=== PATIENT | female | born 1960 | race Caucasian/White ===

== ENCOUNTER 2016-09-23 21:23 | Inpatient (IN) | payer OTHER ==
[~2016-09-23] VITALS: Ht 162.6 cm; Wt 70.2 kg
[~2016-09-23 21:23] MED LIST: ALBU1AER5 INH; AMLO10 PO; LISI-515 PO; SYMB160A INH
[2016-09-23 21:53] VITALS: BP 135/76; PULSE 93; TEMP 98.1; O2SAT 93
[2016-09-23 21:54] VITALS: RESP 24; O2SAT 92
[2016-09-23 21:59] VITALS: BP 135/76; TEMP 98.1; O2SAT 93
[2016-09-23 23:07] VITALS: O2SAT 98
[2016-09-24] VITALS (13 sets, daily range): BP systolic 141–180; BP diastolic 1–108; PULSE 80–104; RESP 17–24; TEMP 97.9–98.8; O2SAT 91–99
--- NOTE | 2016-09-24 00:37 | RADRPT ---
EXAM DATE/TIME: 09/24/2016 00:27 [facility] COMPARISON: CHEST SINGLE AP, August 11, 2016, 11:01. INDICATIONS : Shortness of breath. MEDICAL HISTORY : Chronic obstructive pulmonary disease. Congestive heart failure. SURGICAL HISTORY : None. ENCOUNTER: Initial ACUITY: 1 day PAIN SCORE: 0/10 LOCATION: Bilateral chest FINDINGS: A single view of the chest demonstrates the lungs to be symmetrically aerated without evidence of mas s, infiltrate or effusion. There is hyperaeration of the lung iniguez. The cardiomediastinal contours are unremarkable. Osseous structures are intact. No significant changes compared to the prior study. CONCLUSION: No acute disease. No significant change has occurred. Michael Valle MD on September 24, 2016 at 0:35 Board Certified Radiologist. This report was verified electronically.
[2016-09-24 00:39] LABS: AUTOMATED NEUTROPHIL # 6.5 TH/MM3 (1.8-7.7); BASOPHIL % 0.4 % (0.0-2.0); EOSINOPHIL % 0.1 % (0.0-4.0); HEMATOCRIT 46.1 % (35.0-46.0); HEMO FLAGS DIFF FINAL; LYMPHOCYTE # 0.6 TH/MM3 (1.0-4.8); MEAN CELL VOLUME 92.6 FL (80.0-100.0); MEAN CORPUSCULAR HEMOGLOBIN 31.9 PG (27.0-34.0); MEAN CORPUSCULAR HGB CONC 34.5 % (32.0-36.0); MONO % 0.9 % (0.0-8.0); NEUT % 90.6 % (16.0-70.0); PLATELET COUNT 141 TH/MM3 (150-450); RED BLOOD COUNT 4.98 MIL/MM3 (4.00-5.30); RED CELL DISTRIBUTION WIDTH 14.3 % (11.6-17.2); WHITE BLOOD COUNT 7.1 TH/MM3 (4.0-11.0)
[2016-09-24 01:12] LABS: BICARBONATE 32.5 MEQ/L (21.0-32.0); POTASSIUM 3.9 MEQ/L (3.5-5.1)
--- NOTE | 2016-09-24 02:09 | PD ---
HPI Chief Complaint: Respiratory Symptoms Time Seen by Provider: 01:07 Travel History International Travel<30 days: No Contact w/Intl Traveler<30days: No Traveled to known affect area: No History of Present Illness HPI The patient is a 56 year old female who presents to the [facility] emergency department with a history of shortness of breath that began yesterday. The patient reports that she has a history of asthma and was out of her rescue inhaler. She reports that she recently received a refill of her rescue inhaler and Spiriva at the [facility]. The patient reports that she was then discharged from the emergency department. The patient reports that she's had a cough and congestion over the last several days. She reports that the cough is productive of a yellow and green thick sputum. She denies having any known fevers. She reports that she has chest tightness associated with her shortness of breath. Ambulance services were called regarding this patient's shortness of breath to a local bus stop. The patient was noted to have room air saturations of 87%. The patient was given an albuterol breathing treatment and 125 mg of Solu-Medrol IV. The patient's O2 saturation reportedly improved to 98% on 2 L. On my arrival to the room, the patient is noted to have O2 saturations of 90% on 4 L. The patient has a prolonged expiratory phase of breathing and some conversational dyspnea. The patient incidentally on review of systems also reports that she's had nausea, vomiting, and diarrhea today. She reports that she's had one episode of each. She reports that recently she is also had generalized abdominal discomfort. She denies having a primary care physician. The patient denies any recent known fevers, neck pain, urinary symptoms, or neurologic symptoms. [facility] Past Medical History Narrative Medical The patient's past medical history is obtained through the electronic medical record as the patient is a poor historian regarding her medical history. The patient has a history of asthma, bilateral hearing loss, acid reflux, headaches , hyperlipidemia, history of chest pain, COPD, hypertension, kidney stones, migraine headaches, anemia status post blood transfusion 1. Hx Anticoagulant Therapy: No Anemia: Yes (WITH BLOOD TRANSFUSION X 1) Asthma: Yes Autoimmune Disease: No Cancer: No Cardiovascular Problems: Yes (HTN) High Cholesterol: Yes Chemotherapy: No Chest Pain: Yes Congestive Heart Failure: No COPD: Yes Cerebrovascular Accident: No Coronary Artery Disease: No Diabetes: No Diminished Hearing: Yes ([place]) Endocrine: No Gastrointestinal Disorders: Yes GERD: Yes Genitourinary: Yes Headaches: Yes Hiatal Hernia: No Hypertension: Yes ([place]) Immune Disorder: No Kidney Stones: Yes Musculoskeletal: Yes Neurologic: Yes Psychiatric: No Reproductive: No Respiratory: Yes Immunizations Current: Yes Migraines: Yes Myocardial Infarction: No Renal Failure: No Seizures: No Sleep Apnea: No Thyroid Disease: No Ulcer: No Influenza Vaccination: No ?: Not Menopausal: Yes : 7 Para: 4 Miscarriage: 2 : 1 Ectopic : No Ovarian Cysts: No Dilation and Curettage (D&C): No Tubal Ligation: Yes Past Surgical History Narrative Surgical The patient's past surgical history is significant for bilateral tubal ligation , with some teeth extraction. AICD: No Arteriovenous Shunt: No Section: No Gynecologic Surgery: Yes (tubal) Hysterectomy: No Insulin Pump: No Joint Replacement: No Oral Surgery: Yes (wisdom teeth) Pacemaker: No Other Surgery: No Social History Alcohol Use: Yes (once a week) Tobacco Use: Yes (1/2 pack) Substance Use: No Allergies-Medications (Allergen,Severity, Reaction): Coded Allergies: Darvocet-N 100 (Verified Allergy, Mild, Nausea/Vomiting, 09/23/16) Reported Meds & Prescriptions Reported Meds & Active Scripts Active Review of Systems Except as stated in HPI: all other systems reviewed are Neg General / Constitutional: No: Fever Eyes: No: Visual changes HENT: No: Headaches Cardiovascular: Positive: Chest Pain or Discomfort (chest tightness), No: Dyspnea on exertion Respiratory: Positive: Cough, Shortness of Breath, Wheezing Gastrointestinal: No: Abdominal Pain Genitourinary: No: Dysuria Musculoskeletal: No: Pain Skin: No Rash Neurologic: No: Weakness Psychiatric: No: Depression Endocrine: No: Polydipsia Hematologic/Lymphatic: No: Easy Bruising Physical Exam Narrative General: The patient is a well-developed well-nourished female who is slightly short of breath on examination, prolonged expiratory phase of breathing. O2 saturations 90-91% on 4 L. Head and Neck exam: Head is normocephalic atraumatic. Eyes: Pupils are equal round and reactive to light. Nose: Midline septum with pink mucous membranes Mouth: Dentition unremarkable. Moist mucus membranes. Posterior oropharynx is not erythematous. No tonsillar hypertrophy. Uvula midline. Airway patent. Neck: No palpable lymphadenopathy. No nuchal rigidity. No thyromegaly. Cardiovascular: Regular rate and rhythm without murmurs, gallops, or rubs. Lungs: Soft expiratory wheezes audible throughout bilateral lung iniguez, no rhonchi, no crackles audible. The patient has a productive sounding intermittent cough on exam. Abdomen: Soft, with reported discomfort on palpation of the midepigastric area. No other tenderness on palpation of the other 4 quadrants of abdomen no guarding, rebound, or rigidity. Normal bowel sounds are audible. Extremities: No clubbing, cyanosis, or edema. 2+ pulses in all 4 extremities. No calf tenderness on palpation. Back: No spinous process tenderness to palpation. No costovertebral angle tenderness to palpation. Neurologic Exam: Grossly nonfocal. Skin Exam: No rash noted. Intact skin that is warm and dry. Data Data Last Documented VS Vital Signs Date Time Temp Pulse Resp B/P Pulse Ox O2 Delivery O2 Flow Rate FiO2 09/24/16 00:58 103 22 141/94 94 Nasal Cannula 4 09/23/16 21:59 98.1 Orders Basic Metabolic Panel (Bmp) (09/24/16 00:16) Complete Blood Count With Diff (09/24/16 00:16) Iv Access Insert/Monitor (09/24/16 00:16) Chest, Single Ap (09/24/16 00:16) Sodium Chloride 0.9% Flush (Ns Flush) (09/24/16 02:15) Albuterol-Ipratropium Neb (Duoneb Neb) (09/24/16 02:15) Levofloxacin 750 Mg Premix Inj (Levaquin (09/24/16 02:15) Admit Order (Ed Use Only) (09/24/16 02:56) Sodium Chlor 0.9% 1000 Ml Inj (Ns 1000 M (09/24/16 03:00) Acetaminophen (Tylenol) (09/24/16 03:00) Labs Laboratory Tests Test 09/24/16 00:22 White Blood Count 7.1 TH/MM3 Red Blood Count 4.98 MIL/MM3 Hemoglobin 15.9 GM/DL Hematocrit 46.1 % Mean Corpuscular Volume 92.6 FL Mean Corpuscular Hemoglobin 31.9 PG Mean Corpuscular Hemoglobin 34.5 % Concent Red Cell Distribution Width 14.3 % Platelet Count 141 TH/MM3 Mean Platelet Volume 8.5 FL Neutrophils (%) (Auto) 90.6 % Lymphocytes (%) (Auto) 8.0 % Monocytes (%) (Auto) 0.9 % Eosinophils (%) (Auto) 0.1 % Basophils (%) (Auto) 0.4 % Neutrophils # (Auto) 6.5 TH/MM3 Lymphocytes # (Auto) 0.6 TH/MM3 Monocytes # (Auto) 0.1 TH/MM3 Eosinophils # (Auto) 0.0 TH/MM3 Basophils # (Auto) 0.0 TH/MM3 CBC Comment DIFF FINAL Differential Comment Sodium Level 141 MEQ/L Potassium Level 3.9 MEQ/L Chloride Level 100 MEQ/L Carbon Dioxide Level 32.5 MEQ/L Anion Gap 9 MEQ/L Blood Urea Nitrogen 13 MG/DL Creatinine 0.76 MG/DL Estimat Glomerular Filtration 79 ML/MIN Rate Random Glucose 126 MG/DL Calcium Level 9.2 MG/DL MDM Medical Decision Making Medical Screen Exam Complete: Yes Emergency Medical Condition: Yes Medical Record Reviewed: Yes Interpretation(s) Last Impressions Chest X-Ray 09/24/16 0016 Signed Impressions: Service Date/Time: Saturday, September 24, 2016 00:27 - CONCLUSION: No acute disease. No significant change has occurred. Michael Valle MD Differential Diagnosis COPD exacerbation, versus pneumonia, versus acute bronchitis, versus congestive heart failure Narrative Course During the course of the patients emergency department visit, the patients history, examination, and differential diagnosis were reviewed with the patient. The patient had IV access obtained and blood work sent for analysis. The patient was placed on a railroad dining car stewardess with oximetry and blood pressure monitoring. The patient was provided DuoNeb 3. The patient was given Levaquin 750 mg IV times one. The patients laboratory studies were reviewed and remarkable for a white count of 7.1, hemoglobin 15.9, platelets 141 with 90.6 neutrophils, CMP is remarkable for CO2 of 32.5, glucose 126 Radiology studies were reviewed and remarkable for a chest x-ray that reveals no acute abnormality. The patient continued to have hypoxia on room air. The patient was continued on nasal cannula O2. The patient will be admitted to the hospital for observation and continued nebulizer treatments, IV steroids. The patients results were discussed with the patient, including the plan of care. I explained that further testing and/ or monitoring is indicated based on the patients history, examination, and/ or laboratory findings. Therefore, I recommended admission for additional evaluation. The patient expressed understanding and was agreeable with this plan. The patient was admitted to the hospital in stable condition and sent to a bed under the care of the [facility] service. Sepsis Criteria SIRS Criteria (2 or more): Heart rate over 90 Physician Communication Physician Communication The patient's case was discussed with Dr. Vela who did agree to admit the patient for further evaluation and treatment at this time. Diagnosis Primary Impression: COPD with exacerbation Additional Impression: Bronchitis Admitting Information Admitting Physician Requests: Penelope Hidalgo MD Sep 24, 2016 02:09
[2016-09-24] MEDS ORDERED: LEVOFLOXACIN 750 MG PREMIX INJ 150 ML IV ONE (02:15)
[2016-09-24] MEDS ORDERED: SODIUM CHLORIDE 0.9% FLUSH 5 ML FLUSH IVF PRN (02:15)
[2016-09-24] MEDS: RESP: ALBUTEROL 2.5 MG/IPRATROPIUM 0.5 MG NEB (SCH) INH ×2 (02:25→02:26)
[2016-09-24] MEDS ORDERED: SODIUM CHLOR 0.9% 1000 ML INJ 1,000 ML IV ONE (03:00)
[2016-09-24] MEDS ORDERED: ACETAMINOPHEN 325 MG TAB PO ONE (03:00)
[2016-09-24] MEDS ORDERED: NALOXONE HCL 0.4 MG/ML AMP IV PRN (04:00)
[2016-09-24] MEDS ORDERED: SODIUM CHLORIDE 0.9% FLUSH 5 ML FLUSH FLUSH PRN (04:00)
[2016-09-24] MEDS: RESP: ALBUTEROL 2.5 MG/IPRATROPIUM 0.5 MG NEB (SCH) NEB ×4 (05:13→20:47)
[2016-09-24] MEDS ORDERED: methylPREDNISolone SOD SUCC 40 MG/1 ML VIAL IV PUSH SCH (06:00)
[2016-09-24] MEDS: SODIUM CHLORIDE 0.9% FLUSH 5 ML FLUSH FLUSH SCH ×2 (09:00→21:15)
[2016-09-24] MEDS: PANTOPRAZOLE SOD 40 MG DELAYED RELEASE TAB PO SCH (09:27)
[2016-09-24] MEDS: predniSONE 50 MG TAB PO SCH (11:20)
[2016-09-24] MEDS ORDERED: NICOTINE 14 MG/24 HR PATCH TD ONE (14:30)
[2016-09-24] MEDS ORDERED: AZITHROMYCIN 250 MG TAB PO ONE (14:30)
[2016-09-24 15:47] LABS: BLOOD, URINE TRACE (NEG); COMMENT (UR) CULT NOT INDICATED; CULTURE IF INDICATED CULT NOT INDICATED; GLUCOSE,URINE NEG (NEG); KETONE, URINE NEG (NEG); MUCUS URINE FEW /lpf (OCC); NITRITE,URINE NEG (NEG); SQUAMOUS EPITHELIAL CELL URINE 2 /hpf (0-5); URINE COLOR YELLOW (YELLW/STRAW)
[2016-09-24] MEDS ORDERED: REMOVE OLD NICODERM (NICOTINE) PATCH TD SCH (21:00)
--- NOTE | 2016-09-24 21:25 | MB ---
cc: HUNTER SHERWOOD DATE OF CONSULTATION 09/24/2016 HISTORY Ms. Nava is a 56-year-old white female who has been hospitalized frequently, actually seven times as an inpatient or outpatient in the last year each time for respiratory difficulty. Last here in July. The problem is that she is homeless, she continues to smoke. She has no regular medical care and no consistent medication treatment. She presented this time. She said she stayed a night with her sister so that she could have a roof over her head her sister had some type of aerosol in her house and the fragrance irritated her and the patient could not breathe so she came to the emergency room. On presentation she was wheezing diffusely, was in respiratory distress. She received several aerosol treatments, IV corticosteroids and now is transferred to the floor and is comfortable at rest. PAST MEDICAL HISTORY Past medical history is taken from the record as the patient is a poor historian. None of these problems are treated regularly. She has: 1. Hypertension. 2. A history of kidney stones. 3. A history of diverticulitis. 4. Of course COPD. PAST SURGICAL HISTORY No major surgeries. ALLERGIES NAUSEA AND VOMITING WITH DARVOCET. SOCIAL HISTORY As noted above. She is homeless. She sleeps inside when she can but sleeps outside a lot. Apparently has a history of noncompliance and has not been approved for social security disability. REVIEW OF SYSTEMS She denies chest pain or hemoptysis. She has had no purulent sputum. She is chronically short of breath. She has not had increased swelling in her legs. No history of chronic reflux. No recent diarrhea. She says she is exposed animals in the various places she sleeps. MEDICATIONS Reviewed in the EMR. PHYSICAL EXAMINATION GENERAL: This is much older than stated age appearing woman. Flight of ideas but comfortable at rest. VITAL SIGNS: Afebrile, pulse is 100, respirations are 22, blood pressure 160/90 and 96% saturated on 2 liters. HEAD AND NECK: Sclerae anicteric. Neck veins are not distended. LUNGS: She has diffuse wheezing in both lungs, really no congestion. HEART: Regular rhythm. No harsh murmur. EXTREMITIES: No pitting edema or cyanosis. IMAGING Chest x-ray nothing acute. No infiltrates or fluid. LABORATORY DATA White count 7100, hemoglobin 15. BUN and creatinine are normal. BNP is normal. DISCUSSION Ms. Nava presents with recurrent exacerbation of COPD. Primary problem here is social, she has no home. She has no regular medical care. Continues to come in to the hospital with exacerbations of her COPD related to continued smoking and probably environmental factors as well. She is on appropriate therapy. There is really nothing more that I can add from a pulmonary standpoint at present. If she had a stable environment with regular medications these readmissions might be fewer. R. MD MOR Tejada/KK /6:10 PM /9:08 PM
[2016-09-24 21:46] LABS: AMPHETAMINE, URINE NEG (NEG); BARBITURATES, URINE NEG (NEG); COCAINE, URINE NEG (NEG)
--- NOTE | 2016-09-24 23:49 | HHI.HP ---
[facility] Primary [facility] Physician No Primary Care Physician Admission Diagnosis COPD exacerbation Diagnoses: Travel History International Travel<30 Days: No Contact w/Intl Traveler <30 Da: No Traveled to Known Affected Are: No Review of Systems Other performed and negative except for HPI and past medical history. Past Family Social History Past Medical History Hypertension COPD Chronic tobacco abuse History of kidney stones History of diverticulitis Past Surgical History History of wisdom tooth surgery Reported Medications patient states that she takes no medications. Allergies: Coded Allergies: Darvocet-N 100 (Verified Allergy, Mild, Nausea/Vomiting, 09/23/16) Family History Family history reviewed, and found to be currently noncontributory Social History Patient reports smoking 1 pack per day since being a teenager, however says that she quit recently, however says that she still smokes, just does not inhale. She requests nicotine patch. She denies drinking alcohol. Denies any illicit drugs. She reports that she is homeless. Physical Exam Vital Signs Vital Signs Date Time Temp Pulse Resp B/P Pulse Ox O2 Delivery O2 Flow Rate FiO2 09/24/16 20:53 94 Nasal Cannula 3.00 09/24/16 20:00 98.1 100 20 162/96 91 09/24/16 17:44 97.9 95 20 180/91 93 09/24/16 17:00 92 22 160/1 93 09/24/16 16:00 98 22 166/92 96 2 09/24/16 11:35 98 18 93 Nasal Cannula 2 09/24/16 11:33 98.8 98 18 172/96 93 Nasal Cannula 2 09/24/16 10:11 104 22 169/89 93 Nasal Cannula 2 09/24/16 09:40 94 Nasal Cannula 2.00 09/24/16 09:07 98 17 149/108 94 Nasal Cannula 2 09/24/16 06:16 80 18 168/78 99 Nasal Cannula 4 09/24/16 05:00 18 09/24/16 04:31 80 18 178/96 94 Nasal Cannula 4 09/24/16 00:58 103 22 141/94 94 Nasal Cannula 4 09/24/16 00:15 96 24 151/70 93 Nasal Cannula 2 Physical Exam GENERAL: 56-year-old female sitting up in bed. Appears older than stated age. She is alert and oriented 3. SKIN: No rashes, ecchymoses or lesions. Cool and dry. HEAD: Atraumatic. Normocephalic. No temporal or scalp tenderness. EYES: Pupils equal round and reactive. Extraocular motions intact. No scleral icterus. No injection or drainage. ENT: Nose without bleeding, purulent drainage or septal hematoma. Throat without erythema, tonsillar hypertrophy or exudate. Uvula midline. Airway patent. NECK: Trachea midline. No JVD or lymphadenopathy. Supple, nontender, no meningeal signs. CARDIOVASCULAR: Regular rate and rhythm without murmurs, gallops, or rubs. RESPIRATORY: patient does have expiratory wheezing bilaterally. No crackles. No rhonchi. GASTROINTESTINAL: Abdomen soft, non-tender, nondistended. No hepato-splenomegaly , or palpable masses. No guarding. MUSCULOSKELETAL: Extremities without clubbing, cyanosis, or edema. No joint tenderness, effusion, or edema noted. No calf tenderness. Negative Homans sign bilaterally. NEUROLOGICAL: Awake and alert. Cranial nerves II through XII intact. Motor and sensory grossly within normal limits. Five out of 5 muscle strength in all muscle groups. Normal speech. Laboratory Laboratory Tests Test 09/24/16 09/24/16 09/24/16 00:22 13:42 15:28 White Blood Count 7.1 Red Blood Count 4.98 Hemoglobin 15.9 Hematocrit 46.1 Mean Corpuscular Volume 92.6 Mean Corpuscular Hemoglobin 31.9 Mean Corpuscular Hemoglobin 34.5 Concent Red Cell Distribution Width 14.3 Platelet Count 141 Mean Platelet Volume 8.5 Neutrophils (%) (Auto) 90.6 Lymphocytes (%) (Auto) 8.0 Monocytes (%) (Auto) 0.9 Eosinophils (%) (Auto) 0.1 Basophils (%) (Auto) 0.4 Neutrophils # (Auto) 6.5 Lymphocytes # (Auto) 0.6 Monocytes # (Auto) 0.1 Eosinophils # (Auto) 0.0 Basophils # (Auto) 0.0 CBC Comment DIFF FINAL Differential Comment Sodium Level 141 Potassium Level 3.9 Chloride Level 100 Carbon Dioxide Level 32.5 Anion Gap 9 Blood Urea Nitrogen 13 Creatinine 0.76 Estimat Glomerular Filtration 79 Rate Random Glucose 126 Calcium Level 9.2 B-Type Natriuretic Peptide 30 Urine Color YELLOW Urine Turbidity CLEAR Urine pH 6.0 Urine Specific Harriet 1.021 Urine Protein 30 Urine Glucose (UA) NEG Urine Ketones NEG Urine Occult Blood TRACE Urine Nitrite NEG Urine Bilirubin NEG Urine Urobilinogen LESS THAN 2.0 Urine Leukocyte Esterase TRACE Urine RBC 4 Urine WBC 1 Urine Squamous Epithelial 2 Cells Urine Mucus FEW Microscopic Urinalysis Comment CULT NOT INDICATED Urine Opiates Screen NEG Urine Barbiturates Screen NEG Urine Amphetamines Screen NEG Urine Benzodiazepines Screen NEG Urine Cocaine Screen NEG Urine Cannabinoids Screen NEG Date/Time Procedure Status Source Growth 09/24/16 15:28 Legionella Antigen Received Urine Clean Catch Pending Result Diagram: 09/24/16 0022 09/24/16 0022 Imaging Last Impressions Chest X-Ray 09/24/16 0016 Signed Impressions: Service Date/Time: Saturday, September 24, 2016 00:27 - CONCLUSION: No acute disease. No significant change has occurred. Michael Valle MD Assessment and Plan Assessment and Plan //Acute COPD exacerbation -Chest x-ray reviewed. IV steroids. Duo nebs. Antibiotics. Incentive spirometer and Acapella. -Pulmonology consultation. //Hypertension. Chronic. Systolic blood pressure up to 170s today. Clonidine when necessary for systolic blood pressure over 180. Monitor closely. //Chronic smoking. Cessation counseling provided. Nicotine patch ordered. //Thrombocytopenia. Mild. No bleeding. Monitor. //Prophylaxis. Lovenox ordered. Discussed Condition With patient, nurse. Physician Certification 2 Midnight Certification Type: Admission for Inpatient Services Order for Inpatient Services The services are ordered in accordance with Medicare regulations or non- Medicare payer requirements, as applicable. In the case of services not specified as inpatient-only, they are appropriately provided as inpatient services in accordance with the 2-midnight benchmark. Estimated LOS (days): 2 days is the estimated time the patient will need to remain in the hospital, assuming treatment plan goals are met and no additional complications. Post-Hospital Plan: Home Jose Loving MD Sep 24, 2016 23:48
[2016-09-25] VITALS (8 sets, daily range): BP systolic 116–214; BP diastolic 54–108; PULSE 76–103; RESP 18–20; TEMP 97.1–98.4; O2SAT 92–99
[2016-09-25] MEDS: RESP: ALBUTEROL 2.5 MG/IPRATROPIUM 0.5 MG NEB (PRN) NEB ×2 (00:43→13:47)
[2016-09-25] MEDS: ENOXAPARIN SODIUM 40 MG/0.4 ML SYRINGE SQ SCH ×2 (00:45)
[2016-09-25] MEDS: RESP: ALBUTEROL 2.5 MG/IPRATROPIUM 0.5 MG NEB (SCH) NEB ×4 (02:59→22:45)
[2016-09-25 06:53] LABS: AUTOMATED NEUTROPHIL # 7.8 TH/MM3 (1.8-7.7); BASOPHIL % 0.1 % (0.0-2.0); EOSINOPHIL % 0.2 % (0.0-4.0); HEMATOCRIT 43.1 % (35.0-46.0); HEMO FLAGS DIFF FINAL; LYMPH % 14.8 % (9.0-44.0); LYMPHOCYTE # 1.5 TH/MM3 (1.0-4.8); MEAN CELL VOLUME 92.6 FL (80.0-100.0); MEAN CORPUSCULAR HEMOGLOBIN 31.3 PG (27.0-34.0); MEAN CORPUSCULAR HGB CONC 33.7 % (32.0-36.0); MONO % 6.5 % (0.0-8.0); NEUT % 78.4 % (16.0-70.0); PLATELET COUNT 156 TH/MM3 (150-450); RED BLOOD COUNT 4.65 MIL/MM3 (4.00-5.30); RED CELL DISTRIBUTION WIDTH 14.4 % (11.6-17.2); WHITE BLOOD COUNT 9.9 TH/MM3 (4.0-11.0)
[2016-09-25 07:03] LABS: BICARBONATE 31.9 MEQ/L (21.0-32.0); POTASSIUM 3.7 MEQ/L (3.5-5.1)
[2016-09-25] MEDS ORDERED: SODIUM CHLOR 0.9% 250 ML INJ 250 ML IV ONE (09:00)
[2016-09-25] MEDS: predniSONE 50 MG TAB PO SCH (09:44)
[2016-09-25] MEDS: LEVOFLOXACIN 750 MG TAB PO SCH (09:46)
[2016-09-25] MEDS: PANTOPRAZOLE SOD 40 MG DELAYED RELEASE TAB PO SCH (09:47)
[2016-09-25] MEDS: SODIUM CHLORIDE 0.9% FLUSH 5 ML FLUSH FLUSH SCH ×2 (09:50→21:27)
[2016-09-25] MEDS ORDERED: INFLUENZA VIRUS VACCINE (QUADRIVALENT) 0.5 ML SYR IM ONE (10:00)
[2016-09-25] MEDS ORDERED: PNEUMOCOCCAL POLYVALENT INJ 25 MCG/0.5 ML SYR IM ONE (10:00)
[2016-09-25] MEDS ORDERED: DOCUSATE SODIUM 50 MG/SENNA 8.6 MG TAB PO ONE (12:30)
[2016-09-25] MEDS: 1/2 NS + KCL 20 MEQ INJ 1,000 ML IV SCH (12:45)
[2016-09-25] MEDS ORDERED: DIATRIZOATE MEGLUM/DIATRIZOATE SOD 9 ML CUP PO ONE (13:01)
[2016-09-25] MEDS: cloNIDine HCL 0.1 MG TAB PO PRN ×2 (13:35→21:26)
[2016-09-25] MEDS: AZITHROMYCIN 250 MG TAB PO SCH (13:35)
[2016-09-25 20:03] LABS: BICARBONATE 33.4 MEQ/L (21.0-32.0); INDIRECT BILIRUBIN 0.1 MG/DL (0.0-0.8); POTASSIUM 4.3 MEQ/L (3.5-5.1); TOTAL BILIRUBIN ADULT 0.2 MG/DL (0.2-1.0)
[2016-09-25] MEDS ORDERED: IOHEXOL 350 MG/ML 10 ML VIAL (for RAD DIAG) IV ONE (20:14)
--- NOTE | 2016-09-25 22:39 | RADRPT ---
EXAM DATE/TIME: 09/25/2016 20:07 [facility] COMPARISON: No previous studies available for comparison. INDICATIONS : Diffuse abdominal pain. IV CONTRAST: 74 cc Omnipaque 350 (iohexol) IV ORAL CONTRAST: Prescribed oral contrast ingested. RADIATION DOSE: 6.38 CTDIvol (mGy) MEDICAL HISTORY : Cardiovascular disease. Hypertension. Chronic obstructive pulmonary disease. SURGICAL HISTORY : None. ENCOUNTER: Initial ACUITY: 1 day PAIN SCALE: 6/10 LOCATION: abdomen TECHNIQUE: Volumetric scanning of the abdomen and pelvis was performed. Using automated exposure control and ad justment of the mA and/or kV according to patient size, radiation dose was kept as low as reasonably achievable to obtain optimal diagnostic quality images. FINDINGS: LOWER LUNGS: The visualized lower lungs are clear. LIVER: Homogeneous density without lesion. There is no dilation of the biliary tree. No calcified gallston es. SPLEEN: Normal size without lesion. PANCREAS: Within normal limits. KIDNEYS: Tiny nonobstructing right renal stones aerated left renal cysts. No hydronephrosis. No suspicious mas s. ADRENAL GLANDS: Mild low density prominence of the left adrenal which appears benign. VASCULAR: Patchy atherosclerotic changes and intimal calcifications. No aneurysm. No major vessel occlusion. Re troaortic left renal vein BOWEL/MESENTERY: Distal colonic diverticula. No abnormal dilatation, wall thickening or focal inflammatory change. ABDOMINAL WALL: Within normal limits. RETROPERITONEUM: There is no lymphadenopathy. BLADDER: No wall thickening or mass. REPRODUCTIVE: Fibroid uterus. No free fluid. INGUINAL: There is no lymphadenopathy or hernia. MUSCULOSKELETAL: Within normal limits for patient age. CONCLUSION: No definite acute CT findings in the abdomen or pelvis. Clayton Connor MD on September 25, 2016 at 22:33 Board Certified Radiologist. This report was verified electronically.
[2016-09-25] MEDS ORDERED: HYDROCHLOROTHIAZIDE 12.5 MG CAP PO ONE (23:30)
--- NOTE | 2016-09-25 23:34 | HHI.PR ---
Subjective Remarks patient seen today around noon. Patient walking around for conduction evaluation. She denies any chest pain. She does report shortness of breath is a little improved. She reports constant sharp left lower quadrant abdominal pain. She continues with good appetite, entire lunch and 5 minutes. Positive bowel movement. She denies constipation. Objective Vital Signs Date Time Temp Pulse Resp B/P Pulse Ox O2 Delivery O2 Flow Rate FiO2 09/25/16 22:45 96 Nasal Cannula 2.00 09/25/16 20:30 97.8 95 20 192/108 93 09/25/16 16:00 98.4 96 20 174/89 92 09/25/16 12:00 97.1 100 20 214/102 94 09/25/16 08:47 97.8 76 18 117/56 96 09/25/16 08:00 93 Room Air 09/25/16 04:00 97.8 99 20 116/54 99 09/25/16 00:00 98.3 95 20 162/77 98 I/O 09/24/16 09/24/16 09/24/16 09/25/16 09/25/16 09/25/16 06:59 14:59 22:59 06:59 14:59 22:59 Intake Total 360 ml 0 ml 0 ml 720 ml 0 ml Balance 360 ml 0 ml 0 ml 720 ml 0 ml Intake Oral 360 ml 720 ml 0 ml IV Total 0 ml 0 ml # Voids 5 5 # Bowel Movements 2 1 Result Diagram: 09/25/16 0527 09/25/16 1855 Objective Remarks GENERAL: patient sitting up in bed, observed walking in stoner. Alert and oriented 3. SKIN: Warm and dry. HEAD: Normocephalic. EYES: No scleral icterus. No injection or drainage. NECK: Supple, trachea midline. No JVD or lymphadenopathy. CARDIOVASCULAR: Regular rate and rhythm without murmurs, gallops, or rubs. RESPIRATORY: Breath sounds equal bilaterally. No accessory muscle use.continues with bilateral wheezes. No rhonchi. GASTROINTESTINAL: Abdomen soft, non-tender, nondistended. MUSCULOSKELETAL: No cyanosis, or edema. BACK: Nontender without obvious deformity. No CVA tenderness. A/P Assessment and Plan //Acute COPD exacerbation -Chest x-ray reviewed. IV steroids. Duo nebs. Antibiotics. Incentive spirometer and Acapella. -Pulmonology following. Appreciate assistance. still requiring 2 L of oxygen. Wean steroids. //Hypertension. Chronic. Systolic blood pressure up to 170s today. Clonidine when necessary for systolic blood pressure over 180. Monitor closely. -Systolic blood pressure still elevated in the 190s. Add hydrochlorothiazide daily. Continue clonidine when necessary. //Atypical abdominal pain, with tenderness to palpation on exam today. CT abdomen without any acute findings. Continue diet as tolerated. //Chronic smoking. Cessation counseling provided. Continue nicotine patch. //Thrombocytopenia. Mild. No bleeding. Monitor. //Prophylaxis. Lovenox ordered. Discharge Planning patient requiring 2 L of oxygen. Patient is homeless and self-pay. Continue to monitor for improvement Jose Loving MD Sep 25, 2016 23:34
[2016-09-26] VITALS (8 sets, daily range): BP systolic 165–202; BP diastolic 86–106; PULSE 75–111; RESP 18–22; TEMP 97.6–98.3; O2SAT 90–96
[2016-09-26] MEDS: ENOXAPARIN SODIUM 40 MG/0.4 ML SYRINGE SQ SCH
[2016-09-26] MEDS: 1/2 NS + KCL 20 MEQ INJ 1,000 ML IV SCH ×3 (02:43→23:09)
[2016-09-26] MEDS: RESP: ALBUTEROL 2.5 MG/IPRATROPIUM 0.5 MG NEB (SCH) NEB ×4 (04:21→20:40)
[2016-09-26] MEDS: cloNIDine HCL 0.1 MG TAB PO PRN ×2 (05:35→15:46)
[2016-09-26] MEDS: predniSONE 50 MG TAB PO SCH (08:21)
[2016-09-26] MEDS: LEVOFLOXACIN 750 MG TAB PO SCH (08:21)
[2016-09-26] MEDS: HYDROCHLOROTHIAZIDE 25 MG TAB PO SCH (08:21)
[2016-09-26] MEDS: PANTOPRAZOLE SOD 40 MG DELAYED RELEASE TAB PO SCH (08:21)
[2016-09-26] MEDS: SODIUM CHLORIDE 0.9% FLUSH 5 ML FLUSH FLUSH SCH ×2 (08:22→21:00)
[2016-09-26] MEDS ORDERED: RESP: IPRATROPIUM 0.5 MG/2.5 ML NEB NEB PRN (11:00)
[2016-09-26] MEDS: AZITHROMYCIN 250 MG TAB PO SCH (15:00)
--- NOTE | 2016-09-26 15:06 | PD.CONS ---
HPI Chief Complaint vaginal bleeding Date Seen: Sep 26, 2016 Time Seen: 14:30 (Andres Rodriguez MD R2) Travel History International Travel<30 Days: No Contact w/Intl Traveler<30Days: No Known Affected Area: No (Andres Rodriguez MD) History of Present Illness HPI 56 year old female here for COPD exacerbation. Gynecology consulted for post- menopausal bleeding. She has left lower and mid-lower abdominal pain as well. Symptoms started 3 to 4 weeks ago. She has no history of post-menopausal bleeding. 3 to 4 weeks ago she started to spot. Since then, vaginal bleeding has been intermittent and is less than a menstrual period. She has passed a few blood clots. She reached menarche age 13. She is with 4 vaginal deliveries. She has a history of tubal ligation. She stopped having menstrual periods 5 years ago. She reports no history of cancers. Her aunt had breast cancer in her 60's, but otherwise no family history of endometrial, ovarian, uterine, or breast cancer. She is uncertain of the amount of bleeding, noting that she sees dried blood in her diaper when she goes to the restroom. She has not noticed any brisk vaginal bleeding. She has not felt lightheaded or dizzy. She is not having palpitations. She does not feel fatigued. She does not have a stock blender. (Andres Rodriguez MD R2) History Past Medical History Narrative Medical COPD HTN CHF (Andres Rodriguez MD R2) Obstetric History Obstetric History , four vaginal deliveries Menopause 5 years ago Menarche age 13 No stock blender currently (Andres Rodriguez MD R2) Past Surgical History Narrative Surgical Oral surgery for wisdom teeth removal (Andres Rodriguez MD R2) Family History Narrative Family History Aunt with breast cancer in her 60's (Andres Rodriguez MD R2) Social History Narrative Social History Smokes PPD Drinks 2 beers per night No drug use Currently homeless (Andres Rodriguez MD R2) Allergies-Medications (Allergen,Severity, Reaction): Coded Allergies: Darvocet-N 100 (Verified Allergy, Mild, Nausea/Vomiting, 09/23/16) Home Meds Discontinued Scripts Albuterol Powder Inh (Proair Respiclick Inh)90 Mcg/Act Aerp1 Puff INH Q4H PRN ( SHORTNESS OF BREATH) #1 INHALER Ref 0 Prov:Carlos Petit 08/19/16 Budesonide-Formoterol Inh (Symbicort Inh)160-4.5 Mcg/Act Aero2 Puff INH Q12HR 30 Days Prov:Carlos Petit 08/19/16 Lisinopril 20 Mg Tab20 Mg PO DAILY 30 Days Prov:Carlos Petit 08/19/16 Amlodipine (Norvasc)10 Mg Tab10 Mg PO DAILY 30 Days Prov:Carlos Petit 08/19/16 Review of Systems General / Constitutional: No: Fever, Chills HENT: No: Lightheadedness Respiratory: No: Short of Breath, Wheezing Genitourinary: Vaginal Bleeding, No: Discharge Neurologic: No: Weakness, Dizziness, Syncope (Andres Rodriugez MD R2) Physical Exam Narrative GENERAL: Somewhat disheveled, no acute distress SKIN: Clear HEAD: Normocephalic and atraumatic. EYES: No pale conjunctiva CARDIOVASCULAR: Regular rate and rhythm without murmurs, gallops, or rubs. RESPIRATORY: Diffuse wheezing ABDOMEN/GI: Mild distension with positive fluid wave GENITOURINARY: External Genitalia: intact and normal in appearance No active vaginal bleeding Dried blood, moderate amount, noted on diaper EXTREMITIES: No cyanosis or edema. NEUROLOGICAL: Awake and alert. (Andres Rodriguez MD R2) Data Data Vital Signs Reviewed: Yes Orders Iohexol 350 Inj (Omnipaque 350 Inj) (09/25/16 20:14) Diet Heart Healthy (09/25/16 Dinner) Hydrochlorothiazide (Microzide) (09/25/16 23:30) Hydrochlorothiazide (Hydrodiuril) (09/26/16 09:00) Ipratropium Neb (Atrovent Neb) (09/26/16 11:00) Nicotine 14 Mg Patch.24 Hr (Habitrol 14 (09/27/16 09:00) Consult Gynecology (09/26/16 ) Resp Home Oxygen Walk Test (09/27/16 06:00) Remove Old Patch (09/27/16 21:00) (Hub Use Only)Inp Phy Cons/Ref (09/26/16 ) Labs Laboratory Tests Test 09/25/16 09/25/16 14:59 18:55 Prothrombin Time 11.0 Prothromb Time International 1.0 Ratio Sodium Level 137 Potassium Level 4.3 Chloride Level 100 Carbon Dioxide Level 33.4 Anion Gap 4 Blood Urea Nitrogen 19 Creatinine 0.79 Estimat Glomerular Filtration 76 Rate Random Glucose 111 Calcium Level 8.9 Total Bilirubin 0.2 Direct Bilirubin 0.1 Indirect Bilirubin 0.1 Aspartate Amino Transf 22 (AST/SGOT) Alanine Aminotransferase 31 (ALT/SGPT) Alkaline Phosphatase 73 Total Protein 6.7 Albumin 3.5 Human Chorionic Gonadotropin, 2 Quant Date/Time Procedure Status Source Growth 09/24/16 15:28 Legionella Antigen - Final Complete Urine Clean Catch PRESUMPTIVE NEGATIVE FOR LEGIONELLA P... (Andres Rodriguez MD R2) MDM Medical Record Reviewed: Yes Interpretation(s) 56 year old female with post-menopausal bleeding. No active brisk bleeding at this time. H&H normal and stable. - There is 5 to 10% risk of malignant cause, versus 90% non-malignant. Of course , risk is increased with a history of smoking. She does not have a significant family history of gynecological malignancy. Recommend referral to gynecology with endometrial biopsy or at least transvaginal ultrasound as an outpatient. She does not have a stock blender currently and a difficult living situation. She would benefit from case management to help set up outpatient follow up. Discussed with Dr. Caly Admitting diagnosis: COPD exacerbation (Andres Rodriguez MD R2) Patient Instructions: Heart Failure (DC) Attestation Patient seen and evaluated with the resident under direct supervision, I agree with the assessment and plan. (Beni Gaona MD) Andres Rodriguez MD R2 Sep 26, 2016 15:06 Beni Gaona MD Sep 26, 2016 18:24
[2016-09-26] MEDS: NICOTINE 14 MG/24 HR PATCH TD SCH (15:30)
[2016-09-26] MEDS: REMOVE OLD NICODERM (NICOTINE) PATCH TD SCH (21:00)
[2016-09-26] MEDS: predniSONE 20 MG TAB PO SCH (21:23)
--- NOTE | 2016-09-26 23:41 | HHI.PR ---
Subjective Remarks patient seen today around 10 AM. she says that shortness of breath is a little better.Patient says that left lower quadrant abdominal pain is still present. She notes a large amount of vaginal bleeding this morning. She reports vaginal bleeding over the past 2 weeks. menopause. Last period 5 years ago. Objective Vital Signs Date Time Temp Pulse Resp B/P Pulse Ox O2 Delivery O2 Flow Rate FiO2 09/26/16 20:40 92 09/26/16 20:27 98.0 79 20 173/93 91 09/26/16 16:00 97.6 88 22 177/91 90 09/26/16 12:00 97.9 94 22 184/102 90 09/26/16 08:17 96 09/26/16 08:00 97.6 111 20 165/86 91 09/26/16 08:00 97 Nasal Cannula 2.00 09/26/16 05:15 97.9 90 18 202/106 91 I/O 09/25/16 09/25/16 09/25/16 09/26/16 09/26/16 09/26/16 07:00 15:00 23:00 07:00 15:00 23:00 Intake Total 0 ml 720 ml 0 ml 240 ml 480 ml Output Total 1000 ml Balance 0 ml 720 ml 0 ml -760 ml 480 ml Intake Oral 720 ml 0 ml 240 ml 480 ml IV Total 0 ml Output Urine Total 1000 ml # Voids 5 5 4 # Bowel Movements 2 1 0 0 Result Diagram: 09/25/16 0527 09/25/16 1855 Objective Remarks GENERAL: patient sitting up in bed,appears comfortable. Alert and oriented 3. SKIN: Warm and dry. HEAD: Normocephalic. EYES: No scleral icterus. No injection or drainage. NECK: Supple, trachea midline. No JVD. CARDIOVASCULAR: Regular rate and rhythm without murmurs, gallops, or rubs. RESPIRATORY: Breath sounds equal bilaterally. No accessory muscle use.continues with bilateral wheezes. No rhonchi. GASTROINTESTINAL: Abdomen soft, non-tender, nondistended. MUSCULOSKELETAL: No cyanosis, or edema. BACK: Nontender without obvious deformity. No CVA tenderness. A/P Assessment and Plan //Acute COPD exacerbation -Chest x-ray reviewed. IV steroids. Duo nebs. Antibiotics. Incentive spirometer and Acapella. -Pulmonology following. Appreciate assistance. still requiring 2 L of oxygen. -Continue to Wean steroids. //Hypertension. Chronic. Systolic blood pressure up to 170s today. Clonidine when necessary for systolic blood pressure over 180. Monitor closely. -Systolic blood pressure still elevated in the 190s. -Continue hydrochlorothiazide daily. Continue clonidine when necessary. //Atypical abdominal pain, with tenderness to palpation on exam today. CT abdomen without any acute findings. Continue diet as tolerated. //Chronic smoking. Cessation counseling provided. Continue nicotine patch. //Thrombocytopenia. Mild. No bleeding. Stable. Monitor. //Lower abdominal pain. Postmenopausal bleeding. Hold Lovenox. //Prophylaxis. Hold Lovenox due to postmenopausal bleeding. Patient is on ambulatory Discharge Planning patient requiring 2 L of oxygen. Patient is homeless and self-pay. Continue to monitor for improvement Jose Loving MD Sep 26, 2016 23:41
[2016-09-27] VITALS (9 sets, daily range): BP systolic 163–205; BP diastolic 85–108; PULSE 80–94; RESP 18–20; TEMP 97.8–98.3; O2SAT 91–97
[2016-09-27] MEDS: cloNIDine HCL 0.1 MG TAB PO PRN ×3 (00:50→17:18)
[2016-09-27] MEDS: ACETAMINOPHEN 325 MG TAB PO PRN ×4 (01:17→21:14)
[2016-09-27] MEDS ORDERED: ENALAPRILAT 2.5 MG/2 ML VIAL IV PUSH ONE (05:30)
[2016-09-27 07:26] LABS: AUTOMATED NEUTROPHIL # 7.4 TH/MM3 (1.8-7.7); BASOPHIL % 0.1 % (0.0-2.0); HEMATOCRIT 45.1 % (35.0-46.0); HEMO FLAGS DIFF FINAL; LYMPH % 9.8 % (9.0-44.0); LYMPHOCYTE # 0.8 TH/MM3 (1.0-4.8); MEAN CELL VOLUME 92.7 FL (80.0-100.0); MEAN CORPUSCULAR HEMOGLOBIN 31.4 PG (27.0-34.0); MEAN CORPUSCULAR HGB CONC 33.9 % (32.0-36.0); MONO % 3.7 % (0.0-8.0); NEUT % 86.4 % (16.0-70.0); PLATELET COUNT 148 TH/MM3 (150-450); RED BLOOD COUNT 4.86 MIL/MM3 (4.00-5.30); WHITE BLOOD COUNT 8.6 TH/MM3 (4.0-11.0)
[2016-09-27 07:29] LABS: BICARBONATE 30.6 MEQ/L (21.0-32.0); POTASSIUM 3.9 MEQ/L (3.5-5.1)
[2016-09-27] MEDS: RESP: ALBUTEROL 2.5 MG/IPRATROPIUM 0.5 MG NEB (SCH) NEB ×3 (07:32→20:00)
[2016-09-27] MEDS: SODIUM CHLORIDE 0.9% FLUSH 5 ML FLUSH FLUSH SCH ×2 (08:01→21:17)
[2016-09-27] MEDS: HYDROCHLOROTHIAZIDE 25 MG TAB PO SCH (08:03)
[2016-09-27] MEDS: PANTOPRAZOLE SOD 40 MG DELAYED RELEASE TAB PO SCH (08:03)
[2016-09-27] MEDS: predniSONE 20 MG TAB PO SCH ×2 (08:03→21:15)
[2016-09-27] MEDS: LEVOFLOXACIN 750 MG TAB PO SCH (08:03)
[2016-09-27] MEDS: NICOTINE 14 MG/24 HR PATCH TD SCH (08:03)
[2016-09-27] MEDS ORDERED: NIFEdipine 30 MG SUSTAINED RELEASE TAB PO ONE (10:30)
[2016-09-27] MEDS: REMOVE OLD NICODERM (NICOTINE) PATCH TD SCH (21:00)
--- NOTE | 2016-09-28 00:11 | HHI.PR ---
Subjective Remarks late entry. Date of service 09/27/16. pt seen the morning of 09/27/16. Walking in stoner. Appreciate respiratory assistance. Still short of breath after activity. Although improved. Patient denies any chest pain. States that shortness of breath is improving. He continues her report chronic abdominal pain over the past month. She agrees to follow up with primary care as an outpatient. Objective Vital Signs Date Time Temp Pulse Resp B/P Pulse Ox O2 Delivery O2 Flow Rate FiO2 09/27/16 21:12 Room Air 09/27/16 20:02 96 Nasal Cannula 09/27/16 18:16 171/97 09/27/16 16:00 97.8 80 18 193/106 92 09/27/16 14:52 168/93 09/27/16 12:00 98.3 94 20 190/98 91 09/27/16 08:00 Nasal Cannula 2.00 21 09/27/16 08:00 98.0 82 18 173/92 94 09/27/16 07:31 94 21 09/27/16 04:15 98.1 80 18 205/107 97 194/108 I/O 09/27/16 09/27/16 09/27/16 09/28/16 09/28/16 09/28/16 07:00 15:00 23:00 07:00 15:00 23:00 Intake Total 1392 ml 1508 ml Balance 1392 ml 1508 ml Intake Oral 720 ml 1080 ml IV Total 672 ml 428 ml # Voids 4 4 # Bowel Movements 0 0 Result Diagram: 09/27/16 0537 09/27/16 0537 Objective Remarks GENERAL: patient sitting up in bed,appears comfortable. Alert and oriented 3.exam unchanged. SKIN: Warm and dry. HEAD: Normocephalic. EYES: No scleral icterus. No injection or drainage. NECK: Supple, trachea midline. No JVD. CARDIOVASCULAR: Regular rate and rhythm without murmurs, gallops, or rubs. RESPIRATORY: Breath sounds equal bilaterally. No accessory muscle use.continues with bilateral wheezes. No rhonchi. GASTROINTESTINAL: Abdomen soft, non-tender, nondistended. MUSCULOSKELETAL: No cyanosis, or edema. BACK: Nontender without obvious deformity. No CVA tenderness. A/P Assessment and Plan //Acute COPD exacerbation -Chest x-ray reviewed. IV steroids. Duo nebs. Antibiotics. Incentive spirometer and Acapella. -Pulmonology following. Appreciate assistance. still requiring 2 L of oxygen. -Continue to Wean steroids. //Hypertension. Chronic. Systolic blood pressure up to 170s today. Clonidine when necessary for systolic blood pressure over 180. Monitor closely. -Systolic blood pressure still elevated in the 190s. -Continue hydrochlorothiazide daily. Continue clonidine when necessary. -09/27. Blood pressure elevated. Added nifedipine 30 mg daily. Continue to monitor. //Lower abdominal pain. // Postmenopausal bleeding. //Fibroid uterus. Hold Lovenox. -CT abdomen wit fibroids Continue diet as tolerated. -Appreciate gynecology assistance. Patient will need to follow with mountain or glacier guide as outpatient. //Chronic smoking. Cessation counseling provided. Continue nicotine patch. //Thrombocytopenia. Mild. No bleeding. Stable. Monitor. //Prophylaxis. Hold Lovenox due to postmenopausal bleeding. Patient is on ambulatory Discharge Planning patient requiring 2 L of oxygen. Patient is homeless and self-pay. Continue to monitor for improvement Jose Loving MD Sep 28, 2016 00:11
[2016-09-28 04:00] VITALS: BP 160/110; PULSE 96; RESP 18; TEMP 98.2; O2SAT 92
[2016-09-28] MEDS: cloNIDine HCL 0.1 MG TAB PO PRN ×2 (04:44→11:27)
[2016-09-28] MEDS: ACETAMINOPHEN 325 MG TAB PO PRN ×2 (04:44→11:10)
[2016-09-28] MEDS: RESP: ALBUTEROL 2.5 MG/IPRATROPIUM 0.5 MG NEB (SCH) NEB ×2 (07:17→11:08)
[2016-09-28] MEDS: NICOTINE 14 MG/24 HR PATCH TD SCH (07:58)
[2016-09-28] MEDS: REMOVE OLD NICODERM (NICOTINE) PATCH TD SCH (07:59)
[2016-09-28] MEDS: predniSONE 20 MG TAB PO SCH (07:59)
[2016-09-28] MEDS: PANTOPRAZOLE SOD 40 MG DELAYED RELEASE TAB PO SCH (07:59)
[2016-09-28] MEDS: HYDROCHLOROTHIAZIDE 25 MG TAB PO SCH (07:59)
[2016-09-28] MEDS: LEVOFLOXACIN 750 MG TAB PO SCH (07:59)
[2016-09-28] MEDS: SODIUM CHLORIDE 0.9% FLUSH 5 ML FLUSH FLUSH SCH (07:59)
[2016-09-28 08:00] VITALS: BP 173/108; PULSE 87; RESP 20; TEMP 98.1; O2SAT 92
[2016-09-28] MEDS ORDERED: NIFEdipine 30 MG SUSTAINED RELEASE TAB PO SCH ×2 (09:00)
[2016-09-28] MEDS ORDERED: NIFEdipine 60 MG SUSTAINED RELEASE TAB PO SCH (09:00)
[2016-09-28 12:00] VITALS: BP 154/102; PULSE 92; RESP 20; TEMP 98.1; O2SAT 93
[2016-09-28] MEDS ORDERED: ALBUAER3 INH (12:02)
[2016-09-28] MEDS ORDERED: PRED10PA2 PO (12:02)
[2016-09-28] MEDS ORDERED: NIFE15TA PO (12:02)
[2016-09-28] MEDS ORDERED: OMEP40CA2 PO (12:02)
[2016-09-28] MEDS ORDERED: HYDR25TA5 PO (12:02)
[2016-09-28] MEDS ORDERED: LEVA750T PO (12:02)
[2016-09-28] MEDS ORDERED: IPRAAER INH (12:02)
[2016-09-28] MEDS ORDERED: SYMB160A INH (12:02)
[2016-09-28] MEDS ORDERED: NIFE1TAB PO (12:28)
[2016-09-28] MEDS ORDERED: NIFEdipine 30 MG SUSTAINED RELEASE TAB PO ONE (13:00)
[2016-09-28 14:00] VITALS: BP 136/78
--- NOTE | 2016-09-29 06:19 | HHI.PR ---
Subjective Remarks Date of service 09/28/16. Late entry. Patient seen the morning of 09/28/16. - Patient says her shortness of breath is much better. Denies any chest pain. Abdominal pain is controlled. No vaginal bleeding. Objective Vital Signs Date Time Temp Pulse Resp B/P Pulse Ox O2 Delivery O2 Flow Rate FiO2 09/28/16 14:00 136/78 09/28/16 12:00 98.1 92 20 154/102 93 09/28/16 08:14 Room Air 09/28/16 08:00 98.1 87 20 173/108 92 I/O 09/28/16 09/28/16 09/28/16 09/29/16 09/29/16 09/29/16 07:00 15:00 23:00 07:00 15:00 23:00 Intake Total 720 ml Balance 720 ml Intake Oral 720 ml # Voids 4 # Bowel Movements 1 Result Diagram: 09/27/16 0537 09/27/16 0537 Imaging Last Impressions Abdomen/Pelvis CT 09/25/16 0000 Signed Impressions: Service Date/Time: August 20:07 - CONCLUSION: No definite acute CT findings in the abdomen or pelvis. Clayton Connor MD Chest X-Ray 09/24/16 0016 Signed Impressions: Service Date/Time: Saturday, September 24, 2016 00:27 - CONCLUSION: No acute disease. No significant change has occurred. Michael Valle MD Objective Remarks GENERAL: patient sitting up in bed,appears comfortable. Alert and oriented 3. patient is on room air SKIN: Warm and dry. HEAD: Normocephalic. EYES: No scleral icterus. No injection or drainage. NECK: Supple, trachea midline. No JVD. CARDIOVASCULAR: Regular rate and rhythm without murmurs, gallops, or rubs. RESPIRATORY: Breath sounds equal bilaterally. No accessory muscle use. bilateral wheezing much improved. No rhonchi. GASTROINTESTINAL: Abdomen soft, non-tender, nondistended. MUSCULOSKELETAL: No cyanosis, or edema. BACK: Nontender without obvious deformity. No CVA tenderness. A/P Assessment and Plan //Acute COPD exacerbation -Chest x-ray reviewed. IV steroids. Duo nebs. Antibiotics. Incentive spirometer and Acapella. -Pulmonology following. Appreciate assistance. still requiring 2 L of oxygen. -Continue to Wean steroids. -We'll place patient on Combivent inhaler scheduled. When necessary albuterol inhaler. Twice daily Symbicort as well. Steroid taper. Follow-up with primary care. //Hypertension. Chronic. Systolic blood pressure up to 170s today. Clonidine when necessary for systolic blood pressure over 180. Monitor closely. -Systolic blood pressure still elevated in the 190s. -Continue hydrochlorothiazide daily. Continue clonidine when necessary. -09/27. Blood pressure elevated. Added nifedipine 30 mg daily. Continue to monitor. -09/28. Blood pressure continues elevated. Increase nifedipine to 90 mg long- acting daily. Continue hydrochlorothiazide. Blood pressure acceptable. We'll need to follow up with primary care. //Lower abdominal pain. // Postmenopausal bleeding. //Fibroid uterus. Hold Lovenox. -CT abdomen wit fibroids Continue diet as tolerated. -Appreciate gynecology assistance. Patient will need to follow with show jumping instructor as outpatient. //Chronic smoking. Cessation counseling provided. Continue nicotine patch. //Thrombocytopenia. Mild. No bleeding. Stable. Monitor. //Prophylaxis. Hold Lovenox due to postmenopausal bleeding. Patient is ambulatory Discharge Planning patient on room air. Patient is homeless and self-pay. -will need follow-up with gynecology. Mandatory outpatient follow-up -when he follow-up with primary care. Patient agrees to follow up in community clinic. Appreciate case management assistance. Jose Loving MD Sep 29, 2016 06:19
--- NOTE | 2016-09-29 06:21 | HHI.DS ---
Discharge Summary Admission Date Sep 24, 2016 at 02:58 Discharge Date: Sep 28, 2016 Admitting Diagnosis COPD exacerbation (1) COPD with exacerbation ICD Code: J44.1 (2) Accelerated hypertension ICD Code: I10 (3) Fibroid uterus ICD Code: D25.9 (4) Post-menopausal bleeding ICD Code: N95.0 Procedures no invasive procedures performed. Brief History - From Admission Patient reports 1 day history of nonexertional shortness of breath, with several day history of cough productive of green sputum. In the ER She was found to be hypoxic, with saturation of 87% on room air. Patient denies any fevers or chills. Denies any chest pain. CBC/BMP: 09/27/16 0537 09/27/16 0537 Significant Findings Laboratory Tests Test 09/27/16 05:37 Platelet Count 148 TH/MM3 (150-450) Neutrophils (%) (Auto) 86.4 % (16.0-70.0) Lymphocytes # (Auto) 0.8 TH/MM3 (1.0-4.8) Sodium Level 135 MEQ/L (136-145) Estimat Glomerular Filtration 73 ML/MIN (>89) Rate Random Glucose 133 MG/DL (74-106) Imaging Last Impressions Abdomen/Pelvis CT 09/25/16 0000 Signed Impressions: Service Date/Time: August 20:07 - CONCLUSION: No definite acute CT findings in the abdomen or pelvis. Clayton Connor MD Chest X-Ray 09/24/16 0016 Signed Impressions: Service Date/Time: Saturday, September 24, 2016 00:27 - CONCLUSION: No acute disease. No significant change has occurred. Michael Valle MD Hospital Course //Acute COPD exacerbation -Chest x-ray reviewed. IV steroids. Duo nebs. Antibiotics. Incentive spirometer and Acapella. -Pulmonology following. Appreciate assistance. still requiring 2 L of oxygen. -Continue to Wean steroids. -We'll place patient on Combivent inhaler scheduled. When necessary albuterol inhaler. Twice daily Symbicort as well. Steroid taper. Follow-up with primary care. //Hypertension. Chronic. Systolic blood pressure up to 170s today. Clonidine when necessary for systolic blood pressure over 180. Monitor closely. -Systolic blood pressure still elevated in the 190s. -Continue hydrochlorothiazide daily. Continue clonidine when necessary. -09/27. Blood pressure elevated. Added nifedipine 30 mg daily. Continue to monitor. -09/28. Blood pressure continues elevated. Increase nifedipine to 90 mg long- acting daily. Continue hydrochlorothiazide. Blood pressure acceptable. We'll need to follow up with primary care. //Lower abdominal pain. // Postmenopausal bleeding. //Fibroid uterus. Hold Lovenox. -CT abdomen wit fibroids Continue diet as tolerated. -Appreciate gynecology assistance. Patient will need to follow with geography department chair as outpatient. //Chronic smoking. Cessation counseling provided. Continue nicotine patch. //Thrombocytopenia. Mild. No bleeding. Stable. Monitor. //Prophylaxis. Hold Lovenox due to postmenopausal bleeding. Patient is on ambulatory Pt Condition on Discharge: Good Discharge Disposition: Discharge Home Discharge Time: > 30 minutes Discharge Instructions DIET: Follow Instructions for: As Tolerated, No Restrictions Activities you can perform: Regular-No Restrictions Follow up Referrals: RETAIL SALES CONSULTANT - 1 Week PCP Follow-up - 1 Week with Kaleigh Berkowitz MD New Medications: Albuterol 8.5 GM Inh (Proair Hfa 8.5 GM Inh) 90 Mcg/Act Aer 1 PUFF INH Q4H 108 mcg/actuation PRN SHORTNESS OF BREATH #1 Ref 0 INHALER Budesonide-Formoterol Inh (Symbicort Inh) 160-4.5 Mcg/Act Aero 1 PUFF INH Q12HR #1 Ref 0 INHALER Ipratropium-Albuterol Inh (Combivent Respimat Inh) 20-100 Alf/Act Aero 1 PUFF INH QID Asthma Management #1 Ref 0 INHALER Nifedipine ER 24 HR (Nifedipine ER 24 HR) 90 Mg Tab 90 MG PO DAILY Blood pressure #30 Ref 0 TAB Omeprazole (Omeprazole) 40 Mg Cap 40 MG PO DAILY Reflux #30 Ref 0 CAP Prednisone (48) 10 mg tab Dose Pack (Prednisone (48) 10 mg tab Dose Pack) 10 Mg Dspk 10 MG PO DIRECTED Inflammation #1 Ref 0 DSPK Hydrochlorothiazide (Hydrochlorothiazide) 25 Mg Tab 25 MG PO DAILY Blood Pressure Management Days 30 TAB Levofloxacin (Levaquin) 750 Mg Tab 750 MG PO DAILY copd Days 3 TAB Nifedipine ER 24 HR (Nifedical XL) 60 Mg Tab 60 MG PO DAILY Blood Pressure Management Days 30 TAB Jose Loving MD Sep 29, 2016 06:21
[2016-09-29] MEDS ORDERED: NIFEdipine 90 MG SUSTAINED RELEASE TAB PO SCH (09:00)
[2016-10-06] MEDS ORDERED: METH125I2 IM (15:00)
[2016-10-06] MEDS ORDERED: OMEP40CA2 PO (15:01)
[2016-10-06] MEDS ORDERED: IPRAAER INH (15:01)
[2016-10-06] MEDS ORDERED: NIFE1TAB PO (15:01)
[2016-10-06] MEDS ORDERED: ALBUAER3 INH (15:01)
[2016-10-06] MEDS ORDERED: CIPR-9 PO (15:02)
[2016-10-06] MEDS ORDERED: AMLO10TA2 PO ×2 (15:38→15:39)
== END 2016-09-28 18:34 | disposition home or self-care (01) | DRG 192 ==
LOC: NEPE 21:23 → NEDA 09-24 02:58 → OBSVTOIN 09-24 02:58 → NEDH 09-24 06:46 → N04A 09-24 17:45
PROVIDERS: ADMIT Internal Medicine; ATTEND Internal Medicine
DX: J44.1 Chronic obstructive pulmonary disease with (acute) exacerbation (principal); D69.6 Thrombocytopenia, unspecified; I50.9 Heart failure, unspecified; I11.0 Hypertensive heart disease with heart failure; E78.5 Hyperlipidemia, unspecified; H91.93 Unspecified hearing loss, bilateral; J45.909 Unspecified asthma, uncomplicated; K21.9 Gastro-esophageal reflux disease without esophagitis; N95.0 Postmenopausal bleeding; R09.02 Hypoxemia; D25.9 Leiomyoma of uterus, unspecified; F17.210 Nicotine dependence, cigarettes, uncomplicated; Z23 Encounter for immunization; Z59.0 Homelessness; Z80.3 Family history of malignant neoplasm of breast; Z88.5 Allergy status to narcotic agent; Z91.19 Patient's noncompliance with other medical treatment and regimen
CPT/HCPCS: 71010; 74177; 80048; 80076; 80307; 81001; 83880; 84702; 85025; 85610; 87449; 90471; 90472; 90686; 90732; 94150; 94620; 94640; 94664; 94667; 94668; 96365; G0008; G0009; J1650; J1956; J2920; J7030; J7050; J7512; Q2038; Q9963; Q9967

== ENCOUNTER → 2016-10-06 | Outpatient (CLI) | payer OTHER ==
[~2016-10-06] MED LIST changes: -ALBU1AER5 INH; +ALBUAER3 INH; -AMLO10 PO; +AMLO10TA2 PO; +CIPR-9 PO; +FURO40TA PO; +HYDR-3516 PO; +HYDR25TA5 PO; +IPRAAER INH; +LEVA750T PO; +METH125I2 IM; +NIFE15TA PO; +NIFE1TAB PO; +OMEP40CA2 PO; +PRED10PA2 PO
[2016-10-06 15:42] LABS: BACTERIA, URINE OCC /hpf; BLOOD, URINE NEG (NEG); COMMENT (UR) CULT NOT INDICATED; CULTURE IF INDICATED CULT NOT INDICATED; GLUCOSE,URINE NEG (NEG); KETONE, URINE NEG (NEG); MUCUS URINE FEW /lpf (OCC); NITRITE,URINE NEG (NEG); PH, URINE 6.5 (5.0-8.5); SQUAMOUS EPITHELIAL CELL URINE <1 /hpf (0-5); URINE COLOR YELLOW (YELLW/STRAW)
== END ==
LOC: CLAB 15:19
PROVIDERS: ATTEND Family Medicine
DX: R30.0 Dysuria (principal)
CPT/HCPCS: 81001

== ENCOUNTER 2016-10-11 22:11 | Emergency (ER) | payer OTHER ==
[~2016-10-11] VITALS: Ht 162.6 cm; Wt 72.0 kg
[~2016-10-11 22:11] MED LIST changes: -FURO40TA PO; -HYDR-3516 PO; -LISI-515 PO; -METH125I2 IM
[2016-10-11 22:18] VITALS: BP 194/96; PULSE 96; RESP 16; TEMP 97.8; O2SAT 96
[2016-10-12 02:29] VITALS: BP 205/112; PULSE 95; RESP 20; O2SAT 98
[2016-10-12] MEDS ORDERED: diphenhydrAMINE HCL 50 MG/ML VIAL IV PUSH ONE (03:30)
[2016-10-12] MEDS ORDERED: PROCHLORPERAZINE INJ 10 MG/2 ML VIAL IVS ONE (03:30)
[2016-10-12] MEDS ORDERED: KETOROLAC TROMETHAMINE 30 MG/ML (IVP) VIAL IV PUSH ONE (03:30)
[2016-10-12] MEDS ORDERED: SODIUM CHLORIDE 0.9% FLUSH 5 ML FLUSH IVF PRN (03:30)
[2016-10-12 04:11] LABS: AUTOMATED NEUTROPHIL # 3.1 TH/MM3 (1.8-7.7); BASOPHIL # 0.1 TH/MM3 (0-0.2); BASOPHIL % 1.2 % (0.0-2.0); EOSINOPHIL # 0.1 TH/MM3 (0-0.4); EOSINOPHIL % 2.9 % (0.0-4.0); HEMATOCRIT 45.5 % (35.0-46.0); HEMO FLAGS DIFF FINAL; LYMPH % 27.5 % (9.0-44.0); LYMPHOCYTE # 1.4 TH/MM3 (1.0-4.8); MEAN CELL VOLUME 92.2 FL (80.0-100.0); MEAN CORPUSCULAR HEMOGLOBIN 32.6 PG (27.0-34.0); MEAN CORPUSCULAR HGB CONC 35.3 % (32.0-36.0); MONO % 6.5 % (0.0-8.0); NEUT % 61.9 % (16.0-70.0); PLATELET COUNT 189 TH/MM3 (150-450); RED BLOOD COUNT 4.93 MIL/MM3 (4.00-5.30); RED CELL DISTRIBUTION WIDTH 14.5 % (11.6-17.2)
[2016-10-12 04:26] LABS: APTT (PATIENT) 26.6 SEC (24.3-30.1); PROTHROMBIN TIME - PATIENT 10.5 SEC (9.8-11.6)
[2016-10-12 04:57] LABS: ANION GAP 4 MEQ/L (5-15); AST (GOT) 14 U/L (15-37); BICARBONATE 33.6 MEQ/L (21.0-32.0); BLOOD UREA NITROGEN 9 MG/DL (7-18); CHLORIDE 104 MEQ/L (98-107); GLOMERULAR FILTRATION RATE 82 ML/MIN (>89); SODIUM (NA) 142 MEQ/L (136-145)
[2016-10-12 05:00] LABS: ALKALINE PHOSPHATASE 80 U/L (45-117); ALT (GPT) 20 U/L (10-53); TOTAL BILIRUBIN ADULT 0.3 MG/DL (0.2-1.0)
[2016-10-12 05:13] VITALS: BP 197/98; PULSE 88; RESP 22; O2SAT 95
--- NOTE | 2016-10-12 06:03 | PD ---
HPI Chief Complaint: Abdominal Pain Time Seen by Provider: 03:27 Travel History International Travel<30 days: No Contact w/Intl Traveler<30days: No Traveled to known affect area: No History of Present Illness HPI Patient is a 56-year-old female presents emergency department for a chief complaint of headache since bifrontal. Patient states she has a history of headaches. States her headache is been going on for approximately today is unknown responsive to ibuprofen or Tylenol home. Patient denies a thunderclap presentation denies any visual changes focal weakness. Patient states she also has a history of fibroids in her uterus and she's been having some lower quadrant abdominal cramping on and off for the past month. Patient denies any vaginal bleeding or vaginal discharge denies any fevers. Patient states that headache is been gradually worsening as well as abdominal pain. States is cramping in her abdomen and tight feeling in her head.. PFSH Past Medical History Hx Anticoagulant Therapy: No Anemia: Yes (WITH BLOOD TRANSFUSION X 1) Asthma: Yes (childhood) Autoimmune Disease: No Cancer: No Cardiovascular Problems: Yes High Cholesterol: No Chemotherapy: No Chest Pain: No Congestive Heart Failure: No COPD: Yes Cerebrovascular Accident: No Coronary Artery Disease: No Diabetes: No Diminished Hearing: Yes ([place]) Endocrine: No Gastrointestinal Disorders: Yes GERD: Yes Genitourinary: Yes Headaches: Yes Hiatal Hernia: No Hypertension: Yes ([place]) Immune Disorder: No Kidney Stones: Yes Musculoskeletal: No Neurologic: No Psychiatric: No Reproductive: No Respiratory: No Immunizations Current: Yes Migraines: Yes Myocardial Infarction: No Radiation Therapy: No Renal Failure: No Seizures: No Sleep Apnea: No Thyroid Disease: No Ulcer: No Tetanus Vaccination: Unknown ?: Not LMP: STATES SHE IS HAVING VAGNAL PAIN AND BLEEDING CURRENTLY Menopausal: Yes : 7 Para: 4 Miscarriage: 2 : 1 Ectopic : No Ovarian Cysts: No Dilation and Curettage (D&C): No Tubal Ligation: Yes Past Surgical History Abdominal Surgery: No AICD: No Arteriovenous Shunt: No Cardiac Surgery: No Section: No Ear Surgery: No Endocrine Surgery: No Eye Surgery: No Genitourinary Surgery: No Gynecologic Surgery: No Hysterectomy: No Insulin Pump: No Joint Replacement: No Oral Surgery: Yes (wisdom teeth) Pacemaker: No Thoracic Surgery: No Other Surgery: No Social History Alcohol Use: Yes (once a week) Tobacco Use: Yes Substance Use: No Allergies-Medications (Allergen,Severity, Reaction): Coded Allergies: Darvocet-N 100 (Verified Allergy, Mild, Nausea/Vomiting, 10/12/16) Reported Meds & Prescriptions Reported Meds & Active Scripts Active Amlodipine (Amlodipine Besylate) 10 Mg Tab 10 Mg PO DAILY Cipro (Ciprofloxacin HCl) 500 Mg Tab 500 Mg PO BID Nifedipine ER 24 HR (Nifedipine) 90 Mg Tab 90 Mg PO DAILY Combivent Respimat Inh (Ipratropium-Albuterol Inh) 20-100 [facility]/Act Aero 1 Puff INH QID Proair Hfa 8.5 GM Inh (Albuterol Sulfate) 90 Mcg/Act Aer 1 Puff INH Q4H PRN 108 mcg/actuation Omeprazole 40 Mg Cap 40 Mg PO DAILY Levaquin (Levofloxacin) 750 Mg Tab 750 Mg PO DAILY 3 Days Symbicort Inh (Budesonide/Formoterol Fumarate) 160-4.5 Mcg/Act Aero 1 Puff INH Q12HR Prednisone (48) 10 mg tab Dose Pack (Prednisone) 10 Mg Dspk 10 Mg PO DIRECTED Hydrochlorothiazide 25 Mg Tab 25 Mg PO DAILY 30 Days Nifedical XL (Nifedipine) 60 Mg Tab 60 Mg PO DAILY 30 Days Review of Systems Except as stated in HPI: all other systems reviewed are Neg Physical Exam Narrative GENERAL: Well-developed well-nourished in mild discomfort. SKIN: Warm and dry. HEAD: Atraumatic. Normocephalic. EYES: Pupils equal and round. No scleral icterus. No injection or drainage. ENT: No nasal bleeding or discharge. Mucous membranes pink and moist. NECK: Trachea midline. No JVD. CARDIOVASCULAR: Regular rate and rhythm. No murmur appreciated. RESPIRATORY: No accessory muscle use. Clear to auscultation. Breath sounds equal bilaterally. GASTROINTESTINAL: Abdomen soft, non-tender, nondistended. Hepatic and splenic margins not palpable. MUSCULOSKELETAL: No obvious deformities. No clubbing. No cyanosis. No edema. NEUROLOGICAL: Awake and alert. No obvious cranial nerve deficits. Motor grossly within normal limits. Normal speech. PSYCHIATRIC: Appropriate mood and affect; insight and judgment normal. Data Data Last Documented VS Orders Complete Blood Count With Diff (10/12/16 03:30) Comprehensive Metabolic Panel (10/12/16 03:30) Lipase (2/12/17 03:30) Prothrombin Time / Inr (Pt) (10/12/16 03:30) Act Partial Throm Time (Ptt) (10/12/16 03:30) Iv Access Insert/Monitor (10/12/16 03:30) Ecg Monitoring (10/12/16 03:30) Oximetry (10/12/16 03:30) Sodium Chloride 0.9% Flush (Ns Flush) (10/12/16 03:30) Ketorolac Inj (Toradol Inj) (10/12/16 03:30) Diphenhydramine Inj (Benadryl Inj) (10/12/16 03:30) Prochlorperazine Inj (Compazine Inj) (10/12/16 03:30) Labs Laboratory Tests Test 10/12/16 03:45 White Blood Count 5.0 TH/MM3 Red Blood Count 4.93 MIL/MM3 Hemoglobin 16.1 GM/DL Hematocrit 45.5 % Mean Corpuscular Volume 92.2 FL Mean Corpuscular Hemoglobin 32.6 PG Mean Corpuscular Hemoglobin 35.3 % Concent Red Cell Distribution Width 14.5 % Platelet Count 189 TH/MM3 Mean Platelet Volume 8.6 FL Neutrophils (%) (Auto) 61.9 % Lymphocytes (%) (Auto) 27.5 % Monocytes (%) (Auto) 6.5 % Eosinophils (%) (Auto) 2.9 % Basophils (%) (Auto) 1.2 % Neutrophils # (Auto) 3.1 TH/MM3 Lymphocytes # (Auto) 1.4 TH/MM3 Monocytes # (Auto) 0.3 TH/MM3 Eosinophils # (Auto) 0.1 TH/MM3 Basophils # (Auto) 0.1 TH/MM3 CBC Comment DIFF FINAL Differential Comment Prothrombin Time 10.5 SEC Prothromb Time International 1.0 RATIO Ratio Activated Partial 26.6 SEC Thromboplast Time Sodium Level 142 MEQ/L Potassium Level 4.0 MEQ/L Chloride Level 104 MEQ/L Carbon Dioxide Level 33.6 MEQ/L Anion Gap 4 MEQ/L Blood Urea Nitrogen 9 MG/DL Creatinine 0.74 MG/DL Estimat Glomerular Filtration 82 ML/MIN Rate Random Glucose 75 MG/DL Calcium Level 8.6 MG/DL Total Bilirubin 0.3 MG/DL Aspartate Amino Transf 14 U/L (AST/SGOT) Alanine Aminotransferase 20 U/L (ALT/SGPT) Alkaline Phosphatase 80 U/L Total Protein 7.2 GM/DL Albumin 3.7 GM/DL Lipase 162 U/L MDM Medical Decision Making Medical Screen Exam Complete: Yes Emergency Medical Condition: Yes Differential Diagnosis Headache, abdominal discomfort Narrative Course Patient was roomed in the emergency department, Toradol Benadryl and Compazine were given with complete relief both headache and abdominal pain. Patient's labs reviewed and reassuring. At this time patient did not have any red flags for further workup of headache nor abdominal pain. She is stable to be discharged and continue workup as an outpatient. Diagnosis Primary Impression: Headache Qualified Code: R51 - Nonintractable headache, unspecified chronicity pattern , unspecified headache type Additional Impression: Abdominal pain Disposition: 01 DISCHARGE HOME Condition: Stable Candido Reeves MD Oct 12, 2016 06:03
[2016-10-12 06:54] VITALS: BP 195/98
== END 2016-10-12 07:10 | disposition home or self-care (01) ==
LOC: NEPE 22:11
DX: R51 Headache (principal); R10.9 Unspecified abdominal pain; D25.9 Leiomyoma of uterus, unspecified; D64.9 Anemia, unspecified; J44.9 Chronic obstructive pulmonary disease, unspecified; I10 Essential (primary) hypertension; Z87.442 Personal history of urinary calculi; K21.9 Gastro-esophageal reflux disease without esophagitis; Z72.0 Tobacco use
CPT/HCPCS: 80053; 83690; 85025; 85610; 85730; 96374; 96375; 99284; J0780; J1200; J1885

== ENCOUNTER → 2016-10-14 | Day surgery (SDC) | payer OTHER ==
[~2016-10-14] MED LIST changes: +FURO40TA PO; +HYDR-3516 PO; +LISI-515 PO
--- NOTE | 2016-10-14 16:14 | RADRPT ---
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 INDICATIONS : Vaginal bleeding. MEDICAL HISTORY : Hypertension. Chronic obstructive pulmonary disease. Gastroesophageal reflux disease. Asthma. Kidney stones. Measles. SURGICAL HISTORY : Tubal ligation. ENCOUNTER: Initial ACUITY: 3 months PAIN SCORE: 3/10 LOCATION: Bilateral pelvis MEASUREMENTS: UTERUS: 11.3 x 4.8 x 6.4 cm ENDOMETRIAL STRIPE: 5 mm RIGHT OVARY: 3.5 x 2.9 x 2.1 cm LEFT OVARY: 2.8 x 2.7 x 3.0 cm FINDINGS: UTERUS: There is a 4 x 3.9 cm hypoechoic solid mass in the fundal region. The endometrium appears unremarkabl e. RIGHT OVARY: Ovary contains no mass or significant cystic lesion. LEFT OVARY: Ovary contains no mass or significant cystic lesion. MISCELLANEOUS: No free fluid. CONCLUSION: 1. Focal solid mass in the fundal region characteristic of a leiomyoma. 2. The ovaries are unremarkable. Andres Cifuentes MD on October 14, 2016 at 16:12 Board Certified Radiologist. This report was verified electronically.
== END | disposition home or self-care (01) ==
LOC: HRAD 14:01 → EDSTATUS 14:30
PROVIDERS: ATTEND Family Medicine
DX: N93.9 Abnormal uterine and vaginal bleeding, unspecified (principal); D25.9 Leiomyoma of uterus, unspecified; I10 Essential (primary) hypertension; J44.9 Chronic obstructive pulmonary disease, unspecified; J45.909 Unspecified asthma, uncomplicated; K21.9 Gastro-esophageal reflux disease without esophagitis; Z87.442 Personal history of urinary calculi
CPT/HCPCS: 76856

== ENCOUNTER → 2016-10-31 | Outpatient (CLI) | payer OTHER | LOC: CLAB 10-27 14:25 | PROVIDERS: ATTEND Family Medicine | DX: K92.1 Melena (principal) | CPT/HCPCS: 82272 ==

== ENCOUNTER 2016-12-07 18:27 | Inpatient (IN) | payer OTHER ==
[~2016-12-07] VITALS: Ht 162.6 cm; Wt 78.4 kg
[2016-12-07] VITALS (7 sets, daily range): BP systolic 133–166; BP diastolic 80–98; PULSE 104–119; RESP 22–26; TEMP 98.2–99.9; O2SAT 88–97
[~2016-12-07 18:27] MED LIST changes: -FURO40TA PO; -HYDR-3516 PO; -LISI-515 PO
[2016-12-07] MEDS ORDERED: SODIUM CHLORIDE 0.9% FLUSH 10 ML FLUSH IVF PRN (18:45)
--- NOTE | 2016-12-07 18:48 | PD ---
HPI Chief Complaint: SOB Time Seen by Provider: 18:48 Travel History International Travel<30 days: No Contact w/Intl Traveler<30days: No History of Present Illness HPI 56-year-old female with a history of COPD, hypertension, hyperlipidemia, tobacco abuse presents to the emergency department by EMS for evaluation of shortness of breath and productive cough for 2-3 days. The patient states that she has been using her maintenance and rescue inhalers without improvement of symptoms. States she is homeless but has been trying to stay with her sister. She complains of chest tightness and feels as though she is wheezing. She does continue to smoke cigarettes. She denies chest pain, lightheadedness, dizziness , nausea, vomiting, abdominal pain. She does complain of dysuria that has been going on for "a while." States that she has had postmenopausal vaginal spotting for about 3-4 months, has been seen by her PCP Dr. Berkowitz and is currently undergoing workup for this complaint. No other complaints. PFSH Past Medical History Hx Anticoagulant Therapy: No Anemia: Yes (WITH BLOOD TRANSFUSION X 1) Asthma: Yes (childhood) Autoimmune Disease: No Cancer: No Cardiovascular Problems: Yes High Cholesterol: No Chemotherapy: No Chest Pain: No Congestive Heart Failure: No COPD: Yes Cerebrovascular Accident: No Coronary Artery Disease: No Diabetes: No Diminished Hearing: Yes ([place]) Endocrine: No Gastrointestinal Disorders: Yes GERD: Yes Genitourinary: Yes Headaches: Yes Hiatal Hernia: No Hypertension: Yes ([place]) Immune Disorder: No Kidney Stones: Yes Musculoskeletal: No Neurologic: No Psychiatric: No Reproductive: No Respiratory: No Immunizations Current: Yes Migraines: Yes Myocardial Infarction: No Radiation Therapy: No Renal Failure: No Seizures: No Sleep Apnea: No Thyroid Disease: No Ulcer: No Menopausal: Yes : 7 Para: 4 Miscarriage: 2 : 1 Ectopic : No Ovarian Cysts: No Dilation and Curettage (D&C): No Tubal Ligation: Yes Past Surgical History Abdominal Surgery: No AICD: No Arteriovenous Shunt: No Cardiac Surgery: No Section: No Ear Surgery: No Endocrine Surgery: No Eye Surgery: No Genitourinary Surgery: No Gynecologic Surgery: No Hysterectomy: No Insulin Pump: No Joint Replacement: No Oral Surgery: Yes (wisdom teeth) Pacemaker: No Thoracic Surgery: No Other Surgery: No Social History Alcohol Use: Yes (once a week) Tobacco Use: Yes Substance Use: No Allergies-Medications (Allergen,Severity, Reaction): Coded Allergies: Darvocet-N 100 (Verified Allergy, Mild, Nausea/Vomiting, 12/07/16) Reported Meds & Prescriptions Reported Meds & Active Scripts Active Reported Lisinopril 20 Mg Tab 20 Mg PO DAILY Review of Systems Except as stated in HPI: all other systems reviewed are Neg Physical Exam Narrative GENERAL: Well-nourished and well-developed pleasant patient in no acute distress who is nontoxic appearing. SKIN: Warm and dry. HEAD: Normocephalic and atraumatic. EYES: No injection, drainage, or hyphema noted. PERRLA. EOMI. ENT: No nasal drainage noted. Oropharynx is clear and the TMs are normal with good landmarks. NECK: Supple and the trachea is midline. CARDIOVASCULAR: Regular rate and rhythm. RESPIRATORY: Bilateral wheezing throughout. No accessory muscle use, rhonchi, or crackles. Speaking in full sentences without difficulty. GASTROINTESTINAL: Abdomen is soft, non-tender, and nondistended. MUSCULOSKELETAL: No obvious deformities, swelling, cyanosis, or ecchymosis is present throughout the upper and lower extremities. Patient has full range of motion without any signs of neurovascular compromise. NEUROLOGICAL: Awake, alert, and oriented. Normal speech and gait. Cranial nerves are grossly intact. Data Data Last Documented VS Vital Signs Date Time Temp Pulse Resp B/P Pulse Ox O2 Delivery O2 Flow Rate FiO2 12/07/16 21:10 97 Nasal Cannula 2.00 12/07/16 19:28 112 18 12/07/16 19:00 98.2 133/91 Orders Complete Blood Count With Diff (12/07/16 18:43) Comprehensive Metabolic Panel (12/07/16 18:43) Iv Access Insert/Monitor (12/07/16 18:43) Electrocardiogram (12/07/16 18:43) Ecg Monitoring (12/07/16 18:43) Oximetry (12/07/16 18:43) Chest, Single Ap (12/07/16 18:43) Sodium Chloride 0.9% Flush (Ns Flush) (12/07/16 18:45) Albuterol-Ipratropium Neb (Duoneb Neb) (12/07/16 18:45) Urinalysis - C+S If Indicated (12/07/16 18:48) Sodium Chlor 0.9% 1000 Ml Inj (Ns 1000 M (12/07/16 19:21) Ceftriaxone Inj (Rocephin Inj) (12/07/16 19:30) Azithromycin Inj (Zithromax Inj) (12/07/16 19:30) Albuterol-Ipratropium Neb (Duoneb Neb) (12/07/16 20:45) Admit Order (Ed Use Only) (12/07/16 21:10) Labs Laboratory Tests Test 12/07/16 19:30 White Blood Count 6.0 TH/MM3 Red Blood Count 4.29 MIL/MM3 Hemoglobin 13.8 GM/DL Hematocrit 39.5 % Mean Corpuscular Volume 92.1 FL Mean Corpuscular Hemoglobin 32.1 PG Mean Corpuscular Hemoglobin 34.9 % Concent Red Cell Distribution Width 14.4 % Platelet Count 160 TH/MM3 Mean Platelet Volume 8.7 FL Neutrophils (%) (Auto) 86.4 % Lymphocytes (%) (Auto) 8.3 % Monocytes (%) (Auto) 4.2 % Eosinophils (%) (Auto) 0.4 % Basophils (%) (Auto) 0.7 % Neutrophils # (Auto) 5.2 TH/MM3 Lymphocytes # (Auto) 0.5 TH/MM3 Monocytes # (Auto) 0.3 TH/MM3 Eosinophils # (Auto) 0.0 TH/MM3 Basophils # (Auto) 0.0 TH/MM3 CBC Comment DIFF FINAL Differential Comment Sodium Level 136 MEQ/L Potassium Level 3.5 MEQ/L Chloride Level 95 MEQ/L Carbon Dioxide Level 32.4 MEQ/L Anion Gap 9 MEQ/L Blood Urea Nitrogen 5 MG/DL Creatinine 0.87 MG/DL Estimat Glomerular Filtration 68 ML/MIN Rate Random Glucose 135 MG/DL Calcium Level 8.4 MG/DL Total Bilirubin 0.5 MG/DL Aspartate Amino Transf 31 U/L (AST/SGOT) Alanine Aminotransferase 25 U/L (ALT/SGPT) Alkaline Phosphatase 126 U/L Total Protein 6.6 GM/DL Albumin 3.3 GM/DL MDM Medical Decision Making Medical Screen Exam Complete: Yes Emergency Medical Condition: Yes Differential Diagnosis COPD exacerbation versus bronchitis versus pneumonia versus pleural effusion Narrative Course 56-year-old female with COPD is brought to the emergency department by EMS for evaluation of shortness of breath with productive cough for 2 days. Patient is afebrile. Initially patient's oxygen saturation is noted to be 88% on room air. Per EMS report her oxygen was 98% on room air. She does have wheezing on examination. She's been given 2 albuterol nebulizers and Solu-Medrol 125 mg IV EMS on route. Reports improvement of symptoms with nebulizers. We'll give the patient duo nebs and reassess. IV access is obtained, labs have been drawn and sent. Patient is placed on cardiac telemetry and pulse oximetry monitoring. Chest x-ray is negative for any acute abnormalities. CBC is unremarkable. CMP shows elevated bicarbonate of 32.4, likely secondary to COPD. The patient's oxygen saturation did improve to 96% on room air initially after nebulizer treatment. When I reassessed her her oxygen had dropped back down to 89-90% on room air. She is placed on 2 L of nasal cannula. Patient is administered Zithromax 500 mg IV and Rocephin 1 g IV. The patient will be admitted for COPD exacerbation. I discussed the case with my attending physician Dr. Stringer who is aware of the patients history, physical examination findings, and treatment plan. Physician Communication Physician Communication I spoke with Dr. Christie [facility] who agrees to admit the patient to her service. Diagnosis Primary Impression: COPD with exacerbation Admitting Information Admitting Physician Requests: it Traci Cuadra Dec 07, 2016 18:48
--- NOTE | 2016-12-07 19:14 | RADRPT ---
EXAM DATE/TIME: 12/07/2016 18:48 [facility] COMPARISON: CHEST SINGLE AP, September 24, 2016, 0:27. INDICATIONS : Short of breath MEDICAL HISTORY : Chronic obstructive pulmonary disease. Congestive heart failure. SURGICAL HISTORY : None. ENCOUNTER: Initial ACUITY: 2 days PAIN SCORE: 3/10 LOCATION: chest FINDINGS: A single view of the chest demonstrates the lungs to be symmetrically aerated without evidence of mas s, infiltrate or effusion. The cardiomediastinal contours are unremarkable. Osseous structures are intact. CONCLUSION: No acute disease. No significant change has occurred. Kevyn Augustine MD on December 07, 2016 at 19:07 Board Certified Radiologist. This report was verified electronically.
[2016-12-07] MEDS ORDERED: SODIUM CHLOR 0.9% 1000 ML INJ 1,000 ML IV SCH (19:21)
[2016-12-07] MEDS ORDERED: LISI-515 PO (19:24)
[2016-12-07] MEDS: RESP: ALBUTEROL 2.5 MG/IPRATROPIUM 0.5 MG NEB (SCH) INH (19:27)
[2016-12-07] MEDS ORDERED: cefTRIAXone INJ 1,000 MG in SODIUM CHLORIDE 0.9% INJ 100 ML IV ONE (19:30)
[2016-12-07] MEDS ORDERED: AZITHROMYCIN INJ 500 MG in SODIUM CHLOR 0.9% 250 ML INJ 250 ML IV ONE (19:30)
[2016-12-07 20:04] LABS: AUTOMATED NEUTROPHIL # 5.2 TH/MM3 (1.8-7.7); BASOPHIL % 0.7 % (0.0-2.0); EOSINOPHIL % 0.4 % (0.0-4.0); HEMATOCRIT 39.5 % (35.0-46.0); HEMO FLAGS DIFF FINAL; LYMPH % 8.3 % (9.0-44.0); LYMPHOCYTE # 0.5 TH/MM3 (1.0-4.8); MEAN CELL VOLUME 92.1 FL (80.0-100.0); MEAN CORPUSCULAR HEMOGLOBIN 32.1 PG (27.0-34.0); MEAN CORPUSCULAR HGB CONC 34.9 % (32.0-36.0); MONO % 4.2 % (0.0-8.0); NEUT % 86.4 % (16.0-70.0); PLATELET COUNT 160 TH/MM3 (150-450); RED BLOOD COUNT 4.29 MIL/MM3 (4.00-5.30); RED CELL DISTRIBUTION WIDTH 14.4 % (11.6-17.2)
[2016-12-07] MEDS ORDERED: RESP: ALBUTEROL 2.5 MG/IPRATROPIUM 0.5 MG NEB (SCH) INH ONE (20:45)
[2016-12-07 20:46] LABS: ALKALINE PHOSPHATASE 126 U/L (45-117); ANION GAP 9 MEQ/L (5-15); AST (GOT) 31 U/L (15-37); BICARBONATE 32.4 MEQ/L (21.0-32.0); BLOOD UREA NITROGEN 5 MG/DL (7-18); CHLORIDE 95 MEQ/L (98-107); GLOMERULAR FILTRATION RATE 68 ML/MIN (>89); SODIUM (NA) 136 MEQ/L (136-145); TOTAL BILIRUBIN ADULT 0.5 MG/DL (0.2-1.0)
[2016-12-07 20:51] LABS: ALT (GPT) 25 U/L (10-53); POTASSIUM 3.5 MEQ/L (3.5-5.1)
[2016-12-07] MEDS ORDERED: ACETAMINOPHEN 325 MG TAB PO PRN (21:15)
[2016-12-07] MEDS ORDERED: ONDANSETRON HCL 4 MG/2 ML VIAL IVP PRN (21:15)
--- NOTE | 2016-12-07 21:17 | HHI.HP ---
HPI Service [facility] Primary Care Physician No Primary Care Physician Admission Diagnosis COPD Exacerbation with Hypoxia Diagnoses: (1) COPD with exacerbation Diagnosis: Principal (2) Hypoxia Diagnosis: Principal (3) Tobacco abuse Diagnosis: Principal Travel History International Travel<30 Days: No Contact w/Intl Traveler <30 Da: No Traveled to Known Affected Are: No History of Present Illness This is a 56-year-old female with PMH of HTN, Hyperlipidemia, Tobacco abuse and COPD who was brought to the ER by EMS secondary to complaints of SOB and cough x3 days. States symptoms have gotten progressively worse in last 2 days, now c/ o productive cough w/ yellow/green colored sputum. Denies fever or chills. S/ p Solu-Medrol and DuoNeb via EMS. On arrival, O2 sat 88% on RA, BP 133/91, HR 119, Afebrile. CBC unremarkable to for elevated neutrophil count. CMP at baseline. CXR with no acute findings. S/p DuoNeb in ER and Rocephin/Zithro w/ some improvement. Review of Systems ROS: 14 point review of systems otherwise negative. Past Family Social History Past Medical History PMH: HTN, Hyperlipidemia, Tobacco abuse and COPD Past Surgical History PAST SURGICAL HISTORY: Widen Teeth Removal Allergies: Coded Allergies: Darvocet-N 100 (Verified Allergy, Mild, Nausea/Vomiting, 12/07/16) Family History PAST FAMILY HISTORY: Reviewed. No h/o DM or CAD Social History PAST SOCIAL HISTORY: Occasional alcohol. Positive for tobacco. Negative for drugs. Physical Exam Vital Signs Vital Signs Date Time Temp Pulse Resp B/P Pulse Ox O2 Delivery O2 Flow Rate FiO2 12/07/16 19:36 97 T-piece 12/07/16 19:28 112 18 96 Room Air 12/07/16 19:00 98.2 119 26 133/91 88 Physical Exam PE: GENERAL: Middle-aged female in no acute distress. HEENT: PERRLA, EOMI. No scleral icterus or conjunctival pallor. No lid lag or facial droop. CARDIOVASCULAR: Regular rate and rhythm. No obvious murmurs to auscultation. No chest tenderness to palpation. RESPIRATORY: No obvious rhonchi, +expiratory wheezing. Clear to auscultation. Breath sounds equal bilaterally. GASTROINTESTINAL: Abdomen soft, non-tender, nondistended. BS normal. MUSCULOSKELETAL: Extremities without clubbing, cyanosis, or edema. No obvious deformities. NEUROLOGICAL: Awake, alert and oriented x4. No focal neurologic deficits. Moving both upper and lower extremities spontaneously. Laboratory Laboratory Tests Test 12/07/16 19:30 White Blood Count 6.0 Red Blood Count 4.29 Hemoglobin 13.8 Hematocrit 39.5 Mean Corpuscular Volume 92.1 Mean Corpuscular Hemoglobin 32.1 Mean Corpuscular Hemoglobin 34.9 Concent Red Cell Distribution Width 14.4 Platelet Count 160 Mean Platelet Volume 8.7 Neutrophils (%) (Auto) 86.4 Lymphocytes (%) (Auto) 8.3 Monocytes (%) (Auto) 4.2 Eosinophils (%) (Auto) 0.4 Basophils (%) (Auto) 0.7 Neutrophils # (Auto) 5.2 Lymphocytes # (Auto) 0.5 Monocytes # (Auto) 0.3 Eosinophils # (Auto) 0.0 Basophils # (Auto) 0.0 CBC Comment DIFF FINAL Differential Comment Sodium Level 136 Potassium Level 3.5 Chloride Level 95 Carbon Dioxide Level 32.4 Anion Gap 9 Blood Urea Nitrogen 5 Creatinine 0.87 Estimat Glomerular Filtration 68 Rate Random Glucose 135 Calcium Level 8.4 Total Bilirubin 0.5 Aspartate Amino Transf 31 (AST/SGOT) Alanine Aminotransferase 25 (ALT/SGPT) Alkaline Phosphatase 126 Total Protein 6.6 Albumin 3.3 Result Diagram: 12/07/16192912/07/161929 Assessment and Plan Problem List: (1) COPD with exacerbation ICD Code: J44.1 Status: Acute (2) Hypoxia ICD Code: R09.02 Status: Acute (3) Tobacco abuse ICD Code: Z72.0 Status: Chronic Assessment and Plan A/P: 1. COPD: Chronic Respiratory Failure w/ Acute Exacerbation. S/p Solu-Medrol and DuoNeb via EMS, continue w/ Solu-Medrol, DuoNeb q4h and q2h prn, Symbicort, Mucinex. S/p Rocephin/Zithro in ER, will continue w/ IV Abx for Atypical PNA. CXR w/ no acute findings, images reviewed by me. 2. Hypoxia: O2 sat 88% on RA on arrival, currently 94-96% on 2L NC. Will monitor. Continue w/ treatment as above. 3. Tobacco Abuse: Pt strongly counselled to quit. NicoDerm prn if needed. 4. DVT Prophylaxis: SCD/Teds. 5. Social work for d/c planning as needed. 6. Case discussed w/ ER physician at length. Physician Certification 2 Midnight Certification Type: Admission for Inpatient Services Order for Inpatient Services The services are ordered in accordance with Medicare regulations or non- Medicare payer requirements, as applicable. In the case of services not specified as inpatient-only, they are appropriately provided as inpatient services in accordance with the 2-midnight benchmark. Estimated LOS (days): 2 days is the estimated time the patient will need to remain in the hospital, assuming treatment plan goals are met and no additional complications. Post-Hospital Plan: Not yet determined Renata Christie MD Dec 07, 2016 21:17
[2016-12-07 21:30] LABS: BLOOD, URINE NEG (NEG); GLUCOSE,URINE NEG (NEG); KETONE, URINE NEG (NEG); NITRITE,URINE NEG (NEG); PH, URINE 6.5 (5.0-8.5); SQUAMOUS EPITHELIAL CELL URINE <1 /hpf (0-5); URINE COLOR COLORLESS (YELLW/STRAW)
[2016-12-07 21:36] LABS: COMMENT (UR) CULT NOT INDICATED; CULTURE IF INDICATED CULT NOT INDICATED
[2016-12-07] MEDS ORDERED: REMOVE OLD PATCH-NICOTINE T-DERMAL PRN (21:45)
--- NOTE | 2016-12-07 22:26 | PD ---
Data Data Last Documented VS Vital Signs Date Time Temp Pulse Resp B/P Pulse Ox O2 Delivery O2 Flow Rate FiO2 12/07/16 21:10 97 Nasal Cannula 2.00 12/07/16 19:28 112 18 12/07/16 19:00 98.2 133/91 Orders Complete Blood Count With Diff (12/07/16 18:43) Comprehensive Metabolic Panel (12/07/16 18:43) Iv Access Insert/Monitor (12/07/16 18:43) Electrocardiogram (12/07/16 18:43) Ecg Monitoring (12/07/16 18:43) Oximetry (12/07/16 18:43) Chest, Single Ap (12/07/16 18:43) Sodium Chloride 0.9% Flush (Ns Flush) (12/07/16 18:45) Albuterol-Ipratropium Neb (Duoneb Neb) (12/07/16 18:45) Urinalysis - C+S If Indicated (12/07/16 18:48) Sodium Chlor 0.9% 1000 Ml Inj (Ns 1000 M (12/07/16 19:21) Ceftriaxone Inj (Rocephin Inj) (12/07/16 19:30) Azithromycin Inj (Zithromax Inj) (12/07/16 19:30) Albuterol-Ipratropium Neb (Duoneb Neb) (12/07/16 20:45) Admit Order (Ed Use Only) (12/07/16 21:10) Labs Laboratory Tests Test 12/07/16 19:30 White Blood Count 6.0 TH/MM3 Red Blood Count 4.29 MIL/MM3 Hemoglobin 13.8 GM/DL Hematocrit 39.5 % Mean Corpuscular Volume 92.1 FL Mean Corpuscular Hemoglobin 32.1 PG Mean Corpuscular Hemoglobin 34.9 % Concent Red Cell Distribution Width 14.4 % Platelet Count 160 TH/MM3 Mean Platelet Volume 8.7 FL Neutrophils (%) (Auto) 86.4 % Lymphocytes (%) (Auto) 8.3 % Monocytes (%) (Auto) 4.2 % Eosinophils (%) (Auto) 0.4 % Basophils (%) (Auto) 0.7 % Neutrophils # (Auto) 5.2 TH/MM3 Lymphocytes # (Auto) 0.5 TH/MM3 Monocytes # (Auto) 0.3 TH/MM3 Eosinophils # (Auto) 0.0 TH/MM3 Basophils # (Auto) 0.0 TH/MM3 CBC Comment DIFF FINAL Differential Comment Sodium Level 136 MEQ/L Potassium Level 3.5 MEQ/L Chloride Level 95 MEQ/L Carbon Dioxide Level 32.4 MEQ/L Anion Gap 9 MEQ/L Blood Urea Nitrogen 5 MG/DL Creatinine 0.87 MG/DL Estimat Glomerular Filtration 68 ML/MIN Rate Random Glucose 135 MG/DL Calcium Level 8.4 MG/DL Total Bilirubin 0.5 MG/DL Aspartate Amino Transf 31 U/L (AST/SGOT) Alanine Aminotransferase 25 U/L (ALT/SGPT) Alkaline Phosphatase 126 U/L Total Protein 6.6 GM/DL Albumin 3.3 GM/DL MDM Supervised Visit with CASSIE: Yes Narrative Course The history, exam, and medical decision-making in the associated mid-level provider note were completed with my assistance. I reviewed and agree with the findings presented. I attest that I had a [id number] encounter with the patient on the same day, and personally performed and documented my assessment and findings in the medical record. *My assessment and Findings: 56-year-old woman with history of COPD, here with exacerbation. Minimally improved after initial treatment. Still labored with hypoxia. Patient's home was very limited outpatient support. She does have all her medicines and is worsening despite this. At this point recommended observation for ongoing treatment. Diagnosis Primary Impression: COPD with exacerbation Michele Stringer MD Dec 07, 2016 22:26
[2016-12-07] MEDS: ACETAMINOPHEN/HYDROcodone 325 MG/10 MG TAB PO PRN (22:47)
[2016-12-07] MEDS: methylPREDNISolone SOD SUCC 40 MG/1 ML VIAL IV PUSH SCH (22:47)
[2016-12-07] MEDS: SODIUM CHLORIDE 0.9% FLUSH 10 ML FLUSH IV FLUSH PRN (22:47)
[2016-12-08] VITALS (9 sets, daily range): BP systolic 148–186; BP diastolic 66–100; PULSE 95–113; RESP 18–22; TEMP 97–98.3; O2SAT 87–95
[2016-12-08] MEDS: methylPREDNISolone SOD SUCC 40 MG/1 ML VIAL IV PUSH SCH ×4 (05:04→23:53)
[2016-12-08 07:24] LABS: AUTOMATED NEUTROPHIL # 2.7 TH/MM3 (1.8-7.7); BASOPHIL % 0.3 % (0.0-2.0); HEMO FLAGS DIFF FINAL; LYMPH % 9.9 % (9.0-44.0); LYMPHOCYTE # 0.3 TH/MM3 (1.0-4.8); MEAN CELL VOLUME 92.6 FL (80.0-100.0); MEAN CORPUSCULAR HEMOGLOBIN 31.8 PG (27.0-34.0); MEAN CORPUSCULAR HGB CONC 34.3 % (32.0-36.0); MONO % 1.9 % (0.0-8.0); NEUT % 87.9 % (16.0-70.0); PLATELET COUNT 144 TH/MM3 (150-450); RED BLOOD COUNT 4.43 MIL/MM3 (4.00-5.30); RED CELL DISTRIBUTION WIDTH 14.8 % (11.6-17.2); WHITE BLOOD COUNT 3.1 TH/MM3 (4.0-11.0)
[2016-12-08] MEDS: RESP: ALBUTEROL 2.5 MG/IPRATROPIUM 0.5 MG NEB (SCH) NEB ×4 (07:42→19:40)
[2016-12-08 07:49] LABS: ALT (GPT) 26 U/L (10-53); ANION GAP 9 MEQ/L (5-15); BICARBONATE 30.4 MEQ/L (21.0-32.0); BLOOD UREA NITROGEN 6 MG/DL (7-18); CHLORIDE 102 MEQ/L (98-107); POTASSIUM 3.6 MEQ/L (3.5-5.1); SODIUM (NA) 141 MEQ/L (136-145)
[2016-12-08 07:51] LABS: ALKALINE PHOSPHATASE 130 U/L (45-117); AST (GOT) 20 U/L (15-37); GLOMERULAR FILTRATION RATE 90 ML/MIN (>89); TOTAL BILIRUBIN ADULT 0.4 MG/DL (0.2-1.0)
[2016-12-08] MEDS: guaiFENesin E.R. 600 MG TAB PO SCH ×2 (08:07→20:23)
[2016-12-08] MEDS: BUDESONIDE-FORMOTEROL 160/4.5 MCG INHALER INH SCH ×2 (08:08→20:23)
[2016-12-08] MEDS: ACETAMINOPHEN/HYDROcodone 325 MG/5 MG TAB PO PRN ×3 (11:16→20:26)
--- NOTE | 2016-12-08 11:30 | HHI.PR ---
Subjective Remarks Follow-up COPD exacerbation. The patient states that she is feeling a little better today, but still very short of breath. No chest pain. Objective Vitals Vital Signs Date Time Temp Pulse Resp B/P Pulse Ox O2 Delivery O2 Flow Rate FiO2 12/08/16 08:31 98.3 95 19 179/95 94 12/08/16 08:00 96 Nasal Cannula 2.00 12/08/16 08:00 96 12/08/16 07:45 95 Nasal Cannula 2.00 12/08/16 04:00 97.7 97 20 148/66 88 12/08/16 00:00 98.0 101 20 164/93 87 12/07/16 23:06 104 12/07/16 22:45 Nasal Cannula 2.00 12/07/16 22:36 99.0 104 22 163/80 93 12/07/16 22:15 99.9 113 18 99 Nasal Cannula 2 12/07/16 22:14 166/98 12/07/16 21:10 97 Nasal Cannula 2.00 12/07/16 19:36 97 T-piece 12/07/16 19:28 112 18 96 Room Air 12/07/16 19:00 98.2 119 26 133/91 88 I/O 12/07/16 12/07/16 12/07/16 12/08/16 12/08/16 12/08/16 07:00 15:00 23:00 07:00 15:00 23:00 Intake Total 120 ml Balance 120 ml Intake Oral 120 ml # Voids 1 Result Diagram: 12/08/16 0620 12/08/16 0620 Imaging Last Impressions Chest X-Ray 12/07/16 1843 Signed Impressions: Service Date/Time: Wednesday, December 07, 2016 18:48 - CONCLUSION: No acute disease. No significant change has occurred. Kevyn Augustine MD Objective Remarks General: No acute distress. Heart: Regular rate and rhythm. No murmur. Lungs: Diffuse wheeze. Breathing is nonlabored. Abdomen: Soft, nontender, nondistended. Extremities: No lower extremity edema. Psych: Alert and oriented. Procedures None Urinary Catheter: No Vascular Central Line Catheter: No A/P Problem List: (1) COPD with exacerbation ICD Code: J44.1 Status: Acute (2) Hypoxia ICD Code: R09.02 Status: Acute (3) Tobacco abuse ICD Code: Z72.0 Status: Chronic (4) Hypertension ICD Code: I10 Status: Chronic Assessment and Plan 1. COPD exacerbation, chronic respiratory failure: Continue Solu-Medrol, DuoNeb , albuterol nebs, Symbicort, antibiotics, supplemental oxygen. 2. Tobacco abuse: Patient counseled to quit smoking. 3. Hypertension: Continue lisinopril. 4. DVT prophylaxis: MUNIRA Neri. Carlos Wade MD Dec 08, 2016 11:30
[2016-12-08] MEDS: LISINOPRIL 20 MG TAB PO SCH (12:43)
--- NOTE | 2016-12-08 14:48 | EKG ---
Date Performed: 12/07/2016 Time Performed: 19:37:58 PTAGE: 56 years EKG: SINUS TACHYCARDIA MARKED RIGHT AXIS DEVIATION ABNORMAL ECG Right atrial enlargement Since t he prior tracing, there has been no significant serial change. EKG remains consistent with a possible right ventricular hypertrophy and right atrial enlargement. Underlying pulmonary pathology should be excluded. PREVIOUS TRACING : 08/11/2016 10.51 DOCTOR: Veronica Bradley Interpretating Date/Time 12/08/2016 14:46:38
[2016-12-08] MEDS: ACETAMINOPHEN/HYDROcodone 325 MG/10 MG TAB PO PRN ×2 (15:42→23:54)
[2016-12-08] MEDS: ENALAPRILAT 1.25 MG/ML VIAL IV PUSH PRN ×2 (16:29→23:53)
[2016-12-08] MEDS: BISACODYL 10 MG SUPP RECTAL PRN (16:33)
[2016-12-08] MEDS: SODIUM CHLORIDE 0.9% FLUSH 10 ML FLUSH IV FLUSH SCH (20:23)
[2016-12-08] MEDS: LEVOFLOXACIN 750 MG PREMIX INJ 150 ML IV SCH (20:24)
[2016-12-09] VITALS (12 sets, daily range): BP systolic 160–215; BP diastolic 72–105; PULSE 77–124; RESP 18–27; TEMP 97–98.2; O2SAT 90–98
[2016-12-09] MEDS: ACETAMINOPHEN/HYDROcodone 325 MG/10 MG TAB PO PRN ×4 (04:17→21:32)
[2016-12-09] MEDS: methylPREDNISolone SOD SUCC 40 MG/1 ML VIAL IV PUSH SCH ×4 (05:08→23:06)
[2016-12-09] MEDS: RESP: ALBUTEROL 2.5 MG/IPRATROPIUM 0.5 MG NEB (PRN) NEB (05:08)
[2016-12-09] MEDS: RESP: ALBUTEROL 2.5 MG/IPRATROPIUM 0.5 MG NEB (SCH) NEB ×4 (07:55→21:12)
[2016-12-09] MEDS: guaiFENesin E.R. 600 MG TAB PO SCH ×2 (08:56→20:21)
[2016-12-09] MEDS: LISINOPRIL 20 MG TAB PO SCH (08:56)
[2016-12-09] MEDS: amLODIPine BESYLATE 5 MG TAB PO SCH (08:56)
[2016-12-09] MEDS: BUDESONIDE-FORMOTEROL 160/4.5 MCG INHALER INH SCH ×2 (08:58→20:34)
--- NOTE | 2016-12-09 10:10 | HHI.PR ---
Subjective Remarks Follow-up COPD exacerbation. The patient states that she feels worse today. She states that she did not sleep at all last night. She reports increased wheezing and shortness of breath. She is having abdominal pain which she attributes to constipation. States that she is having only very small stools that are mostly mucus and she has noted some blood in her stools recently. 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 Objective Vitals Vital Signs Date Time Temp Pulse Resp B/P Pulse Ox O2 Delivery O2 Flow Rate FiO2 12/09/16 08:00 97.6 112 22 215/105 97 12/09/16 07:58 93 Nasal Cannula 2.00 12/09/16 04:00 97.9 108 22 178/96 90 12/09/16 00:00 98.1 101 20 170/90 91 Automatic Cuff 12/08/16 21:00 Nasal Cannula 2.00 12/08/16 20:00 98.3 113 22 164/95 93 12/08/16 19:42 92 Nasal Cannula 2.00 12/08/16 16:00 97.0 110 18 186/100 94 12/08/16 12:00 97.0 99 20 183/96 93 I/O 12/08/16 12/08/16 12/08/16 12/09/16 12/09/16 12/09/16 07:00 15:00 23:00 07:00 15:00 23:00 Intake Total 120 ml 960 ml 0 ml 870 ml Balance 120 ml 960 ml 0 ml 870 ml Intake Oral 120 ml 960 ml 0 ml 720 ml IV Total 150 ml # Voids 1 6 2 3 # Bowel Movements 0 0 0 Result Diagram: 12/08/16 0620 12/08/16 0620 Imaging Last Impressions Chest X-Ray 12/07/16 1843 Signed Impressions: Service Date/Time: Wednesday, December 07, 2016 18:48 - CONCLUSION: No acute disease. No significant change has occurred. Kevyn Augustine MD Objective Remarks General: No acute distress. Heart: Regular rate and rhythm. No murmur. Lungs: Diffuse wheeze. Breathing is nonlabored. Abdomen: Soft, mildly distended. Mild diffuse tenderness to palpation without rebound or guarding. Extremities: No lower extremity edema. Psych: Alert and oriented. Procedures None Urinary Catheter: No Vascular Central Line Catheter: No A/P Problem List: (1) COPD with exacerbation ICD Code: J44.1 Status: Acute (2) Hypoxia ICD Code: R09.02 Status: Acute (3) Tobacco abuse ICD Code: Z72.0 Status: Chronic (4) Hypertension ICD Code: I10 Status: Chronic Assessment and Plan 1. COPD exacerbation, chronic respiratory failure: Continue Solu-Medrol, DuoNeb , albuterol nebs, Symbicort, antibiotics, supplemental oxygen. 2. Tobacco abuse: Patient counseled to quit smoking. 3. Hypertension: Blood pressure is elevated. Continue lisinopril. Add amlodipine. Patient seems anxious, which could be contributing to the elevated blood pressure. Add lorazepam as needed. 4. DVT prophylaxis: MUNIRA Neri. 5. Abdominal pain, constipation: Patient describing small stools with mucus and some blood. Consult gastroenterology for further assistance. Carlos Wade MD Dec 09, 2016 10:10
[2016-12-09] MEDS: LORazepam 0.5 MG TAB PO PRN ×2 (12:23→20:37)
--- NOTE | 2016-12-09 14:49 | PD.CONS ---
HPI History of Present Illness This is a 56 year old female who came to the emergency room with shortness of breath and cough and was admitted for COPD exacerbation and hypoxia. She was started on same Medrol, antibiotics, nebulizer treatments and her respiratory status has improved. GI has been consulted for rectal bleeding. The patient reports that she's always had a problem with constipation. She was able to control this with caxz-[id number]-[id number] laxatives and prune juice for many years. However, her symptoms have been worsening over the past 3 months and she no longer has any relief with OTC laxatives. She states that she often has bright red blood per rectum, either in the tissue when she wipes herself or mixed within her stool. She reports that sometimes this is a small amount and other times it seems like there is a large amount of blood in the toilet. She states that she does have hemorrhoids and at times she will strain so hard that she will develop a fissure and she'll have bleeding from that as well. She occasionally has nausea and vomiting associated with this but is not currently having any. She also reports that she sometimes gets heartburn. She also has associated cramping. She denies any abnormal weight loss. She has never had a colonoscopy. She is unsure if she has any history of peptic ulcer disease. PFSH Past Medical History HTN Hyperlipidemia Tobacco abuse COPD Past Surgical History [place] Teeth Removal Coded Allergies: Darvocet-N 100 (Verified Allergy, Mild, Nausea/Vomiting, 12/07/16) Medications Allergies Coded Allergies Type Severity Reaction Last Updated Verified Darvocet-N 100 Allergy Mild Nausea/Vomiting 12/07/16 Yes Active Scripts Medications Dose Route/Sig Days Date Category Lisinopril 20 Mg Tab 20 Mg PO DAILY 12/07/16 Reported Family History Denies any family hx of colorectal cancer. Social History Occasional alcohol. Positive for tobacco. Negative for drugs. Review of Systems Constitutional: COMPLAINS OF: Fatigue, DENIES: Weight loss, Change in appetite Cardiovascular: DENIES: Chest pain Gastrointestinal: COMPLAINS OF: Abdominal pain, Bloody stools, Constipation, Nausea, DENIES: Black stools, Diarrhea, Vomiting, Heartburn, Hematemesis Integumentary: COMPLAINS OF: Abnormal pigmentation Hematologic/lymphatic: COMPLAINS OF: Bruising Neurologic: DENIES: Headache Psychiatric: DENIES: Confusion GI Exam Vitals I&O Vital Signs Date Time Temp Pulse Resp B/P Pulse Ox O2 Delivery O2 Flow Rate FiO2 12/09/16 12:00 98.2 113 18 178/100 90 12/09/16 08:00 97.6 112 22 215/105 97 12/09/16 07:58 93 Nasal Cannula 2.00 12/09/16 04:00 97.9 108 22 178/96 90 12/09/16 00:00 98.1 101 20 170/90 91 Automatic Cuff 12/08/16 21:00 Nasal Cannula 2.00 12/08/16 20:00 98.3 113 22 164/95 93 12/08/16 19:42 92 Nasal Cannula 2.00 12/08/16 16:00 97.0 110 18 186/100 94 I/O 12/08/16 12/08/16 12/08/16 12/09/16 12/09/16 12/09/16 07:00 15:00 23:00 07:00 15:00 23:00 Intake Total 120 ml 960 ml 0 ml 870 ml Balance 120 ml 960 ml 0 ml 870 ml Intake Oral 120 ml 960 ml 0 ml 720 ml IV Total 150 ml # Voids 1 6 2 3 # Bowel Movements 0 0 0 Imaging Last Impressions Chest X-Ray 12/07/16 1843 Signed Impressions: Service Date/Time: Wednesday, December 07, 2016 18:48 - CONCLUSION: No acute disease. No significant change has occurred. Kevyn Augustine MD Physical Examination HEENT: Normocephalic; atraumatic; no jaundice. CHEST: CTA, Expiratory wheezing CARDIAC: RRR. ABDOMEN: Soft, nondistended, nontender; no hepatosplenomegaly; bowel sounds are present in all four quadrants. EXTREMITIES: No clubbing, cyanosis, or edema. SKIN: Normal; no rash; no jaundice. 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 Assessment and Plan Plan ASSESSMENT: - Rectal bleeding. Pt reports long hx of BRBPR- sometimes small amount on tissue, sometimes mixed within stools, sometimes filling toilet. She has constipation and a hx of hemorrhoids and fissures from straining. She has never had a colonoscopy. She states she is very constipated and has not had a bowel movement in several days, but cannot tell me when she last had this. 14.1/41.0. D/W patient further evaluation with colonoscopy- she is refusing at this time. She states she wants something for her constipation and will then think about colonoscopy. - Constipation, chronic. Worsening over the past 3 months- cannot identify any aggravating factors for this such as new meds or diet changes. Does not want colonoscopy at this time. - COPD Exacerbation, per primary PLAN: - Refusing colonoscopy at this time - Magnesium citrate x 1 now - Miralax 17gram po daily - Monitor labs - Recommend colonoscopy, could be done as outpatient. Pt is refusing at this time - Pt seen and examined by Dr. Alexander and myself and this note is written on his behalf Balbina Hilton Dec 09, 2016 14:49
[2016-12-09] MEDS ORDERED: MAGNESIUM CITRATE SOLN 300 ML BTL PO ONE (15:00)
[2016-12-09] MEDS: POLYETHYLENE GLYCOL 17 GM PKG PO SCH (17:33)
[2016-12-09] MEDS: SODIUM CHLORIDE 0.9% FLUSH 10 ML FLUSH IV FLUSH SCH (20:22)
[2016-12-09] MEDS: ENALAPRILAT 1.25 MG/ML VIAL IV PUSH PRN (20:26)
[2016-12-09] MEDS: LEVOFLOXACIN 750 MG PREMIX INJ 150 ML IV SCH (20:26)
[2016-12-10] VITALS (8 sets, daily range): BP systolic 125–196; BP diastolic 76–110; PULSE 95–120; RESP 20–24; TEMP 97.7–98.5; O2SAT 88–98
[2016-12-10] MEDS ORDERED: LORazepam 1 MG TAB PO PRN
[2016-12-10] MEDS ORDERED: LORazepam 2 MG/ML VIAL IV PUSH ONE
[2016-12-10] MEDS ORDERED: SODIUM CHLORIDE 0.9% FLUSH 10 ML FLUSH IV FLUSH PRN
[2016-12-10] MEDS ORDERED: LORazepam 2 MG/ML VIAL IV PUSH PRN ×4
[2016-12-10] MEDS ORDERED: FLUMAZENIL 0.5 MG/5 ML VIAL IV PUSH PRN
[2016-12-10] MEDS ORDERED: LORazepam 2 MG TAB PO PRN
[2016-12-10] MEDS: methylPREDNISolone SOD SUCC 40 MG/1 ML VIAL IV PUSH SCH ×3 (05:28→16:43)
[2016-12-10] MEDS: ACETAMINOPHEN/HYDROcodone 325 MG/10 MG TAB PO PRN ×4 (05:29→21:08)
[2016-12-10] MEDS: RESP: ALBUTEROL 2.5 MG/IPRATROPIUM 0.5 MG NEB (SCH) NEB ×4 (08:12→20:59)
[2016-12-10] MEDS: SODIUM CHLORIDE 0.9% FLUSH 10 ML FLUSH IV FLUSH SCH ×4 (09:00→21:00)
[2016-12-10] MEDS: POLYETHYLENE GLYCOL 17 GM PKG PO SCH (09:02)
[2016-12-10] MEDS: amLODIPine BESYLATE 5 MG TAB PO SCH (09:02)
[2016-12-10] MEDS: BUDESONIDE-FORMOTEROL 160/4.5 MCG INHALER INH SCH ×2 (09:02→21:25)
[2016-12-10] MEDS: LISINOPRIL 20 MG TAB PO SCH (09:02)
[2016-12-10] MEDS: guaiFENesin E.R. 600 MG TAB PO SCH ×2 (09:02→21:08)
[2016-12-10 10:08] LABS: AUTOMATED NEUTROPHIL # 10.9 TH/MM3 (1.8-7.7); BASOPHIL % 0.1 % (0.0-2.0); HEMATOCRIT 46.9 % (35.0-46.0); HEMO FLAGS DIFF FINAL; LYMPH % 3.5 % (9.0-44.0); LYMPHOCYTE # 0.4 TH/MM3 (1.0-4.8); MEAN CELL VOLUME 94.5 FL (80.0-100.0); MEAN CORPUSCULAR HGB CONC 33.8 % (32.0-36.0); MONO % 2.7 % (0.0-8.0); NEUT % 93.7 % (16.0-70.0); PLATELET COUNT 168 TH/MM3 (150-450); RED BLOOD COUNT 4.97 MIL/MM3 (4.00-5.30); RED CELL DISTRIBUTION WIDTH 14.7 % (11.6-17.2); WHITE BLOOD COUNT 11.7 TH/MM3 (4.0-11.0)
[2016-12-10 10:38] LABS: BICARBONATE 40.1 MEQ/L (21.0-32.0); POTASSIUM 4.3 MEQ/L (3.5-5.1)
--- NOTE | 2016-12-10 11:43 | HHI.PR ---
Subjective Remarks Follow up COPD exacerbation, GI bleed. Patient is refusing colonoscopy. She states that her abdominal pain is unchanged. States that she has not eating or drinking much. She reports feeling dehydrated. Objective Vitals Vital Signs Date Time Temp Pulse Resp B/P Pulse Ox O2 Delivery O2 Flow Rate FiO2 12/10/16 08:14 94 Nasal Cannula 2.00 12/10/16 08:00 98.2 102 20 196/100 95 12/10/16 06:35 20 12/10/16 04:00 98.0 95 20 125/76 95 12/10/16 00:48 101 20 168/96 98 12/09/16 23:52 97.8 77 24 176/98 94 12/09/16 21:56 120 160/100 94 12/09/16 21:30 94 Nasal Cannula 2.00 12/09/16 21:16 91 Nasal Cannula 2.00 12/09/16 20:00 98.1 109 27 175/88 97 176/72 12/09/16 19:56 97.6 98 27 176/72 91 12/09/16 16:20 97 Nasal Cannula 2.00 12/09/16 16:00 97.0 124 20 162/92 98 12/09/16 12:00 98.2 113 18 178/100 90 I/O 12/09/16 12/09/16 12/09/16 12/10/16 12/10/16 12/10/16 07:00 15:00 23:00 07:00 15:00 23:00 Intake Total 870 ml 960 ml 720 ml 480 ml Balance 870 ml 960 ml 720 ml 480 ml Intake Oral 720 ml 960 ml 720 ml 480 ml IV Total 150 ml # Voids 3 3 2 2 # Bowel Movements 0 0 0 0 Result Diagram: 12/10/16 0847 12/10/16 0847 Imaging Last Impressions Chest X-Ray 12/07/16 7283 Signed Impressions: Service Date/Time: Wednesday, December 07, 2016 18:48 - CONCLUSION: No acute disease. No significant change has occurred. Kevyn Augustine MD Objective Remarks General: No acute distress. Heart: Regular rate and rhythm. No murmur. Lungs: Diffuse wheeze. Breathing is nonlabored. Abdomen: Soft, mildly distended. Mild diffuse tenderness to palpation without rebound or guarding. Extremities: No lower extremity edema. Psych: Alert and oriented. Procedures None Urinary Catheter: No Vascular Central Line Catheter: No A/P Problem List: (1) COPD with exacerbation ICD Code: J44.1 Status: Acute (2) Hypoxia ICD Code: R09.02 Status: Acute (3) Tobacco abuse ICD Code: Z72.0 Status: Chronic (4) Hypertension ICD Code: I10 Status: Chronic (5) Blood in stool ICD Code: K92.1 Status: Acute Assessment and Plan 1. COPD exacerbation, chronic respiratory failure: Continue Solu-Medrol, DuoNeb , albuterol nebs, Symbicort, antibiotics, supplemental oxygen. 2. Tobacco abuse: Patient counseled to quit smoking. 3. Hypertension: Blood pressure is elevated. Continue lisinopril, amlodipine. Patient seems anxious, which could be contributing to the elevated blood pressure. Continue lorazepam as needed. 4. DVT prophylaxis: SCDs, MUNIRA demarco. 5. Abdominal pain, constipation, blood in stool: Appreciate gastroenterology recommendations. Hemoccult is positive. Patient is refusing colonoscopy. 6. ?EtOH withdrawal: CIWA protocol. 7. Mild dehydration: BUN is increased today. Patient reports poor oral intake. Add IV fluids. Carlos Wade MD Dec 10, 2016 11:43
[2016-12-10] MEDS ORDERED: amLODIPine BESYLATE 5 MG TAB PO ONE (11:45)
[2016-12-10] MEDS: SODIUM CHLOR 0.9% 1000 ML INJ 1,000 ML IV SCH ×2 (12:14→23:55)
--- NOTE | 2016-12-10 15:51 | HHI.GIFU ---
Subjective Remarks Resting in bed. States no BM with magnesium citrate. Still feels she needs to move her bowels. She states she did pass a very small amount of mucous and small amount of blood. Still does not want colonoscopy. Objective Vitals I&O Vital Signs Date Time Temp Pulse Resp B/P Pulse Ox O2 Delivery O2 Flow Rate FiO2 12/10/16 12:00 98.5 120 20 187/110 89 12/10/16 08:20 Nasal Cannula 2.00 12/10/16 08:14 94 Nasal Cannula 2.00 12/10/16 08:00 98.2 102 20 196/100 95 12/10/16 06:35 20 12/10/16 04:00 98.0 95 20 125/76 95 12/10/16 00:48 101 20 168/96 98 12/09/16 23:52 97.8 77 24 176/98 94 12/09/16 21:56 120 160/100 94 12/09/16 21:30 94 Nasal Cannula 2.00 12/09/16 21:16 91 Nasal Cannula 2.00 12/09/16 20:00 98.1 109 27 175/88 97 176/72 12/09/16 19:56 97.6 98 27 176/72 91 12/09/16 16:20 97 Nasal Cannula 2.00 12/09/16 16:00 97.0 124 20 162/92 98 I/O 12/09/16 12/09/16 12/09/16 12/10/16 12/10/16 12/10/16 07:00 15:00 23:00 07:00 15:00 23:00 Intake Total 870 ml 960 ml 720 ml 480 ml Balance 870 ml 960 ml 720 ml 480 ml Intake Oral 720 ml 960 ml 720 ml 480 ml IV Total 150 ml # Voids 3 3 2 2 # Bowel Movements 0 0 0 0 Laboratory Laboratory Tests Test 12/10/16 08:47 White Blood Count 11.7 Red Blood Count 4.97 Hemoglobin 15.9 Hematocrit 46.9 Mean Corpuscular Volume 94.5 Mean Corpuscular Hemoglobin 32.0 Mean Corpuscular Hemoglobin 33.8 Concent Red Cell Distribution Width 14.7 Platelet Count 168 Mean Platelet Volume 8.8 Neutrophils (%) (Auto) 93.7 Lymphocytes (%) (Auto) 3.5 Monocytes (%) (Auto) 2.7 Eosinophils (%) (Auto) 0.0 Basophils (%) (Auto) 0.1 Neutrophils # (Auto) 10.9 Lymphocytes # (Auto) 0.4 Monocytes # (Auto) 0.3 Eosinophils # (Auto) 0.0 Basophils # (Auto) 0.0 CBC Comment DIFF FINAL Differential Comment Sodium Level 139 Potassium Level 4.3 Chloride Level 95 Carbon Dioxide Level 40.1 Anion Gap 4 Blood Urea Nitrogen 18 Creatinine 0.74 Estimat Glomerular Filtration 82 Rate Random Glucose 133 Calcium Level 9.1 Date/Time Procedure Status Source Growth 12/09/16 22:30 Stool Occult Blood (MAXIM) - Final Complete Stool Stool HEMOCCULT POSITIVE Imaging Last Impressions Chest X-Ray 12/07/16 1843 Signed Impressions: Service Date/Time: Wednesday, December 07, 2016 18:48 - CONCLUSION: No acute disease. No significant change has occurred. Kevyn Augustine MD Physical Exam HEENT: Normocephalic; atraumatic; no jaundice. CHEST: O2 via N/C. Diminished, expiratory wheezing. CARDIAC: Regular rate and rhythm with no murmur gallop or rubs. ABDOMEN: Soft, mildly distended, diffuse tenderness; no hepatosplenomegaly; bowel sounds are present in all four quadrants. EXTREMITIES: No clubbing, cyanosis, or edema. SKIN: Normal; no rash; no jaundice. 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 Assessment and Plan Plan ASSESSMENT: - Rectal bleeding. Pt reports long hx of BRBPR- sometimes small amount on tissue, sometimes mixed within stools, sometimes filling toilet. She has constipation and a hx of hemorrhoids and fissures from straining. She has never had a colonoscopy. She states she is very constipated and has not had a bowel movement in several days, but cannot tell me when she last had this. D/W patient further evaluation with colonoscopy- she is refusing at this time. She was given Magnesium citrate, but has not had any response to this. She did pass a small amount of mucous/brbpr, but no BM. She is still not wishing to pursue the colonoscopy. - Constipation, chronic. Worsening over the past 3 months- cannot identify any aggravating factors for this such as new meds or diet changes. Does not want colonoscopy at this time. No improvement with magnesium citrate. Will give SSE. If no obstruction on CT, then golytely. - Diffuse abdominal pain, cramping. Likely related to constipation. Will get CT Scan abdomen and pelvis to rule out obstruction. If no obstruction, then Golytely. - COPD Exacerbation, per primary PLAN: - Clear liquids - CT scan abdomen and pelvis - SSE x 2 - Miralax 17gram po daily - Monitor labs - If not obstruction on CT scan, then will give golytely. - Colonoscopy once respiratory status improves and patient is agreeable. - Pt seen and examined by Dr. Alexander and myself and this note is written on his behalf Balbina Hilton Dec 10, 2016 15:51
[2016-12-10] MEDS ORDERED: DIATRIZOATE MEGLUM/DIATRIZOATE SOD 9 ML CUP PO ONE (16:45)
[2016-12-10] MEDS ORDERED: IOHEXOL 350 MG/ML 10 ML VIAL (for RAD DIAG) IV ONE (20:27)
--- NOTE | 2016-12-10 20:47 | RADRPT ---
EXAM DATE/TIME: 12/10/2016 20:23 [facility] COMPARISON: CT ABDOMEN & PELVIS W CONTRAST, September 25, 2016, 20:07. INDICATIONS : Diffuse abdominal pain with severe constipation and rectal bleeding. IV CONTRAST: 95 cc Omnipaque 350 (iohexol) IV ORAL CONTRAST: Partial prescribed oral contrast ingested. RADIATION DOSE: 8.99 CTDIvol (mGy) MEDICAL HISTORY : Cardiovascular disease. Hypertension. SURGICAL HISTORY : Tubal ligation. ENCOUNTER: Initial ACUITY: 4 - 6 days PAIN SCALE: 7/10 LOCATION: Diffuse abdomen/pelvis TECHNIQUE: Volumetric scanning of the abdomen and pelvis was performed. Using automated exposure control and ad justment of the mA and/or kV according to patient size, radiation dose was kept as low as reasonably achievable to obtain optimal diagnostic quality images. FINDINGS: LOWER LUNGS: Numerous subcentimeter round pulmonary nodules of the visualized lung bases. LIVER: Homogeneous density without lesion. There is no dilation of the biliary tree. No calcified gallston es. SPLEEN: Normal size without lesion. PANCREAS: Within normal limits. KIDNEYS: Nonobstructing 3 mm stone right upper pole. Nonobstructing 2 mm stone right lower pole. Simple 2.4 cm cyst left mid zone. ADRENAL GLANDS: Within normal limits. VASCULAR: There is no aortic aneurysm. BOWEL/MESENTERY: Diverticulosis and chronic appearing diverticular disease/wall thickening seen in the sigmoid colon. There is a small thick walled collection with a bubble of gas within it adjacent to the sigmoid colon in the left posterior pelvic cavity, series 2 image 58. This measures about 2.0 x 2.1 cm in size. Th ere is mild acute inflammatory change. I don't see a well-defined mass but difficult to exclude with certainty given the wall thickening. There is no obstruction. ABDOMINAL WALL: Within normal limits. RETROPERITONEUM: There is no lymphadenopathy. BLADDER: No wall thickening or mass. REPRODUCTIVE: 4.5 cm fundal fibroid again noted. INGUINAL: There is no lymphadenopathy or hernia. MUSCULOSKELETAL: Within normal limits for patient age. CONCLUSION: 1. Wall thickening of the sigmoid colon, differential including mass and chronic diverticular disease or combination of the 2. There is mild acute diverticulitis and a small, contained abscess/perforati on noted; please see above. Nothing clearly drainable at this time. 2. Apparent pulmonary metastatic disease, etiology uncertain but would increase the possibility of si gmoid colon carcinoma and this should be excluded. I don't see another definite primary or other site s of metastatic disease. 3. Nonobstructing stones are again noted of the right kidney and an unchanged cyst of the left kidney . 4. Uterine fibroid. Clayton Burr MD on December 10, 2016 at 20:34 Board Certified Radiologist. This report was verified electronically.
[2016-12-10] MEDS: LORazepam 0.5 MG TAB PO PRN (21:08)
[2016-12-10] MEDS: ENALAPRILAT 1.25 MG/ML VIAL IV PUSH PRN (21:18)
[2016-12-10] MEDS: LEVOFLOXACIN 750 MG PREMIX INJ 150 ML IV SCH (21:24)
[2016-12-10] MEDS ORDERED: PEG (High)/E-LYTE SOLN 4000 ML BTL PO SCH (22:00)
[2016-12-11] VITALS (17 sets, daily range): BP systolic 155–196; BP diastolic 86–124; PULSE 93–112; RESP 18–22; TEMP 97.4–98; O2SAT 90–100
[2016-12-11] MEDS ORDERED: hydrALAZINE HCL 20 MG/ML VIAL IV PUSH ONE (00:45)
[2016-12-11] MEDS: methylPREDNISolone SOD SUCC 40 MG/1 ML VIAL IV PUSH SCH ×5 (00:57→22:54)
[2016-12-11] MEDS ORDERED: LORazepam 2 MG/ML VIAL IV PUSH ONE (03:00)
[2016-12-11] MEDS: ACETAMINOPHEN/HYDROcodone 325 MG/10 MG TAB PO PRN ×3 (03:10→22:53)
[2016-12-11 07:25] LABS: HEMATOCRIT 44.9 % (35.0-46.0); HEMO FLAGS DIFF FINAL; LYMPH % 5.2 % (9.0-44.0); LYMPHOCYTE # 0.5 TH/MM3 (1.0-4.8); MEAN CELL VOLUME 94.3 FL (80.0-100.0); MEAN CORPUSCULAR HEMOGLOBIN 31.3 PG (27.0-34.0); MEAN CORPUSCULAR HGB CONC 33.2 % (32.0-36.0); MONO % 3.5 % (0.0-8.0); NEUT % 91.3 % (16.0-70.0); PLATELET COUNT 125 TH/MM3 (150-450); RED BLOOD COUNT 4.76 MIL/MM3 (4.00-5.30); RED CELL DISTRIBUTION WIDTH 14.6 % (11.6-17.2); WHITE BLOOD COUNT 9.9 TH/MM3 (4.0-11.0)
[2016-12-11] MEDS: RESP: ALBUTEROL 2.5 MG/IPRATROPIUM 0.5 MG NEB (SCH) NEB ×5 (07:25→21:04)
[2016-12-11 07:40] LABS: BICARBONATE 40.7 MEQ/L (21.0-32.0); POTASSIUM 4.2 MEQ/L (3.5-5.1)
[2016-12-11] MEDS: POLYETHYLENE GLYCOL 17 GM PKG PO SCH (09:00)
[2016-12-11] MEDS: SODIUM CHLORIDE 0.9% FLUSH 10 ML FLUSH IV FLUSH SCH ×4 (09:00→20:35)
[2016-12-11] MEDS: BUDESONIDE-FORMOTEROL 160/4.5 MCG INHALER INH SCH ×2 (09:00→20:34)
[2016-12-11] MEDS: LISINOPRIL 20 MG TAB PO SCH (09:00)
[2016-12-11] MEDS: guaiFENesin E.R. 600 MG TAB PO SCH ×2 (09:00→20:35)
[2016-12-11] MEDS: amLODIPine BESYLATE 5 MG TAB PO SCH (09:00)
[2016-12-11] MEDS: RESP: ALBUTEROL 2.5 MG/IPRATROPIUM 0.5 MG NEB (PRN) NEB (09:55)
--- NOTE | 2016-12-11 11:08 | HHI.GIFU ---
Subjective Remarks Pt walking about room. Did finish the bowel prep, but when asked if she is now agreeable to the procedure- she simply states "I don't know, I don't know, I just woke up and am not going to talk to you about this right now. There are multiple drinks and wrappers at the bedside. When asked if she has anything to eat or drink, she again stated "I don't know, I don;t know." and then finally stated "Yes!! I had a couple of crackers." The nurse reports that she has taken her food/drinks away, but she keeps finding them back on the bedside table. Objective Vitals I&O Vital Signs Date Time Temp Pulse Resp B/P Pulse Ox O2 Delivery O2 Flow Rate FiO2 12/11/16 08:00 97.9 95 18 178/93 97 12/11/16 08:00 Nasal Cannula 3.00 12/11/16 07:25 96 Nasal Cannula 3.00 12/11/16 06:27 107 12/11/16 05:45 94 20 167/91 96 12/11/16 04:18 20 12/11/16 04:00 97.9 99 20 196/96 100 12/11/16 02:14 93 177/90 12/11/16 01:47 100 20 155/94 95 12/11/16 01:34 111 20 177/110 95 12/11/16 01:21 109 184/105 92 12/11/16 01:12 106 20 194/124 98 12/11/16 00:00 97.4 101 20 177/98 95 12/10/16 21:30 98 Nasal Cannula 2.00 12/10/16 21:01 92 Nasal Cannula 3.00 12/10/16 20:00 97.7 115 20 196/108 90 12/10/16 16:00 98.0 119 24 179/100 88 12/10/16 12:00 98.5 120 20 187/110 89 I/O 12/10/16 12/10/16 12/10/16 12/11/16 12/11/16 12/11/16 07:00 15:00 23:00 07:00 15:00 23:00 Intake Total 480 ml 1154 ml 480 ml Balance 480 ml 1154 ml 480 ml Intake Oral 480 ml 960 ml 480 ml IV Total 194 ml # Voids 2 5 5 3 # Bowel Movements 0 2 0 1 Laboratory Laboratory Tests Test 12/11/16 06:17 White Blood Count 9.9 Red Blood Count 4.76 Hemoglobin 14.9 Hematocrit 44.9 Mean Corpuscular Volume 94.3 Mean Corpuscular Hemoglobin 31.3 Mean Corpuscular Hemoglobin 33.2 Concent Red Cell Distribution Width 14.6 Platelet Count 125 Mean Platelet Volume 8.3 Neutrophils (%) (Auto) 91.3 Lymphocytes (%) (Auto) 5.2 Monocytes (%) (Auto) 3.5 Eosinophils (%) (Auto) 0.0 Basophils (%) (Auto) 0.0 Neutrophils # (Auto) 9.0 Lymphocytes # (Auto) 0.5 Monocytes # (Auto) 0.3 Eosinophils # (Auto) 0.0 Basophils # (Auto) 0.0 CBC Comment DIFF FINAL Differential Comment Sodium Level 137 Potassium Level 4.2 Chloride Level 94 Carbon Dioxide Level 40.7 Anion Gap 2 Blood Urea Nitrogen 16 Creatinine 0.57 Estimat Glomerular Filtration 111 Rate Random Glucose 125 Calcium Level 8.8 Date/Time Procedure Status Source Growth 12/09/16 22:30 Stool Occult Blood (MAXIM) - Final Complete Stool Stool HEMOCCULT POSITIVE Imaging Last Impressions Abdomen/Pelvis CT 12/10/16 0000 Signed Impressions: Service Date/Time: Saturday, December 10, 2016 20:23 - CONCLUSION: 1. Wall thickening of the sigmoid colon, differential including mass and chronic diverticular disease or combination of the 2. There is mild acute diverticulitis and a small, contained abscess/perforation noted; please see above. Nothing clearly drainable at this time. 2. Apparent pulmonary metastatic disease, etiology uncertain but would increase the possibility of sigmoid colon carcinoma and this should be excluded. I don't see another definite primary or other sites of metastatic disease. 3. Nonobstructing stones are again noted of the right kidney and an unchanged cyst of the left kidney. 4. Uterine fibroid. Clayton Burr MD Chest X-Ray 12/07/16 1620 Signed Impressions: Service Date/Time: Wednesday, December 07, 2016 18:48 - CONCLUSION: No acute disease. No significant change has occurred. Kevyn Augustine MD Physical Exam HEENT: Normocephalic; atraumatic; no jaundice. CHEST: O2 via N/C. Diminished, expiratory wheezing. CARDIAC: RRR ABDOMEN: Soft, mildly distended, diffuse tenderness; no hepatosplenomegaly; bowel sounds are present in all four quadrants. EXTREMITIES: No clubbing, cyanosis, or edema. SKIN: Normal; no rash; no jaundice. PRESS OPERATOR MEAT: No focal deficits; alert and oriented times three- uncooperative Assessment and Plan Plan ASSESSMENT: - Rectal bleeding. Pt reports long hx of BRBPR- sometimes small amount on tissue, sometimes mixed within stools, sometimes filling toilet. She has constipation and a hx of hemorrhoids and fissures from straining. She has never had a colonoscopy. She states she is very constipated and has not had a bowel movement in several days, but cannot tell me when she last had this. D/W patient further evaluation with colonoscopy- she originally refused but then agreed. She took the bowel prep, but then is now saying she does not know if she wants to and is refusing to make a decision for me. She has multiple cups and food wrappers at the bedside and states she had crackers earlier. She cannot tell me when. The nurse reports that she has been removing drinks and stuff from her bedside table, but she keeps finding them back on her bedside table. - Constipation, chronic. + B/P - Diffuse abdominal pain, cramping. Likely related to constipation. CT Abdomen and pelvis with IV contrast (12/10/16)---> Wall thickening of the sigmoid colon, differential including a mass and chronic diverticular disease or combination of 2. There is a mild acute diverticulitis and a small, contained abscess/perforation noted, please see above. Apparent pulmonary metastatic disease, etiology uncertain but would increase the possibility of sigmoid colon carcinoma and this should be excluded. I don't see another definite primary or other sites of metastatic disease, Nonobstructing stones are again noted of the right kidney and an unchanged cyst of the left kidney, uterine fibroid- D/W patient and sister findings on CT scan and importance of further workup to determine exactly what this is. The sister verbalizes understanding, but the patient states she is just too tired to think because she did not get any rest last night and does not want to think about this. . - Abnormal imaging with wall thickening of the sigmoid colon, diverticulitis with small contained abscess/perforation noted and possible metastatic dz to [facility]- possible sigmoid colon carcinoma. On levaquin, add flagyl. GS evaluation, Tumor markers. - COPD Exacerbation, per primary PLAN: - NPO for now (noncompliant) - Add Flagyl 500mg IVPB q8h - Cont. PPI - Cont. Miralax - CEA, AFP, Ca19-9 - Refusing colonoscopy, sigmoidoscopy - GS evaluation - Supportive care - Further recommendations to follow based on results of above - Pt seen and examined by Dr. Alexander and myself and this note is written on his behalf Balbina Hilton Dec 11, 2016 11:08
[2016-12-11] MEDS: ENALAPRILAT 1.25 MG/ML VIAL IV PUSH PRN (12:10)
[2016-12-11] MEDS: metroNIDAZOLE 500 MG INJ 100 ML IV SCH ×2 (12:12→20:35)
[2016-12-11] MEDS: SODIUM CHLOR 0.9% 1000 ML INJ 1,000 ML IV SCH ×2 (12:18→22:59)
[2016-12-11] MEDS: NICOTINE 21 MG/24 HR PATCH T-DERMAL PRN (12:20)
--- NOTE | 2016-12-11 17:12 | HHI.PR ---
Subjective Remarks c/o difuse abdominal pain refuses to have colonoscopy feels sob denies fevers or chills patient is coughing with productive sputum. Objective Vitals Vital Signs Date Time Temp Pulse Resp B/P Pulse Ox O2 Delivery O2 Flow Rate FiO2 12/11/16 16:00 98.0 111 20 180/90 94 12/11/16 12:21 112 12/11/16 12:00 97.9 112 22 170/95 90 12/11/16 08:00 97.9 95 18 178/93 97 12/11/16 08:00 Nasal Cannula 3.00 12/11/16 07:45 106 12/11/16 07:25 96 Nasal Cannula 3.00 12/11/16 06:27 107 12/11/16 05:45 94 20 167/91 96 12/11/16 04:18 20 12/11/16 04:00 97.9 99 20 196/96 100 12/11/16 02:14 93 177/90 12/11/16 01:47 100 20 155/94 95 12/11/16 01:34 111 20 177/110 95 12/11/16 01:21 109 184/105 92 12/11/16 01:12 106 20 194/124 98 12/11/16 00:00 97.4 101 20 177/98 95 12/10/16 21:30 98 Nasal Cannula 2.00 12/10/16 21:01 92 Nasal Cannula 3.00 12/10/16 20:00 97.7 115 20 196/108 90 I/O 12/10/16 12/10/16 12/10/16 12/11/16 12/11/16 12/11/16 07:00 15:00 23:00 07:00 15:00 23:00 Intake Total 480 ml 1154 ml 480 ml 960 ml Balance 480 ml 1154 ml 480 ml 960 ml Intake Oral 480 ml 960 ml 480 ml 960 ml IV Total 194 ml # Voids 2 5 5 3 4 # Bowel Movements 0 2 0 1 1 Result Diagram: 12/11/1617 12/11/1617 Imaging Last Impressions Abdomen/Pelvis CT 12/10/16 0000 Signed Impressions: Service Date/Time: Saturday, December 10, 2016 20:23 - CONCLUSION: 1. Wall thickening of the sigmoid colon, differential including mass and chronic diverticular disease or combination of the 2. There is mild acute diverticulitis and a small, contained abscess/perforation noted; please see above. Nothing clearly drainable at this time. 2. Apparent pulmonary metastatic disease, etiology uncertain but would increase the possibility of sigmoid colon carcinoma and this should be excluded. I don't see another definite primary or other sites of metastatic disease. 3. Nonobstructing stones are again noted of the right kidney and an unchanged cyst of the left kidney. 4. Uterine fibroid. Clayton Burr MD Chest X-Ray 12/07/16 045 Signed Impressions: Service Date/Time: Wednesday, December 07, 2016 18:48 - CONCLUSION: No acute disease. No significant change has occurred. Kevyn Augustine MD Objective Remarks GENERAL: On moderate distress due to abdominal pain and shortness of breath. SKIN: Warm and dry. HEAD: Normocephalic. EYES: No scleral icterus. No injection or drainage. NECK: Supple, trachea midline. No JVD or lymphadenopathy. CARDIOVASCULAR: Regular rate and rhythm without murmurs, gallops, or rubs. RESPIRATORY: Diffuse bilateral expiratory wheezing, no crackles or rhonchi auscultated. GASTROINTESTINAL: Abdomen soft, non-tender, nondistended. MUSCULOSKELETAL: No cyanosis, or edema. BACK: Nontender without obvious deformity. No CVA tenderness. Procedures None Medications and IVs Current Medications Medications (Trade) Dose Ordered Sig/Valorie Route Start Time Stop Time Status Last Admin (SoluMEDROL INJ) 40 mg Q6HR IV PUSH 12/08/16 00:00 12/11/16 12:13 (Symbicort 160-4.5 Inh) 2 puff Q12HR INH 12/08/16 09:00 12/11/16 09:00 Guaifenesin 600 mg 600 mg BID PO 12/08/16 09:00 12/11/16 09:00 (Levaquin 750 Mg Premix Inj) 150 ml @ 100 mls/hr Q24H IV 12/08/16 21:00 12/10/16 21:24 (NS Flush) 2 ml UNSCH PRN IV FLUSH 12/07/16 21:15 12/07/16 22:47 (NS Flush) 2 ml BID IV FLUSH 12/08/16 09:00 12/11/16 09:00 (Zofran Inj) 4 mg Q6H PRN IVP 12/07/16 21:15 (Dulcolax Supp) 10 mg DAILY PRN RECTAL 12/07/16 21:15 12/08/16 16:33 (Tylenol) 650 mg Q6H PRN PO 12/07/16 21:15 ([place] 5-325 Mg) 1 tab Q4H PRN PO 12/07/16 21:15 12/08/16 20:26 ([place] 10-325 Mg) 1 tab Q4H PRN PO 12/07/16 21:15 12/11/16 03:10 (Habitrol 21 Mg Patch.24 Hr) 1 patch DAILY PRN T-DERMAL 12/07/16 21:15 12/11/16 12:20 Miscellaneous Information 1 DAILY PRN T-DERMAL 12/07/16 21:45 (Prinivil) 20 mg DAILY PO 12/08/16 12:00 12/11/16 09:00 (Vasotec Inj) 1.25 mg Q6H PRN IV PUSH 12/08/16 16:15 12/11/16 12:10 (Ativan) 0.5 mg Q8H PRN PO 12/09/16 10:15 12/10/16 21:08 (Miralax) 17 gm DAILY PO 12/09/16 15:00 12/11/16 09:00 (NS Flush) 2 ml UNSCH PRN IV FLUSH 12/10/16 00:00 (NS Flush) 2 ml BID IV FLUSH 12/10/16 09:00 12/11/16 09:00 (Romazicon Inj) 0.2 mg Q1M PRN IV PUSH 12/10/16 00:00 (Ativan) 1 mg Q4H PRN PO 12/10/16 00:00 (Ativan Inj) 1 mg Q4H PRN IV PUSH 12/10/16 00:00 (Ativan) 2 mg Q2H PRN PO 12/10/16 00:00 (Ativan Inj) 2 mg Q2H PRN IV PUSH 12/10/16 00:00 (Ativan Inj) 2 mg Q1H PRN IV PUSH 12/10/16 00:00 (Ativan Inj) 2 mg Q15M PRN IV PUSH 12/10/16 00:00 Amlodipine Besylate 10 mg 10 mg DAILY PO 12/11/16 09:00 12/11/16 09:00 Sodium Chloride 1,000 ml @ 84 mls/hr [id number] IV 12/10/16 12:00 12/11/16 12:18 (Flagyl 500 Mg Inj) 100 ml @ 100 mls/hr Q8H IV 12/11/16 12:00 12/11/16 12:12 Urinary Catheter: No Vascular Central Line Catheter: No A/P Problem List: (1) COPD with exacerbation ICD Code: J44.1 Status: Acute (2) Hypoxia ICD Code: R09.02 Status: Acute (3) Tobacco abuse ICD Code: Z72.0 Status: Chronic (4) Hypertension ICD Code: I10 Status: Chronic (5) Blood in stool ICD Code: K92.1 Status: Acute Assessment and Plan 1. COPD exacerbation, chronic respiratory failure:Increase solumedrol dose to 60 mg IV Q 6 hrs., I will Rx DuoNeb every 4 hours when the patient is awake, continue DuoNeb's as needed for short of breath or wheezing Symbicort, antibiotics, supplemental oxygen to keep oxygen saturation was 92%. 2. Tobacco abuse: Patient counseled to quit smoking. Will rx a nicotine patch. 3. Hypertension: Blood pressure is uncontrolled and very elevated with systolic blood pressure in the 170s. Continue lisinopril, amlodipine. Patient seems anxious, which could be contributing to the elevated blood pressure. Continue lorazepam as needed. I will start the patient on Cardura 2 mg at bedtime. 4. DVT prophylaxis: SCDs, MUNIRA demarco. 5. Abdominal pain. CT abdomen and pelvis showed wall thickening of the sigmoid colon, with mass and chronic diverticular disease or combination of the 2. There is mild acute diverticulitis and a small contained abscess perforation noted. Procedures and surgery recommendations, Hemoccult is positive. Patient has been offered colonoscopy which she has been refusing for the third day in a row. Patient states she will have colonoscopy but not now because she does not feel well. General surgery consulted and recommended medical management for now. Continue IV Flagyl and IV Levaquin, nothing by mouth after midnight. 6. Alcohol abuse: CIWA protocol. 7. sinus tachycardia: Likely secondary to pain and dehydration due to poor oral intake. 8. Pulmonary metastatic disease. Which would favor colonic carcinoma. I will order a dedicated CT of the chest was the patient feels better. CA-19-9 is 25.2 within normal range. 9. Poor oral intake. Will order ensure with meals. 10. Hyperglycemia. No prior history of diabetes mellitus. We'll check hemoglobin A1c. Monitor Accu-Cheks and place on SSI with insulin NovoLog. 11. GI prophylaxis. I will add PPI. 12. DVT prophylaxis: SCDs. Chemotherapy prophylaxis contraindicated given history of blood per rectum. Discharge Planning Continue to monitor in the medical floor. Wali Bowens MD Dec 11, 2016 17:12
--- NOTE | 2016-12-11 17:25 | PD.CONS ---
cc: Kevyn Barba MD [facility] Service DAILY PROGRESS NOTE FOR SURGICAL ATTENDING, DR. KEVYN BARBA General Surgery Consult Requested By Balbina HANKS Reason for Consult Acute diverticulitis with possible contained abscess Primary Care Physician No Primary Care Physician History of Present Illness This is a 56-year-old female with a past medical history of hypertension, hyperlipidemia, COPD. She comes in the emergency room with shortness of breath and cough. She has been evaluated and managed by the medicine team. During this admission she started having rectal bleeding and a GI consult was obtained. A CT of the abdomen was completed and showed wall thickening of the sigmoid colon, mild acute diverticulitis, and a small contained abscess/ perforation. She has refused a colonoscopy that was offered by GI. Her laboratory work is unremarkable and shows a white blood cell count of 9.9. She was started on Flagyl and Levaquin. She has been noncompliant with her nothing by mouth status. A General Surgery consultation has been requested for evaluation of acute diverticulitis with possible abscess/perforation. Review of Systems Constitutional: COMPLAINS OF: Fever, Chills Endocrine: DENIES: Polydipsia, Polyuria, Polyphagia Eyes: DENIES: Diplopia, Eye inflammation Ears, nose, mouth, throat: DENIES: Hearing loss Respiratory: COMPLAINS OF: Cough, DENIES: Apneas Cardiovascular: DENIES: Chest pain Gastrointestinal: COMPLAINS OF: Abdominal pain, Constipation, DENIES: Nausea, Vomiting Genitourinary: DENIES: Urinary frequency Musculoskeletal: DENIES: Joint pain Hematologic/lymphatic: DENIES: Bruising Immunologic/allergic: DENIES: Eczema Psychiatric: DENIES: Mood changes, Depression, Hallucinations Past Family Social History Past Medical History Hypertension Hyperlipidemia COPD Past Surgical History [place] teeth extraction Reported Medications See chart Allergies: Coded Allergies: Darvocet-N 100 (Verified Allergy, Mild, Nausea/Vomiting, 12/07/16) Active Ordered Medications Current Medications Medications (Trade) Dose Ordered Sig/Valorie Route Start Time Stop Time Status Last Admin (SoluMEDROL INJ) 40 mg Q6HR IV PUSH 12/08/16 00:00 12/11/16 12:13 (Symbicort 160-4.5 Inh) 2 puff Q12HR INH 12/08/16 09:00 12/11/16 09:00 Guaifenesin 600 mg 600 mg BID PO 12/08/16 09:00 12/11/16 09:00 (Levaquin 750 Mg Premix Inj) 150 ml @ 100 mls/hr Q24H IV 12/08/16 21:00 12/10/16 21:24 (NS Flush) 2 ml UNSCH PRN IV FLUSH 12/07/16 21:15 12/07/16 22:47 (NS Flush) 2 ml BID IV FLUSH 12/08/16 09:00 12/11/16 09:00 (Zofran Inj) 4 mg Q6H PRN IVP 12/07/16 21:15 (Dulcolax Supp) 10 mg DAILY PRN RECTAL 12/07/16 21:15 12/08/16 16:33 (Tylenol) 650 mg Q6H PRN PO 12/07/16 21:15 ([place] 5-325 Mg) 1 tab Q4H PRN PO 12/07/16 21:15 12/08/16 20:26 ([place] 10-325 Mg) 1 tab Q4H PRN PO 12/07/16 21:15 12/11/16 03:10 (Habitrol 21 Mg Patch.24 Hr) 1 patch DAILY PRN T-DERMAL 12/07/16 21:15 12/11/16 12:20 Miscellaneous Information 1 DAILY PRN T-DERMAL 12/07/16 21:45 (Prinivil) 20 mg DAILY PO 12/08/16 12:00 12/11/16 09:00 (Vasotec Inj) 1.25 mg Q6H PRN IV PUSH 12/08/16 16:15 12/11/16 12:10 (Ativan) 0.5 mg Q8H PRN PO 12/09/16 10:15 12/10/16 21:08 (Miralax) 17 gm DAILY PO 12/09/16 15:00 12/11/16 09:00 (NS Flush) 2 ml UNSCH PRN IV FLUSH 12/10/16 00:00 (NS Flush) 2 ml BID IV FLUSH 12/10/16 09:00 12/11/16 09:00 (Romazicon Inj) 0.2 mg Q1M PRN IV PUSH 12/10/16 00:00 (Ativan) 1 mg Q4H PRN PO 12/10/16 00:00 (Ativan Inj) 1 mg Q4H PRN IV PUSH 12/10/16 00:00 (Ativan) 2 mg Q2H PRN PO 12/10/16 00:00 (Ativan Inj) 2 mg Q2H PRN IV PUSH 12/10/16 00:00 (Ativan Inj) 2 mg Q1H PRN IV PUSH 12/10/16 00:00 (Ativan Inj) 2 mg Q15M PRN IV PUSH 12/10/16 00:00 Amlodipine Besylate 10 mg 10 mg DAILY PO 12/11/16 09:00 12/11/16 09:00 Sodium Chloride 1,000 ml @ 84 mls/hr [id number] IV 12/10/16 12:00 12/11/16 12:18 (Flagyl 500 Mg Inj) 100 ml @ 100 mls/hr Q8H IV 12/11/16 12:00 12/11/16 12:12 Family History Denies family history of colorectal cancer Social History Positive tobacco use Occasional EtOH use Denies illicit drug use Physical Exam Vital Signs Vital Signs Date Time Temp Pulse Resp B/P Pulse Ox O2 Delivery O2 Flow Rate FiO2 12/11/16 16:00 98.0 111 20 180/90 94 12/11/16 12:21 112 12/11/16 12:00 97.9 112 22 170/95 90 12/11/16 08:00 97.9 95 18 178/93 97 12/11/16 08:00 Nasal Cannula 3.00 12/11/16 07:45 106 12/11/16 07:25 96 Nasal Cannula 3.00 12/11/16 06:27 107 12/11/16 05:45 94 20 167/91 96 12/11/16 04:18 20 12/11/16 04:00 97.9 99 20 196/96 100 12/11/16 02:14 93 177/90 12/11/16 01:47 100 20 155/94 95 12/11/16 01:34 111 20 177/110 95 12/11/16 01:21 109 184/105 92 12/11/16 01:12 106 20 194/124 98 12/11/16 00:00 97.4 101 20 177/98 95 12/10/16 21:30 98 Nasal Cannula 2.00 12/10/16 21:01 92 Nasal Cannula 3.00 12/10/16 20:00 97.7 115 20 196/108 90 Physical Exam GENERAL: A 56-year-old female appears older than stated age resting in bed in no acute distress. SKIN: Warm and dry. HEAD: Atraumatic. Normocephalic. EYES: Pupils equal and round. No scleral icterus. No injection or drainage. ENT: No nasal bleeding or discharge. Mucous membranes pink and moist. NECK: Trachea midline. CARDIOVASCULAR: Regular rate and rhythm. RESPIRATORY: No accessory muscle use. Bilateral wheezing. GASTROINTESTINAL: Abdomen obese, soft, generalized tenderness to palpation MUSCULOSKELETAL: Extremities without clubbing, cyanosis, or edema. No obvious deformities. NEUROLOGICAL: Awake and alert. No obvious cranial nerve deficits. Motor grossly within normal limits. Five out of 5 muscle strength in the arms and legs. Normal speech. PSYCHIATRIC: Appropriate mood and affect; insight and judgment normal. Laboratory Laboratory Tests Test 12/11/16 12/11/16 06:17 11:38 White Blood Count 9.9 Red Blood Count 4.76 Hemoglobin 14.9 Hematocrit 44.9 Mean Corpuscular Volume 94.3 Mean Corpuscular Hemoglobin 31.3 Mean Corpuscular Hemoglobin 33.2 Concent Red Cell Distribution Width 14.6 Platelet Count 125 Mean Platelet Volume 8.3 Neutrophils (%) (Auto) 91.3 Lymphocytes (%) (Auto) 5.2 Monocytes (%) (Auto) 3.5 Eosinophils (%) (Auto) 0.0 Basophils (%) (Auto) 0.0 Neutrophils # (Auto) 9.0 Lymphocytes # (Auto) 0.5 Monocytes # (Auto) 0.3 Eosinophils # (Auto) 0.0 Basophils # (Auto) 0.0 CBC Comment DIFF FINAL Differential Comment Sodium Level 137 Potassium Level 4.2 Chloride Level 94 Carbon Dioxide Level 40.7 Anion Gap 2 Blood Urea Nitrogen 16 Creatinine 0.57 Estimat Glomerular Filtration 111 Rate Random Glucose 125 Calcium Level 8.8 Tumor Marker Alpha Fetoprotein 2.9 Carcinoembryonic Antigen 7.3 CA 19-9 Antigen 25.2 Date/Time Procedure Status Source Growth 12/09/16 22:30 Stool Occult Blood (MAXIM) - Final Complete Stool Stool HEMOCCULT POSITIVE Result Diagram: 12/11/1661612/11/1617 Imaging Last 48 hours Impressions Abdomen/Pelvis CT 12/10/16 0000 Signed Impressions: Service Date/Time: Saturday, December 10, 2016 20:23 - CONCLUSION: 1. Wall thickening of the sigmoid colon, differential including mass and chronic diverticular disease or combination of the 2. There is mild acute diverticulitis and a small, contained abscess/perforation noted; please see above. Nothing clearly drainable at this time. 2. Apparent pulmonary metastatic disease, etiology uncertain but would increase the possibility of sigmoid colon carcinoma and this should be excluded. I don't see another definite primary or other sites of metastatic disease. 3. Nonobstructing stones are again noted of the right kidney and an unchanged cyst of the left kidney. 4. Uterine fibroid. Clayton Burr MD Assessment and Plan Problem List: (1) Diverticulitis (2) Diverticulitis of intestine with abscess (3) Pulmonary nodule (4) Thrombocytopenia (5) Tobacco abuse (6) Abdominal pain (7) Hypoxia (8) COPD with exacerbation (9) Homeless (10) Alcohol abuse Assessment and Plan 56-year-old female admitted for shortness of breath, cough and COPD exacerbation ; with abdominal pain; CAT scan obtained which revealed mild acute diverticulitis and small contained abscess -Monitor WBCs -Regular diet today; nothing by mouth after midnight -Agree patient should continue workup by GI -Continue Flagyl/Levaquin -Pain control -Non operative intervention planned at this time -General Surgery follow along with you Attending Statement NOTE FOR SURGICAL ATTENDING, DR. KEVYN BARBA I saw the patient Examined her she has some mild abdominal discomfort Reviewed CT scan I tried to convince her it's in her best interest to undergo colonoscopy prior to any surgical intervention on not sure she would consent to any surgical intervention at this time as well I told her talk to her tomorrow to reevaluate the need for colonoscopy I agree with above assessment and plan. The exam, history, and the medical decision-making described in the above note were completed with the assistance of the mid-level provider. I reviewed and agree with the findings presented. I attest that I had a [id number] encounter with the patient on the same day, and personally performed and documented my assessment and findings in the medical record. The following services were provided during this hospital visit: Chart data review, vital sign assessments/reviewing monitor data Review of consultations notes if present. Medication orders/review and/or management Ordering and/or reviewing lab tests Ordering and/or interpreting/reviewing x-rays and/or diagnostic studies Care of the patient and discussion of the patient with the care team Documentation time To help prompt me to consider important information that might be impacting today's encounter and assessment, information from prior notes written by myself or my colleagues may have been "brought forward/copy and pasted" into today's note. Problem Qualifiers (1) Diverticulitis: (2) Diverticulitis of intestine with abscess: Qualified Code: K57.20 - Diverticulitis of large intestine with abscess without bleeding (3) Abdominal pain: Qualified Code: R10.32 - Left lower quadrant pain Abigail Cordoba Dec 11, 2016 17:25 Kevyn Barba MD Dec 11, 2016 19:42
[2016-12-11] MEDS ORDERED: GLUCAGON 1 MG/ML VIAL OTHER PRN (18:15)
[2016-12-11] MEDS ORDERED: DEXTROSE 50% IN WATER 50 ML VIAL(D50) IV PUSH PRN (18:15)
[2016-12-11] MEDS: INSULIN ASPART SUPPLEMENTAL SCALE SQ SCH (20:34)
[2016-12-11] MEDS: LEVOFLOXACIN 750 MG PREMIX INJ 150 ML IV SCH (20:34)
[2016-12-11] MEDS ORDERED: DOXAZOSIN MESYLATE 2 MG TAB PO SCH (21:00)
[2016-12-12] VITALS (8 sets, daily range): BP systolic 130–182; BP diastolic 66–94; PULSE 73–115; RESP 18–22; TEMP 97.5–98.2; O2SAT 90–98
[2016-12-12] MEDS: LORazepam 0.5 MG TAB PO PRN ×3 (00:27→17:04)
[2016-12-12] MEDS: metroNIDAZOLE 500 MG INJ 100 ML IV SCH ×3 (04:00→21:25)
[2016-12-12] MEDS: methylPREDNISolone SOD SUCC 40 MG/1 ML VIAL IV PUSH SCH ×3 (06:00→17:05)
[2016-12-12] MEDS: INSULIN ASPART SUPPLEMENTAL SCALE SQ SCH ×4 (06:19→21:00)
[2016-12-12] MEDS: ENALAPRILAT 1.25 MG/ML VIAL IV PUSH PRN (06:24)
[2016-12-12] MEDS: RESP: ALBUTEROL 2.5 MG/IPRATROPIUM 0.5 MG NEB (SCH) NEB ×4 (07:19→19:56)
[2016-12-12 07:51] LABS: AUTOMATED NEUTROPHIL # 6.1 TH/MM3 (1.8-7.7); HEMATOCRIT 43.5 % (35.0-46.0); HEMO FLAGS DIFF FINAL; LYMPH % 6.6 % (9.0-44.0); LYMPHOCYTE # 0.5 TH/MM3 (1.0-4.8); MEAN CELL VOLUME 93.7 FL (80.0-100.0); MEAN CORPUSCULAR HGB CONC 34.2 % (32.0-36.0); MONO % 3.8 % (0.0-8.0); NEUT % 89.6 % (16.0-70.0); PLATELET COUNT 122 TH/MM3 (150-450); RED BLOOD COUNT 4.65 MIL/MM3 (4.00-5.30); RED CELL DISTRIBUTION WIDTH 14.3 % (11.6-17.2); WHITE BLOOD COUNT 6.9 TH/MM3 (4.0-11.0)
[2016-12-12 08:15] LABS: ANION GAP 5 MEQ/L (5-15); BLOOD UREA NITROGEN 16 MG/DL (7-18); CHLORIDE 95 MEQ/L (98-107); GLOMERULAR FILTRATION RATE 87 ML/MIN (>89); POTASSIUM 3.9 MEQ/L (3.5-5.1); SODIUM (NA) 136 MEQ/L (136-145)
[2016-12-12] MEDS: ACETAMINOPHEN/HYDROcodone 325 MG/10 MG TAB PO PRN ×4 (08:26→21:25)
[2016-12-12] MEDS: SODIUM CHLORIDE 0.9% FLUSH 10 ML FLUSH IV FLUSH SCH ×4 (09:00→21:00)
[2016-12-12] MEDS: BUDESONIDE-FORMOTEROL 160/4.5 MCG INHALER INH SCH ×2 (09:00→21:00)
--- NOTE | 2016-12-12 09:12 | HHI.PR ---
Subjective Subjective Notes DAILY PROGRESS NOTE FOR SURGICAL ATTENDING, DR. KEVYN BARBA Sitting on the side of the bed Wants breakfast; wants Ensure Does not want colonoscopy Objective Vitals/I&O Vital Signs Date Time Temp Pulse Resp B/P Pulse Ox O2 Delivery O2 Flow Rate FiO2 12/12/16 08:37 Nasal Cannula 2.50 12/12/16 08:07 98.1 106 19 166/76 98 Labs Laboratory Tests Test 12/11/16 12/12/16 11:38 07:15 Tumor Marker Alpha Fetoprotein 2.9 Carcinoembryonic Antigen 7.3 CA 19-9 Antigen 25.2 White Blood Count 6.9 Red Blood Count 4.65 Hemoglobin 14.9 Hematocrit 43.5 Mean Corpuscular Volume 93.7 Mean Corpuscular Hemoglobin 32.0 Mean Corpuscular Hemoglobin 34.2 Concent Red Cell Distribution Width 14.3 Platelet Count 122 Mean Platelet Volume 8.3 Neutrophils (%) (Auto) 89.6 Lymphocytes (%) (Auto) 6.6 Monocytes (%) (Auto) 3.8 Eosinophils (%) (Auto) 0.0 Basophils (%) (Auto) 0.0 Neutrophils # (Auto) 6.1 Lymphocytes # (Auto) 0.5 Monocytes # (Auto) 0.3 Eosinophils # (Auto) 0.0 Basophils # (Auto) 0.0 CBC Comment DIFF FINAL Differential Comment Sodium Level 136 Potassium Level 3.9 Chloride Level 95 Carbon Dioxide Level 36.0 Anion Gap 5 Blood Urea Nitrogen 16 Creatinine 0.70 Estimat Glomerular Filtration 87 Rate Random Glucose 136 Calcium Level 9.1 Date/Time Procedure Status Source Growth 12/09/16 22:30 Stool Occult Blood (MAXIM) - Final Complete Stool Stool HEMOCCULT POSITIVE Radiology Last 48 hours Impressions Abdomen/Pelvis CT 12/10/16 0000 Signed Impressions: Service Date/Time: Saturday, December 10, 2016 20:23 - CONCLUSION: 1. Wall thickening of the sigmoid colon, differential including mass and chronic diverticular disease or combination of the 2. There is mild acute diverticulitis and a small, contained abscess/perforation noted; please see above. Nothing clearly drainable at this time. 2. Apparent pulmonary metastatic disease, etiology uncertain but would increase the possibility of sigmoid colon carcinoma and this should be excluded. I don't see another definite primary or other sites of metastatic disease. 3. Nonobstructing stones are again noted of the right kidney and an unchanged cyst of the left kidney. 4. Uterine fibroid. Clayton Burr MD Cardiovascular: Regular Lungs: Clear Abdomen: Other (minimal lower abdominal pain with palpation) Extremities: No edema A/P Problem List: (1) Diverticulitis (2) Diverticulitis of intestine with abscess (3) Pulmonary nodule (4) Thrombocytopenia (5) Tobacco abuse (6) Abdominal pain (7) Hypoxia (8) COPD with exacerbation (9) Homeless (10) Alcohol abuse Assessment and Plan 56 year old female with SOB/COPD and acute diverticulitis with small contain abscess -Start regular diet + Ensure -Continues to refuse colonoscopy -Oxygen dependent -Continue antibiotics -WBC continues to trend down -Continue non operative management of acute diverticulitis and small contain abscess at this time Attending Statement NOTE FOR SURGICAL ATTENDING, DR. KEVYN BARBA Patient seen She might consider outpatient colonoscopy Continue antibiotic therapy No surgery at this time per the patient I'm not sure she would consent to surgery I agree with above assessment and plan. The exam, history, and the medical decision-making described in the above note were completed with the assistance of the mid-level provider. I reviewed and agree with the findings presented. I attest that I had a [id number] encounter with the patient on the same day, and personally performed and documented my assessment and findings in the medical record. The following services were provided during this hospital visit: Chart data review, vital sign assessments/reviewing monitor data Review of consultations notes if present. Medication orders/review and/or management Ordering and/or reviewing lab tests Ordering and/or interpreting/reviewing x-rays and/or diagnostic studies Care of the patient and discussion of the patient with the care team Documentation time To help prompt me to consider important information that might be impacting today's encounter and assessment, information from prior notes written by myself or my colleagues may have been "brought forward/copy and pasted" into today's note. Problem Qualifiers (1) Diverticulitis: (2) Diverticulitis of intestine with abscess: Qualified Code: K57.20 - Diverticulitis of large intestine with abscess without bleeding (3) Abdominal pain: Qualified Code: R10.32 - Left lower quadrant pain Abigail Cordoba Dec 12, 2016 09:12 Kevyn Barba MD Dec 12, 2016 12:51
[2016-12-12] MEDS: guaiFENesin E.R. 600 MG TAB PO SCH ×2 (10:08→21:24)
[2016-12-12] MEDS: POLYETHYLENE GLYCOL 17 GM PKG PO SCH (10:09)
[2016-12-12] MEDS: LISINOPRIL 20 MG TAB PO SCH (10:09)
[2016-12-12] MEDS: amLODIPine BESYLATE 5 MG TAB PO SCH (10:09)
[2016-12-12] MEDS: SODIUM CHLOR 0.9% 1000 ML INJ 1,000 ML IV SCH ×2 (11:30→23:35)
[2016-12-12 11:38] LABS: HEMOGLOBIN A1a 1.1 %; HEMOGLOBIN A1b 1.8 %; HEMOGLOBIN Ao 84.6 %; HEMOGLOBIN LA1C 2.3 %; HEMOGLOBIN P3 4.2 %
[2016-12-12] MEDS: cloNIDine HCL 0.1 MG TAB PO PRN (13:22)
--- NOTE | 2016-12-12 14:54 | HHI.PR ---
Subjective Remarks Patient c/o generalized abdominal pain denies cp sob slightly better BP very elevated Sating well on 2 liters nasal canula Objective Vitals Vital Signs Date Time Temp Pulse Resp B/P Pulse Ox O2 Delivery O2 Flow Rate FiO2 12/12/16 08:37 Nasal Cannula 2.50 12/12/16 08:07 98.1 106 19 166/76 98 12/12/16 07:19 97 Nasal Cannula 2.50 12/12/16 04:00 97.7 99 18 182/ 96 12/12/16 00:00 97.5 115 20 141/93 93 12/11/16 21:05 92 Nasal Cannula 3.00 12/11/16 20:40 Nasal Cannula 2.00 12/11/16 20:00 98.0 109 20 168/86 91 12/11/16 16:00 98.0 111 20 180/90 94 I/O 12/11/16 12/11/16 12/11/16 12/12/16 12/12/16 12/12/16 07:00 15:00 23:00 07:00 15:00 23:00 Intake Total 960 ml 1320 ml 480 ml 663 ml Balance 960 ml 1320 ml 480 ml 663 ml Intake Oral 960 ml 720 ml 480 ml IV Total 600 ml 663 ml # Voids 3 4 3 3 # Bowel Movements 1 1 1 0 Result Diagram: 12/12/16 0715 12/12/16 0715 Imaging Last Impressions Abdomen/Pelvis CT 12/10/16 0000 Signed Impressions: Service Date/Time: Saturday, December 10, 2016 20:23 - CONCLUSION: 1. Wall thickening of the sigmoid colon, differential including mass and chronic diverticular disease or combination of the 2. There is mild acute diverticulitis and a small, contained abscess/perforation noted; please see above. Nothing clearly drainable at this time. 2. Apparent pulmonary metastatic disease, etiology uncertain but would increase the possibility of sigmoid colon carcinoma and this should be excluded. I don't see another definite primary or other sites of metastatic disease. 3. Nonobstructing stones are again noted of the right kidney and an unchanged cyst of the left kidney. 4. Uterine fibroid. Clayton Burr MD Chest X-Ray 12/07/16 4358 Signed Impressions: Service Date/Time: Wednesday, December 07, 2016 18:48 - CONCLUSION: No acute disease. No significant change has occurred. Kevyn Augustine MD Objective Remarks GENERAL: On moderate distress due to abdominal pain and shortness of breath. SKIN: Warm and dry. HEAD: Normocephalic. EYES: No scleral icterus. No injection or drainage. NECK: Supple, trachea midline. No JVD or lymphadenopathy. CARDIOVASCULAR: Regular rate and rhythm without murmurs, gallops, or rubs. RESPIRATORY: Diffuse bilateral expiratory wheezing, no crackles or rhonchi auscultated. GASTROINTESTINAL: Abdomen soft, difusely tender to palpation, non distended. MUSCULOSKELETAL: No cyanosis, or edema. BACK: Nontender without obvious deformity. No CVA tenderness. Procedures None Medications and IVs Current Medications Medications (Trade) Dose Ordered Sig/Valorie Route Start Time Stop Time Status Last Admin (Symbicort 160-4.5 Inh) 2 puff Q12HR INH 12/08/16 09:00 12/12/16 09:00 Guaifenesin 600 mg 600 mg BID PO 12/08/16 09:00 12/12/16 10:08 (Levaquin 750 Mg Premix Inj) 150 ml @ 100 mls/hr Q24H IV 12/08/16 21:00 12/11/16 20:34 (NS Flush) 2 ml UNSCH PRN IV FLUSH 12/07/16 21:15 12/07/16 22:47 (NS Flush) 2 ml BID IV FLUSH 12/08/16 09:00 12/12/16 09:00 (Zofran Inj) 4 mg Q6H PRN IVP 12/07/16 21:15 (Dulcolax Supp) 10 mg DAILY PRN RECTAL 12/07/16 21:15 12/08/16 16:33 (Tylenol) 650 mg Q6H PRN PO 12/07/16 21:15 ([place] 5-325 Mg) 1 tab Q4H PRN PO 12/07/16 21:15 12/08/16 20:26 ([place] 10-325 Mg) 1 tab Q4H PRN PO 12/07/16 21:15 12/12/16 13:07 (Habitrol 21 Mg Patch.24 Hr) 1 patch DAILY PRN T-DERMAL 12/07/16 21:15 12/11/16 12:20 Miscellaneous Information 1 DAILY PRN T-DERMAL 12/07/16 21:45 (Vasotec Inj) 1.25 mg Q6H PRN IV PUSH 12/08/16 16:15 12/12/16 06:24 (Ativan) 0.5 mg Q8H PRN PO 12/09/16 10:15 12/12/16 08:28 (Miralax) 17 gm DAILY PO 12/09/16 15:00 12/12/16 10:09 (NS Flush) 2 ml UNSCH PRN IV FLUSH 12/10/16 00:00 (NS Flush) 2 ml BID IV FLUSH 12/10/16 09:00 12/12/16 09:00 (Romazicon Inj) 0.2 mg Q1M PRN IV PUSH 12/10/16 00:00 (Ativan) 1 mg Q4H PRN PO 12/10/16 00:00 (Ativan Inj) 1 mg Q4H PRN IV PUSH 12/10/16 00:00 (Ativan) 2 mg Q2H PRN PO 12/10/16 00:00 (Ativan Inj) 2 mg Q2H PRN IV PUSH 12/10/16 00:00 (Ativan Inj) 2 mg Q1H PRN IV PUSH 12/10/16 00:00 (Ativan Inj) 2 mg Q15M PRN IV PUSH 12/10/16 00:00 Amlodipine Besylate 10 mg 10 mg DAILY PO 12/11/16 09:00 12/12/16 10:09 Sodium Chloride 1,000 ml @ 84 mls/hr [id number] IV 12/10/16 12:00 12/12/16 11:30 (Flagyl 500 Mg Inj) 100 ml @ 100 mls/hr Q8H IV 12/11/16 12:00 12/12/16 11:23 (SoluMEDROL INJ) 60 mg Q6HR IV PUSH 12/12/16 00:00 12/12/16 11:24 (D50w (Vial) Inj) 25 ml UNSCH PRN IV PUSH 12/11/16 18:15 (Glucagon Inj) 1 mg UNSCH PRN OTHER 12/11/16 18:15 (Cardura) 4 mg HS PO 12/12/16 21:00 (Prinivil) 30 mg DAILY PO 12/13/16 09:00 (Catapres) 0.1 mg Q6H PRN PO 12/12/16 13:00 12/12/16 13:22 Urinary Catheter: No Vascular Central Line Catheter: No A/P Problem List: (1) COPD with exacerbation ICD Code: J44.1 Status: Acute (2) Hypoxia ICD Code: R09.02 Status: Acute (3) Tobacco abuse ICD Code: Z72.0 Status: Chronic (4) Hypertension ICD Code: I10 Status: Chronic (5) Blood in stool ICD Code: K92.1 Status: Acute Assessment and Plan 1. COPD exacerbation, chronic respiratory failure:Continue solumedrol dose to 60 mg IV Q 6 hrs., Duonebs, Symbicort, antibiotics, supplemental oxygen to keep oxygen saturation was 92%. 2. Tobacco abuse: Patient counseled to quit smoking. Will rx a nicotine patch. 3. Hypertension: Blood pressure is uncontrolled and very elevated with systolic blood pressure in the 170s. Continue lisinopril, amlodipine. Patient seems anxious, which could be contributing to the elevated blood pressure. Continue lorazepam as needed. I will start the patient on Cardura 2 mg at bedtime. 12/12 I will increase cardura dose to 4 mg po at bedtime. Increase lisinopril dose to 30 mg daily. 4. DVT prophylaxis: MUNIRA Neri. 5. Abdominal pain. CT abdomen and pelvis showed wall thickening of the sigmoid colon, with mass and chronic diverticular disease or combination of the 2. There is mild acute diverticulitis and a small contained abscess perforation noted. FU GI and surgery, Hemoccult is positive. Patient has been offered colonoscopy which she has been refusing for the third day in a row. Patient states she will have colonoscopy but not now because she does not feel well. General surgery consulted and recommended medical management for now. Continue IV Flagyl and IV Levaquin. 12/12 Patient still refuses colonoscopy. Continue with pain control. 6. Alcohol abuse: [facility] protocol. 7. sinus tachycardia: Likely secondary to pain and dehydration due to poor oral intake. 8. Pulmonary metastatic disease. Which would favor colonic carcinoma. I will order a dedicated CT of the chest was the patient feels better. CA-19-9 is 25.2 within normal range. 9. Poor oral intake. Ensure with meals. 10. Hyperglycemia. No prior history of diabetes mellitus. We'll check hemoglobin A1c. Monitor Accu-Cheks and place on SSI with insulin NovoLog. 11. GI prophylaxis. Continue PPI 12. DVT prophylaxis: SCDs. Chemoprophylaxis contraindicated given history of blood per rectum. Discharge Planning Continue to monitor in the medical floor. Wali Bowens MD Dec 12, 2016 14:54
[2016-12-12] MEDS: RESP: ALBUTEROL 2.5 MG/IPRATROPIUM 0.5 MG NEB (PRN) NEB (17:13)
[2016-12-12] MEDS: LEVOFLOXACIN 750 MG PREMIX INJ 150 ML IV SCH (21:00)
[2016-12-12] MEDS ORDERED: DOXAZOSIN MESYLATE 2 MG TAB PO SCH (21:00)
[2016-12-13] VITALS (8 sets, daily range): BP systolic 142–182; BP diastolic 72–112; PULSE 88–124; RESP 16–22; TEMP 97.7–98.1; O2SAT 90–97
[2016-12-13] MEDS: metroNIDAZOLE 500 MG INJ 100 ML IV SCH ×3 (03:38→20:20)
[2016-12-13] MEDS: LORazepam 0.5 MG TAB PO PRN ×3 (03:38→21:38)
[2016-12-13] MEDS: ACETAMINOPHEN/HYDROcodone 325 MG/10 MG TAB PO PRN ×3 (03:38→20:21)
[2016-12-13] MEDS: methylPREDNISolone SOD SUCC 40 MG/1 ML VIAL IV PUSH SCH ×4 (06:00→18:26)
[2016-12-13] MEDS: INSULIN ASPART SUPPLEMENTAL SCALE SQ SCH ×4 (06:42→20:21)
[2016-12-13] MEDS: RESP: ALBUTEROL 2.5 MG/IPRATROPIUM 0.5 MG NEB (SCH) NEB ×4 (08:00→19:43)
[2016-12-13] MEDS: SODIUM CHLORIDE 0.9% FLUSH 10 ML FLUSH IV FLUSH SCH ×4 (09:00→20:21)
[2016-12-13] MEDS: BUDESONIDE-FORMOTEROL 160/4.5 MCG INHALER INH SCH ×2 (09:00→20:22)
[2016-12-13] MEDS: LISINOPRIL 10 MG TAB PO SCH (10:27)
[2016-12-13] MEDS: guaiFENesin E.R. 600 MG TAB PO SCH ×2 (10:27→20:20)
[2016-12-13] MEDS: POLYETHYLENE GLYCOL 17 GM PKG PO SCH (10:27)
[2016-12-13] MEDS: amLODIPine BESYLATE 5 MG TAB PO SCH (10:27)
[2016-12-13 11:14] LABS: AUTOMATED NEUTROPHIL # 6.9 TH/MM3 (1.8-7.7); BASOPHIL % 0.4 % (0.0-2.0); HEMATOCRIT 47.3 % (35.0-46.0); HEMO FLAGS DIFF FINAL; LYMPH % 6.4 % (9.0-44.0); LYMPHOCYTE # 0.5 TH/MM3 (1.0-4.8); MEAN CELL VOLUME 94.4 FL (80.0-100.0); MEAN CORPUSCULAR HEMOGLOBIN 31.1 PG (27.0-34.0); MEAN CORPUSCULAR HGB CONC 32.9 % (32.0-36.0); MONO % 5.6 % (0.0-8.0); NEUT % 87.6 % (16.0-70.0); PLATELET COUNT 119 TH/MM3 (150-450); RED BLOOD COUNT 5.01 MIL/MM3 (4.00-5.30); RED CELL DISTRIBUTION WIDTH 14.8 % (11.6-17.2); WHITE BLOOD COUNT 7.8 TH/MM3 (4.0-11.0)
[2016-12-13 11:24] LABS: ALKALINE PHOSPHATASE 77 U/L (45-117); ALT (GPT) 35 U/L (10-53); ANION GAP 6 MEQ/L (5-15); AST (GOT) 14 U/L (15-37); BICARBONATE 33.2 MEQ/L (21.0-32.0); BLOOD UREA NITROGEN 21 MG/DL (7-18); CHLORIDE 98 MEQ/L (98-107); GLOMERULAR FILTRATION RATE 92 ML/MIN (>89); MAGNESIUM 2.4 MG/DL (1.5-2.5); SODIUM (NA) 137 MEQ/L (136-145); TOTAL BILIRUBIN ADULT 0.3 MG/DL (0.2-1.0)
[2016-12-13] MEDS: SODIUM CHLOR 0.9% 1000 ML INJ 1,000 ML IV SCH (11:30)
[2016-12-13] MEDS: cloNIDine HCL 0.1 MG TAB PO PRN (12:51)
--- NOTE | 2016-12-13 15:03 | HHI.PR ---
Subjective Remarks patient still c/o sob and productive cough denies fevers and chills still c/o generalized abdominal pain BP still very elevated sating 93% on 3 liters nasal canula Objective Vitals Vital Signs Date Time Temp Pulse Resp B/P Pulse Ox O2 Delivery O2 Flow Rate FiO2 12/13/16 14:39 93 Nasal Cannula 2.00 12/13/16 12:25 20 12/13/16 12:00 97.8 109 16 182/98 93 12/13/16 11:57 97 Nasal Cannula 2.50 12/13/16 08:00 98.0 88 16 159/88 90 12/13/16 04:00 97.8 107 20 142/112 92 12/13/16 00:00 97.7 108 22 175/84 93 12/12/16 21:32 Nasal Cannula 2.00 12/12/16 20:00 97.7 108 22 164/91 94 12/12/16 19:56 90 Nasal Cannula 2.50 12/12/16 16:07 98.2 82 19 130/66 96 I/O 12/12/16 12/12/16 12/12/16 12/13/16 12/13/16 12/13/16 07:00 15:00 23:00 07:00 15:00 23:00 Intake Total 480 ml 1023 ml 240 ml 240 ml 197 ml Balance 480 ml 1023 ml 240 ml 240 ml 197 ml Intake Oral 480 ml 360 ml 240 ml 240 ml IV Total 663 ml 197 ml # Voids 3 3 3 1 # Bowel Movements 0 1 0 0 Result Diagram: 12/13/16 1003 12/13/16 1003 Imaging Last Impressions Abdomen/Pelvis CT 12/10/16 0000 Signed Impressions: Service Date/Time: Saturday, December 10, 2016 20:23 - CONCLUSION: 1. Wall thickening of the sigmoid colon, differential including mass and chronic diverticular disease or combination of the 2. There is mild acute diverticulitis and a small, contained abscess/perforation noted; please see above. Nothing clearly drainable at this time. 2. Apparent pulmonary metastatic disease, etiology uncertain but would increase the possibility of sigmoid colon carcinoma and this should be excluded. I don't see another definite primary or other sites of metastatic disease. 3. Nonobstructing stones are again noted of the right kidney and an unchanged cyst of the left kidney. 4. Uterine fibroid. Clayton Burr MD Chest X-Ray 12/07/16 4105 Signed Impressions: Service Date/Time: Wednesday, December 07, 2016 18:48 - CONCLUSION: No acute disease. No significant change has occurred. Kevyn Augustine MD Objective Remarks GENERAL: On moderate distress due to abdominal pain and shortness of breath. SKIN: Warm and dry. HEAD: Normocephalic. EYES: No scleral icterus. No injection or drainage. NECK: Supple, trachea midline. No JVD or lymphadenopathy. CARDIOVASCULAR: Regular rate and rhythm without murmurs, gallops, or rubs. RESPIRATORY: Diffuse bilateral expiratory wheezing, no crackles or rhonchi auscultated. GASTROINTESTINAL: Abdomen soft, difusely tender to palpation, non distended. MUSCULOSKELETAL: No cyanosis, or edema. BACK: Nontender without obvious deformity. No CVA tenderness. Procedures None Medications and IVs Current Medications Medications (Trade) Dose Ordered Sig/Valorie Route Start Time Stop Time Status Last Admin (Symbicort 160-4.5 Inh) 2 puff Q12HR INH 12/08/16 09:00 12/13/16 09:00 (Mucinex Er) 600 mg BID PO 12/08/16 09:00 12/13/16 10:27 (NS Flush) 2 ml UNSCH PRN IV FLUSH 12/07/16 21:15 12/07/16 22:47 (NS Flush) 2 ml BID IV FLUSH 12/08/16 09:00 12/12/16 09:00 (Zofran Inj) 4 mg Q6H PRN IVP 12/07/16 21:15 (Dulcolax Supp) 10 mg DAILY PRN RECTAL 12/07/16 21:12/08/16 16:33 (Tylenol) 650 mg Q6H PRN PO 12/07/16 21:15 ([place] 5-325 Mg) 1 tab Q4H PRN PO 12/07/16 21:15 12/08/16 20:26 ([place] 10-325 Mg) 1 tab Q4H PRN PO 12/07/16 21:12/13/16 10:28 (Habitrol 21 Mg Patch.24 Hr) 1 patch DAILY PRN T-DERMAL 12/07/16 21:12/11/16 12:20 Miscellaneous Information 1 DAILY PRN T-DERMAL 12/07/16 21:45 (Vasotec Inj) 1.25 mg Q6H PRN IV PUSH 12/08/16 16:15 12/12/16 06:24 (Ativan) 0.5 mg Q8H PRN PO 12/09/16 10:15 12/13/16 12:50 (Miralax) 17 gm DAILY PO 12/09/16 15:00 12/13/16 10:27 (NS Flush) 2 ml UNSCH PRN IV FLUSH 12/10/16 00:00 (NS Flush) 2 ml BID IV FLUSH 12/10/16 09:00 12/12/16 09:00 (Romazicon Inj) 0.2 mg Q1M PRN IV PUSH 12/10/16 00:00 (Ativan) 1 mg Q4H PRN PO 12/10/16 00:00 (Ativan Inj) 1 mg Q4H PRN IV PUSH 12/10/16 00:00 (Ativan) 2 mg Q2H PRN PO 12/10/16 00:00 (Ativan Inj) 2 mg Q2H PRN IV PUSH 12/10/16 00:00 (Ativan Inj) 2 mg Q1H PRN IV PUSH 12/10/16 00:00 (Ativan Inj) 2 mg Q15M PRN IV PUSH 12/10/16 00:00 Amlodipine Besylate 10 mg 10 mg DAILY PO 12/11/16 09:00 12/13/16 10:27 Sodium Chloride 1,000 ml @ 84 mls/hr [id number] IV 12/10/16 12:00 12/13/16 11:30 (Flagyl 500 Mg Inj) 100 ml @ 100 mls/hr Q8H IV 12/11/16 12:00 12/13/16 12:49 (SoluMEDROL INJ) 60 mg Q6HR IV PUSH 12/12/16 00:00 12/13/16 12:50 (D50w (Vial) Inj) 25 ml UNSCH PRN IV PUSH 12/11/16 18:15 (Glucagon Inj) 1 mg UNSCH PRN OTHER 12/11/16 18:15 (Prinivil) 30 mg DAILY PO 12/13/16 09:00 12/13/16 10:27 (Catapres) 0.1 mg Q6H PRN PO 12/12/16 13:00 12/13/16 12:51 (Cardura) 6 mg HS PO 12/13/16 21:00 Urinary Catheter: No Vascular Central Line Catheter: No A/P Problem List: (1) COPD with exacerbation ICD Code: J44.1 Status: Acute (2) Hypoxia ICD Code: R09.02 Status: Acute (3) Tobacco abuse ICD Code: Z72.0 Status: Chronic (4) Hypertension ICD Code: I10 Status: Chronic (5) Blood in stool ICD Code: K92.1 Status: Acute (6) Diverticulitis of intestine with abscess ICD Code: K57.80 Status: Acute (7) Impaired glucose tolerance ICD Code: R73.02 Status: Acute Assessment and Plan 1. COPD exacerbation, chronic respiratory failure:Continue solumedrol dose to 60 mg IV Q 6 hrs., Duonebs, Symbicort, antibiotics, supplemental oxygen to keep oxygen saturation was 92%. 12/13 patient still has significant expiratory wheezing. I will continue same dose of IV steroids. I will discontinue Levaquin and start the patient IV cefepime since the patient brought up that her mother was allergic to Levaquin. 2. Tobacco abuse: Patient counseled to quit smoking. Continue nicotine patch. 3. Hypertension: Blood pressure is uncontrolled and very elevated with systolic blood pressure in the 170s. Continue lisinopril, amlodipine. Patient seems anxious, which could be contributing to the elevated blood pressure. Continue lorazepam as needed. I will start the patient on Cardura 2 mg at bedtime. 12/12 I will increase cardura dose to 4 mg po at bedtime. Increase lisinopril dose to 30 mg daily. 12/13 BP still elevated. continue Lisinorpil at 30 mg daily. Increase Cardura to 6 mg po at bedtime. Continue Clonidine PRN. 4. DVT prophylaxis: SCDs, MUNIRA demarco. 5. Diverticulitis with abscess: CT abdomen and pelvis showed wall thickening of the sigmoid colon, with mass and chronic diverticular disease or combination of the 2. There is mild acute diverticulitis and a small contained abscess perforation noted. FU GI and surgery, Hemoccult is positive. Patient has been offered colonoscopy which but has refused for several times. Patient states she will have colonoscopy but not now because she does not feel well. General surgery consulted and recommended medical management for now. Continue IV Flagyl and IV Levaquin. Patient still refuses colonoscopy. Continue with pain control and IV antibiotics. 6. Alcohol abuse: [facility] protocol. 7. sinus tachycardia: Likely secondary to pain and dehydration due to poor oral intake. 8. Pulmonary metastatic disease. Which would favor colonic carcinoma. I will order a dedicated CT of the chest was the patient feels better. CA-19-9 is 25.2 within normal range. 9. Poor oral intake. Ensure with meals. 10. Hyperglycemia. No prior history of diabetes mellitus. Hemoglobin A1c 5.7. The patient has impaired glucose tolerance and steroid induced hyperglycemia. Continue to Monitor Accu-Cheks and place on SSI with insulin NovoLog. Blood sugars seem to be stable. 11. GI prophylaxis. Continue PPI 12. DVT prophylaxis: SCDs. Chemoprophylaxis contraindicated given history of blood per rectum. Discharge Planning Continue to monitor in the medical floor. Problem Qualifiers (1) Diverticulitis of intestine with abscess: Qualified Code: K57.20 - Diverticulitis of large intestine with abscess without bleeding Wali Bowens MD Dec 13, 2016 15:03
[2016-12-13] MEDS ORDERED: DOXAZOSIN MESYLATE 2 MG TAB PO ONE (17:00)
--- NOTE | 2016-12-13 17:32 | RADRPT ---
EXAM DATE/TIME: 12/13/2016 17:08 [place] COMPARISON: CHEST SINGLE AP, December 07, 2016, 18:48. INDICATIONS : Shortness of breath. MEDICAL HISTORY : Chronic obstructive pulmonary disease. Congestive heart failure. SURGICAL HISTORY : None. ENCOUNTER: Subsequent ACUITY: 1 week PAIN SCORE: 2/10 LOCATION: chest FINDINGS: A single view of the chest demonstrates the lungs to be symmetrically aerated without evidence of mas s, infiltrate or effusion. The cardiomediastinal contours are unremarkable. Osseous structures are intact. CONCLUSION: No acute disease. No significant change has occurred. Kevyn Augustine MD on December 13, 2016 at 17:28 Board Certified Radiologist. This report was verified electronically.
--- NOTE | 2016-12-13 18:22 | MB ---
cc: JUAN A STARR DATE OF CONSULTATION: 12/13/2016. REASON FOR CONSULTATION: COPD exacerbation. REQUESTING PHYSICIAN: Dr. Hill. HISTORY OF PRESENT ILLNESS: Ms. Nava is a 56-year-old female with history of nicotine use. She is homeless. She came to the hospital with worsening of her shortness of breath. She had cough and wheezing. She was also complaining of abdominal pain. She had a CT scan of the abdomen done which shows that she has thickening of the sigmoid colon with mild acute diverticulitis and a small contained abscess. She also was noted to have multiple nodules at the bottom of the lung bases, which was seen on the CT scan of the abdomen. She is being managed conservatively by surgery. She has shortness of breath. She denies any weight loss. No headache or dizziness. No hemoptysis. PAST MEDICAL HISTORY: 1. History of hypertension. 2. Hyperlipidemia. 3. COPD. MEDICATIONS: She is currently takin. Doxazosin 600 milligrams. 3. Lisinopril 10 milligrams a day. 4. Clonidine 0.1 milligrams PRN. 5. Solu-Medrol 60 milligrams q. 6 hours. 6. Flagyl 500 milligrams q. 8 hours. 7. Amlodipine 10 milligrams a day. 8. Symbicort. ALLERGIES: She is allergic to DARVOCET. SOCIAL HISTORY: She has a long history of smoking and continues to smoke. She says she was recently drinking more because of her abdominal pain. She denies any drug use. She worked at different jobs. She is homeless now. FAMILY HISTORY: She is single. She was before. She has three children. REVIEW OF SYSTEMS: She denies any weight loss. No headache or dizziness. She does not see any physician. PHYSICAL EXAMINATION: GENERAL: A well-built and well-nourished female mild short of breath. Not in any acute distress. VITAL SIGNS: Blood pressure 145/84, heart rate 109, respirations 16, temperature 98. HEAD, EYES, EARS, NOSE, THROAT: Pupils are equal and reactive. Oral mucosa and nasal mucosa are normal. NECK: The neck is supple. JVP not raised. CHEST: Air entry equal bilaterally. She has expiratory rhonchi. CARDIOVASCULAR: S1 and S2 are normal. ABDOMEN: Abdomen soft and nondistended. Bowel sounds are present. EXTREMITIES: No edema. IMPRESSION: 1. Multiple lung nodules seen on the bases on the CT scan of the abdomen. She needs further evaluation. 2. COPD exacerbation. 3. Diverticulitis. 4. Nicotine use. PLAN: discussed with the patient. Will get a CT scan of the chest with contrast to see if there are any other nodules and to define the nodules better. If needed, will get a CT-guided lung biopsy. Continue IV Solu-Medrol and aerosol treatment and Symbicort twice a day. Once she gets better, will check pulmonary function studies. Further treatment will depend on the course in the hospital. Thank you, Dr. Hill, for this consult. MD DIPIKA Benavidez/JCEmiliano /6:00 PM /6:09 PM MANJU
[2016-12-13] MEDS: CEFEPIME INJ 1,000 MG in SODIUM CHLORIDE 0.9% INJ 100 ML IV SCH (18:25)
[2016-12-13] MEDS ORDERED: IOHEXOL 350 MG/ML 10 ML VIAL (for RAD DIAG) IV ONE (19:07)
[2016-12-13] MEDS ORDERED: DOXAZOSIN MESYLATE 2 MG TAB PO SCH (21:00)
--- NOTE | 2016-12-13 21:23 | HHI.PR ---
Subjective Subjective Notes Still painful and anxious Objective Vitals/I&O Vital Signs Date Time Temp Pulse Resp B/P Pulse Ox O2 Delivery O2 Flow Rate FiO2 12/13/16 19:45 91 Nasal Cannula 2.50 12/13/16 16:00 98.0 124 16 145/84 Labs Laboratory Tests Test 12/13/16 10:03 White Blood Count 7.8 Red Blood Count 5.01 Hemoglobin 15.6 Hematocrit 47.3 Mean Corpuscular Volume 94.4 Mean Corpuscular Hemoglobin 31.1 Mean Corpuscular Hemoglobin 32.9 Concent Red Cell Distribution Width 14.8 Platelet Count 119 Mean Platelet Volume 8.3 Neutrophils (%) (Auto) 87.6 Lymphocytes (%) (Auto) 6.4 Monocytes (%) (Auto) 5.6 Eosinophils (%) (Auto) 0.0 Basophils (%) (Auto) 0.4 Neutrophils # (Auto) 6.9 Lymphocytes # (Auto) 0.5 Monocytes # (Auto) 0.4 Eosinophils # (Auto) 0.0 Basophils # (Auto) 0.0 CBC Comment DIFF FINAL Differential Comment Sodium Level 137 Potassium Level 4.0 Chloride Level 98 Carbon Dioxide Level 33.2 Anion Gap 6 Blood Urea Nitrogen 21 Creatinine 0.67 Estimat Glomerular Filtration 92 Rate Random Glucose 137 Calcium Level 9.0 Phosphorus Level 2.9 Magnesium Level 2.4 Total Bilirubin 0.3 Aspartate Amino Transf 14 (AST/SGOT) Alanine Aminotransferase 35 (ALT/SGPT) Alkaline Phosphatase 77 Total Protein 6.5 Albumin 3.4 Date/Time Procedure Status Source Growth 12/09/16 22:30 Stool Occult Blood (MAXIM) - Final Complete Stool Stool HEMOCCULT POSITIVE Radiology Last 48 hours Impressions Abdomen/Pelvis CT 12/10/16 0000 Signed Impressions: Service Date/Time: Saturday, December 10, 2016 20:23 - CONCLUSION: 1. Wall thickening of the sigmoid colon, differential including mass and chronic diverticular disease or combination of the 2. There is mild acute diverticulitis and a small, contained abscess/perforation noted; please see above. Nothing clearly drainable at this time. 2. Apparent pulmonary metastatic disease, etiology uncertain but would increase the possibility of sigmoid colon carcinoma and this should be excluded. I don't see another definite primary or other sites of metastatic disease. 3. Nonobstructing stones are again noted of the right kidney and an unchanged cyst of the left kidney. 4. Uterine fibroid. Clayton Burr MD Lungs: Upper airway course sound, Wheezes Abdomen: Non-distended, Other (Tender on left side from costal margin to LLQ) A/P Problem List: (1) Diverticulitis (2) Diverticulitis of intestine with abscess (3) Pulmonary nodule (4) Thrombocytopenia (5) Tobacco abuse (6) Abdominal pain (7) Hypoxia (8) COPD with exacerbation (9) Homeless (10) Alcohol abuse Assessment and Plan Diverticulitis with contained perforation. Discussed options with patient; she had many questions. Told her to stay with liquids and talk to Dr. Barba again tomorrow. Discussed possibility of needing a colostomy if she perforates again and doesn' t have surgery, but that it is her decision. Problem Qualifiers (1) Diverticulitis: (2) Diverticulitis of intestine with abscess: Qualified Code: K57.20 - Diverticulitis of large intestine with abscess without bleeding (3) Abdominal pain: Qualified Code: R10.32 - Left lower quadrant pain Andres Swartz MD Dec 13, 2016 21:23
--- NOTE | 2016-12-13 22:27 | RADRPT ---
EXAM DATE/TIME: 12/13/2016 19:03 [facility] COMPARISON: No previous studies available for comparison. INDICATIONS : Lung nodules. IV CONTRAST: 89 cc Omnipaque 350 (iohexol) IV RADIATION DOSE: 4.01 CTDIvol (mGy) MEDICAL HISTORY : Cardiovascular disease. Hypertension. Congestive heart failure. SURGICAL HISTORY : None. ENCOUNTER: Subsequent ACUITY: 2 days PAIN SCALE: 0/10 LOCATION: chest TECHNIQUE: Volumetric scanning of the chest was performed. Using automated exposure control and adjustment of t he mA and/or kV according to patient size, radiation dose was kept as low as reasonably achievable to obtain optimal diagnostic quality images. FINDINGS: There are multiple subcentimeter nodules in both lungs most characteristic of metastatic disease. The re is moderate centrilobular emphysema. There is no hilar, mediastinal axillary and coronary calcifications are noted. No acute findings in t he upper abdomen. Fatty liver. CONCLUSION: 1. Numerous subcentimeter nodules most characteristic of metastatic disease to the lungs. 2. Moderate centrilobular emphysema. Kevyn Augustine MD on December 13, 2016 at 22:18 Board Certified Radiologist. This report was verified electronically.
[2016-12-14] VITALS (9 sets, daily range): BP systolic 155–204; BP diastolic 69–95; PULSE 94–125; RESP 18–20; TEMP 97.8–99; O2SAT 91–95
[2016-12-14] MEDS: methylPREDNISolone SOD SUCC 40 MG/1 ML VIAL IV PUSH SCH ×4 (00:45→18:00)
[2016-12-14] MEDS: CEFEPIME INJ 1,000 MG in SODIUM CHLORIDE 0.9% INJ 100 ML IV SCH ×3 (00:45→18:41)
[2016-12-14] MEDS: metroNIDAZOLE 500 MG INJ 100 ML IV SCH ×3 (04:00→20:26)
[2016-12-14] MEDS: ACETAMINOPHEN/HYDROcodone 325 MG/10 MG TAB PO PRN ×4 (05:35→20:28)
[2016-12-14] MEDS: LORazepam 0.5 MG TAB PO PRN ×3 (05:35→21:25)
[2016-12-14] MEDS: NICOTINE 21 MG/24 HR PATCH T-DERMAL PRN (05:46)
[2016-12-14] MEDS: INSULIN ASPART SUPPLEMENTAL SCALE SQ SCH ×4 (06:30→20:27)
[2016-12-14] MEDS: RESP: ALBUTEROL 2.5 MG/IPRATROPIUM 0.5 MG NEB (SCH) NEB ×4 (08:00→20:59)
[2016-12-14] MEDS: SODIUM CHLORIDE 0.9% FLUSH 10 ML FLUSH IV FLUSH SCH ×4 (09:00→20:27)
[2016-12-14] MEDS: BUDESONIDE-FORMOTEROL 160/4.5 MCG INHALER INH SCH ×2 (10:05→20:29)
[2016-12-14] MEDS: LISINOPRIL 10 MG TAB PO SCH (10:07)
[2016-12-14] MEDS: guaiFENesin E.R. 600 MG TAB PO SCH ×2 (10:07→20:27)
[2016-12-14] MEDS: POLYETHYLENE GLYCOL 17 GM PKG PO SCH (10:07)
[2016-12-14] MEDS: amLODIPine BESYLATE 5 MG TAB PO SCH (10:07)
--- NOTE | 2016-12-14 15:25 | PD.PN.STU ---
Subjective Remarks DAILY PROGRESS NOTE FOR SURGICAL ATTENDING, DR. KEVYN BARBA 56 year-old female with COPD and diverticular abscess still has pain, and has new complaints of sinus fullness and increased shortness of breath. She has to be completely still or else she can't breathe well. The patient claims to be compliant with use of her nasal cannula as long as she is not eating. She is still having trouble with constipation, but has found some relief from her stool softener. Objective Vitals Vital Signs Date Time Temp Pulse Resp B/P Pulse Ox O2 Delivery O2 Flow Rate FiO2 12/14/16 12:00 97.8 112 20 180/95 95 12/14/16 11:30 20 12/14/16 11:19 93 Nasal Cannula 2.50 12/14/16 11:00 95 Nasal Cannula 2.00 12/14/16 08:00 98.1 97 20 175/88 91 12/14/16 04:00 98.1 108 18 155/74 93 12/14/16 00:00 98.3 94 18 161/69 94 12/13/16 21:00 Nasal Cannula 2.00 12/13/16 20:00 98.1 118 18 165/72 93 12/13/16 19:45 91 Nasal Cannula 2.50 12/13/16 16:00 98.0 124 16 145/84 92 I/O 12/13/16 12/13/16 12/13/16 12/14/16 12/14/16 12/14/16 07:00 15:00 23:00 07:00 15:00 23:00 Intake Total 240 ml 1157 ml 950 ml 480 ml 300 ml Balance 240 ml 1157 ml 950 ml 480 ml 300 ml Intake Oral 240 ml 960 ml 480 ml 480 ml IV Total 197 ml 470 ml 300 ml # Voids 1 2 3 # Bowel Movements 0 0 0 0 Result Diagram: 12/13/16 1003 12/13/16 1003 Imaging Last Impressions Chest X-Ray 12/13/16 0000 Signed Impressions: Service Date/Time: Tuesday, December 13, 2016 17:08 - CONCLUSION: No acute disease. No significant change has occurred. Kevyn Augustine MD Chest CT 12/13/16 0000 Signed Impressions: Service Date/Time: Tuesday, December 13, 2016 19:03 - CONCLUSION: 1. Numerous subcentimeter nodules most characteristic of metastatic disease to the lungs. 2. Moderate centrilobular emphysema. Kveyn Augustine MD Abdomen/Pelvis CT 12/10/16 0000 Signed Impressions: Service Date/Time: Saturday, December 10, 2016 20:23 - CONCLUSION: 1. Wall thickening of the sigmoid colon, differential including mass and chronic diverticular disease or combination of the 2. There is mild acute diverticulitis and a small, contained abscess/perforation noted; please see above. Nothing clearly drainable at this time. 2. Apparent pulmonary metastatic disease, etiology uncertain but would increase the possibility of sigmoid colon carcinoma and this should be excluded. I don't see another definite primary or other sites of metastatic disease. 3. Nonobstructing stones are again noted of the right kidney and an unchanged cyst of the left kidney. 4. Uterine fibroid. Clayton Burr MD Objective Remarks The patient appears disheveled. She seems to be in mild distress with increased work of breathing and audible inspiratory and expiratory stridor. She was seated on her bed wearing her normal clothing and eating when I visited her this afternoon. She is alert and oriented with an anxious affect and mood. Abdomen is soft and slightly distended. Patient had soreness on palpation of the LLQ, without rebound or guarding. Lung auscultation revealed diffuse bilateral wheezing with increased expiratory phase. Cardiovascular exam was unremarkable with S1, S2 heard; no murmurs, gallops, or clicks. Medications and IVs Current Medications Medications (Trade) Dose Ordered Sig/Valorie Route Start Time Stop Time Status Last Admin (Symbicort 160-4.5 Inh) 2 puff Q12HR INH 12/08/16 09:00 12/14/16 10:05 (Mucinex Er) 600 mg BID PO 12/08/16 09:00 12/14/16 10:07 (NS Flush) 2 ml UNSCH PRN IV FLUSH 12/07/16 21:15 12/07/16 22:47 (NS Flush) 2 ml BID IV FLUSH 12/08/16 09:00 12/14/16 10:06 (Zofran Inj) 4 mg Q6H PRN IVP 12/07/16 21:15 (Dulcolax Supp) 10 mg DAILY PRN RECTAL 12/07/16 21:15 12/08/16 16:33 (Tylenol) 650 mg Q6H PRN PO 12/07/16 21:15 (Gerber 5-325 Mg) 1 tab Q4H PRN PO 12/07/16 21:15 12/08/16 20:26 (Gerber 10-325 Mg) 1 tab Q4H PRN PO 12/07/16 21:15 12/14/16 10:13 (Habitrol 21 Mg Patch.24 Hr) 1 patch DAILY PRN T-DERMAL 12/07/16 21:15 12/14/16 05:46 Miscellaneous Information 1 DAILY PRN T-DERMAL 12/07/16 21:45 (Vasotec Inj) 1.25 mg Q6H PRN IV PUSH 12/08/16 16:15 12/12/16 06:24 (Ativan) 0.5 mg Q8H PRN PO 12/09/16 10:15 12/14/16 12:55 (Miralax) 17 gm DAILY PO 12/09/16 15:00 12/14/16 10:07 (NS Flush) 2 ml UNSCH PRN IV FLUSH 12/10/16 00:00 (NS Flush) 2 ml BID IV FLUSH 12/10/16 09:00 12/12/16 09:00 (Romazicon Inj) 0.2 mg Q1M PRN IV PUSH 12/10/16 00:00 (Ativan) 1 mg Q4H PRN PO 12/10/16 00:00 (Ativan Inj) 1 mg Q4H PRN IV PUSH 12/10/16 00:00 (Ativan) 2 mg Q2H PRN PO 12/10/16 00:00 (Ativan Inj) 2 mg Q2H PRN IV PUSH 12/10/16 00:00 (Ativan Inj) 2 mg Q1H PRN IV PUSH 12/10/16 00:00 (Ativan Inj) 2 mg Q15M PRN IV PUSH 12/10/16 00:00 Amlodipine Besylate 10 mg 10 mg DAILY PO 12/11/16 09:00 12/14/16 10:07 (Flagyl 500 Mg Inj) 100 ml @ 100 mls/hr Q8H IV 12/11/16 12:00 12/14/16 12:47 (SoluMEDROL INJ) 60 mg Q6HR IV PUSH 12/12/16 00:00 12/14/16 12:48 (D50w (Vial) Inj) 25 ml UNSCH PRN IV PUSH 12/11/16 18:15 (Glucagon Inj) 1 mg UNSCH PRN OTHER 12/11/16 18:15 (Prinivil) 30 mg DAILY PO 12/13/16 09:00 12/14/16 10:07 (Catapres) 0.1 mg Q6H PRN PO 12/12/16 13:00 12/13/16 12:51 Doxazosin Mesylate 6 mg 6 mg HS PO 12/13/16 21:00 12/13/16 20:20 (Maxipime Inj/NS Inj) 100 ml @ 200 mls/hr Q8H IV 12/13/16 17:00 12/14/16 10:05 A/P Assessment and Plan Diverticular abscess: The patient refuses colonoscopy or any intervention, other than antibiotics, for her diverticular abscess. Given the small size of the abscess, drainage is not indicated at this time. Continue antibiotics and monitoring of pain. COPD exacerbation: The patient is currently reaching 93% oxygen saturation on 3 L nasal cannula. Reassess compliance and increase oxygen, if necessary. Continue antibiotics, methylprednisolone, and albuterol-ipratropium inhaler. The patient refused her inhaler this morning. Education concerning each medication may increase compliance. Incentive spirometer will be ordered to decreased risk of pneumonia. NOTE FOR SURGICAL ATTENDING, DR. KEVYN BARBA I agree with above assessment and plan. The exam, history, and the medical decision-making described in the above note were completed with the assistance of the mid-level provider. I reviewed and agree with the findings presented. I attest that I had a [id number] encounter with the patient on the same day, and personally performed and documented my assessment and findings in the medical record. Patient has expiratory wheezes Abdominal exam slight distention and tender Continue maximal medical therapy for pulmonary urinary GI issues The following services were provided during this hospital visit: Chart data review, vital sign assessments/reviewing monitor data Review of consultations notes if present. Medication orders/review and/or management Ordering and/or reviewing lab tests Ordering and/or interpreting/reviewing x-rays and/or diagnostic studies Care of the patient and discussion of the patient with the care team Documentation time To help prompt me to consider important information that might be impacting today's encounter and assessment, information from prior notes written by myself or my colleagues may have been "brought forward/copy and pasted" into today's note. Claudia Johnson Dec 14, 2016 15:25 Kevyn Barba MD Dec 15, 2016 08:37
[2016-12-14] MEDS: ENALAPRILAT 1.25 MG/ML VIAL IV PUSH PRN ×2 (15:53→16:07)
--- NOTE | 2016-12-14 15:59 | HHI.PR ---
Subjective Remarks patient states that she still has significant abdominal pain rated 8-9/10 denies fevers and chills denies cough/cp sob better however c/o dyspnea on exertion bp noted to be very elevated Objective Vitals Vital Signs Date Time Temp Pulse Resp B/P Pulse Ox O2 Delivery O2 Flow Rate FiO2 12/14/16 12:00 97.8 112 20 180/95 95 12/14/16 11:30 20 12/14/16 11:19 93 Nasal Cannula 2.50 12/14/16 11:00 95 Nasal Cannula 2.00 12/14/16 08:00 98.1 97 20 175/88 91 12/14/16 04:00 98.1 108 18 155/74 93 12/14/16 00:00 98.3 94 18 161/69 94 12/13/16 21:00 Nasal Cannula 2.00 12/13/16 20:00 98.1 118 18 165/72 93 12/13/16 19:45 91 Nasal Cannula 2.50 12/13/16 16:00 98.0 124 16 145/84 92 I/O 12/13/16 12/13/16 12/13/16 12/14/16 12/14/16 12/14/16 07:00 15:00 23:00 07:00 15:00 23:00 Intake Total 240 ml 1157 ml 950 ml 480 ml 300 ml Balance 240 ml 1157 ml 950 ml 480 ml 300 ml Intake Oral 240 ml 960 ml 480 ml 480 ml IV Total 197 ml 470 ml 300 ml # Voids 1 2 3 # Bowel Movements 0 0 0 0 Result Diagram: 12/13/16 1003 12/13/16 1003 Imaging Last Impressions Chest X-Ray 12/13/16 0000 Signed Impressions: Service Date/Time: Tuesday, December 13, 2016 17:08 - CONCLUSION: No acute disease. No significant change has occurred. Kevyn Augustine MD Chest CT 12/13/16 0000 Signed Impressions: Service Date/Time: Tuesday, December 13, 2016 19:03 - CONCLUSION: 1. Numerous subcentimeter nodules most characteristic of metastatic disease to the lungs. 2. Moderate centrilobular emphysema. Kevyn Augustine MD Abdomen/Pelvis CT 12/10/16 0000 Signed Impressions: Service Date/Time: Wednesday, December 10, 2016 20:23 - CONCLUSION: 1. Wall thickening of the sigmoid colon, differential including mass and chronic diverticular disease or combination of the 2. There is mild acute diverticulitis and a small, contained abscess/perforation noted; please see above. Nothing clearly drainable at this time. 2. Apparent pulmonary metastatic disease, etiology uncertain but would increase the possibility of sigmoid colon carcinoma and this should be excluded. I don't see another definite primary or other sites of metastatic disease. 3. Nonobstructing stones are again noted of the right kidney and an unchanged cyst of the left kidney. 4. Uterine fibroid. Clayton Burr MD Objective Remarks GENERAL: On moderate distress due to abdominal pain. SKIN: Warm and dry. HEAD: Normocephalic. EYES: No scleral icterus. No injection or drainage. NECK: Supple, trachea midline. No JVD or lymphadenopathy. CARDIOVASCULAR: Regular rate and rhythm without murmurs, gallops, or rubs. RESPIRATORY: Diffuse bilateral expiratory wheezing, no crackles or rhonchi auscultated. GASTROINTESTINAL: Abdomen soft, difusely tender to palpation, non distended. MUSCULOSKELETAL: No cyanosis, or edema. BACK: Nontender without obvious deformity. No CVA tenderness. Procedures None Medications and IVs Current Medications Medications (Trade) Dose Ordered Sig/Valorie Route Start Time Stop Time Status Last Admin (Symbicort 160-4.5 Inh) 2 puff Q12HR INH 12/08/16 09:00 12/14/16 10:05 (Mucinex Er) 600 mg BID PO 12/08/16 09:00 12/14/16 10:07 (NS Flush) 2 ml UNSCH PRN IV FLUSH 12/07/16 21:15 12/07/16 22:47 (NS Flush) 2 ml BID IV FLUSH 12/08/16 09:00 12/14/16 10:06 (Zofran Inj) 4 mg Q6H PRN IVP 12/07/16 21:15 (Dulcolax Supp) 10 mg DAILY PRN RECTAL 12/07/16 21:15 12/08/16 16:33 (Tylenol) 650 mg Q6H PRN PO 12/07/16 21:15 (Lorane 5-325 Mg) 1 tab Q4H PRN PO 12/07/16 21:15 12/08/16 20:26 (Lorane 10-325 Mg) 1 tab Q4H PRN PO 12/07/16 21:15 12/14/16 10:13 (Habitrol 21 Mg Patch.24 Hr) 1 patch DAILY PRN T-DERMAL 12/07/16 21:15 12/14/16 05:46 Miscellaneous Information 1 DAILY PRN T-DERMAL 12/07/16 21:45 (Vasotec Inj) 1.25 mg Q6H PRN IV PUSH 12/08/16 16:15 12/12/16 06:24 (Ativan) 0.5 mg Q8H PRN PO 12/09/16 10:15 12/14/16 12:55 (Miralax) 17 gm DAILY PO 12/09/16 15:00 12/14/16 10:07 (NS Flush) 2 ml UNSCH PRN IV FLUSH 12/10/16 00:00 (NS Flush) 2 ml BID IV FLUSH 12/10/16 09:00 12/12/16 09:00 (Romazicon Inj) 0.2 mg Q1M PRN IV PUSH 12/10/16 00:00 (Ativan) 1 mg Q4H PRN PO 12/10/16 00:00 (Ativan Inj) 1 mg Q4H PRN IV PUSH 12/10/16 00:00 (Ativan) 2 mg Q2H PRN PO 12/10/16 00:00 (Ativan Inj) 2 mg Q2H PRN IV PUSH 12/10/16 00:00 (Ativan Inj) 2 mg Q1H PRN IV PUSH 12/10/16 00:00 (Ativan Inj) 2 mg Q15M PRN IV PUSH 12/10/16 00:00 Amlodipine Besylate 10 mg 10 mg DAILY PO 12/11/16 09:00 12/14/16 10:07 (Flagyl 500 Mg Inj) 100 ml @ 100 mls/hr Q8H IV 12/11/16 12:00 12/14/16 12:47 (SoluMEDROL INJ) 60 mg Q6HR IV PUSH 12/12/16 00:00 12/14/16 12:48 (D50w (Vial) Inj) 25 ml UNSCH PRN IV PUSH 12/11/16 18:15 (Glucagon Inj) 1 mg UNSCH PRN OTHER 12/11/16 18:15 (Prinivil) 30 mg DAILY PO 12/13/16 09:00 12/14/16 10:07 (Catapres) 0.1 mg Q6H PRN PO 12/12/16 13:00 12/13/16 12:51 Doxazosin Mesylate 6 mg 6 mg HS PO 12/13/16 21:00 12/13/16 20:20 (Maxipime Inj/NS Inj) 100 ml @ 200 mls/hr Q8H IV 12/13/16 17:00 12/14/16 10:05 Urinary Catheter: No Vascular Central Line Catheter: No A/P Problem List: (1) COPD with exacerbation ICD Code: J44.1 Status: Acute (2) Hypoxia ICD Code: R09.02 Status: Resolved (3) Tobacco abuse ICD Code: Z72.0 Status: Chronic (4) Hypertension ICD Code: I10 Status: Chronic (5) Blood in stool ICD Code: K92.1 Status: Acute (6) Diverticulitis of intestine with abscess ICD Code: K57.80 Status: Acute (7) Impaired glucose tolerance ICD Code: R73.02 Status: Acute Assessment and Plan 1. COPD exacerbation, chronic respiratory failure:Continue solumedrol dose to 60 mg IV Q 6 hrs., Duonebs, Symbicort, antibiotics, supplemental oxygen to keep oxygen saturation was 92%. 12/13 patient still has significant expiratory wheezing. I will continue same dose of IV steroids. I will discontinue Levaquin and start the patient IV cefepime since the patient brought up that her mother was allergic to Levaquin. 12/14 appreciate pulmonary recommendations. PFTs as per pulmonary recommendations. Continue IV steroids and Symbicort as well as supplemental oxygen. Continue bronchodilators. 2. Tobacco abuse: Patient counseled to quit smoking. Continue nicotine patch. 3. Hypertension: Blood pressure is uncontrolled and very elevated with systolic blood pressure in the 170s. Continue lisinopril, amlodipine. Patient seems anxious, which could be contributing to the elevated blood pressure. Continue lorazepam as needed. I will start the patient on Cardura 2 mg at bedtime. 12/12 I will increase cardura dose to 4 mg po at bedtime. Increase lisinopril dose to 30 mg daily. 12/13 BP still elevated. continue Lisinorpil at 30 mg daily. Increase Cardura to 6 mg po at bedtime. Continue Clonidine PRN. /16 BP still uncontrolled. Will increase Cardura to 8 mg at HSand lisinopril up to 40 mg daily. Continue clonidine prn. 4. DVT prophylaxis: SCDs, MUNIRA demarco. 5. Diverticulitis with abscess: CT abdomen and pelvis showed wall thickening of the sigmoid colon, with mass and chronic diverticular disease or combination of the 2. There is mild acute diverticulitis and a small contained abscess perforation noted. FU GI and surgery, Hemoccult is positive. Patient has been offered colonoscopy which but has refused for several times. Patient states she will have colonoscopy but not now because she does not feel well. General surgery consulted and recommended medical management for now. Continue IV Flagyl and IV Levaquin. Patient still refuses colonoscopy. Continue with pain control and IV antibiotics. 6. Alcohol abuse: CIMT protocol. 7. sinus tachycardia: Likely secondary to pain and dehydration due to poor oral intake. 8. Pulmonary metastatic disease. Which would favor colonic carcinoma. I will order a dedicated CT of the chest was the patient feels better. CA-19-9 is 25.2 within normal range. 9. Poor oral intake. Ensure with meals. 10. Hyperglycemia. No prior history of diabetes mellitus. Hemoglobin A1c 5.7. The patient has impaired glucose tolerance and steroid induced hyperglycemia. Continue to Monitor Accu-Cheks and place on SSI with insulin NovoLog. Blood sugars seem to be stable. Patient would benefit to be discharged on metformin. 11. GI prophylaxis. Continue PPI 12. DVT prophylaxis: SCDs. Chemoprophylaxis contraindicated given history of blood per rectum. Discharge Planning Continue to monitor in the medical floor. Problem Qualifiers (1) Diverticulitis of intestine with abscess: Qualified Code: K57.20 - Diverticulitis of large intestine with abscess without bleeding Wali Bowens MD Dec 14, 2016 15:59
--- NOTE | 2016-12-14 18:23 | HHI.PR ---
Subjective Remarks 56 YOWF with COPD exac, abd discomfort Mild wheezing Ambulates CT chest multiple lung nodules Objective Vital Signs Vital Signs Date Time Temp Pulse Resp B/P Pulse Ox O2 Delivery O2 Flow Rate FiO2 12/14/16 16:00 99.0 125 20 204/93 91 12/14/16 12:00 97.8 112 20 180/95 95 12/14/16 11:30 20 12/14/16 11:19 93 Nasal Cannula 2.50 12/14/16 11:00 95 Nasal Cannula 2.00 12/14/16 08:00 98.1 97 20 175/88 91 12/14/16 04:00 98.1 108 18 155/74 93 12/14/16 00:00 98.3 94 18 161/69 94 12/13/16 21:00 Nasal Cannula 2.00 12/13/16 20:00 98.1 118 18 165/72 93 12/13/16 19:45 91 Nasal Cannula 2.50 I/O 12/13/16 12/13/16 12/13/16 12/14/16 12/14/16 12/14/16 07:00 15:00 23:00 07:00 15:00 23:00 Intake Total 240 ml 1157 ml 950 ml 480 ml 1300 ml Balance 240 ml 1157 ml 950 ml 480 ml 1300 ml Intake Oral 240 ml 960 ml 480 ml 480 ml 1000 ml IV Total 197 ml 470 ml 300 ml # Voids 1 2 3 3 # Bowel Movements 0 0 0 0 1 Result Diagram: 12/13/16 1003 12/13/16 1003 Objective Remarks GENERAL: MBMN WF with mild sob SKIN: Warm and dry. HEAD: Normocephalic. EYES: No scleral icterus. No injection or drainage. NECK: Supple, trachea midline. No JVD or lymphadenopathy. CARDIOVASCULAR: Regular rate and rhythm without murmurs, gallops, or rubs. RESPIRATORY: Breath sounds equal bilaterally. No accessory muscle use. Exp rhonchi GASTROINTESTINAL: Abdomen soft, non-tender, nondistended. MUSCULOSKELETAL: No cyanosis, or edema. BACK: Nontender without obvious deformity. No CVA tenderness. A/P Assessment and Plan Multiple lung nodules COPD exac Nicotine use Abd discomfort PLAN: DW pt , agrees for CT Guided lung bx Aerosol nebs IV Solumedrol Cont Abx Duong Martini MD Dec 14, 2016 18:23
[2016-12-14 19:40] LABS: AUTOMATED NEUTROPHIL # 7.5 TH/MM3 (1.8-7.7); BASOPHIL % 0.1 % (0.0-2.0); HEMATOCRIT 41.5 % (35.0-46.0); HEMO FLAGS DIFF FINAL; LYMPH % 3.6 % (9.0-44.0); LYMPHOCYTE # 0.3 TH/MM3 (1.0-4.8); MEAN CELL VOLUME 93.4 FL (80.0-100.0); MEAN CORPUSCULAR HGB CONC 34.3 % (32.0-36.0); MONO % 4.6 % (0.0-8.0); NEUT % 91.7 % (16.0-70.0); PLATELET COUNT 123 TH/MM3 (150-450); RED BLOOD COUNT 4.45 MIL/MM3 (4.00-5.30); RED CELL DISTRIBUTION WIDTH 14.5 % (11.6-17.2); WHITE BLOOD COUNT 8.2 TH/MM3 (4.0-11.0)
[2016-12-14 19:51] LABS: APTT (PATIENT) 22.9 SEC (24.3-30.1); PROTHROMBIN TIME - PATIENT 11.5 SEC (9.8-11.6)
[2016-12-14] MEDS ORDERED: DOXAZOSIN MESYLATE 2 MG TAB PO SCH (21:00)
[2016-12-15] MEDS: methylPREDNISolone SOD SUCC 40 MG/1 ML VIAL IV PUSH SCH ×4 (00:27→17:02)
[2016-12-15] MEDS: CEFEPIME INJ 1,000 MG in SODIUM CHLORIDE 0.9% INJ 100 ML IV SCH ×3 (00:27→16:57)
[2016-12-15 04:00] VITALS: BP 169/91; PULSE 106; RESP 20; TEMP 97.9; O2SAT 92
[2016-12-15] MEDS: metroNIDAZOLE 500 MG INJ 100 ML IV SCH ×3 (04:18→21:16)
[2016-12-15 05:44] LABS: HEMATOCRIT 38.8 % (35.0-46.0); MEAN CORPUSCULAR HGB CONC 34.4 % (32.0-36.0); PLATELET COUNT 116 TH/MM3 (150-450); RED BLOOD COUNT 4.17 MIL/MM3 (4.00-5.30); RED CELL DISTRIBUTION WIDTH 14.4 % (11.6-17.2); REVIEW FLAG FINAL; WHITE BLOOD COUNT 6.3 TH/MM3 (4.0-11.0)
[2016-12-15] MEDS: LORazepam 0.5 MG TAB PO PRN ×2 (05:50→19:47)
[2016-12-15] MEDS: ACETAMINOPHEN/HYDROcodone 325 MG/10 MG TAB PO PRN (05:50)
[2016-12-15 05:52] LABS: BICARBONATE 31.6 MEQ/L (21.0-32.0)
[2016-12-15] MEDS: INSULIN ASPART SUPPLEMENTAL SCALE SQ SCH ×4 (06:00→21:19)
[2016-12-15] MEDS: RESP: ALBUTEROL 2.5 MG/IPRATROPIUM 0.5 MG NEB (SCH) NEB ×4 (07:40→19:50)
[2016-12-15 08:00] VITALS: BP 156/89; PULSE 103; RESP 18; TEMP 98.2; O2SAT 90
[2016-12-15] MEDS: BUDESONIDE-FORMOTEROL 160/4.5 MCG INHALER INH SCH ×2 (09:00→21:00)
[2016-12-15] MEDS: SODIUM CHLORIDE 0.9% FLUSH 10 ML FLUSH IV FLUSH SCH ×4 (09:00→21:00)
[2016-12-15] MEDS: INSULIN ASPART 1,000 UNITS/10 ML VIAL SQ SCH ×3 (09:30→17:03)
--- NOTE | 2016-12-15 10:27 | HHI.PR ---
Subjective Subjective Notes DAILY PROGRESS NOTE FOR SURGICAL ATTENDING, DR. KELVIN BARBA Wheezing a little better Apparently patient is agreeing to lung nodule biopsy Objective Vitals/I&O Vital Signs Date Time Temp Pulse Resp B/P Pulse Ox O2 Delivery O2 Flow Rate FiO2 12/15/16 08:00 98.2 103 18 156/89 90 12/15/16 07:42 Nasal Cannula 1.00 Labs Laboratory Tests Test 12/14/16 12/15/16 19:09 04:25 White Blood Count 8.2 6.3 Red Blood Count 4.45 4.17 Hemoglobin 14.2 13.3 Hematocrit 41.5 38.8 Mean Corpuscular Volume 93.4 93.0 Mean Corpuscular Hemoglobin 32.0 32.0 Mean Corpuscular Hemoglobin 34.3 34.4 Concent Red Cell Distribution Width 14.5 14.4 Platelet Count 123 116 Mean Platelet Volume 8.2 8.1 Neutrophils (%) (Auto) 91.7 Lymphocytes (%) (Auto) 3.6 Monocytes (%) (Auto) 4.6 Eosinophils (%) (Auto) 0.0 Basophils (%) (Auto) 0.1 Neutrophils # (Auto) 7.5 Lymphocytes # (Auto) 0.3 Monocytes # (Auto) 0.4 Eosinophils # (Auto) 0.0 Basophils # (Auto) 0.0 CBC Comment DIFF FINAL Differential Comment Prothrombin Time 11.5 Prothromb Time International 1.0 Ratio Activated Partial 22.9 Thromboplast Time Sodium Level 139 Potassium Level 4.0 Chloride Level 100 Carbon Dioxide Level 31.6 Anion Gap 7 Blood Urea Nitrogen 24 Creatinine 0.66 Estimat Glomerular Filtration 93 Rate Random Glucose 223 Calcium Level 8.7 Radiology Last 48 hours Impressions Abdomen/Pelvis CT 12/10/16 0000 Signed Impressions: Service Date/Time: Saturday, December 10, 2016 20:23 - CONCLUSION: 1. Wall thickening of the sigmoid colon, differential including mass and chronic diverticular disease or combination of the 2. There is mild acute diverticulitis and a small, contained abscess/perforation noted; please see above. Nothing clearly drainable at this time. 2. Apparent pulmonary metastatic disease, etiology uncertain but would increase the possibility of sigmoid colon carcinoma and this should be excluded. I don't see another definite primary or other sites of metastatic disease. 3. Nonobstructing stones are again noted of the right kidney and an unchanged cyst of the left kidney. 4. Uterine fibroid. Clayton Burr MD Lungs: Wheezes Abdomen: Other (mild soreness left lower quadrant) A/P Problem List: (1) Diverticulitis (2) Diverticulitis of intestine with abscess (3) Pulmonary nodule (4) Thrombocytopenia (5) Tobacco abuse (6) Abdominal pain (7) Hypoxia (8) COPD with exacerbation (9) Homeless (10) Alcohol abuse Assessment and Plan 56-year-old female with pelvic abscess from possible diverticular disease however she has multiple nodules in her lung that she is to undergo biopsy Continue antibiotic therapy for her diverticular abscess She will require a colonoscopy at some time in the future to rule malignancy that she has been somewhat reluctant to undergo colonoscopy at any time. Continue maximal medical therapy for the treatment of her asthma and pelvic abscess suspected to be from diverticulitis Attending Statement NOTE FOR SURGICAL ATTENDING, DR. KELVIN BARBA I attest that I had a [id number] encounter with the patient on the same day, and personally performed and documented my assessment and findings in the medical record. The following services were provided during this hospital visit: Chart data review, vital sign assessments/reviewing monitor data Review of consultations notes if present. Medication orders/review and/or management Ordering and/or reviewing lab tests Ordering and/or interpreting/reviewing x-rays and/or diagnostic studies Care of the patient and discussion of the patient with the care team Documentation time To help prompt me to consider important information that might be impacting today's encounter and assessment, information from prior notes written by myself or my colleagues may have been "brought forward/copy and pasted" into today's note. Problem Qualifiers (1) Diverticulitis: (2) Diverticulitis of intestine with abscess: Qualified Code: K57.20 - Diverticulitis of large intestine with abscess without bleeding (3) Abdominal pain: Qualified Code: R10.32 - Left lower quadrant pain Kelvin Barba MD Dec 15, 2016 10:27
[2016-12-15] MEDS: amLODIPine BESYLATE 5 MG TAB PO SCH (10:59)
[2016-12-15] MEDS: LISINOPRIL 20 MG TAB PO SCH (10:59)
[2016-12-15] MEDS: guaiFENesin E.R. 600 MG TAB PO SCH ×2 (10:59→21:18)
[2016-12-15] MEDS: INSULIN DETEMIR 100 UNITS/ML VIAL SQ SCH ×2 (11:00→21:21)
[2016-12-15] MEDS: POLYETHYLENE GLYCOL 17 GM PKG PO SCH (11:16)
[2016-12-15] MEDS: ACETAMINOPHEN/HYDROcodone 325 MG/5 MG TAB PO PRN (11:26)
[2016-12-15 12:00] VITALS: BP 156/81; PULSE 85; RESP 20; TEMP 98.7; O2SAT 95
[2016-12-15] MEDS ORDERED: PILL SPLITTER OTHER PRN (12:00)
[2016-12-15] MEDS ORDERED: HYDROmorphone HCL PF 1 MG/ML VIAL IV PUSH PRN (12:30)
--- NOTE | 2016-12-15 12:30 | HHI.PR ---
Subjective Remarks sob is better denies cp still has significant abdominal pain blood pressure very elevated Objective Vitals Vital Signs Date Time Temp Pulse Resp B/P Pulse Ox O2 Delivery O2 Flow Rate FiO2 12/15/16 08:00 98.2 103 18 156/89 90 12/15/16 07:42 Nasal Cannula 1.00 12/15/16 04:00 97.9 106 20 169/91 92 12/14/16 21:01 94 Nasal Cannula 2.50 12/14/16 21:00 94 Nasal Cannula 2.50 12/14/16 21:00 Nasal Cannula 2.00 12/14/16 20:00 98.2 112 20 171/80 93 12/14/16 18:41 18 12/14/16 16:00 99.0 125 20 204/93 91 I/O 12/14/16 12/14/16 12/14/16 12/15/16 12/15/16 12/15/16 07:00 15:00 23:00 07:00 15:00 23:00 Intake Total 480 ml 1300 ml 480 ml 240 ml Balance 480 ml 1300 ml 480 ml 240 ml Intake Oral 480 ml 1000 ml 480 ml 240 ml IV Total 300 ml # Voids 3 3 1 1 # Bowel Movements 0 1 0 0 Result Diagram: 12/15/16 0425 12/15/16 0425 Imaging Last Impressions Chest X-Ray 12/13/16 0000 Signed Impressions: Service Date/Time: Tuesday, December 13, 2016 17:08 - CONCLUSION: No acute disease. No significant change has occurred. Kevyn Augustine MD Chest CT 12/13/16 0000 Signed Impressions: Service Date/Time: Tuesday, December 13, 2016 19:03 - CONCLUSION: 1. Numerous subcentimeter nodules most characteristic of metastatic disease to the lungs. 2. Moderate centrilobular emphysema. Kevyn Augustine MD Abdomen/Pelvis CT 12/10/16 0000 Signed Impressions: Service Date/Time: Saturday, December 10, 2016 20:23 - CONCLUSION: 1. Wall thickening of the sigmoid colon, differential including mass and chronic diverticular disease or combination of the 2. There is mild acute diverticulitis and a small, contained abscess/perforation noted; please see above. Nothing clearly drainable at this time. 2. Apparent pulmonary metastatic disease, etiology uncertain but would increase the possibility of sigmoid colon carcinoma and this should be excluded. I don't see another definite primary or other sites of metastatic disease. 3. Nonobstructing stones are again noted of the right kidney and an unchanged cyst of the left kidney. 4. Uterine fibroid. Clayton Burr MD Objective Remarks GENERAL: On moderate distress due to abdominal pain. SKIN: Warm and dry. HEAD: Normocephalic. EYES: No scleral icterus. No injection or drainage. NECK: Supple, trachea midline. No JVD or lymphadenopathy. CARDIOVASCULAR: Regular rate and rhythm without murmurs, gallops, or rubs. RESPIRATORY: Diffuse bilateral expiratory wheezing, no crackles or rhonchi auscultated. GASTROINTESTINAL: Abdomen soft, difusely tender to palpation, non distended. MUSCULOSKELETAL: No cyanosis, or edema. BACK: Nontender without obvious deformity. No CVA tenderness. Procedures None Medications and IVs Current Medications Medications (Trade) Dose Ordered Sig/Valorie Route Start Time Stop Time Status Last Admin (Symbicort 160-4.5 Inh) 2 puff Q12HR INH 12/08/16 09:00 12/14/16 20:29 (Mucinex Er) 600 mg BID PO 12/08/16 09:00 12/15/16 10:59 (NS Flush) 2 ml UNSCH PRN IV FLUSH 12/07/16 21:15 12/07/16 22:47 (NS Flush) 2 ml BID IV FLUSH 12/08/16 09:00 12/14/16 20:27 (Zofran Inj) 4 mg Q6H PRN IVP 12/07/16 21:15 (Dulcolax Supp) 10 mg DAILY PRN RECTAL 12/07/16 21:15 12/08/16 16:33 (Tylenol) 650 mg Q6H PRN PO 12/07/16 21:15 ([place] 5-325 Mg) 1 tab Q4H PRN PO 12/07/16 21:15 12/15/16 11:26 ([place] 10-325 Mg) 1 tab Q4H PRN PO 12/07/16 21:15 12/15/16 05:50 (Habitrol 21 Mg Patch.24 Hr) 1 patch DAILY PRN T-DERMAL 12/07/16 21:15 12/14/16 05:46 Miscellaneous Information 1 DAILY PRN T-DERMAL 12/07/16 21:45 (Vasotec Inj) 1.25 mg Q6H PRN IV PUSH 12/08/16 16:15 12/14/16 16:07 (Ativan) 0.5 mg Q8H PRN PO 12/09/16 10:15 12/15/16 05:50 (Miralax) 17 gm DAILY PO 12/09/16 15:00 12/15/16 11:16 (NS Flush) 2 ml UNSCH PRN IV FLUSH 12/10/16 00:00 (NS Flush) 2 ml BID IV FLUSH 12/10/16 09:00 12/12/16 09:00 (Romazicon Inj) 0.2 mg Q1M PRN IV PUSH 12/10/16 00:00 (Ativan) 1 mg Q4H PRN PO 12/10/16 00:00 12/15/16 11:15 (Ativan Inj) 1 mg Q4H PRN IV PUSH 12/10/16 00:00 (Ativan) 2 mg Q2H PRN PO 12/10/16 00:00 (Ativan Inj) 2 mg Q2H PRN IV PUSH 12/10/16 00:00 (Ativan Inj) 2 mg Q1H PRN IV PUSH 12/10/16 00:00 (Ativan Inj) 2 mg Q15M PRN IV PUSH 12/10/16 00:00 Amlodipine Besylate 10 mg 10 mg DAILY PO 12/11/16 09:00 12/15/16 10:59 (Flagyl 500 Mg Inj) 100 ml @ 100 mls/hr Q8H IV 12/11/16 12:00 12/15/16 11:15 (SoluMEDROL INJ) 60 mg Q6HR IV PUSH 12/12/16 00:00 12/15/16 11:00 (D50w (Vial) Inj) 25 ml UNSCH PRN IV PUSH 12/11/16 18:15 (Glucagon Inj) 1 mg UNSCH PRN OTHER 12/11/16 18:15 Clonidine 0.1 mg 0.1 mg Q6H PRN PO 12/12/16 13:00 12/13/16 12:51 (Maxipime Inj/NS Inj) 100 ml @ 200 mls/hr Q8H IV 12/13/16 17:00 12/15/16 10:58 (Prinivil) 40 mg DAILY PO 12/15/16 09:00 12/15/16 10:59 (Levemir Inj) 10 units Q12H SQ 12/15/16 10:00 12/15/16 11:00 (NovoLOG INJ) 7 units TIDPC SQ 12/15/16 09:30 (Cardura) 10 mg HS PO 12/15/16 21:00 (Pill Splitter) 1 ea UNSCH PRN OTHER 12/15/16 12:00 Urinary Catheter: No Vascular Central Line Catheter: No A/P Problem List: (1) COPD with exacerbation ICD Code: J44.1 Status: Acute (2) Hypoxia ICD Code: R09.02 Status: Resolved (3) Tobacco abuse ICD Code: Z72.0 Status: Chronic (4) Hypertension ICD Code: I10 Status: Chronic (5) Blood in stool ICD Code: K92.1 Status: Acute (6) Diverticulitis of intestine with abscess ICD Code: K57.80 Status: Acute (7) Impaired glucose tolerance ICD Code: R73.02 Status: Acute Assessment and Plan 1. COPD exacerbation, chronic respiratory failure:Continue solumedrol dose to 60 mg IV Q 6 hrs., Duonebs, Symbicort, antibiotics, supplemental oxygen to keep oxygen saturation was 92%. Patient found to have significant inspiratory wheezing. The patient was start IV Solu-Medrol. Initially started on IV Levaquin, however given persistence of wheezing Levaquin was discontinued and the patient was started on IV cefepime. I provide the patient's mother is allergic to Levaquin. 12/15 wheezing slightly improved. Continue IV Solu-Medrol at same dose, Symbicort inhaled steroid as well as supplemental oxygen. Continue bronchodilators as well. CT chest showed numerous subcentimeter nodules, characteristic of metastatic disease to the lungs. It also showed moderate centrilobular emphysema. Discussed the case with Dr. Martini yesterday, plan is for CT-guided lung biopsy. Continue IV cefepime. 2. Tobacco abuse: Patient counseled to quit smoking. Continue nicotine patch. 3. Hypertension: Patient's blood pressure is uncontrolled. Systolic blood pressure ranging from 150-170 systolic. I will increase lisinopril to 40 mg daily, Cardura to 8 mg at bedtime. Continue clonidine as needed for systolic blood pressure more than 160. Continue to monitor vital signs 4. DVT prophylaxis: SCDs, MUNIRA demarco. 5. Diverticulitis with abscess: CT abdomen and pelvis showed wall thickening of the sigmoid colon, with mass and chronic diverticular disease or combination of the 2. There is mild acute diverticulitis and a small contained abscess perforation noted. FU GI and surgery, Hemoccult is positive. Patient has been offered colonoscopy which but has refused for several times. Patient states she will have colonoscopy but not now because she does not feel well. General surgery consulted and recommended medical management for now. Continue IV Flagyl and IV Levaquin. 12/15 continue IV antibiotics, pain control with oral S[place] seems to be inadequate at this time. I will place the patient on IV morphine and IV Dilaudid for breakthrough pain. Will consider transitioning to oral opiates once pain is well controlled. 6. Alcohol abuse: [facility] protocol. There is no evidence of alcohol withdrawal. 7. sinus tachycardia: Likely secondary to pain and dehydration due to poor oral intake. 8. Suspected Pulmonary metastatic disease. Which would favor colonic carcinoma. I will order a dedicated CT of the chest was the patient feels better. CA-19-9 is 25.2 within normal range. 9. Poor oral intake. Ensure with meals. 10. Hyperglycemia. No prior history of diabetes mellitus. Hemoglobin A1c 5.7. The patient has impaired glucose tolerance and steroid induced hyperglycemia. Continue to Monitor Accu-Cheks and place on SSI with insulin NovoLog. 12/15 Blood sugar seems to be elevated blood sugars above 200. I will place on basal and bolus therapy with insulin Levemir and prandial insulin NovoLog and continue to cover with SSI with insulin NovoLog. Tinea to monitor Accu-Cheks. 11. GI prophylaxis. Continue PPI 12. DVT prophylaxis: SCDs. Chemoprophylaxis contraindicated given history of blood per rectum (patient refusing colonoscopy). Discharge Planning Continue to monitor in the medical floor. Problem Qualifiers (1) Diverticulitis of intestine with abscess: Qualified Code: K57.20 - Diverticulitis of large intestine with abscess without bleeding Wali Bowens MD Dec 15, 2016 12:30
[2016-12-15 16:00] VITALS: BP 131/63; PULSE 99; RESP 18; TEMP 98.9; O2SAT 92
[2016-12-15] MEDS: MORPHINE SULFATE 4 MG/ML INJ IV PUSH PRN ×3 (18:43→22:14)
--- NOTE | 2016-12-15 19:21 | HHI.PR ---
Subjective Remarks 56 YOWF with COPD exac, abd discomfort Mild wheezing Ambulates CT chest multiple lung nodules " I feel weak, sob" Objective Vital Signs Vital Signs Date Time Temp Pulse Resp B/P Pulse Ox O2 Delivery O2 Flow Rate FiO2 12/15/16 16:00 98.9 99 18 131/63 92 12/15/16 12:00 98.7 85 20 156/81 95 12/15/16 08:00 98.2 103 18 156/89 90 12/15/16 07:42 Nasal Cannula 1.00 12/15/16 04:00 97.9 106 20 169/91 92 12/14/16 21:01 94 Nasal Cannula 2.50 12/14/16 21:00 94 Nasal Cannula 2.50 12/14/16 21:00 Nasal Cannula 2.00 12/14/16 20:00 98.2 112 20 171/80 93 I/O 12/14/16 12/14/16 12/14/16 12/15/16 12/15/16 12/15/16 07:00 15:00 23:00 07:00 15:00 23:00 Intake Total 480 ml 1300 ml 480 ml 240 ml 480 ml Balance 480 ml 1300 ml 480 ml 240 ml 480 ml Intake Oral 480 ml 1000 ml 480 ml 240 ml 480 ml IV Total 300 ml # Voids 3 3 1 1 3 # Bowel Movements 0 1 0 0 Result Diagram: 12/15/16 0425 12/15/16 0425 Objective Remarks GENERAL: MBMN WF with mild sob SKIN: Warm and dry. HEAD: Normocephalic. EYES: No scleral icterus. No injection or drainage. NECK: Supple, trachea midline. No JVD or lymphadenopathy. CARDIOVASCULAR: Regular rate and rhythm without murmurs, gallops, or rubs. RESPIRATORY: Breath sounds equal bilaterally. No accessory muscle use. Exp rhonchi GASTROINTESTINAL: Abdomen soft, non-tender, nondistended. MUSCULOSKELETAL: No cyanosis, or edema. BACK: Nontender without obvious deformity. No CVA tenderness. A/P Assessment and Plan Multiple lung nodules COPD exac Nicotine use Abd discomfort PLAN: DW pt , agrees for CT Guided lung bx Aerosol nebs IV Solumedrol Cont Abx Awaiting CT guided bx Duong Martini MD Dec 15, 2016 19:21
[2016-12-15 19:50] VITALS: O2SAT 92
[2016-12-15 20:00] VITALS: BP 150/70; PULSE 116; RESP 22; TEMP 98.5; O2SAT 91
[2016-12-15] MEDS: NICOTINE 21 MG/24 HR PATCH T-DERMAL PRN (21:14)
[2016-12-15] MEDS: DOXAZOSIN MESYLATE 4 MG TAB PO SCH (21:18)
[2016-12-16] VITALS (8 sets, daily range): BP systolic 87–173; BP diastolic 73–86; PULSE 97–116; RESP 17–24; TEMP 97.9–98.7; O2SAT 91–95
[2016-12-16] MEDS: methylPREDNISolone SOD SUCC 40 MG/1 ML VIAL IV PUSH SCH ×4 (00:15→17:06)
[2016-12-16] MEDS: CEFEPIME INJ 1,000 MG in SODIUM CHLORIDE 0.9% INJ 100 ML IV SCH ×3 (00:15→16:21)
[2016-12-16] MEDS: MORPHINE SULFATE 4 MG/ML INJ IV PUSH PRN ×5 (03:15→18:30)
[2016-12-16] MEDS: metroNIDAZOLE 500 MG INJ 100 ML IV SCH ×3 (03:16→20:54)
[2016-12-16] MEDS: LORazepam 0.5 MG TAB PO PRN ×2 (05:16→18:29)
[2016-12-16] MEDS: INSULIN ASPART SUPPLEMENTAL SCALE SQ SCH ×4 (05:31→20:56)
[2016-12-16] MEDS: SODIUM CHLORIDE 0.9% FLUSH 10 ML FLUSH IV FLUSH SCH ×4 (08:32→20:55)
[2016-12-16] MEDS: POLYETHYLENE GLYCOL 17 GM PKG PO SCH (08:32)
[2016-12-16] MEDS: guaiFENesin E.R. 600 MG TAB PO SCH ×2 (08:33→20:56)
[2016-12-16] MEDS: amLODIPine BESYLATE 5 MG TAB PO SCH (08:33)
[2016-12-16] MEDS: LISINOPRIL 20 MG TAB PO SCH (08:33)
[2016-12-16] MEDS: INSULIN DETEMIR 100 UNITS/ML VIAL SQ SCH ×2 (08:34→21:00)
[2016-12-16] MEDS: INSULIN ASPART 1,000 UNITS/10 ML VIAL SQ SCH ×3 (08:34→17:06)
[2016-12-16] MEDS: BUDESONIDE-FORMOTEROL 160/4.5 MCG INHALER INH SCH ×2 (09:00→20:55)
[2016-12-16] MEDS: RESP: ALBUTEROL 2.5 MG/IPRATROPIUM 0.5 MG NEB (PRN) NEB ×2 (10:03→19:51)
--- NOTE | 2016-12-16 10:47 | HHI.PR ---
Subjective Subjective Notes DAILY PROGRESS NOTE FOR SURGICAL ATTENDING, DR. KELVIN BARBA Sitting on the side of the bed Breathing improved Objective Vitals/I&O Vital Signs Date Time Temp Pulse Resp B/P Pulse Ox O2 Delivery O2 Flow Rate FiO2 12/16/16 10:05 92 Nasal Cannula 1.00 12/16/16 08:00 98.2 101 22 173/81 Radiology Last 48 hours Impressions Abdomen/Pelvis CT 12/10/16 0000 Signed Impressions: Service Date/Time: Saturday, December 10, 2016 20:23 - CONCLUSION: 1. Wall thickening of the sigmoid colon, differential including mass and chronic diverticular disease or combination of the 2. There is mild acute diverticulitis and a small, contained abscess/perforation noted; please see above. Nothing clearly drainable at this time. 2. Apparent pulmonary metastatic disease, etiology uncertain but would increase the possibility of sigmoid colon carcinoma and this should be excluded. I don't see another definite primary or other sites of metastatic disease. 3. Nonobstructing stones are again noted of the right kidney and an unchanged cyst of the left kidney. 4. Uterine fibroid. Clayton Burr MD Cardiovascular: Regular Lungs: Clear Abdomen: Other (minimal pain with palpation ) Extremities: No edema A/P Problem List: (1) Diverticulitis (2) Diverticulitis of intestine with abscess (3) Pulmonary nodule (4) Thrombocytopenia (5) Tobacco abuse (6) Abdominal pain (7) Hypoxia (8) COPD with exacerbation (9) Homeless (10) Alcohol abuse Assessment and Plan 56 year old female with SOB/COPD and acute diverticulitis with small contain abscess -Tolerating regular diet + Ensure -Oxygen dependent -Continue antibiotics -WBC continues be WNL -Continue non operative management of acute diverticulitis and small contain abscess at this time Attending Statement NOTE FOR SURGICAL ATTENDING, DR. KELVIN BARBA I agree with above assessment and plan. The exam, history, and the medical decision-making described in the above note were completed with the assistance of the mid-level provider. I reviewed and agree with the findings presented. I attest that I had a [id number] encounter with the patient on the same day, and personally performed and documented my assessment and findings in the medical record. The following services were provided during this hospital visit: Chart data review, vital sign assessments/reviewing monitor data Review of consultations notes if present. Medication orders/review and/or management Ordering and/or reviewing lab tests Ordering and/or interpreting/reviewing x-rays and/or diagnostic studies Care of the patient and discussion of the patient with the care team Documentation time To help prompt me to consider important information that might be impacting today's encounter and assessment, information from prior notes written by myself or my colleagues may have been "brought forward/copy and pasted" into today's note. Problem Qualifiers (1) Diverticulitis: (2) Diverticulitis of intestine with abscess: Qualified Code: K57.20 - Diverticulitis of large intestine with abscess without bleeding (3) Abdominal pain: Qualified Code: R10.32 - Left lower quadrant pain Abigail Cordoba Dec 16, 2016 10:47 Kelvin Barba MD Dec 16, 2016 14:15
[2016-12-16 11:17] LABS: HEMATOCRIT 42.4 % (35.0-46.0); MEAN CELL VOLUME 93.8 FL (80.0-100.0); MEAN CORPUSCULAR HEMOGLOBIN 30.9 PG (27.0-34.0); MEAN CORPUSCULAR HGB CONC 32.9 % (32.0-36.0); PLATELET COUNT 120 TH/MM3 (150-450); RED BLOOD COUNT 4.53 MIL/MM3 (4.00-5.30); RED CELL DISTRIBUTION WIDTH 14.3 % (11.6-17.2); REVIEW FLAG FINAL; WHITE BLOOD COUNT 11.4 TH/MM3 (4.0-11.0)
[2016-12-16 11:45] LABS: BICARBONATE 30.8 MEQ/L (21.0-32.0); POTASSIUM 4.4 MEQ/L (3.5-5.1)
--- NOTE | 2016-12-16 16:51 | HHI.PR ---
Subjective Remarks Breathing is improved from time of admit, but slow improvements day to day. She is still oxygen dependent. CT biopsy of lung masses pending. No chest pain. Objective Vital Signs Date Time Temp Pulse Resp B/P Pulse Ox O2 Delivery O2 Flow Rate FiO2 12/16/16 12:00 98.2 104 24 151/86 92 12/16/16 10:05 92 Nasal Cannula 1.00 12/16/16 09:34 Nasal Cannula 2.00 12/16/16 08:00 98.2 101 22 173/81 95 12/16/16 04:00 98.3 109 17 87/ 93 12/16/16 00:00 98.7 97 19 150/73 93 12/15/16 20:00 Nasal Cannula 2.00 12/15/16 20:00 98.5 116 22 150/70 91 12/15/16 19:50 92 Nasal Cannula 1.00 I/O 12/15/16 12/15/16 12/15/16 12/16/16 12/16/16 12/16/16 07:00 15:00 23:00 07:00 15:00 23:00 Intake Total 240 ml 480 ml 480 ml 480 ml Balance 240 ml 480 ml 480 ml 480 ml Intake Oral 240 ml 480 ml 480 ml 480 ml # Voids 1 3 2 2 # Bowel Movements 0 0 0 Result Diagram: 12/16/16 1052 12/16/16 1052 Imaging Last Impressions Chest X-Ray 12/13/16 0000 Signed Impressions: Service Date/Time: Tuesday, December 13, 2016 17:08 - CONCLUSION: No acute disease. No significant change has occurred. Kevyn Augustine MD Chest CT 12/13/16 0000 Signed Impressions: Service Date/Time: Tuesday, December 13, 2016 19:03 - CONCLUSION: 1. Numerous subcentimeter nodules most characteristic of metastatic disease to the lungs. 2. Moderate centrilobular emphysema. Kevyn Augustine MD Abdomen/Pelvis CT 12/10/16 0000 Signed Impressions: Service Date/Time: Saturday, December 10, 2016 20:23 - CONCLUSION: 1. Wall thickening of the sigmoid colon, differential including mass and chronic diverticular disease or combination of the 2. There is mild acute diverticulitis and a small, contained abscess/perforation noted; please see above. Nothing clearly drainable at this time. 2. Apparent pulmonary metastatic disease, etiology uncertain but would increase the possibility of sigmoid colon carcinoma and this should be excluded. I don't see another definite primary or other sites of metastatic disease. 3. Nonobstructing stones are again noted of the right kidney and an unchanged cyst of the left kidney. 4. Uterine fibroid. Clayton Burr MD Objective Remarks GENERAL: A&Ox3, NAD SKIN: Warm and dry. HEAD: Normocephalic. EYES: No scleral icterus. No injection or drainage. NECK: Supple, trachea midline. No JVD or lymphadenopathy. CARDIOVASCULAR: Regular rate and rhythm without murmurs, gallops, or rubs. RESPIRATORY: Breath sounds equal bilaterally. Bilateral rhonchi, bilateral wheezing. GASTROINTESTINAL: Abdomen soft, non-tender, nondistended. MUSCULOSKELETAL: No cyanosis, or edema. BACK: Nontender without obvious deformity. No CVA tenderness. Medications and IVs Administered Medications Medications (Trade) Dose Ordered Sig/Valorie Route PRN Reason Start Time Stop Time Status Last Admin Dose Admin Budesonide/ Formoterol Fumarate (Symbicort 160-4.5 Inh) 2 puff Q12HR INH 12/08/16 09:00 12/16/16 09:00 Guaifenesin (Mucinex Er) 600 mg BID PO 12/08/16 09:00 12/16/16 08:33 Sodium Chloride (NS Flush) 2 ml UNSCH PRN IV FLUSH FLUSH AFTER USING IV ACCESS 12/07/16 21:15 12/07/16 22:47 Sodium Chloride (NS Flush) 2 ml BID IV FLUSH 12/08/16 09:00 12/16/16 08:32 Bisacodyl (Dulcolax Supp) 10 mg DAILY PRN RECTAL CONSTIPATION 12/07/16 21:15 12/08/16 16:33 Nicotine (Habitrol 21 Mg Patch.24 Hr) 1 patch DAILY PRN T-DERMAL WITHDRAWAL 12/07/16 21:15 12/15/16 21:14 Enalaprilat (Vasotec Inj) 1.25 mg Q6H PRN IV PUSH BP 170/100 12/08/16 16:15 12/14/16 16:07 Lorazepam (Ativan) 0.5 mg Q8H PRN PO ANXIETY 12/09/16 10:15 12/16/16 05:16 Polyethylene Glycol (Miralax) 17 gm DAILY PO 12/09/16 15:00 12/16/16 08:32 Sodium Chloride (NS Flush) 2 ml BID IV FLUSH 12/10/16 09:00 12/15/16 09:00 Lorazepam (Ativan) 1 mg Q4H PRN PO CIWA 8 - 10 12/10/16 00:00 12/15/16 11:15 Amlodipine Besylate 10 mg 10 mg DAILY PO 12/11/16 09:00 12/16/16 08:33 Metronidazole (Flagyl 500 Mg Inj) 100 ml @ 100 mls/hr Q8H IV 12/11/16 12:00 12/16/16 11:29 Methylprednisolone Sodium Succinate (SoluMEDROL INJ) 60 mg Q6HR IV PUSH 12/12/16 00:00 12/16/16 11:29 Clonidine 0.1 mg 0.1 mg Q6H PRN PO SYS BP GREATER THAN 160 MMHG 12/12/16 13:00 12/13/16 12:51 Cefepime HCl/ Sodium Chloride (Maxipime Inj/NS Inj) 100 ml @ 200 mls/hr Q8H IV 12/13/16 17:00 12/16/16 16:21 Lisinopril (Prinivil) 40 mg DAILY PO 12/15/16 09:00 12/16/16 08:33 Insulin Detemir (Levemir Inj) 10 units Q12H SQ 12/15/16 10:00 12/16/16 08:34 Insulin Aspart (NovoLOG INJ) 7 units TIDPC SQ 12/15/16 09:30 12/16/16 12:04 Doxazosin Mesylate (Cardura) 10 mg HS PO 12/15/16 21:00 12/15/16 21:18 Morphine Sulfate (Morphine Inj) 2 mg Q3H PRN IV PUSH PAIN SCALE 1 TO 4 12/15/16 12:30 12/16/16 15:28 Morphine Sulfate (Morphine Inj) 4 mg Q3H PRN IV PUSH PAIN SCALE 5 TO 10 12/15/16 12:30 12/15/16 22:14 A/P Problem List: (1) Hypoxia ICD Code: R09.02 Assessment & Plan: Continue oxygen supplementation PRN Albuterol Steroids Follow for improvement (2) Pulmonary nodule ICD Code: R91.1 Assessment & Plan: Biopsy pending Possible lung cancer (3) Diverticulitis ICD Code: K57.92 Assessment & Plan: Flagyl Cefepime Follow clinically Problem Qualifiers (1) Diverticulitis: Alfredito Cuadra MD Dec 16, 2016 16:51
--- NOTE | 2016-12-16 19:10 | HHI.PR ---
Subjective Remarks 56 YOWF with COPD exac, abd discomfort Mild wheezing Ambulates CT chest multiple lung nodules Pt has refused Lung bx yesterdday and today Objective Vital Signs Vital Signs Date Time Temp Pulse Resp B/P Pulse Ox O2 Delivery O2 Flow Rate FiO2 12/16/16 16:00 98.2 116 22 167/81 91 12/16/16 12:00 98.2 104 24 151/86 92 12/16/16 10:05 92 Nasal Cannula 1.00 12/16/16 09:34 Nasal Cannula 2.00 12/16/16 08:00 98.2 101 22 173/81 95 12/16/16 04:00 98.3 109 17 87/ 93 12/16/16 00:00 98.7 97 19 150/73 93 12/15/16 20:00 Nasal Cannula 2.00 12/15/16 20:00 98.5 116 22 150/70 91 12/15/16 19:50 92 Nasal Cannula 1.00 I/O 12/15/16 12/15/16 12/15/16 12/16/16 12/16/16 12/16/16 07:00 15:00 23:00 07:00 15:00 23:00 Intake Total 240 ml 480 ml 480 ml 480 ml 700 ml Balance 240 ml 480 ml 480 ml 480 ml 700 ml Intake Oral 240 ml 480 ml 480 ml 480 ml 700 ml # Voids 1 3 2 2 5 # Bowel Movements 0 0 0 1 Result Diagram: 12/16/16 1052 12/16/16 1052 Objective Remarks GENERAL: MBMN WF with mild sob SKIN: Warm and dry. HEAD: Normocephalic. EYES: No scleral icterus. No injection or drainage. NECK: Supple, trachea midline. No JVD or lymphadenopathy. CARDIOVASCULAR: Regular rate and rhythm without murmurs, gallops, or rubs. RESPIRATORY: Breath sounds equal bilaterally. No accessory muscle use. Exp rhonchi GASTROINTESTINAL: Abdomen soft, non-tender, nondistended. MUSCULOSKELETAL: No cyanosis, or edema. BACK: Nontender without obvious deformity. No CVA tenderness. A/P Assessment and Plan Multiple lung nodules COPD exac Nicotine use Abd discomfort PLAN: DW pt , agrees for CT Guided lung bx Aerosol nebs IV Solumedrol Cont Abx Pt refused lung bx Duong Martini MD Dec 16, 2016 19:09
[2016-12-16] MEDS: DOXAZOSIN MESYLATE 4 MG TAB PO SCH (20:56)
[2016-12-17] VITALS (9 sets, daily range): BP systolic 128–152; BP diastolic 69–81; PULSE 70–115; RESP 18–20; TEMP 97.9–98.6; O2SAT 90–96
[2016-12-17] MEDS: CEFEPIME INJ 1,000 MG in SODIUM CHLORIDE 0.9% INJ 100 ML IV SCH ×3 (00:16→16:07)
[2016-12-17] MEDS: methylPREDNISolone SOD SUCC 40 MG/1 ML VIAL IV PUSH SCH ×4 (00:16→17:03)
[2016-12-17] MEDS: MORPHINE SULFATE 4 MG/ML INJ IV PUSH PRN ×6 (01:56→19:22)
[2016-12-17] MEDS: metroNIDAZOLE 500 MG INJ 100 ML IV SCH ×3 (04:09→20:37)
[2016-12-17] MEDS: INSULIN ASPART SUPPLEMENTAL SCALE SQ SCH ×4 (05:32→20:39)
[2016-12-17] MEDS: LORazepam 0.5 MG TAB PO PRN ×2 (06:30→16:12)
[2016-12-17] MEDS: LISINOPRIL 20 MG TAB PO SCH (08:00)
[2016-12-17] MEDS: amLODIPine BESYLATE 5 MG TAB PO SCH (08:00)
[2016-12-17] MEDS: POLYETHYLENE GLYCOL 17 GM PKG PO SCH (08:00)
[2016-12-17] MEDS: guaiFENesin E.R. 600 MG TAB PO SCH ×2 (08:00→20:38)
[2016-12-17] MEDS: SODIUM CHLORIDE 0.9% FLUSH 10 ML FLUSH IV FLUSH SCH ×4 (08:01→20:39)
[2016-12-17] MEDS: BUDESONIDE-FORMOTEROL 160/4.5 MCG INHALER INH SCH ×2 (08:01→22:53)
[2016-12-17] MEDS: INSULIN DETEMIR 100 UNITS/ML VIAL SQ SCH ×2 (08:03→20:41)
[2016-12-17] MEDS: INSULIN ASPART 1,000 UNITS/10 ML VIAL SQ SCH ×3 (08:03→17:03)
--- NOTE | 2016-12-17 19:30 | HHI.PR ---
Subjective Remarks 56 YOWF with COPD exac, abd discomfort Mild wheezing Ambulates CT chest multiple lung nodules Pt has refused Lung bx Son at C/O hurting all over Objective Vital Signs Vital Signs Date Time Temp Pulse Resp B/P Pulse Ox O2 Delivery O2 Flow Rate FiO2 12/17/16 16:45 94 Nasal Cannula 2.00 12/17/16 16:00 98.4 70 18 152/77 90 12/17/16 12:00 98.1 94 20 131/69 94 12/17/16 09:18 Nasal Cannula 2.00 12/17/16 08:37 92 Nasal Cannula 21 12/17/16 08:00 97.9 90 18 136/74 92 12/17/16 06:52 97.9 108 18 147/81 96 12/17/16 06:51 98.0 115 18 152/73 92 12/17/16 00:00 97.9 108 20 147/81 93 12/16/16 20:00 Nasal Cannula 2.00 12/16/16 20:00 97.9 107 20 147/73 93 12/16/16 19:47 94 Nasal Cannula 1.00 I/O 12/16/16 12/16/16 12/16/16 12/17/16 12/17/16 12/17/16 07:00 15:00 23:00 07:00 15:00 23:00 Intake Total 480 ml 700 ml 480 ml 720 ml 720 ml Balance 480 ml 700 ml 480 ml 720 ml 720 ml Intake Oral 480 ml 700 ml 480 ml 720 ml 720 ml # Voids 2 5 2 3 3 # Bowel Movements 0 1 1 0 Result Diagram: 12/16/16 1052 12/16/16 1052 Objective Remarks GENERAL: MBMN WF with mild sob SKIN: Warm and dry. HEAD: Normocephalic. EYES: No scleral icterus. No injection or drainage. NECK: Supple, trachea midline. No JVD or lymphadenopathy. CARDIOVASCULAR: Regular rate and rhythm without murmurs, gallops, or rubs. RESPIRATORY: Breath sounds equal bilaterally. No accessory muscle use. Exp rhonchi GASTROINTESTINAL: Abdomen soft, non-tender, nondistended. MUSCULOSKELETAL: No cyanosis, or edema. BACK: Nontender without obvious deformity. No CVA tenderness. A/P Assessment and Plan Multiple lung nodules COPD exac Nicotine use Abd discomfort PLAN: DW pt and her son at [facility]eros[facility] nebs IV Solumedrol Cont Abx Pt refused lung bx Duong Martini MD Dec 17, 2016 19:30
--- NOTE | 2016-12-17 19:32 | HHI.PR ---
Subjective Remarks Patient is declining lung biopsy for now and remains uncertain if she will get one prior to discharge. She is encouraged to consider the lung biopsy to ensure her lesions do not represent metastatic cancer. Breathing is not significantly improved compared to yesterday. Objective Vital Signs Date Time Temp Pulse Resp B/P Pulse Ox O2 Delivery O2 Flow Rate FiO2 12/17/16 16:45 94 Nasal Cannula 2.00 12/17/16 16:00 98.4 70 18 152/77 90 12/17/16 12:00 98.1 94 20 131/69 94 12/17/16 09:18 Nasal Cannula 2.00 12/17/16 08:37 92 Nasal Cannula 21 12/17/16 08:00 97.9 90 18 136/74 92 12/17/16 06:52 97.9 108 18 147/81 96 12/17/16 06:51 98.0 115 18 152/73 92 12/17/16 00:00 97.9 108 20 147/81 93 12/16/16 20:00 Nasal Cannula 2.00 12/16/16 20:00 97.9 107 20 147/73 93 12/16/16 19:47 94 Nasal Cannula 1.00 I/O 12/16/16 12/16/16 12/16/16 12/17/16 12/17/16 12/17/16 07:00 15:00 23:00 07:00 15:00 23:00 Intake Total 480 ml 700 ml 480 ml 720 ml 720 ml Balance 480 ml 700 ml 480 ml 720 ml 720 ml Intake Oral 480 ml 700 ml 480 ml 720 ml 720 ml # Voids 2 5 2 3 3 # Bowel Movements 0 1 1 0 Result Diagram: 12/16/16 1052 12/16/16 1052 Imaging Last Impressions Chest X-Ray 12/13/16 0000 Signed Impressions: Service Date/Time: Tuesday, December 13, 2016 17:08 - CONCLUSION: No acute disease. No significant change has occurred. Kevyn Augustine MD Chest CT 12/13/16 0000 Signed Impressions: Service Date/Time: Tuesday, December 13, 2016 19:03 - CONCLUSION: 1. Numerous subcentimeter nodules most characteristic of metastatic disease to the lungs. 2. Moderate centrilobular emphysema. Kevyn Augustine MD Abdomen/Pelvis CT 12/10/16 0000 Signed Impressions: Service Date/Time: Saturday, December 10, 2016 20:23 - CONCLUSION: 1. Wall thickening of the sigmoid colon, differential including mass and chronic diverticular disease or combination of the 2. There is mild acute diverticulitis and a small, contained abscess/perforation noted; please see above. Nothing clearly drainable at this time. 2. Apparent pulmonary metastatic disease, etiology uncertain but would increase the possibility of sigmoid colon carcinoma and this should be excluded. I don't see another definite primary or other sites of metastatic disease. 3. Nonobstructing stones are again noted of the right kidney and an unchanged cyst of the left kidney. 4. Uterine fibroid. Clayton Burr MD Objective Remarks GENERAL: A&Ox3, NAD SKIN: Warm and dry. HEAD: Normocephalic. EYES: No scleral icterus. No injection or drainage. NECK: Supple, trachea midline. No JVD or lymphadenopathy. CARDIOVASCULAR: Regular rate and rhythm without murmurs, gallops, or rubs. RESPIRATORY: Breath sounds equal bilaterally. Bilateral rhonchi, bilateral wheezing. GASTROINTESTINAL: Abdomen soft, non-tender, nondistended. MUSCULOSKELETAL: No cyanosis, or edema. BACK: Nontender without obvious deformity. No CVA tenderness. Medications and IVs Administered Medications Medications (Trade) Dose Ordered Sig/Valorie Route PRN Reason Start Time Stop Time Status Last Admin Dose Admin Budesonide/ Formoterol Fumarate (Symbicort 160-4.5 Inh) 2 puff Q12HR INH 12/08/16 09:00 12/17/16 08:01 Guaifenesin (Mucinex Er) 600 mg BID PO 12/08/16 09:00 12/17/16 08:00 Sodium Chloride (NS Flush) 2 ml UNSCH PRN IV FLUSH FLUSH AFTER USING IV ACCESS 12/07/16 21:15 12/07/16 22:47 Sodium Chloride (NS Flush) 2 ml BID IV FLUSH 12/08/16 09:00 12/17/16 08:01 Bisacodyl (Dulcolax Supp) 10 mg DAILY PRN RECTAL CONSTIPATION 12/07/16 21:15 12/08/16 16:33 Nicotine (Habitrol 21 Mg Patch.24 Hr) 1 patch DAILY PRN T-DERMAL WITHDRAWAL 12/07/16 21:15 12/15/16 21:14 Enalaprilat (Vasotec Inj) 1.25 mg Q6H PRN IV PUSH BP 170/100 12/08/16 16:15 12/14/16 16:07 Lorazepam (Ativan) 0.5 mg Q8H PRN PO ANXIETY 12/09/16 10:15 12/17/16 16:12 Polyethylene Glycol (Miralax) 17 gm DAILY PO 12/09/16 15:00 12/17/16 08:00 Sodium Chloride (NS Flush) 2 ml BID IV FLUSH 12/10/16 09:00 12/15/16 09:00 Lorazepam (Ativan) 1 mg Q4H PRN PO CIWA 8 - 10 12/10/16 00:00 12/15/16 11:15 Amlodipine Besylate 10 mg 10 mg DAILY PO 12/11/16 09:00 12/17/16 08:00 Metronidazole (Flagyl 500 Mg Inj) 100 ml @ 100 mls/hr Q8H IV 12/11/16 12:00 12/17/16 11:37 Methylprednisolone Sodium Succinate (SoluMEDROL INJ) 60 mg Q6HR IV PUSH 12/12/16 00:00 12/17/16 17:03 Clonidine 0.1 mg 0.1 mg Q6H PRN PO SYS BP GREATER THAN 160 MMHG 12/12/16 13:00 12/13/16 12:51 Cefepime HCl/ Sodium Chloride (Maxipime Inj/NS Inj) 100 ml @ 200 mls/hr Q8H IV 12/13/16 17:00 12/17/16 16:07 Lisinopril (Prinivil) 40 mg DAILY PO 12/15/16 09:00 12/17/16 08:00 Insulin Detemir (Levemir Inj) 10 units Q12H SQ 12/15/16 10:00 12/17/16 08:03 Insulin Aspart (NovoLOG INJ) 7 units TIDPC SQ 12/15/16 09:30 12/17/16 17:03 Doxazosin Mesylate (Cardura) 10 mg HS PO 12/15/16 21:00 12/16/16 20:56 Morphine Sulfate (Morphine Inj) 2 mg Q3H PRN IV PUSH PAIN SCALE 1 TO 4 12/15/16 12:30 12/17/16 19:22 Morphine Sulfate (Morphine Inj) 4 mg Q3H PRN IV PUSH PAIN SCALE 5 TO 10 12/15/16 12:30 12/15/16 22:14 A/P Problem List: (1) Hypoxia ICD Code: R09.02 Assessment & Plan: Continue oxygen supplementation PRN Albuterol Steroids Follow for improvement (2) Pulmonary nodule ICD Code: R91.1 Assessment & Plan: Biopsy recommended (patient has not yet agreed to this) Possible lung cancer (3) Diverticulitis ICD Code: K57.92 Assessment & Plan: Flagyl Cefepime Follow clinically Problem Qualifiers (1) Diverticulitis: Alfredito Cuadra MD Dec 17, 2016 19:31
[2016-12-17] MEDS: DOXAZOSIN MESYLATE 4 MG TAB PO SCH (20:38)
[2016-12-18] VITALS (7 sets, daily range): BP systolic 137–170; BP diastolic 65–82; PULSE 98–117; RESP 16–20; TEMP 97.1–98.7; O2SAT 90–96
[2016-12-18] MEDS: methylPREDNISolone SOD SUCC 40 MG/1 ML VIAL IV PUSH SCH ×4 (00:59→19:30)
[2016-12-18] MEDS: CEFEPIME INJ 1,000 MG in SODIUM CHLORIDE 0.9% INJ 100 ML IV SCH ×3 (00:59→16:23)
[2016-12-18] MEDS: SODIUM CHLORIDE 0.9% FLUSH 10 ML FLUSH IV FLUSH PRN ×2 (01:00→22:12)
[2016-12-18] MEDS: MORPHINE SULFATE 4 MG/ML INJ IV PUSH PRN ×7 (01:00→22:12)
[2016-12-18] MEDS: LORazepam 0.5 MG TAB PO PRN ×4 (04:16→22:59)
[2016-12-18] MEDS: metroNIDAZOLE 500 MG INJ 100 ML IV SCH ×3 (04:16→20:53)
[2016-12-18] MEDS: RESP: ALBUTEROL 2.5 MG/IPRATROPIUM 0.5 MG NEB (PRN) NEB (04:28)
[2016-12-18] MEDS: INSULIN ASPART SUPPLEMENTAL SCALE SQ SCH ×4 (05:14→21:00)
[2016-12-18] MEDS: BUDESONIDE-FORMOTEROL 160/4.5 MCG INHALER INH SCH ×2 (09:00→20:54)
[2016-12-18] MEDS: guaiFENesin E.R. 600 MG TAB PO SCH ×2 (09:01→20:53)
[2016-12-18] MEDS: LISINOPRIL 20 MG TAB PO SCH (09:01)
[2016-12-18] MEDS: amLODIPine BESYLATE 5 MG TAB PO SCH (09:01)
[2016-12-18] MEDS: INSULIN DETEMIR 100 UNITS/ML VIAL SQ SCH ×2 (09:02→22:12)
[2016-12-18] MEDS: INSULIN ASPART 1,000 UNITS/10 ML VIAL SQ SCH ×3 (09:02→18:30)
[2016-12-18] MEDS: POLYETHYLENE GLYCOL 17 GM PKG PO SCH (09:03)
[2016-12-18 14:23] LABS: BICARBONATE 32.2 MEQ/L (21.0-32.0); POTASSIUM 4.4 MEQ/L (3.5-5.1)
--- NOTE | 2016-12-18 15:15 | HHI.PR ---
Subjective Remarks Complaint of leg swelling R>L. She would like to be evaluated for a DVT. Patient is declining lung biopsy for now and remains uncertain if she will get one prior to discharge. She is encouraged to consider the lung biopsy to ensure her lesions do not represent metastatic cancer. Breathing is not significantly improved compared to yesterday. Objective Vital Signs Date Time Temp Pulse Resp B/P Pulse Ox O2 Delivery O2 Flow Rate FiO2 12/18/16 12:00 98.5 102 18 137/71 94 12/18/16 08:00 98.2 98 18 142/65 95 12/18/16 04:30 93 Nasal Cannula 2.00 12/18/16 04:00 98.7 117 18 170/82 90 12/18/16 00:00 Nasal Cannula 2.00 12/18/16 00:00 97.1 101 18 165/82 96 12/17/16 20:00 98.6 96 18 128/75 93 12/17/16 20:00 Nasal Cannula 2.00 12/17/16 16:45 94 Nasal Cannula 2.00 12/17/16 16:00 98.4 70 18 152/77 90 I/O 12/17/16 12/17/16 12/17/16 12/18/16 12/18/16 12/18/16 07:00 15:00 23:00 07:00 15:00 23:00 Intake Total 720 ml 720 ml 480 ml 680 ml Balance 720 ml 720 ml 480 ml 680 ml Intake Oral 720 ml 720 ml 480 ml 480 ml IV Total 200 ml # Voids 3 3 0 1 # Bowel Movements 0 0 0 Result Diagram: 12/16/16 1052 12/18/16 1313 Objective Remarks GENERAL: A&Ox3, NAD SKIN: Warm and dry. HEAD: Normocephalic. EYES: No scleral icterus. No injection or drainage. NECK: Supple, trachea midline. No JVD or lymphadenopathy. CARDIOVASCULAR: Regular rate and rhythm without murmurs, gallops, or rubs. RESPIRATORY: Breath sounds equal bilaterally. Bilateral rhonchi, bilateral wheezing. GASTROINTESTINAL: Abdomen soft, non-tender, nondistended. MUSCULOSKELETAL: No cyanosis, or edema. BACK: Nontender without obvious deformity. No CVA tenderness. Medications and IVs Administered Medications Medications (Trade) Dose Ordered Sig/Valorie Route PRN Reason Start Time Stop Time Status Last Admin Dose Admin Budesonide/ Formoterol Fumarate (Symbicort 160-4.5 Inh) 2 puff Q12HR INH 12/08/16 09:00 12/18/16 09:00 Guaifenesin (Mucinex Er) 600 mg BID PO 12/08/16 09:00 12/18/16 09:01 Sodium Chloride (NS Flush) 2 ml UNSCH PRN IV FLUSH FLUSH AFTER USING IV ACCESS 12/07/16 21:15 12/18/16 01:00 Sodium Chloride (NS Flush) 2 ml BID IV FLUSH 12/08/16 09:00 12/17/16 20:38 Bisacodyl (Dulcolax Supp) 10 mg DAILY PRN RECTAL CONSTIPATION 12/07/16 21:15 12/08/16 16:33 Nicotine (Habitrol 21 Mg Patch.24 Hr) 1 patch DAILY PRN T-DERMAL WITHDRAWAL 12/07/16 21:15 12/15/16 21:14 Enalaprilat (Vasotec Inj) 1.25 mg Q6H PRN IV PUSH BP 170/100 12/08/16 16:15 12/14/16 16:07 Lorazepam (Ativan) 0.5 mg Q8H PRN PO ANXIETY 12/09/16 10:15 12/18/16 05:15 Polyethylene Glycol (Miralax) 17 gm DAILY PO 12/09/16 15:00 12/18/16 09:03 Sodium Chloride (NS Flush) 2 ml BID IV FLUSH 12/10/16 09:00 12/15/16 09:00 Lorazepam (Ativan) 1 mg Q4H PRN PO CIWA 8 - 10 12/10/16 00:00 12/15/16 11:15 Amlodipine Besylate 10 mg 10 mg DAILY PO 12/11/16 09:00 12/18/16 09:01 Metronidazole (Flagyl 500 Mg Inj) 100 ml @ 100 mls/hr Q8H IV 12/11/16 12:00 12/18/16 11:20 Methylprednisolone Sodium Succinate (SoluMEDROL INJ) 60 mg Q6HR IV PUSH 12/12/16 00:00 12/18/16 11:14 Clonidine 0.1 mg 0.1 mg Q6H PRN PO SYS BP GREATER THAN 160 MMHG 12/12/16 13:00 12/13/16 12:51 Cefepime HCl/ Sodium Chloride (Maxipime Inj/NS Inj) 100 ml @ 200 mls/hr Q8H IV 12/13/16 17:00 12/18/16 09:02 Lisinopril (Prinivil) 40 mg DAILY PO 12/15/16 09:00 12/18/16 09:01 Insulin Detemir (Levemir Inj) 10 units Q12H SQ 12/15/16 10:00 12/18/16 09:02 Insulin Aspart (NovoLOG INJ) 7 units TIDPC SQ 12/15/16 09:30 12/18/16 11:26 Doxazosin Mesylate (Cardura) 10 mg HS PO 12/15/16 21:00 12/17/16 20:38 Morphine Sulfate (Morphine Inj) 2 mg Q3H PRN IV PUSH PAIN SCALE 1 TO 4 12/15/16 12:30 12/17/16 19:22 Morphine Sulfate (Morphine Inj) 4 mg Q3H PRN IV PUSH PAIN SCALE 5 TO 10 12/15/16 12:30 12/18/16 12:56 A/P Problem List: (1) Hypoxia ICD Code: R09.02 Assessment & Plan: Slow improvements Continue oxygen supplementation PRN Albuterol Steroids Follow for improvement (2) Pulmonary nodule ICD Code: R91.1 Assessment & Plan: Biopsy recommended (patient has not yet agreed to this) Possible lung cancer (3) Diverticulitis ICD Code: K57.92 Assessment & Plan: Flagyl Cefepime Follow clinically (4) Edema ICD Code: R60.9 Assessment & Plan: Evaluate for DVT with bilateral lower extremity ultrasound Start Lasix If work up is normal, will obtain an echocardiogram Problem Qualifiers (1) Diverticulitis: Alfredito Cuadra MD Dec 18, 2016 15:15
[2016-12-18] MEDS: ENOXAPARIN SODIUM 30 MG/0.3 ML SYRINGE SQ SCH (16:23)
--- NOTE | 2016-12-18 20:04 | HHI.PR ---
Subjective Remarks 56 YOWF with COPD exac, abd discomfort Mild wheezing Ambulates CT chest multiple lung nodules Pt has refused Lung bx Objective Vital Signs Vital Signs Date Time Temp Pulse Resp B/P Pulse Ox O2 Delivery O2 Flow Rate FiO2 12/18/16 16:00 98.4 104 16 138/66 94 12/18/16 12:00 98.5 102 18 137/71 94 12/18/16 08:00 96 Nasal Cannula 2.00 21 12/18/16 08:00 98.2 98 18 142/65 95 12/18/16 04:30 93 Nasal Cannula 2.00 12/18/16 04:00 98.7 117 18 170/82 90 12/18/16 00:00 Nasal Cannula 2.00 12/18/16 00:00 97.1 101 18 165/82 96 I/O 12/17/16 12/17/16 12/17/16 12/18/16 12/18/16 12/18/16 07:00 15:00 23:00 07:00 15:00 23:00 Intake Total 720 ml 720 ml 480 ml 680 ml 720 ml Balance 720 ml 720 ml 480 ml 680 ml 720 ml Intake Oral 720 ml 720 ml 480 ml 480 ml 720 ml IV Total 200 ml # Voids 3 3 0 1 3 # Bowel Movements 0 0 0 1 Result Diagram: 12/16/16 1052 12/18/16 1313 Objective Remarks GENERAL: MBMN WF with mild sob SKIN: Warm and dry. HEAD: Normocephalic. EYES: No scleral icterus. No injection or drainage. NECK: Supple, trachea midline. No JVD or lymphadenopathy. CARDIOVASCULAR: Regular rate and rhythm without murmurs, gallops, or rubs. RESPIRATORY: Breath sounds equal bilaterally. No accessory muscle use. Exp rhonchi GASTROINTESTINAL: Abdomen soft, non-tender, nondistended. MUSCULOSKELETAL: No cyanosis, or edema. BACK: Nontender without obvious deformity. No CVA tenderness. A/P Assessment and Plan Multiple lung nodules COPD exac Nicotine use Abd discomfort PLAN: DW pt and her son at [facility] [place] Solumedrol Cont Abx Pt refused lung bx pred 20 mg bid Duong Martini MD Dec 18, 2016 20:04
--- NOTE | 2016-12-18 20:10 | RADRPT ---
EXAM DATE/TIME: 12/18/2016 18:45 [facility] COMPARISON: No previous studies available for comparison. INDICATIONS : Bilateral leg swelling. MEDICAL HISTORY : Hypertension. Chronic obstructive pulmonary disease. Gastroesophageal reflux disease. Neck pain. Occa sional dizziness. Migraines. Cardiac disorders. Dyspnea. Wheezing. Abdominal pain. Constipation. Hear tburn. . Pain when sitting. Kidney stones. UTI. Alcohol use. Tobacco use. Anemia. Blood borden sfusion. Measles. SURGICAL HISTORY : Tubal ligation. Winston teeth removal. ENCOUNTER: Initial ACUITY: 3 days PAIN SCORE: 2/10 LOCATION: Bilateral legs. TECHNIQUE: Venous ultrasound of the left and right leg was performed from the inguinal ligament to the proximal calf. Real-time, color Doppler and spectral tracing, compression and augmentation techniques were us ed. FINDINGS: RIGHT LEG: There is normal compressibility of the deep venous system from the inguinal region to the proximal ca lf. No echogenic clot is seen in the lumen of the common femoral, femoral, popliteal, and posterior tibial veins. There is a normal response of the venous system to proximal and distal augmentation an d respiration. There are lymph nodes in the right groin the largest measures 1.8 cm in size. LEFT LEG: There is normal compressibility of the deep venous system from the inguinal region to the proximal ca lf. No echogenic clot is seen in the lumen of the common femoral, femoral, popliteal, and posterior tibial veins. There is a normal response of the venous system to proximal and distal augmentation an d respiration. There are small nonspecific lymph nodes. CONCLUSION: No DVT and there are nonspecific lymph nodes. Josh Lopez MD on December 18, 2016 at 20:06 Board Certified Radiologist. This report was verified electronically.
[2016-12-18] MEDS: predniSONE 20 MG TAB PO SCH (20:53)
[2016-12-18] MEDS: DOXAZOSIN MESYLATE 4 MG TAB PO SCH (20:53)
[2016-12-18] MEDS: SODIUM CHLORIDE 0.9% FLUSH 10 ML FLUSH IV FLUSH SCH ×2 (20:54→21:00)
[2016-12-19] VITALS (7 sets, daily range): BP systolic 125–158; BP diastolic 67–88; PULSE 92–110; RESP 20–24; TEMP 97.7–98.4; O2SAT 90–94
[2016-12-19] MEDS: MORPHINE SULFATE 4 MG/ML INJ IV PUSH PRN ×7 (01:03→21:28)
[2016-12-19] MEDS: CEFEPIME INJ 1,000 MG in SODIUM CHLORIDE 0.9% INJ 100 ML IV SCH ×3 (01:03→17:19)
[2016-12-19] MEDS: metroNIDAZOLE 500 MG INJ 100 ML IV SCH ×3 (04:20→21:26)
[2016-12-19] MEDS: INSULIN ASPART SUPPLEMENTAL SCALE SQ SCH ×4 (05:58→21:00)
[2016-12-19] MEDS: LORazepam 0.5 MG TAB PO PRN ×2 (06:53→16:00)
[2016-12-19 07:23] LABS: HEMATOCRIT 42.2 % (35.0-46.0); MEAN CELL VOLUME 94.4 FL (80.0-100.0); MEAN CORPUSCULAR HEMOGLOBIN 31.9 PG (27.0-34.0); MEAN CORPUSCULAR HGB CONC 33.8 % (32.0-36.0); PLATELET COUNT 149 TH/MM3 (150-450); RED BLOOD COUNT 4.47 MIL/MM3 (4.00-5.30); REVIEW FLAG FINAL; WHITE BLOOD COUNT 16.5 TH/MM3 (4.0-11.0)
[2016-12-19] MEDS: LISINOPRIL 20 MG TAB PO SCH (08:16)
[2016-12-19] MEDS: guaiFENesin E.R. 600 MG TAB PO SCH ×2 (08:16→21:27)
[2016-12-19] MEDS: predniSONE 20 MG TAB PO SCH ×2 (08:16→21:28)
[2016-12-19] MEDS: amLODIPine BESYLATE 5 MG TAB PO SCH (08:16)
[2016-12-19] MEDS: INSULIN ASPART 1,000 UNITS/10 ML VIAL SQ SCH ×3 (08:17→16:05)
[2016-12-19] MEDS: POLYETHYLENE GLYCOL 17 GM PKG PO SCH (08:17)
[2016-12-19] MEDS: BUDESONIDE-FORMOTEROL 160/4.5 MCG INHALER INH SCH ×2 (08:17→21:00)
[2016-12-19] MEDS ORDERED: FUROSEMIDE 20 MG TAB PO SCH (09:00)
[2016-12-19] MEDS: INSULIN DETEMIR 100 UNITS/ML VIAL SQ SCH ×2 (10:00→21:31)
[2016-12-19] MEDS: ENOXAPARIN SODIUM 30 MG/0.3 ML SYRINGE SQ SCH (16:00)
--- NOTE | 2016-12-19 16:49 | HHI.PR ---
Subjective Remarks No DVT on ultasound of edematous lower extremities. Patient wants more evaluation of her lower extremities. She had an O2 walk test and passed, so outpatient O2 is not needed at this point. She still is refusing a lung biopsy. I have encouraged her to consider a lung biopsy as I believe she may have cancer which is contributing both to her respiratory compromise and lower extremity swelling. Objective Vital Signs Date Time Temp Pulse Resp B/P Pulse Ox O2 Delivery O2 Flow Rate FiO2 12/19/16 12:00 98.1 110 22 158/74 90 12/19/16 08:12 94 12/19/16 08:00 96 Room Air 2.00 21 12/19/16 08:00 98.0 96 24 151/88 93 12/19/16 04:00 98.1 92 20 138/80 93 12/19/16 00:00 97.7 98 20 139/67 93 12/18/16 20:00 98.2 106 20 140/78 92 12/18/16 20:00 Room Air I/O 12/18/16 12/18/16 12/18/16 12/19/16 12/19/16 12/19/16 07:00 15:00 23:00 07:00 15:00 23:00 Intake Total 680 ml 720 ml 240 ml 240 ml Balance 680 ml 720 ml 240 ml 240 ml Intake Oral 480 ml 720 ml 240 ml 240 ml IV Total 200 ml # Voids 1 3 4 1 # Bowel Movements 0 1 0 0 Result Diagram: 12/19/16 0635 12/18/16 1313 Objective Remarks GENERAL: A&Ox3, NAD SKIN: Warm and dry. HEAD: Normocephalic. EYES: No scleral icterus. No injection or drainage. NECK: Supple, trachea midline. No JVD or lymphadenopathy. CARDIOVASCULAR: Regular rate and rhythm without murmurs, gallops, or rubs. RESPIRATORY: Breath sounds equal bilaterally. Bilateral rhonchi, bilateral wheezing. GASTROINTESTINAL: Abdomen soft, non-tender, nondistended. MUSCULOSKELETAL: No cyanosis, or edema. BACK: Nontender without obvious deformity. No CVA tenderness. A/P Problem List: (1) Hypoxia ICD Code: R09.02 Assessment & Plan: Improved Now stable on room air PRN Albuterol Steroids Follow for improvement (2) Pulmonary nodule ICD Code: R91.1 Assessment & Plan: Biopsy recommended (patient has not yet agreed to this) Possible lung cancer (3) Diverticulitis ICD Code: K57.92 Assessment & Plan: Flagyl Cefepime Follow clinically (4) Edema ICD Code: R60.9 Assessment & Plan: Negative bilateral lower extremity ultrasound Continue Lasix obtain an echocardiogram Problem Qualifiers (1) Diverticulitis: Alfredito Cuadra MD Dec 19, 2016 16:49
[2016-12-19] MEDS ORDERED: FUROSEMIDE 40 MG TAB PO ONE (17:15)
--- NOTE | 2016-12-19 18:55 | HHI.PR ---
Subjective Remarks 56 YOWF with COPD exac, abd discomfort Mild wheezing CT chest multiple lung nodules Pt has refused Lung bx Ambulates with PT Objective Vital Signs Vital Signs Date Time Temp Pulse Resp B/P Pulse Ox O2 Delivery O2 Flow Rate FiO2 12/19/16 12:00 98.1 110 22 158/74 90 12/19/16 08:12 94 12/19/16 08:00 96 Room Air 2.00 21 12/19/16 08:00 98.0 96 24 151/88 93 12/19/16 04:00 98.1 92 20 138/80 93 12/19/16 00:00 97.7 98 20 139/67 93 12/18/16 20:00 98.2 106 20 140/78 92 12/18/16 20:00 Room Air I/O 12/18/16 12/18/16 12/18/16 12/19/16 12/19/16 12/19/16 07:00 15:00 23:00 07:00 15:00 23:00 Intake Total 680 ml 720 ml 240 ml 240 ml Balance 680 ml 720 ml 240 ml 240 ml Intake Oral 480 ml 720 ml 240 ml 240 ml IV Total 200 ml # Voids 1 3 4 1 # Bowel Movements 0 1 0 0 Result Diagram: 12/19/16 0635 12/18/16 1313 Objective Remarks GENERAL: MBMN WF with mild sob SKIN: Warm and dry. HEAD: Normocephalic. EYES: No scleral icterus. No injection or drainage. NECK: Supple, trachea midline. No JVD or lymphadenopathy. CARDIOVASCULAR: Regular rate and rhythm without murmurs, gallops, or rubs. RESPIRATORY: Breath sounds equal bilaterally. No accessory muscle use. Exp rhonchi GASTROINTESTINAL: Abdomen soft, non-tender, nondistended. MUSCULOSKELETAL: No cyanosis, or edema. BACK: Nontender without obvious deformity. No CVA tenderness. A/P Assessment and Plan Multiple lung nodules COPD exac Nicotine use Abd discomfort PLAN: DW pt and her son at [facility] [employer] [facility] Cont Abx Pt refused lung bx pred 20 mg bid Available prn over weekend. Duong Martini MD Dec 19, 2016 18:55
[2016-12-19] MEDS: SODIUM CHLORIDE 0.9% FLUSH 10 ML FLUSH IV FLUSH SCH ×2 (21:00)
[2016-12-19] MEDS: DOXAZOSIN MESYLATE 4 MG TAB PO SCH (21:27)
[2016-12-20] VITALS (7 sets, daily range): BP systolic 95–134; BP diastolic 59–83; PULSE 79–107; RESP 18–20; TEMP 97.4–98.2; O2SAT 92–98
[2016-12-20] MEDS: CEFEPIME INJ 1,000 MG in SODIUM CHLORIDE 0.9% INJ 100 ML IV SCH ×2 (01:18→08:03)
[2016-12-20] MEDS: metroNIDAZOLE 500 MG INJ 100 ML IV SCH ×2 (03:30→11:18)
[2016-12-20] MEDS: MORPHINE SULFATE 4 MG/ML INJ IV PUSH PRN ×5 (05:18→20:49)
[2016-12-20] MEDS: SODIUM CHLORIDE 0.9% FLUSH 10 ML FLUSH IV FLUSH PRN (05:19)
[2016-12-20] MEDS: INSULIN ASPART SUPPLEMENTAL SCALE SQ SCH ×4 (06:07→20:51)
[2016-12-20] MEDS: LORazepam 0.5 MG TAB PO PRN ×2 (06:10→15:05)
[2016-12-20] MEDS: guaiFENesin E.R. 600 MG TAB PO SCH ×2 (08:01→20:49)
[2016-12-20] MEDS: predniSONE 20 MG TAB PO SCH ×2 (08:01→20:49)
[2016-12-20] MEDS: SODIUM CHLORIDE 0.9% FLUSH 10 ML FLUSH IV FLUSH SCH ×4 (08:01→21:31)
[2016-12-20] MEDS: BUDESONIDE-FORMOTEROL 160/4.5 MCG INHALER INH SCH ×2 (08:01→20:51)
[2016-12-20] MEDS: FUROSEMIDE 40 MG TAB PO SCH (08:02)
[2016-12-20] MEDS: LISINOPRIL 20 MG TAB PO SCH (08:02)
[2016-12-20] MEDS: amLODIPine BESYLATE 5 MG TAB PO SCH (08:02)
[2016-12-20] MEDS: POLYETHYLENE GLYCOL 17 GM PKG PO SCH (08:03)
[2016-12-20] MEDS: INSULIN ASPART 1,000 UNITS/10 ML VIAL SQ SCH ×3 (09:14→18:35)
[2016-12-20] MEDS: INSULIN DETEMIR 100 UNITS/ML VIAL SQ SCH ×2 (09:15→21:31)
--- NOTE | 2016-12-20 15:52 | HHI.PR ---
Subjective Remarks She still complains of bilateral lower extremity swelling and new some blisters. Lasix increased yesterday. Echo done today, report pending. I fear a potential etiology for her swelling may be neoplastic in origin, but she is not permitting assessment via lung biopsy. Objective Vital Signs Date Time Temp Pulse Resp B/P Pulse Ox O2 Delivery O2 Flow Rate FiO2 12/20/16 12:58 Nasal Cannula 2.00 12/20/16 12:57 107/65 12/20/16 12:00 97.4 104 18 95/61 94 12/20/16 08:00 98.0 98 18 116/59 95 12/20/16 04:00 98.1 107 20 121/80 98 12/20/16 00:00 98.1 79 20 118/83 92 12/19/16 20:00 Nasal Cannula 2.00 12/19/16 20:00 98.4 105 20 125/76 94 12/19/16 16:00 98.4 94 22 138/69 93 I/O 12/19/16 12/19/16 12/19/16 12/20/16 12/20/16 12/20/16 07:00 15:00 23:00 07:00 15:00 23:00 Intake Total 240 ml 960 ml 240 ml 960 ml Balance 240 ml 960 ml 240 ml 960 ml Intake Oral 240 ml 960 ml 240 ml 960 ml # Voids 1 3 2 2 # Bowel Movements 0 1 1 Result Diagram: 12/19/16 0635 12/18/16 1313 Objective Remarks GENERAL: A&Ox3, NAD SKIN: Warm and dry. HEAD: Normocephalic. EYES: No scleral icterus. No injection or drainage. NECK: Supple, trachea midline. No JVD or lymphadenopathy. CARDIOVASCULAR: Regular rate and rhythm without murmurs, gallops, or rubs. RESPIRATORY: Breath sounds equal bilaterally. Bilateral rhonchi, bilateral wheezing. GASTROINTESTINAL: Abdomen soft, non-tender, nondistended. MUSCULOSKELETAL: No cyanosis, or edema. BACK: Nontender without obvious deformity. No CVA tenderness. A/P Problem List: (1) Hypoxia ICD Code: R09.02 Assessment & Plan: Improved Now stable on room air PRN Albuterol Steroids Follow for improvement (2) Pulmonary nodule ICD Code: R91.1 Assessment & Plan: Biopsy recommended (patient has not yet agreed to this) Possible lung cancer based on CT and elevated tumor marker Possible metastasis in the abdomen based on CT Lymphadenopathy of lower extremities (3) Diverticulitis ICD Code: K57.92 Assessment & Plan: 7 days of treatment completed (9 days of Flagyl) Discontinue antibiotics (cefepime and flagyl) Follow clinically (4) Edema ICD Code: R60.9 Assessment & Plan: Negative bilateral lower extremity ultrasound Continue Lasix (increased yesterday evening) pending echocardiogram report Problem Qualifiers (1) Diverticulitis: Alfredito Cuadra MD Dec 20, 2016 15:51
--- NOTE | 2016-12-20 15:55 | EC ---
Study Study Date:12/20/2016 STUDY CONCLUSIONS SUMMARY - Left ventricle: The cavity size was normal. Wall thickness was normal. Systolic function was normal. The estimated ejection fraction was in the range of 55% to 60%. - Mitral valve: Mildly calcified annulus. If LV function is below 40, please consider prescribing an ACEI or ARB or document rationale for non-use. PROCEDURE DATA STUDY STATUS: Elective. Procedure: Transthoracic echocardiography. Image quality was suboptimal. Scanning was performed from the parasternal, apical, and subcostal acoustic windows. Study completion: The patient tolerated the procedure well. Transthoracic echocardiography. M-mode, complete 2D, complete spectral Doppler, and color Doppler. Patient status: Inpatient. CARDIAC ANATOMY LEFT VENTRICLE: The cavity size was normal. Wall thickness was normal. Systolic function was normal. The estimated ejection fraction was in the range of 55% to 60%. Images were inadequate for LV wall motion assessment. AORTIC VALVE: Trileaflet; normal thickness leaflets. Doppler: Transvalvular velocity was within the normal range. There was no stenosis. No regurgitation. AORTA: Aortic root: The aortic root was normal in size. MITRAL VALVE: Mildly calcified annulus. Doppler: Transvalvular velocity was within the normal range. There was no evidence for stenosis. No regurgitation. LEFT ATRIUM: The atrium was normal in size. RIGHT VENTRICLE: The cavity size was normal. Wall thickness was normal. PULMONIC VALVE: Doppler: Transvalvular velocity was within the normal range. There was no evidence for stenosis. No regurgitation. TRICUSPID VALVE: Structurally normal valve. Doppler: Transvalvular velocity was within the normal range. No regurgitation. PULMONARY ARTERY: The main pulmonary artery was normal-sized. Systolic pressure was within the normal range. RIGHT ATRIUM: The atrium was normal in size. PERICARDIUM: There was no pericardial effusion. SYSTEMIC VEINS: Inferior vena cava: The vessel was normal in size. BASIC MEASUREMENTS ADULT Normal Left ventricle LV internal dimension, ED, chordal level, *40.9 mm 43-52 PLAX LV internal dimension, ES, chordal level, 32 mm 23-38 PLAX Fractional shortening, chordal level, PLAX *22 % >29 LV posterior wall thickness, ED 5.97 mm IVS/LVPW ratio, ED *1.33 <1.3 Ventricular septum Septal thickness, ED 7.95 mm Aortic valve Leaflet separation *14 mm 15-26 Left atrium Anterior-posterior dimension 26 mm Right ventricle RV internal dimension, ED, PLAX 19.5 mm 19-38 BASIC MEASUREMENTS ADULT Normal Aortic valve Leaflet separation *14 mm 15-26 Aorta Root diameter, ED 26 mm 20-37 DOPPLER MEASUREMENTS ADULT Normal Main pulmonary artery Pressure, S 25 mm Hg =30 Mitral valve Peak E-wave velocity 57.8 cm/s Peak A-wave velocity 80.9 cm/s Peak E/A ratio 0.7 Tricuspid valve Regurgitant peak velocity 149 cm/s Peak RV-RA gradient, S 9 mm Hg Maximal regurgitant velocity 149 cm/s Systemic veins Estimated CVP 15 mm Hg Right ventricle RV pressure, S 25 mm Hg <30 LEGEND: Mean values are shown as u=mean value. Asterisk (*) camara values outside specified normal range. Prepared and signed by Adams Diaz [id number]
[2016-12-20] MEDS: ENOXAPARIN SODIUM 30 MG/0.3 ML SYRINGE SQ SCH (16:17)
[2016-12-20] MEDS: DOXAZOSIN MESYLATE 4 MG TAB PO SCH (20:49)
[2016-12-21 04:00] VITALS: BP 106/52; PULSE 80; RESP 20; TEMP 98.2; O2SAT 92
[2016-12-21] MEDS: INSULIN ASPART SUPPLEMENTAL SCALE SQ SCH ×4 (06:05→20:03)
[2016-12-21 08:00] VITALS: BP 100/57; PULSE 78; RESP 18; TEMP 98.3; O2SAT 93
[2016-12-21] MEDS: SODIUM CHLORIDE 0.9% FLUSH 10 ML FLUSH IV FLUSH SCH ×3 (09:00→20:03)
[2016-12-21] MEDS: BUDESONIDE-FORMOTEROL 160/4.5 MCG INHALER INH SCH ×2 (09:35→20:10)
[2016-12-21] MEDS: guaiFENesin E.R. 600 MG TAB PO SCH ×2 (09:38→20:03)
[2016-12-21] MEDS: FUROSEMIDE 40 MG TAB PO SCH ×2 (09:38→12:58)
[2016-12-21] MEDS: predniSONE 20 MG TAB PO SCH (09:38)
[2016-12-21] MEDS: POLYETHYLENE GLYCOL 17 GM PKG PO SCH (09:39)
[2016-12-21] MEDS: INSULIN ASPART 1,000 UNITS/10 ML VIAL SQ SCH ×3 (09:39→16:56)
[2016-12-21] MEDS: MORPHINE SULFATE 4 MG/ML INJ IV PUSH PRN ×5 (09:39→23:15)
[2016-12-21] MEDS: INSULIN DETEMIR 100 UNITS/ML VIAL SQ SCH ×2 (09:40→23:16)
--- NOTE | 2016-12-21 09:50 | HHI.PR ---
Subjective Remarks No worsened edema. Amlodipine and Lisinopril discontinued. Lasix increased. Echo report pending. Objective Vital Signs Date Time Temp Pulse Resp B/P Pulse Ox O2 Delivery O2 Flow Rate FiO2 12/21/16 08:00 98.3 78 18 100/57 93 Automatic Cuff 12/21/16 04:00 98.2 80 20 106/52 92 12/21/16 00:00 12/20/16 20:51 Nasal Cannula 2.00 12/20/16 20:00 98.2 102 20 128/63 92 12/20/16 16:00 98.0 100 20 134/62 93 12/20/16 12:58 Nasal Cannula 2.00 12/20/16 12:57 107/65 12/20/16 12:00 97.4 104 18 95/61 94 I/O 12/20/16 12/20/16 12/20/16 12/21/16 12/21/16 12/21/16 07:00 15:00 23:00 07:00 15:00 23:00 Intake Total 960 ml 240 ml Balance 960 ml 240 ml Intake Oral 960 ml 240 ml # Voids 2 # Bowel Movements 1 Result Diagram: 12/19/16 0635 12/18/16 1313 Objective Remarks GENERAL: A&Ox3, NAD SKIN: Warm and dry. HEAD: Normocephalic. EYES: No scleral icterus. No injection or drainage. NECK: Supple, trachea midline. No JVD or lymphadenopathy. CARDIOVASCULAR: Regular rate and rhythm without murmurs, gallops, or rubs. RESPIRATORY: Breath sounds equal bilaterally. Bilateral rhonchi, bilateral wheezing. GASTROINTESTINAL: Abdomen soft, non-tender, nondistended. MUSCULOSKELETAL: No cyanosis, bilateral lower extremity edema. BACK: Nontender without obvious deformity. No CVA tenderness. Medications and IVs Administered Medications Medications (Trade) Dose Ordered Sig/Valorie Route PRN Reason Start Time Stop Time Status Last Admin Dose Admin Budesonide/ Formoterol Fumarate (Symbicort 160-4.5 Inh) 2 puff Q12HR INH 12/08/16 09:00 12/21/16 09:35 Guaifenesin (Mucinex Er) 600 mg BID PO 12/08/16 09:00 12/21/16 09:38 Sodium Chloride (NS Flush) 2 ml UNSCH PRN IV FLUSH FLUSH AFTER USING IV ACCESS 12/07/16 21:15 12/20/16 05:19 Sodium Chloride (NS Flush) 2 ml BID IV FLUSH 12/08/16 09:00 12/20/16 20:47 Bisacodyl (Dulcolax Supp) 10 mg DAILY PRN RECTAL CONSTIPATION 12/07/16 21:15 12/08/16 16:33 Nicotine (Habitrol 21 Mg Patch.24 Hr) 1 patch DAILY PRN T-DERMAL WITHDRAWAL 12/07/16 21:15 12/15/16 21:14 Enalaprilat (Vasotec Inj) 1.25 mg Q6H PRN IV PUSH BP 170/100 12/08/16 16:15 12/14/16 16:07 Lorazepam (Ativan) 0.5 mg Q8H PRN PO ANXIETY 12/09/16 10:15 12/20/16 15:05 Polyethylene Glycol (Miralax) 17 gm DAILY PO 12/09/16 15:00 12/21/16 09:39 Sodium Chloride (NS Flush) 2 ml BID IV FLUSH 12/10/16 09:00 12/21/16 09:39 Lorazepam (Ativan) 1 mg Q4H PRN PO CIWA 8 - 10 12/10/16 00:00 12/15/16 11:15 Lorazepam (Ativan) 2 mg Q2H PRN PO CIWA 11-14 12/10/16 00:00 12/20/16 20:49 Clonidine (Catapres) 0.1 mg Q6H PRN PO SYS BP GREATER THAN 160 MMHG 12/12/16 13:00 12/13/16 12:51 Insulin Detemir (Levemir Inj) 10 units Q12H SQ 12/15/16 10:00 12/21/16 09:40 Insulin Aspart (NovoLOG INJ) 7 units TIDPC SQ 12/15/16 09:30 12/21/16 09:39 Doxazosin Mesylate (Cardura) 10 mg HS PO 12/15/16 21:00 12/20/16 20:49 Morphine Sulfate (Morphine Inj) 2 mg Q3H PRN IV PUSH PAIN SCALE 1 TO 4 12/15/16 12:30 12/17/16 19:22 Morphine Sulfate (Morphine Inj) 4 mg Q3H PRN IV PUSH PAIN SCALE 5 TO 10 12/15/16 12:30 12/21/16 09:39 Enoxaparin Sodium (Lovenox Inj) 30 mg Q24H SQ 12/18/16 16:00 12/20/16 16:17 Prednisone (Deltasone) 20 mg BID PO 12/18/16 21:00 12/21/16 09:38 Furosemide (Lasix) 40 mg DAILY PO 12/20/16 09:00 12/21/16 09:38 A/P Problem List: (1) Hypoxia ICD Code: R09.02 Assessment & Plan: Improved Now stable on room air PRN Albuterol Steroid wean started Follow for improvement (2) Pulmonary nodule ICD Code: R91.1 Assessment & Plan: Biopsy recommended (patient has not yet agreed to this) Possible lung cancer based on CT and elevated tumor marker Possible metastasis in the abdomen based on CT Lymphadenopathy of lower extremities (3) Diverticulitis ICD Code: K57.92 Assessment & Plan: Treatment completed Discontinued antibiotics (cefepime and flagyl) Follow clinically (4) Edema ICD Code: R60.9 Assessment & Plan: Negative bilateral lower extremity ultrasound Continue Lasix, dose incresed today Stop Steroids, Lisinopril, and Amlodipine pending echocardiogram report Problem Qualifiers (1) Diverticulitis: Alfredito Cuadra MD Dec 21, 2016 09:50
[2016-12-21] MEDS ORDERED: DOCUSATE SODIUM 50 MG/SENNA 8.6 MG TAB PO PRN (10:00)
[2016-12-21] MEDS: MENTHOL LOZENGE BUCCAL PRN (11:24)
[2016-12-21 12:00] VITALS: BP 104/54; PULSE 101; RESP 18; TEMP 98.3; O2SAT 92
[2016-12-21] MEDS: LORazepam 0.5 MG TAB PO PRN ×2 (15:16→23:15)
[2016-12-21 16:00] VITALS: BP 102/57; PULSE 109; RESP 18; TEMP 98.9; O2SAT 96
[2016-12-21] MEDS: ENOXAPARIN SODIUM 30 MG/0.3 ML SYRINGE SQ SCH (16:52)
[2016-12-21 20:00] VITALS: BP 113/70; PULSE 104; RESP 18; TEMP 97.7; O2SAT 91
[2016-12-21] MEDS: DOXAZOSIN MESYLATE 4 MG TAB PO SCH (20:03)
[2016-12-22] VITALS (7 sets, daily range): BP systolic 110–128; BP diastolic 58–69; PULSE 100–110; RESP 16–18; TEMP 98–98.9; O2SAT 91–96
[2016-12-22] MEDS: MORPHINE SULFATE 4 MG/ML INJ IV PUSH PRN ×6 (02:10→22:23)
[2016-12-22] MEDS: INSULIN ASPART SUPPLEMENTAL SCALE SQ SCH ×4 (06:23→21:00)
[2016-12-22] MEDS: predniSONE 5 MG TAB PO SCH (08:56)
[2016-12-22] MEDS: POLYETHYLENE GLYCOL 17 GM PKG PO SCH (08:56)
[2016-12-22] MEDS: INSULIN ASPART 1,000 UNITS/10 ML VIAL SQ SCH ×3 (08:56→19:29)
[2016-12-22] MEDS: guaiFENesin E.R. 600 MG TAB PO SCH ×2 (08:56→21:03)
[2016-12-22] MEDS: FUROSEMIDE 40 MG TAB PO SCH ×2 (08:56→16:05)
[2016-12-22] MEDS: BUDESONIDE-FORMOTEROL 160/4.5 MCG INHALER INH SCH ×2 (08:57→21:03)
[2016-12-22] MEDS: SODIUM CHLORIDE 0.9% FLUSH 10 ML FLUSH IV FLUSH SCH ×2 (08:57→21:04)
--- NOTE | 2016-12-22 11:01 | HHI.PR ---
Subjective Remarks Mrs. Nava is a 56 year old female admitted with a COPD Exacerbation and Diverticulitis. She had lung lesions found with a mildly elevated tumor marker and some abdominal lesions suspect for possible metastatic disease. Thus far she has refused a lung biopsy. She has a recent complication of lower extremity swelling which is nearing prior baseline with cessation of amlodipine and diuresis. If her legs are not weeping by tomorrow she is a tentative discharge. I have asked that she reconsider the lung biopsy, but if she is unwilling to have this then she is nearing completion of all medical conditions for which she has been hospitalized and would have no reason to be admitted further. Objective Vital Signs Date Time Temp Pulse Resp B/P Pulse Ox O2 Delivery O2 Flow Rate FiO2 12/22/16 09:19 20 12/22/16 04:00 98.4 103 18 128/58 91 12/22/16 00:00 98.4 102 18 121/60 91 12/21/16 20:15 Room Air 12/21/16 20:00 97.7 104 18 113/70 91 12/21/16 16:00 98.9 109 18 102/57 96 12/21/16 12:00 98.3 101 18 104/54 92 I/O 12/21/16 12/21/16 12/21/16 12/22/16 12/22/16 12/22/16 07:00 15:00 23:00 07:00 15:00 23:00 Intake Total 240 ml 1324 ml 480 ml 240 ml Balance 240 ml 1324 ml 480 ml 240 ml Intake Oral 240 ml 1320 ml 480 ml 240 ml IV Total 4 ml # Voids 2 2 2 # Bowel Movements 1 0 0 Result Diagram: 12/19/16 0635 12/18/16 1313 Objective Remarks GENERAL: A&Ox3, NAD SKIN: Warm and dry. HEAD: Normocephalic. EYES: No scleral icterus. No injection or drainage. NECK: Supple, trachea midline. No JVD or lymphadenopathy. CARDIOVASCULAR: Regular rate and rhythm without murmurs, gallops, or rubs. RESPIRATORY: Breath sounds equal bilaterally. Bilateral rhonchi, bilateral wheezing. GASTROINTESTINAL: Abdomen soft, non-tender, nondistended. MUSCULOSKELETAL: No cyanosis, bilateral lower extremity edema. BACK: Nontender without obvious deformity. No CVA tenderness. Medications and IVs Administered Medications Medications (Trade) Dose Ordered Sig/Valorie Route PRN Reason Start Time Stop Time Status Last Admin Dose Admin Budesonide/ Formoterol Fumarate (Symbicort 160-4.5 Inh) 2 puff Q12HR INH 12/08/16 09:00 12/22/16 08:57 Guaifenesin (Mucinex Er) 600 mg BID PO 12/08/16 09:00 12/22/16 08:56 Bisacodyl (Dulcolax Supp) 10 mg DAILY PRN RECTAL CONSTIPATION 12/07/16 21:15 12/08/16 16:33 Nicotine (Habitrol 21 Mg Patch.24 Hr) 1 patch DAILY PRN T-DERMAL WITHDRAWAL 12/07/16 21:15 12/15/16 21:14 Enalaprilat (Vasotec Inj) 1.25 mg Q6H PRN IV PUSH BP 170/100 12/08/16 16:15 12/14/16 16:07 Lorazepam (Ativan) 0.5 mg Q8H PRN PO ANXIETY 12/09/16 10:15 12/21/16 23:15 Polyethylene Glycol (Miralax) 17 gm DAILY PO 12/09/16 15:00 12/22/16 08:56 Sodium Chloride (NS Flush) 2 ml BID IV FLUSH 12/10/16 09:00 12/22/16 08:57 Lorazepam (Ativan) 1 mg Q4H PRN PO CIWA 8 - 10 12/10/16 00:00 12/15/16 11:15 Lorazepam (Ativan) 2 mg Q2H PRN PO CIWA 11-14 12/10/16 00:00 12/20/16 20:49 Clonidine (Catapres) 0.1 mg Q6H PRN PO SYS BP GREATER THAN 160 MMHG 12/12/16 13:00 12/13/16 12:51 Insulin Detemir (Levemir Inj) 10 units Q12H SQ 12/15/16 10:00 12/21/16 23:16 Insulin Aspart (NovoLOG INJ) 7 units TIDPC SQ 12/15/16 09:30 12/21/16 16:56 Doxazosin Mesylate (Cardura) 10 mg HS PO 12/15/16 21:00 12/21/16 20:03 Morphine Sulfate (Morphine Inj) 2 mg Q3H PRN IV PUSH PAIN SCALE 1 TO 4 12/15/16 12:30 12/17/16 19:22 Morphine Sulfate (Morphine Inj) 4 mg Q3H PRN IV PUSH PAIN SCALE 5 TO 10 12/15/16 12:30 12/22/16 09:02 Enoxaparin Sodium (Lovenox Inj) 30 mg Q24H SQ 12/18/16 16:00 12/21/16 16:52 Furosemide (Lasix) 40 mg DAILY PO 12/20/16 09:00 12/22/16 08:56 Furosemide (Lasix) 40 mg DAILY@1400 PO 12/21/16 14:00 12/21/16 12:58 Menthol ([place] Serge) 1 lozenge UNSCH PRN BUCCAL Dry Throat 12/21/16 09:45 12/21/16 11:24 Prednisone (Deltasone) 5 mg DAILY PO 12/22/16 09:00 12/22/16 08:56 A/P Problem List: (1) Hypoxia ICD Code: R09.02 Assessment & Plan: Improved Now stable on room air PRN Albuterol Steroid wean started Two more days of Prednisone 5mg daily, then stop steroid, to complete wean Follow for improvement (2) Pulmonary nodule ICD Code: R91.1 Assessment & Plan: Biopsy recommended (patient has not yet agreed to this) Possible lung cancer based on CT and elevated tumor marker Possible metastasis in the abdomen based on CT Lymphadenopathy of lower extremities (3) Diverticulitis ICD Code: K57.92 Assessment & Plan: Treatment completed Discontinued antibiotics (cefepime and flagyl) Follow clinically (4) Edema ICD Code: R60.9 Assessment & Plan: Improved Negative bilateral lower extremity ultrasound Continue Lasix, dose incresed today Stopped Lisinopril, and Amlodipine; weaned steroids. Normal Echocardiogram Normal screening for DVTs Problem Qualifiers (1) Diverticulitis: Alfredito Cuadra MD Dec 22, 2016 11:01
[2016-12-22] MEDS: INSULIN DETEMIR 100 UNITS/ML VIAL SQ SCH ×2 (11:23→21:04)
[2016-12-22] MEDS: LORazepam 0.5 MG TAB PO PRN ×2 (11:27→19:35)
--- NOTE | 2016-12-22 16:00 | HHI.PR ---
Subjective Subjective Notes DAILY PROGRESS NOTE FOR SURGICAL ATTENDING, DR. KELVIN BARBA Standing up eating lunch C/o abdominal pain Does not really feel like she is getting better Objective Vitals/I&O Vital Signs Date Time Temp Pulse Resp B/P Pulse Ox O2 Delivery O2 Flow Rate FiO2 12/22/16 13:20 93 Room Air 12/22/16 13:03 20 12/22/16 12:00 98.4 109 110/59 12/20/16 20:51 2.00 12/19/16 08:00 21 Radiology Last 48 hours Impressions Abdomen/Pelvis CT 12/10/16 0000 Signed Impressions: Service Date/Time: Saturday, December 10, 2016 20:23 - CONCLUSION: 1. Wall thickening of the sigmoid colon, differential including mass and chronic diverticular disease or combination of the 2. There is mild acute diverticulitis and a small, contained abscess/perforation noted; please see above. Nothing clearly drainable at this time. 2. Apparent pulmonary metastatic disease, etiology uncertain but would increase the possibility of sigmoid colon carcinoma and this should be excluded. I don't see another definite primary or other sites of metastatic disease. 3. Nonobstructing stones are again noted of the right kidney and an unchanged cyst of the left kidney. 4. Uterine fibroid. Clayton Burr MD Cardiovascular: Regular Lungs: Wheezes Abdomen: Other (lower pelvic tenderness with palpation ) Extremities: No edema A/P Problem List: (1) Diverticulitis (2) Diverticulitis of intestine with abscess (3) Pulmonary nodule (4) Thrombocytopenia (5) Tobacco abuse (6) Abdominal pain (7) Hypoxia (8) COPD with exacerbation (9) Homeless (10) Alcohol abuse Assessment and Plan 56 year old female with SOB/COPD and acute diverticulitis with small contain abscess -Tolerating regular diet + Ensure -Oxygen dependent -Continue antibiotics -Continue non operative management of acute diverticulitis and small contain abscess at this time -GS will see peripherally Attending Statement NOTE FOR SURGICAL ATTENDING, DR. KELVIN BARBA I agree with above assessment and plan. The exam, history, and the medical decision-making described in the above note were completed with the assistance of the mid-level provider. I reviewed and agree with the findings presented. I attest that I had a [id number] encounter with the patient on the same day, and personally performed and documented my assessment and findings in the medical record. The following services were provided during this hospital visit: Chart data review, vital sign assessments/reviewing monitor data Review of consultations notes if present. Medication orders/review and/or management Ordering and/or reviewing lab tests Ordering and/or interpreting/reviewing x-rays and/or diagnostic studies Care of the patient and discussion of the patient with the care team Documentation time To help prompt me to consider important information that might be impacting today's encounter and assessment, information from prior notes written by myself or my colleagues may have been "brought forward/copy and pasted" into today's note. Problem Qualifiers (1) Diverticulitis: (2) Diverticulitis of intestine with abscess: Qualified Code: K57.20 - Diverticulitis of large intestine with abscess without bleeding (3) Abdominal pain: Qualified Code: R10.32 - Left lower quadrant pain Abigail Cordoba Dec 22, 2016 16:00 Kelvin Barba MD Dec 23, 2016 10:35
[2016-12-22] MEDS: ENOXAPARIN SODIUM 30 MG/0.3 ML SYRINGE SQ SCH (16:05)
[2016-12-22] MEDS: MENTHOL LOZENGE BUCCAL PRN (19:41)
--- NOTE | 2016-12-22 20:06 | HHI.PR ---
Subjective Remarks 56 YOWF with COPD exac, abd discomfort Mild wheezing CT chest multiple lung nodules Pt has refused Lung bx swelling legs better Objective Vital Signs Vital Signs Date Time Temp Pulse Resp B/P Pulse Ox O2 Delivery O2 Flow Rate FiO2 12/22/16 16:30 18 12/22/16 16:00 98.8 110 18 122/59 91 12/22/16 13:20 93 Room Air 12/22/16 12:00 98.4 109 16 110/59 96 12/22/16 08:00 98.0 100 16 111/58 95 12/22/16 04:00 98.4 103 18 128/58 91 12/22/16 00:00 98.4 102 18 121/60 91 12/21/16 20:15 Room Air I/O 12/21/16 12/21/16 12/21/16 12/22/16 12/22/16 12/22/16 07:00 15:00 23:00 07:00 15:00 23:00 Intake Total 240 ml 1324 ml 480 ml 240 ml 480 ml Balance 240 ml 1324 ml 480 ml 240 ml 480 ml Intake Oral 240 ml 1320 ml 480 ml 240 ml 480 ml IV Total 4 ml 0 ml # Voids 2 2 2 2 # Bowel Movements 1 0 0 1 Result Diagram: 12/19/16 0635 12/18/16 1313 Objective Remarks GENERAL: MBMN WF with mild sob SKIN: Warm and dry. HEAD: Normocephalic. EYES: No scleral icterus. No injection or drainage. NECK: Supple, trachea midline. No JVD or lymphadenopathy. CARDIOVASCULAR: Regular rate and rhythm without murmurs, gallops, or rubs. RESPIRATORY: Breath sounds equal bilaterally. No accessory muscle use. Exp rhonchi GASTROINTESTINAL: Abdomen soft, non-tender, nondistended. MUSCULOSKELETAL: No cyanosis, or edema. BACK: Nontender without obvious deformity. No CVA tenderness. A/P Assessment and Plan Multiple lung nodules COPD exac Nicotine use Abd discomfort PLAN: DW pt and her son at Aerosol nebs Cont Abx Pt refused lung bx PO Prednisone DC plans underway. Duong Martini MD Dec 22, 2016 20:06
[2016-12-22] MEDS ORDERED: HYDROmorphone HCL PF 2 MG/ML VIAL IV PRN (21:00)
[2016-12-22] MEDS: DOXAZOSIN MESYLATE 4 MG TAB PO SCH (21:03)
[2016-12-23 04:15] VITALS: BP 141/69; PULSE 110; RESP 16; TEMP 99; O2SAT 92
[2016-12-23] MEDS: MORPHINE SULFATE 4 MG/ML INJ IV PUSH PRN ×3 (04:39→12:17)
[2016-12-23] MEDS: INSULIN ASPART SUPPLEMENTAL SCALE SQ SCH ×4 (06:28→21:00)
[2016-12-23 08:00] VITALS: BP 119/66; PULSE 99; RESP 16; TEMP 98.4; O2SAT 95
[2016-12-23] MEDS: FUROSEMIDE 40 MG TAB PO SCH ×2 (08:42→16:08)
[2016-12-23] MEDS: predniSONE 5 MG TAB PO SCH (08:42)
[2016-12-23] MEDS: guaiFENesin E.R. 600 MG TAB PO SCH ×2 (08:42→21:25)
[2016-12-23] MEDS: POLYETHYLENE GLYCOL 17 GM PKG PO SCH (08:43)
[2016-12-23] MEDS: SODIUM CHLORIDE 0.9% FLUSH 10 ML FLUSH IV FLUSH SCH ×2 (08:43→21:25)
[2016-12-23] MEDS: INSULIN ASPART 1,000 UNITS/10 ML VIAL SQ SCH ×3 (08:43→18:30)
[2016-12-23] MEDS: INSULIN DETEMIR 100 UNITS/ML VIAL SQ SCH ×2 (08:44→21:27)
[2016-12-23] MEDS: BUDESONIDE-FORMOTEROL 160/4.5 MCG INHALER INH SCH ×2 (08:44→21:28)
[2016-12-23 12:00] VITALS: BP 122/62; PULSE 111; RESP 16; TEMP 98.3; O2SAT 95
[2016-12-23 16:00] VITALS: BP 147/73; PULSE 104; RESP 16; TEMP 99; O2SAT 93
[2016-12-23] MEDS: ENOXAPARIN SODIUM 30 MG/0.3 ML SYRINGE SQ SCH (16:08)
--- NOTE | 2016-12-23 16:14 | HHI.PR ---
Subjective Remarks Patient reports pain all over her body. Reports lower extremity swelling. Regarding biopsy recommendation. She states today that she does not know what she will do. She will think about it today and let me know tomorrow. Objective Vitals Vital Signs Date Time Temp Pulse Resp B/P Pulse Ox O2 Delivery O2 Flow Rate FiO2 12/23/16 13:53 18 12/23/16 12:00 98.3 111 16 122/62 95 12/23/16 09:19 95 Room Air 12/23/16 08:00 98.4 99 16 119/66 95 12/23/16 04:15 99.0 110 16 141/69 92 12/22/16 23:22 98.9 104 16 118/ 92 12/22/16 21:13 98.7 104 16 118/69 95 12/22/16 21:03 Room Air I/O 12/22/16 12/22/16 12/22/16 12/23/16 12/23/16 12/23/16 07:00 15:00 23:00 07:00 15:00 23:00 Intake Total 240 ml 480 ml 720 ml 0 ml 480 ml Balance 240 ml 480 ml 720 ml 0 ml 480 ml Intake Oral 240 ml 480 ml 720 ml 0 ml 480 ml IV Total 0 ml 0 ml # Voids 2 2 4 2 3 # Bowel Movements 0 1 0 0 Result Diagram: 12/19/16 0635 Imaging Last Impressions Lower Extremity Ultrasound 12/18/16 0000 Signed Impressions: Service Date/Time: November 18:45 - CONCLUSION: No DVT and there are nonspecific lymph nodes. Josh Lopez MD Chest X-Ray 12/13/16 0000 Signed Impressions: Service Date/Time: Tuesday, December 13, 2016 17:08 - CONCLUSION: No acute disease. No significant change has occurred. Kevyn Augustine MD Chest CT 12/13/16 0000 Signed Impressions: Service Date/Time: Tuesday, December 13, 2016 19:03 - CONCLUSION: 1. Numerous subcentimeter nodules most characteristic of metastatic disease to the lungs. 2. Moderate centrilobular emphysema. eKvyn Augustine MD Abdomen/Pelvis CT 12/10/16 0000 Signed Impressions: Service Date/Time: Saturday, December 10, 2016 20:23 - CONCLUSION: 1. Wall thickening of the sigmoid colon, differential including mass and chronic diverticular disease or combination of the 2. There is mild acute diverticulitis and a small, contained abscess/perforation noted; please see above. Nothing clearly drainable at this time. 2. Apparent pulmonary metastatic disease, etiology uncertain but would increase the possibility of sigmoid colon carcinoma and this should be excluded. I don't see another definite primary or other sites of metastatic disease. 3. Nonobstructing stones are again noted of the right kidney and an unchanged cyst of the left kidney. 4. Uterine fibroid. Clayton Burr MD Objective Remarks GENERAL: Patient appeared older than stated age, in no apparent distress. CARDIOVASCULAR: Regular rate and rhythm without murmurs, gallops, or rubs. RESPIRATORY: Diminished breath sounds. Some faint expiratory wheeze. GASTROINTESTINAL: Abdomen soft, non-tender, nondistended. Normal active bowel sounds MUSCULOSKELETAL: Bilateral LE edema with 2+ edema. NEURO: Alert & Oriented x4 to person, place, time, situation. Moves all ext x4 Procedures None A/P Problem List: (1) COPD with exacerbation ICD Code: J44.1 Status: Acute (2) Hypoxia ICD Code: R09.02 Status: Resolved (3) Tobacco abuse ICD Code: Z72.0 Status: Chronic (4) Hypertension ICD Code: I10 Status: Chronic (5) Blood in stool ICD Code: K92.1 Status: Acute (6) Diverticulitis of intestine with abscess ICD Code: K57.80 Status: Acute (7) Impaired glucose tolerance ICD Code: R73.02 Status: Acute Assessment and Plan 56 year old female admitted with a COPD Exacerbation and Diverticulitis. She had lung lesions found with a mildly elevated tumor marker and some abdominal lesions suspect for possible metastatic disease. Thus far she has refused a lung biopsy. She has a recent complication of lower extremity swelling which is nearing prior baseline with cessation of amlodipine and diuresis Extensive discussion with the patient today regarding biopsy recommendations. She will decide and let me know in AM. If she decide against biopsy, she will be discharged home as she has reached maximal benefit from this hospitalization. Hypoxia: Improved. Now stable on room air PRN Albuterol Steroid wean started One more day of Prednisone 5mg daily, then stop steroid. Appreciate pulmonology following Diverticulitis: Treatment completed Discontinued antibiotics (cefepime and flagyl) Follow clinically Izaiah LE Edema: Thought to be exacerbated by Amlodipine. ?venous stasis. Improved Negative bilateral lower extremity ultrasound Continue Lasix, GIve an additional IV dose. dose incresed today Lisinopril, and Amlodipine Dced Normal Echocardiogram Normal screening for DVTs Change to heart healthy diet, low sodium Discharge Planning Expect discharge tomorrow if the patient refused to pursue biopsy Problem Qualifiers (1) Diverticulitis of intestine with abscess: Qualified Code: K57.20 - Diverticulitis of large intestine with abscess without bleeding Aiyana Olvera MD Dec 23, 2016 16:14
[2016-12-23] MEDS: LORazepam 0.5 MG TAB PO PRN (16:15)
[2016-12-23] MEDS ORDERED: MORPHINE SULFATE 4 MG/ML INJ IV PUSH PRN (16:30)
[2016-12-23] MEDS ORDERED: FUROSEMIDE 40 MG/4 ML VIAL IV PUSH ONE (17:00)
[2016-12-23] MEDS: ACETAMINOPHEN/HYDROcodone 325 MG/5 MG TAB PO PRN ×2 (17:04→21:27)
[2016-12-23 20:52] VITALS: BP 121/70; PULSE 99; RESP 16; TEMP 98.6; O2SAT 94
[2016-12-23] MEDS: DOXAZOSIN MESYLATE 4 MG TAB PO SCH (21:26)
[2016-12-23 23:40] VITALS: BP 112/67; PULSE 93; RESP 16; TEMP 98.5; O2SAT 93
[2016-12-24] MEDS: BISACODYL 10 MG SUPP RECTAL PRN (00:08)
[2016-12-24] MEDS: LORazepam 0.5 MG TAB PO PRN ×2 (00:08→08:55)
[2016-12-24 04:15] VITALS: BP 132/63; PULSE 93; RESP 16; TEMP 98.4; O2SAT 91
[2016-12-24] MEDS: INSULIN ASPART SUPPLEMENTAL SCALE SQ SCH ×2 (05:52→11:00)
[2016-12-24 08:00] VITALS: BP 153/73; PULSE 100; RESP 16; TEMP 98.3; O2SAT 97
[2016-12-24] MEDS: predniSONE 5 MG TAB PO SCH (08:48)
[2016-12-24] MEDS: SODIUM CHLORIDE 0.9% FLUSH 10 ML FLUSH IV FLUSH SCH (08:49)
[2016-12-24] MEDS: guaiFENesin E.R. 600 MG TAB PO SCH (08:49)
[2016-12-24] MEDS: POLYETHYLENE GLYCOL 17 GM PKG PO SCH (08:49)
[2016-12-24] MEDS: INSULIN DETEMIR 100 UNITS/ML VIAL SQ SCH (08:49)
[2016-12-24] MEDS: FUROSEMIDE 40 MG TAB PO SCH (08:49)
[2016-12-24] MEDS: INSULIN ASPART 1,000 UNITS/10 ML VIAL SQ SCH ×2 (08:49→13:30)
[2016-12-24] MEDS: ACETAMINOPHEN/HYDROcodone 325 MG/5 MG TAB PO PRN (08:50)
[2016-12-24] MEDS: BUDESONIDE-FORMOTEROL 160/4.5 MCG INHALER INH SCH (08:50)
[2016-12-24] MEDS ORDERED: FURO40TA PO (08:54)
[2016-12-24] MEDS ORDERED: SYMB160A INH (08:54)
[2016-12-24] MEDS ORDERED: HYDR-3516 PO (08:54)
--- NOTE | 2016-12-24 08:56 | HHI.DCPOC ---
Discharge Care Plan Diagnosis: (1) Pulmonary nodule (2) Diverticulitis of intestine with abscess (3) Edema (4) Tobacco abuse Goals to Promote Your Health * To prevent worsening of your condition and complications * To maintain your health at the optimal level Directions to Meet Your Goals Take your medications as prescribed Follow your dietary instruction Follow activity as directed Keep your appointments as scheduled Take your immunizations and boosters as scheduled If your symptoms worsen call your PCP, if no PCP go to Urgent Care Center or Emergency Room Smoking is Dangerous to Your Health. Avoid second hand smoke Call the 24-hour hour crisis hotline for domestic abuse at Aiyana Olvera MD Dec 24, 2016 08:56
--- NOTE | 2016-12-24 08:56 | HHI.DS ---
Discharge Summary Admission Date Dec 07, 2016 at 21:11 Discharge Date: Dec 24, 2016 Admitting Diagnosis COPD Exacerbation with Hypoxia (1) COPD with exacerbation ICD Code: J44.1 (2) Hypoxia ICD Code: R09.02 (3) Tobacco abuse ICD Code: Z72.0 (4) Hypertension ICD Code: I10 (5) Blood in stool ICD Code: K92.1 (6) Diverticulitis of intestine with abscess ICD Code: K57.80 (7) Impaired glucose tolerance ICD Code: R73.02 (8) Lung nodule ICD Code: R91.1 Procedures None Brief History - From Admission History of present illness from the admitting physician This is a 56-year-old female with PMH of HTN, Hyperlipidemia, Tobacco abuse and COPD who was brought to the ER by EMS secondary to complaints of SOB and cough x3 days. States symptoms have gotten progressively worse in last 2 days, now c/ o productive cough w/ yellow/green colored sputum. Denies fever or chills. S/ p Solu-Medrol and DuoNeb via EMS. On arrival, O2 sat 88% on RA, BP 133/91, HR 119, Afebrile. CBC unremarkable to for elevated neutrophil count. CMP at baseline. CXR with no acute findings. S/p DuoNeb in ER and Rocephin/Zithro w/ some improvement. Imaging Last Impressions Lower Extremity Ultrasound 12/18/16 0000 Signed Impressions: Service Date/Time: November 18:45 - CONCLUSION: No DVT and there are nonspecific lymph nodes. Josh Lopez MD Chest X-Ray 12/13/16 0000 Signed Impressions: Service Date/Time: Tuesday, December 13, 2016 17:08 - CONCLUSION: No acute disease. No significant change has occurred. Kevyn Augustine MD Chest CT 12/13/16 0000 Signed Impressions: Service Date/Time: Tuesday, December 13, 2016 19:03 - CONCLUSION: 1. Numerous subcentimeter nodules most characteristic of metastatic disease to the lungs. 2. Moderate centrilobular emphysema. Kevyn Augustine MD Abdomen/Pelvis CT 12/10/16 0000 Signed Impressions: Service Date/Time: Saturday, December 10, 2016 20:23 - CONCLUSION: 1. Wall thickening of the sigmoid colon, differential including mass and chronic diverticular disease or combination of the 2. There is mild acute diverticulitis and a small, contained abscess/perforation noted; please see above. Nothing clearly drainable at this time. 2. Apparent pulmonary metastatic disease, etiology uncertain but would increase the possibility of sigmoid colon carcinoma and this should be excluded. I don't see another definite primary or other sites of metastatic disease. 3. Nonobstructing stones are again noted of the right kidney and an unchanged cyst of the left kidney. 4. Uterine fibroid. Clayton Burr MD PE at Discharge GENERAL: Patient appeared older than stated age, in no apparent distress. CARDIOVASCULAR: Regular rate and rhythm without murmurs, gallops, or rubs. RESPIRATORY: Diminished breath sounds. Some faint expiratory wheeze. GASTROINTESTINAL: Abdomen soft, non-tender, nondistended. Normal active bowel sounds MUSCULOSKELETAL: Bilateral LE edema with 2+ edema. NEURO: Alert & Oriented x4 to person, place, time, situation. Moves all ext x4 Pt update on day of discharge Patient continues to report pain all over. No specific complaint. Lower extremity edema slightly better. She is still refusing lung biopsy. She states maybe when she gets better she will consider it. Extensive discussion with her regarding possibility of lung cancer and progression without diagnosis and treatment. Patient fully understand the risk and is not interested in pursuing a diagnosis or treatment at this time. Hospital Course 56 year old female admitted with a COPD Exacerbation and Diverticulitis. She had lung lesions found with a mildly elevated tumor marker and some abdominal lesions suspect for possible metastatic disease. Unfortunately the patient refused biopsy. She has a recent complication of lower extremity swelling which was attributed to amlodipine. She is improving. She is medically stable for discharge. Extensive discussion with the patient today regarding biopsy recommendations. She understands the risk of not having a diagnosis and treatment. She understands that her conditions may get worse and can lead to . Hypoxia: Secondary to COPD exacerbation. Multiple lung nodules. Improved. Now stable on room air - Patient was treated with a steroid taper and breathing treatments. Diverticulitis: Treatment completed with IV antibiotics, cefepime and Flagyl. Abdominal symptoms resolved. Antibiotics discontinued. Izaiah LE Edema: Thought to be exacerbated by Amlodipine. ?venous stasis at baseline. Improved. Negative bilateral lower extremity ultrasound - Patient to continue oral Lasix. She is advised to follow up outpatient with the community clinic patient was advised on a heart healthy diet, low sodium Pt Condition on Discharge: Stable Discharge Disposition: Discharge Home Discharge Time: > 30 minutes Discharge Instructions DIET: Follow Instructions for: Heart Healthy Diet, Low Sodium Diet Activities you can perform: Regular-No Restrictions Follow up Referrals: PCP Follow-up with Dr. Berkowitz New Medications: Budesonide-Formoterol Inh (Symbicort Inh) 160-4.5 Mcg/Act Aero 2 PUFF INH Q12HR #1 INHALER Furosemide (Furosemide) 40 Mg Tab 40 MG PO DAILY #30 TAB Hydrocodone-Acetaminophen (Hydrocodone-Acetaminophen) 5-325 mg Tab 1 TAB PO Q4H PRN PAIN GREATER THAN 5 #20 TAB Discontinued Medications: Lisinopril (Lisinopril) 20 Mg Tab 20 MG PO DAILY #30 Ref 0 TAB Aiyana Olvera MD Dec 24, 2016 08:56
== END 2016-12-24 15:35 | disposition home or self-care (01) | DRG 191 ==
LOC: NEPC 18:27 → NEDA 21:11 → N04A 22:30
PROVIDERS: ADMIT Family Medicine; ATTEND Family Medicine
DX: J44.1 Chronic obstructive pulmonary disease with (acute) exacerbation (principal); J96.11 Chronic respiratory failure with hypoxia; D69.6 Thrombocytopenia, unspecified; C78.00 Secondary malignant neoplasm of unspecified lung; Z99.81 Dependence on supplemental oxygen; K57.20 Diverticulitis of large intestine with perforation and abscess without bleeding; K92.1 Melena; E86.0 Dehydration; I10 Essential (primary) hypertension; K59.00 Constipation, unspecified; K64.9 Unspecified hemorrhoids; E78.5 Hyperlipidemia, unspecified; F10.10 Alcohol abuse, uncomplicated; R91.1 Solitary pulmonary nodule; R59.1 Generalized enlarged lymph nodes; J45.909 Unspecified asthma, uncomplicated; H91.93 Unspecified hearing loss, bilateral; K21.9 Gastro-esophageal reflux disease without esophagitis; D25.9 Leiomyoma of uterus, unspecified; R00.0 Tachycardia, unspecified; R73.9 Hyperglycemia, unspecified; R73.02 Impaired glucose tolerance (oral); T38.0X5A Adverse effect of glucocorticoids and synthetic analogues, initial encounter; R60.0 Localized edema; I87.8 Other specified disorders of veins; F17.210 Nicotine dependence, cigarettes, uncomplicated; Z59.0 Homelessness; Z88.5 Allergy status to narcotic agent; Z91.19 Patient's noncompliance with other medical treatment and regimen
CPT/HCPCS: 71010; 71260; 74177; 76937; 80048; 80053; 81001; 82105; 82272; 82378; 82948; 83036; 83735; 84100; 85025; 85027; 85610; 85730; 86301; 93005; 93306; 93970; 94150; 94620; 94640; 94664; 96374; 96375; J0360; J0456; J0692; J0696; J1650; J1815; J1940; J1956; J2060; J2270; J2920; J7030; J7050; J7512; Q9963; Q9967

== ENCOUNTER 2017-04-01 06:12 | Day surgery (SDC) | payer OTHER ==
[~2017-04-01 06:12] MED LIST changes: -ALBUAER3 INH; -AMLO10TA2 PO; -CIPR-9 PO; +FURO40TA PO; +HYDR-3516 PO; -HYDR25TA5 PO; -IPRAAER INH; -LEVA750T PO; -NIFE15TA PO; -NIFE1TAB PO; -OMEP40CA2 PO; -PRED10PA2 PO
== END 2017-04-01 07:08 | disposition home or self-care (01) ==
LOC: HROP 06:12 → HRIP 06:13 → HROP 07:08
PROVIDERS: ATTEND Obstetrics & Gynecology Gynecologic Oncology
DX: C79.9 Secondary malignant neoplasm of unspecified site (principal)

== ENCOUNTER 2017-10-27 19:42 | Emergency (ER) | payer MEDICARE, OTHER ==
[2017-10-27 19:46] VITALS: BP 193/101; PULSE 107; RESP 24; TEMP 98.3; O2SAT 93
[2017-10-27 20:12] VITALS: RESP 17; O2SAT 95
[2017-10-27] MEDS ORDERED: SODIUM CHLORIDE 0.9% FLUSH 10 ML FLUSH IV FLUSH PRN (20:15)
[2017-10-27 20:33] VITALS: BP 175/82; PULSE 98; RESP 19; O2SAT 94
[2017-10-27] MEDS ORDERED: LISI10TA3 PO (20:33)
[2017-10-27 21:04] LABS: AUTOMATED NEUTROPHIL # 6.8 TH/MM3 (1.8-7.7); BASOPHIL # 0.1 TH/MM3 (0-0.2); BASOPHIL % 1.2 % (0.0-2.0); EOSINOPHIL # 0.2 TH/MM3 (0-0.4); EOSINOPHIL % 1.9 % (0.0-4.0); HEMATOCRIT 37.4 % (35.0-46.0); HEMOGLOBIN 12.6 GM/DL (11.6-15.3); LYMPH % 14.2 % (9.0-44.0); LYMPHOCYTE # 1.3 TH/MM3 (1.0-4.8); MEAN CORPUSCULAR HEMOGLOBIN 28.6 PG (27.0-34.0); MEAN CORPUSCULAR HGB CONC 33.6 % (32.0-36.0); MEAN PLATELET VOLUME 7.8 FL (7.0-11.0); MONO % 7.7 % (0.0-8.0); MONOCYTE # 0.7 TH/MM3 (0-0.9); PLATELET COUNT 214 TH/MM3 (150-450); RED CELL DISTRIBUTION WIDTH 16.6 % (11.6-17.2); WHITE BLOOD COUNT 9.1 TH/MM3 (4.0-11.0)
[2017-10-27 21:11] LABS: AMORPHOUS SEDIMENT, URINE RARE; BILIRUBIN, URINE NEG (NEG); BLOOD, URINE SMALL (NEG); GLUCOSE,URINE NEG (NEG); KETONE, URINE NEG (NEG); MUCUS URINE FEW /lpf (OCC); NITRITE,URINE NEG (NEG); SQUAMOUS EPITHELIAL CELL URINE 4 /hpf (0-5); URINE COLOR YELLOW (YELLW/STRAW); URINE LEUKOCYTE ESTERASE MOD (NEG)
[2017-10-27 21:13] LABS: PROTHROMBIN TIME - PATIENT 10.1 SEC (9.8-11.6)
[2017-10-27 21:19] LABS: AST (GOT) 38 U/L (15-37); BICARBONATE 29.8 MEQ/L (21.0-32.0); BLOOD UREA NITROGEN 14 MG/DL (7-18); CALCIUM 9.3 MG/DL (8.5-10.1); CHLORIDE 99 MEQ/L (98-107); CREATININE 1.14 MG/DL (0.50-1.00); GLOMERULAR FILTRATION RATE 49 ML/MIN (>89); GLUCOSE,RANDOM 71 MG/DL (74-106); SODIUM (NA) 137 MEQ/L (136-145)
--- NOTE | 2017-10-27 21:28 | RADRPT ---
EXAM DATE/TIME: 10/27/2017 20:26 [facility] COMPARISON: CT ABDOMEN & PELVIS W CONTRAST, December 10, 2016, 20:23. CT THORAX W CONTRAST, December 13, 2016, 19:03. CHEST SINGLE AP, December 13, 2016, 17:08. INDICATIONS : Syncope. MEDICAL HISTORY : Cardiovascular disease. Hypertension. Congestive heart failure. SURGICAL HISTORY : None. ENCOUNTER: Initial ACUITY: 1 day PAIN SCORE: 0/10 LOCATION: Bilateral chest FINDINGS: There are multiple bilateral pulmonary nodules which were seen on the prior study increased and numbe r characteristic of metastatic disease. No pleural effusions are identified. There is no evidence of pneumonia. The cardiac silhouette is normal in transverse diameter. CONCLUSION: 1. Multiple pulmonary nodules characteristic of metastatic disease. The findings have worsened when compared with the prior examination. Anjum Briscoe MD on October 27, 2017 at 21:23 Board Certified Radiologist. This report was verified electronically.
[2017-10-27 21:32] LABS: ACETAMINOPHEN LESS THAN 2.0 MCG/ML (10.0-30.0); ALKALINE PHOSPHATASE 76 U/L (45-117); ALT (GPT) 28 U/L (10-53); TOTAL BILIRUBIN ADULT 0.3 MG/DL (0.2-1.0); TOTAL PROTEIN 6.1 GM/DL (6.4-8.2); TROPONIN I LESS THAN 0.02 NG/ML (0.02-0.05)
--- NOTE | 2017-10-27 21:44 | PD ---
HPI . Medical clearance Chief Complaint: Medical Clearance Time Seen by Provider: 19:54 Travel History International Travel<30 days: No Contact w/Intl Traveler<30days: No Traveled to known affect area: No History of Present Illness HPI 57-year-old female with multiple somatic complaints that change with seemingly history is taken, potential altered mental status and delusional thoughts processes. Unreliable historian PFSH Past Medical History Narrative Medical Past medical history reviewed Hx Anticoagulant Therapy: No Anemia: Yes (WITH BLOOD TRANSFUSION X 1) Asthma: Yes Autoimmune Disease: No Heart Rhythm Problems: No Cancer: No Cardiovascular Problems: Yes High Cholesterol: No Chemotherapy: No Chest Pain: No Congestive Heart Failure: No COPD: Yes Cerebrovascular Accident: No Coronary Artery Disease: No Diabetes: No Diminished Hearing: Yes (BILAT [place]) Endocrine: No Gastrointestinal Disorders: Yes GERD: Yes Genitourinary: Yes Headaches: Yes Hiatal Hernia: No Hypertension: Yes Immune Disorder: No Kidney Stones: Yes Musculoskeletal: Yes Neurologic: Yes Psychiatric: No Reproductive: No Respiratory: Yes (COPD) Immunizations Current: Yes Migraines: Yes Myocardial Infarction: No Radiation Therapy: No Renal Failure: No Seizures: No Sleep Apnea: No Thyroid Disease: No Ulcer: No Tetanus Vaccination: Unknown ?: Not Menopausal: Yes : 7 Para: 4 Miscarriage: 2 : 1 Ectopic : No Ovarian Cysts: No Dilation and Curettage (D&C): No Tubal Ligation: Yes Past Surgical History Abdominal Surgery: Yes (left colostomy) AICD: No Arteriovenous Shunt: No Cardiac Surgery: No Section: No Ear Surgery: No Endocrine Surgery: No Eye Surgery: No Genitourinary Surgery: No Gynecologic Surgery: No Hysterectomy: No Insulin Pump: No Joint Replacement: No Neurologic Surgery: No Oral Surgery: Yes (wisdom teeth) Pacemaker: No Thoracic Surgery: No Other Surgery: Yes Social History Alcohol Use: Yes (DAILY, "COUPLE A DAY") Tobacco Use: Yes (PT STATES SHE QUIT, THEN STATES "I LIGHT ONE BUT DON'T FULLY INHALE IT") Substance Use: No Allergies-Medications (Allergen,Severity, Reaction): Coded Allergies: acetaminophen (Unverified Allergy, Mild, Nausea/Vomiting, 10/27/17) propoxyphene (Unverified Allergy, Mild, Nausea/Vomiting, 10/27/17) Reported Meds & Prescriptions Reported Meds & Active Scripts Active Hydrocodone-Acetaminophen 5-325 mg Tab 1 Tab PO Q4H PRN Furosemide 40 Mg Tab 40 Mg PO DAILY Symbicort Inh (Budesonide/Formoterol Fumarate) 160-4.5 Mcg/Act Aero 2 Puff INH Q12HR Reported Lisinopril 10 Mg Tab 10 Mg PO DAILY Narrative Medication Allergies and medications reviewed Review of Systems ROS Limitations: Altered Mental Status, Psychotic, Poor Historian Except as stated in HPI: all other systems reviewed are Neg General / Constitutional: No: Fever Eyes: No: Visual changes HENT: No: Headaches Cardiovascular: No: Chest Pain or Discomfort Respiratory: No: Shortness of Breath Gastrointestinal: No: Abdominal Pain Genitourinary: No: Dysuria Musculoskeletal: No: Pain Skin: No Rash Neurologic: No: Weakness Psychiatric: No: Depression Endocrine: No: Polydipsia Hematologic/Lymphatic: No: Easy Bruising Physical Exam Narrative GENERAL: Awake and alert, delusional thought processes otherwise in no acute distress. Vital signs afebrile normal and stable SKIN: Warm and dry. Color is normal no diaphoresis sinus HEAD: Atraumatic. Normocephalic. EYES: Pupils equal and round. No scleral icterus. No injection or drainage. ENT: No nasal bleeding or discharge. Mucous membranes pink and moist. NECK: Trachea midline. No JVD. Supple nontender full range of motion CARDIOVASCULAR: Regular rate and rhythm. S1-S2 no murmurs rubs or gallops RESPIRATORY: No accessory muscle use. Clear to auscultation. Breath sounds equal bilaterally. GASTROINTESTINAL: Abdomen soft, non-tender, nondistended. Hepatic and splenic margins not palpable. MUSCULOSKELETAL: Extremities without clubbing, cyanosis, or edema. No obvious deformities. NEUROLOGICAL: Awake and alert. No obviously gross focal deficit PSYCHIATRIC: Delusional thought processes, flight of ideas. Data Data Last Documented VS Vital Signs Date Time Temp Pulse Resp B/P (MAP) Pulse Ox O2 Delivery O2 Flow Rate FiO2 10/27/17 20:33 98 19 175/82 (113) 94 Room Air 10/27/17 19:46 98.3 Orders Orders Electrocardiogram (10/27/17 20:09) Ammonia (10/27/17 20:09) Complete Blood Count With Diff (10/27/17 20:09) Comprehensive Metabolic Panel (10/27/17 20:09) Prothrombin Time / Inr (Pt) (10/27/17 20:09) Act Partial Throm Time (Ptt) (10/27/17 20:09) Troponin I (10/27/17 20:09) Thyroid Stimulating Hormone (10/27/17 20:09) Urinalysis - C+S If Indicated (10/27/17 20:09) Chest, Single Ap (10/27/17 20:09) Blood Glucose (10/27/17 20:09) Ecg Monitoring (10/27/17 20:09) Iv Access Insert/Monitor (10/27/17 20:09) Oximetry (10/27/17 20:09) Sodium Chloride 0.9% Flush (Ns Flush) (10/27/17 20:15) Drug Screen, Random Urine (10/27/17 20:09) Alcohol (Ethanol) (10/27/17 20:09) Tylenol (Acetaminophen) (10/27/17 20:09) Salicylates (Aspirin) (10/27/17 20:09) Urine Culture (10/27/17 20:25) Ceftriaxone Inj (Rocephin Inj) (10/27/17 21:45) Psych Screen (10/27/17 21:39) Ketorolac Inj (Toradol Inj) (10/28/17 00:00) Labs Laboratory Tests Test 10/27/17 20:25 White Blood Count 9.1 TH/MM3 Red Blood Count 4.40 MIL/MM3 Hemoglobin 12.6 GM/DL Hematocrit 37.4 % Mean Corpuscular Volume 85.0 FL Mean Corpuscular Hemoglobin 28.6 PG Mean Corpuscular Hemoglobin Concent 33.6 % Red Cell Distribution Width 16.6 % Platelet Count 214 TH/MM3 Mean Platelet Volume 7.8 FL Neutrophils (%) (Auto) 75.0 % Lymphocytes (%) (Auto) 14.2 % Monocytes (%) (Auto) 7.7 % Eosinophils (%) (Auto) 1.9 % Basophils (%) (Auto) 1.2 % Neutrophils # (Auto) 6.8 TH/MM3 Lymphocytes # (Auto) 1.3 TH/MM3 Monocytes # (Auto) 0.7 TH/MM3 Eosinophils # (Auto) 0.2 TH/MM3 Basophils # (Auto) 0.1 TH/MM3 CBC Comment DIFF FINAL Differential Comment Prothrombin Time 10.1 SEC Prothromb Time International Ratio 1.0 RATIO Activated Partial Thromboplast Time 23.6 SEC Urine Color YELLOW Urine Turbidity CLEAR Urine pH 6.0 Urine Specific [place] 1.020 Urine Protein 30 mg/dL Urine Glucose (UA) NEG mg/dL Urine Ketones NEG mg/dL Urine Occult Blood SMALL Urine Nitrite NEG Urine Bilirubin NEG Urine Urobilinogen 2.0 MG/DL Urine Leukocyte Esterase MOD Urine RBC 42 /hpf Urine WBC 8 /hpf Urine Squamous Epithelial Cells 4 /hpf Urine Amorphous Sediment RARE Urine Mucus FEW /lpf Microscopic Urinalysis Comment CATH-CULTURE IND Blood Urea Nitrogen 14 MG/DL Creatinine 1.14 MG/DL Random Glucose 71 MG/DL Total Protein 6.1 GM/DL Albumin 3.0 GM/DL Calcium Level 9.3 MG/DL Alkaline Phosphatase 76 U/L Aspartate Amino Transf (AST/SGOT) 38 U/L Alanine Aminotransferase (ALT/SGPT) 28 U/L Total Bilirubin 0.3 MG/DL Sodium Level 137 MEQ/L Potassium Level 3.6 MEQ/L Chloride Level 99 MEQ/L Carbon Dioxide Level 29.8 MEQ/L Anion Gap 8 MEQ/L Estimat Glomerular Filtration Rate 49 ML/MIN Ammonia LESS THAN 10 MCMOL/L Troponin I LESS THAN 0.02 NG/ML Thyroid Stimulating Hormone 3rd Gen 3.310 uIU/ML Salicylates Level 14.1 MG/DL Urine Opiates Screen POS Acetaminophen Level LESS THAN 2.0 MCG/ML Urine Barbiturates Screen NEG Urine Amphetamines Screen NEG Urine Benzodiazepines Screen NEG Urine Cocaine Screen NEG Urine Cannabinoids Screen NEG Ethyl Alcohol Level LESS THAN 3 MG/DL MDM Medical Decision Making Medical Screen Exam Complete: Yes Emergency Medical Condition: Yes Medical Record Reviewed: Yes Differential Diagnosis Multiple somatic complaints, delusional thought processes Narrative Course Patient's laboratory examinations reviewed, patient has mildly elevated creatinine, as well as incidentally noted urinary tract infection. Patient treated with IV fluids and ceftriaxone 1 g IV, otherwise medically cleared for psychiatric evaluation Psychiatric evaluation completed, patient currently has no psychiatric reason for admission. Patient will be treated for urinary tract infection with doxycycline 100 mg twice daily for 10 days. Patient prescribed Motrin 400 mg every 8 hours as needed for pain. Patient advised to follow-up with his daily clinic as needed, and to return promptly for worsening. Diagnosis Primary Impression: UTI (urinary tract infection) Qualified Codes: N30.00 - Acute cystitis without hematuria Additional Impression: Delusional disorder Patient Instructions: General Instructions, Urinary Tract Infection in Women ( [place]) Additional Instructions: Take doxycycline 100 mg twice daily for 10 days. Follow-up with his daily clinic as needed, and to return promptly for worsening. Scripts Doxycycline Hyclate (Doxycycline Hyclate) 100 Mg Cap 100 MG PO BID for Infection, #20 CAP 0 Refills Prov: Rickie Means MD 10/27/17 Disposition: 01 DISCHARGE HOME Condition: Stable Rickie Means MD Oct 27, 2017 21:44
[2017-10-27] MEDS ORDERED: cefTRIAXone INJ 1,000 MG in SODIUM CHLORIDE 0.9% INJ 100 ML IV ONE (21:45)
[2017-10-27] MEDS ORDERED: DOXY100C PO (23:58)
[2017-10-28] MEDS ORDERED: KETOROLAC TROMETHAMINE 30 MG/ML (IVP) VIAL IV PUSH ONE
[2017-10-28 00:04] VITALS: BP 179/101; PULSE 92; RESP 19; O2SAT 95
[2017-10-28] MEDS ORDERED: RESP: ALBUTEROL 2.5 MG/IPRATROPIUM 0.5 MG NEB (SCH) NEB ONE (00:45)
--- NOTE | 2017-10-28 12:21 | EKG ---
Date Performed: 10/27/2017 Time Performed: 20:28:43 PTAGE: 57 years EKG: SINUS TACHYCARDIA POSSIBLE LEFT ATRIAL ENLARGEMENT BORDERLINE RIGHT AXIS DEVIATION ABNORMAL RHYTHM ECG PREVIOUS TRACING : 12/07/2016 19.37 Since the prior tracing, there has been no significant berkowitz DOCTOR: Anjum Brownlee Interpretating Date/Time 10/28/2017 12:20:32
== END 2017-10-28 01:31 | disposition home or self-care (01) ==
LOC: NEPE 19:42
DX: N30.00 Acute cystitis without hematuria (principal); F22 Delusional disorders; R94.31 Abnormal electrocardiogram [ECG] [EKG]; J44.9 Chronic obstructive pulmonary disease, unspecified; K21.9 Gastro-esophageal reflux disease without esophagitis; Z72.0 Tobacco use; I10 Essential (primary) hypertension; Z93.3 Colostomy status; Z79.899 Other long term (current) drug therapy
CPT/HCPCS: 71045; 80053; 80307; 81001; 82140; 84443; 84484; 85025; 85610; 85730; 87086; 93005; 94664; 96365; 96366; 96375; 99285; J0696; J1885

== ENCOUNTER 2017-12-21 20:40 | Inpatient (IN) | payer MEDICARE, OTHER ==
[~2017-12-21] VITALS: Ht 162.6 cm; Wt 75.0 kg
[~2017-12-21 20:40] MED LIST changes: +DOXY100C PO; +LISI10TA3 PO
[2017-12-21 20:59] VITALS: BP 113/62; PULSE 96; RESP 22; TEMP 98.3; O2SAT 91
[2017-12-21] MEDS ORDERED: RESP: ALBUTEROL 2.5 MG/IPRATROPIUM 0.5 MG NEB (SCH) INH ONE (21:00)
[2017-12-21] MEDS ORDERED: methylPREDNISolone SOD SUCC 125 MG/2 ML VIAL IV PUSH ONE (21:00)
--- NOTE | 2017-12-21 21:07 | PD ---
HPI Chief Complaint: Respiratory Symptoms Time Seen by Provider: 20:48 Travel History International Travel<30 days: No Contact w/Intl Traveler<30days: No Traveled to known affect area: No History of Present Illness HPI This is a 57-year-old female with history of bipolar disorder and COPD, colostomy, metastatic lung cancer who presents under Kidd act initiated by physician Dr. Baldwin. The patient at some point recently became a resident of a nursing facility called [facility] in [place]. According to her paperwork the patient has been refusing all medical care, refusing to take her medication or bathe. She has been sleeping outside on the ground. She has been refusing Risperdal, declining and ADL assistance, declining in colostomy care, refusing her oxygen. She has been showing symptoms of ritika and depression, poor insight. The patient currently appears manic. She is speaking rapidly, unable to maintain a thought progression when attempting to answer questions and is thus a poor historian. She does report that she has chronic dyspnea secondary to COPD and chronic lower extremity edema which is likely exacerbated by her not taking her prescribed medications. She reports that she is unhappy with the care that she has received at [facility] and reports that her daughter is traveling from [place] in order to see her. She denies any suicidal homicidal thoughts. PFSH Past Medical History Hx Anticoagulant Therapy: No Anemia: Yes (WITH BLOOD TRANSFUSION X 1) Asthma: Yes Autoimmune Disease: No Heart Rhythm Problems: No Cancer: No Cardiovascular Problems: Yes High Cholesterol: No Chemotherapy: No Chest Pain: No Congestive Heart Failure: No COPD: Yes Cerebrovascular Accident: No Coronary Artery Disease: No Diabetes: No Diminished Hearing: Yes ([place]) Endocrine: No Gastrointestinal Disorders: Yes GERD: Yes Genitourinary: Yes Headaches: Yes Hiatal Hernia: No Hypertension: Yes Immune Disorder: No Kidney Stones: Yes Musculoskeletal: Yes Neurologic: Yes Psychiatric: No Reproductive: No Respiratory: Yes (COPD) Immunizations Current: Yes Migraines: Yes Myocardial Infarction: No Radiation Therapy: No Renal Failure: No Seizures: No Sleep Apnea: No Thyroid Disease: No Ulcer: No Tetanus Vaccination: Unknown Influenza Vaccination: Yes ?: Not Menopausal: Yes : 7 Para: 4 Miscarriage: 2 : 1 Ectopic : No Ovarian Cysts: No Dilation and Curettage (D&C): No Tubal Ligation: Yes Past Surgical History Abdominal Surgery: Yes (left colostomy) AICD: No Arteriovenous Shunt: No Cardiac Surgery: No Section: No Ear Surgery: No Endocrine Surgery: No Eye Surgery: No Genitourinary Surgery: No Gynecologic Surgery: No Hysterectomy: No Insulin Pump: No Joint Replacement: No Neurologic Surgery: No Oral Surgery: Yes (wisdom teeth) Pacemaker: No Thoracic Surgery: No Other Surgery: Yes Social History Alcohol Use: Yes (DAILY, "COUPLE A DAY") Tobacco Use: Yes (PT STATES SHE QUIT, THEN STATES "I LIGHT ONE BUT DON'T FULLY INHALE IT") Substance Use: No Allergies-Medications (Allergen,Severity, Reaction): Coded Allergies: acetaminophen (Unverified Allergy, Mild, Nausea/Vomiting, 12/21/17) propoxyphene (Unverified Allergy, Mild, Nausea/Vomiting, 12/21/17) Reported Meds & Prescriptions Reported Meds & Active Scripts Active Furosemide 40 Mg Tab 40 Mg PO DAILY Symbicort Inh (Budesonide/Formoterol Fumarate) 160-4.5 Mcg/Act Aero 2 Puff INH Q12HR Reported Tramadol (Tramadol HCl) 50 Mg Tab 50 Mg PO Q8H PRN Dulcolax DR (Bisacodyl) 5 Mg Tabdr 5 Mg PO DAILY PRN Duoneb (Ipratropium-Albuterol Neb) 0.5-2.5 Mg/3 Ml Neb 1 Nebule INH Q6HR NEB Ambien (Zolpidem Tartrate) 5 Mg Tab 5 Mg PO HS PRN Potassium Chloride ER (Potassium Chloride) 10 Meq Cap 10 Meq PO BID Metoprolol Tartrate 25 Mg Tab 25 Mg PO BID Gabapentin 300 Mg Cap 300 Mg PO BID Docusate Sodium 100 Mg Cap 100 Mg PO BID Famotidine 20 Mg Tab 20 Mg PO BID Prednisone 10 Mg Tab 10 Mg PO BID Nystatin-Triamcinolone 100,000-0.1 Unit/Gm Cream 1 Applic TOPICAL BID PRN Amlodipine (Amlodipine Besylate) 10 Mg Tab 10 Mg PO DAILY Miralax Powder (Polyethylene Glycol 3350 Powder) 17 Gm Powd 17 Gm PO DAILY Mix and dissolve one measuring cap-ful (17 grams) in water or juice. Polyethylene Glycol 3350 Powder (Polyethylene Glycol) 17 Gram Pow 17 Gm PO DAILY Albuterol Neb (Albuterol Sulfate) 0.63 Mg/3 Ml Neb 0.63 Mg NEB Q2HR PRN Percocet (Oxycodone-Acetaminophen) 10-325 mg Tab 1 Tab PO Q4H PRN Fentanyl Patch 72 HR (Fentanyl) 75 Mcg/Hr Patch 75 Mcg T-DERMAL Q72H Remove old patch when new one placed. Lisinopril 20 Mg Tab 20 Mg PO DAILY Review of Systems Except as stated in HPI: all other systems reviewed are Neg Physical Exam Narrative GENERAL: This is a disheveled female who is in no acute distress. SKIN: Warm and dry. HEAD: Atraumatic. Normocephalic. EYES: Pupils equal and round. No scleral icterus. No injection or drainage. ENT: No nasal bleeding or discharge. Mucous membranes pink and moist. NECK: Trachea midline. No JVD. CARDIOVASCULAR: Regular rate and rhythm. No murmur appreciated. RESPIRATORY: No accessory muscle use. Mild wheezing bilaterally. GASTROINTESTINAL: Abdomen soft, non-tender, nondistended. Hepatic and splenic margins not palpable. ostomy bag in place. MUSCULOSKELETAL: No obvious deformities. No clubbing. No cyanosis. 2+ lower extremity edema bilaterally. NEUROLOGICAL: Awake and alert. No obvious cranial nerve deficits. Motor grossly within normal limits. Normal speech. PSYCHIATRIC: Rapid speech, insight and judgment limited. Data Data Last Documented VS Vital Signs Date Time Temp Pulse Resp B/P (MAP) Pulse Ox O2 Delivery O2 Flow Rate FiO2 12/21/17 22:30 96 Nasal Cannula 4.00 12/21/17 20:59 98.3 96 22 113/62 (79) Orders Orders Complete Blood Count With Diff (12/21/17 21:00) Comprehensive Metabolic Panel (12/21/17 21:00) Thyroid Stimulating Hormone (12/21/17 21:00) Urinalysis - C+S If Indicated (12/21/17 21:00) Psych Screen (12/21/17 21:00) Drug Screen, Random Urine (12/21/17 21:00) Alcohol (Ethanol) (12/21/17 21:00) Albuterol-Ipratropium Neb (Duoneb Neb) (12/21/17 21:00) Methylprednisolone So Succ Inj (Solumedr (12/21/17 21:00) B-Type Natriuretic Peptide (12/21/17 21:00) Chest, Pa & Lat (12/21/17 21:00) Type And Screen (12/21/17 21:35) Pantoprazole Inj (Protonix Inj) (12/21/17 21:45) Electrocardiogram (12/21/17 ) Furosemide Inj (Lasix Inj) (12/21/17 22:00) Sodium Chlor 0.9% 1000 Ml Inj (Ns 1000 M (12/21/17 21:59) Insulin Human Regular Inj (Novolin R Inj (12/21/17 22:00) Albuterol-Ipratropium Neb (Duoneb Neb) (12/21/17 22:00) Calcium Gluconate Inj (Calcium Gluconate (12/21/17 22:15) Dextrose 50% In Maryse (Syr) Inj (D50w (Syr (12/21/17 22:24) Dextrose 50% In Maryse (Syr) Inj (D50w (Syr (12/21/17 22:30) Admit Order (Ed Use Only) (12/21/17 22:38) Labs Laboratory Tests Test 12/21/17 21:05 White Blood Count 7.8 TH/MM3 Red Blood Count 2.99 MIL/MM3 Hemoglobin 8.1 GM/DL Hematocrit 25.2 % Mean Corpuscular Volume 84.2 FL Mean Corpuscular Hemoglobin 27.1 PG Mean Corpuscular Hemoglobin Concent 32.2 % Red Cell Distribution Width 19.6 % Platelet Count 219 TH/MM3 Mean Platelet Volume 7.7 FL Neutrophils (%) (Auto) 85.1 % Lymphocytes (%) (Auto) 7.8 % Monocytes (%) (Auto) 6.4 % Eosinophils (%) (Auto) 0.2 % Basophils (%) (Auto) 0.5 % Neutrophils # (Auto) 6.6 TH/MM3 Lymphocytes # (Auto) 0.6 TH/MM3 Monocytes # (Auto) 0.5 TH/MM3 Eosinophils # (Auto) 0.0 TH/MM3 Basophils # (Auto) 0.0 TH/MM3 CBC Comment DIFF FINAL Differential Comment Blood Urea Nitrogen 73 MG/DL Creatinine 2.50 MG/DL Random Glucose 102 MG/DL Total Protein 6.3 GM/DL Albumin 3.1 GM/DL Calcium Level 9.0 MG/DL Alkaline Phosphatase 79 U/L Aspartate Amino Transf (AST/SGOT) 48 U/L Alanine Aminotransferase (ALT/SGPT) 42 U/L Total Bilirubin 0.3 MG/DL Sodium Level 139 MEQ/L Potassium Level 5.9 MEQ/L Chloride Level 102 MEQ/L Carbon Dioxide Level 28.5 MEQ/L Anion Gap 9 MEQ/L Estimat Glomerular Filtration Rate 20 ML/MIN B-Type Natriuretic Peptide 195 PG/ML Thyroid Stimulating Hormone 3rd Gen 8.330 uIU/ML Ethyl Alcohol Level LESS THAN 3 MG/DL MDM Medical Decision Making Medical Screen Exam Complete: Yes Emergency Medical Condition: Yes Medical Record Reviewed: Yes Differential Diagnosis Bipolar disorder, medication noncompliance, acute psychosis, substance-induced mood disorder Narrative Course 57-year-old female with history of bipolar disorder presents under Kidd act. She does appear manic on examination. She does have lower extremity edema which is chronic, likely worsened by noncompliance of medication. According to chart review she is prescribed Lasix. She also has mild wheezing, history of COPD. She will be given DuoNeb treatment and Solu-Medrol. The patient's lab work is been reviewed. Her hemoglobin is 8.1 which is a significant drop from her baseline of 12-14. Her colostomy stool is brown but Hemoccult positive. Reportedly she had colectomy at [facility] in January 2017. Protonix initiated. In addition the patient has a potassium of 5.9 and a GFR of 20 which is decreased from her baseline, likely secondary to dehydration from noncompliance with meal regimen. BUN is 73 and creatinine is 2.5. The patient will be given IV calcium, insulin, dextrose, IV fluids, 20 mg Lasix, additional DuoNeb therapy. She will be admitted medically with psychiatric consultation. Diagnosis Primary Impression: GI bleed Additional Impressions: Bipolar disorder COPD (chronic obstructive pulmonary disease) Hyperkalemia Acute kidney injury Admitting Information Admitting Physician Requests: Admit Dominic Sparks Dec 21, 2017 21:07
[2017-12-21] MEDS ORDERED: DULC5TAB PO (21:16)
[2017-12-21] MEDS ORDERED: PERC10TA27 PO (21:16)
[2017-12-21] MEDS ORDERED: AMBI5TAB PO (21:16)
[2017-12-21] MEDS ORDERED: FENT75DI T-DERMAL (21:16)
[2017-12-21] MEDS ORDERED: MIRA3350 PO (21:16)
[2017-12-21] MEDS ORDERED: IPRASOL INH (21:16)
[2017-12-21] MEDS ORDERED: AMLO10TA2 PO (21:16)
[2017-12-21] MEDS ORDERED: NYSTCRE29 TOPICAL (21:16)
[2017-12-21] MEDS ORDERED: METO25TA3 PO (21:16)
[2017-12-21] MEDS ORDERED: POTA10CA PO (21:16)
[2017-12-21] MEDS ORDERED: TRAM50TA PO (21:16)
[2017-12-21] MEDS ORDERED: DOCU100C15 PO (21:16)
[2017-12-21] MEDS ORDERED: GABA300C5 PO (21:16)
[2017-12-21] MEDS ORDERED: POLY17S PO (21:16)
[2017-12-21] MEDS ORDERED: FAMO20TA2 PO (21:16)
[2017-12-21] MEDS ORDERED: PRED10 PO (21:16)
[2017-12-21] MEDS ORDERED: ALBU0.63 NEB (21:16)
[2017-12-21] MEDS ORDERED: LISI-515 PO (21:16)
[2017-12-21 21:21] VITALS: O2SAT 96
[2017-12-21 21:22] LABS: AUTOMATED NEUTROPHIL # 6.6 TH/MM3 (1.8-7.7); BASOPHIL % 0.5 % (0.0-2.0); EOSINOPHIL % 0.2 % (0.0-4.0); HEMATOCRIT 25.2 % (35.0-46.0); HEMOGLOBIN 8.1 GM/DL (11.6-15.3); LYMPH % 7.8 % (9.0-44.0); LYMPHOCYTE # 0.6 TH/MM3 (1.0-4.8); MEAN CELL VOLUME 84.2 FL (80.0-100.0); MEAN CORPUSCULAR HEMOGLOBIN 27.1 PG (27.0-34.0); MEAN CORPUSCULAR HGB CONC 32.2 % (32.0-36.0); MEAN PLATELET VOLUME 7.7 FL (7.0-11.0); MONO % 6.4 % (0.0-8.0); MONOCYTE # 0.5 TH/MM3 (0-0.9); NEUT % 85.1 % (16.0-70.0); PLATELET COUNT 219 TH/MM3 (150-450); RED BLOOD COUNT 2.99 MIL/MM3 (4.00-5.30); RED CELL DISTRIBUTION WIDTH 19.6 % (11.6-17.2); WHITE BLOOD COUNT 7.8 TH/MM3 (4.0-11.0)
--- NOTE | 2017-12-21 21:38 | RADRPT ---
EXAM DATE/TIME: 12/21/2017 21:14 [facility] COMPARISON: CHEST SINGLE AP, October 27, 2017, 20:26. CT THORAX W CONTRAST, December 13, 2016, 19:03. INDICATIONS : Shortness of breath. MEDICAL HISTORY : Cardiovascular disease. Hypertension. Congestive heart failure. SURGICAL HISTORY : None. ENCOUNTER: Initial ACUITY: 1 day PAIN SCORE: Non-responsive. LOCATION: Bilateral chest FINDINGS: Emphysema and too numerous to count bilateral pulmonary nodules are present. Most of the nodules are between 5 and 15 mm in size. I believe the involvement is at least slightly worse in the interim. No definite acute infiltrates seen. No pleural effusion or pneumothorax. Heart size stable, within normal limits. Mediastinal silhouette also within normal limits. CONCLUSION: Pulmonary metastatic disease that is probably slightly worse. No definite acute infiltrate. Clayton Burr MD on December 21, 2017 at 21:34 Board Certified Radiologist. This report was verified electronically.
[2017-12-21 21:41] LABS: ALBUMIN 3.1 GM/DL (3.4-5.0); AST (GOT) 48 U/L (15-37); BICARBONATE 28.5 MEQ/L (21.0-32.0); BLOOD UREA NITROGEN 73 MG/DL (7-18); CHLORIDE 102 MEQ/L (98-107); GLOMERULAR FILTRATION RATE 20 ML/MIN (>89); GLUCOSE,RANDOM 102 MG/DL (74-106); SODIUM (NA) 139 MEQ/L (136-145)
[2017-12-21 21:43] LABS: ALT (GPT) 42 U/L (10-53)
[2017-12-21] MEDS ORDERED: PANTOPRAZOLE SODIUM 40 MG VIAL IVP ONE (21:45)
[2017-12-21 21:52] LABS: ALKALINE PHOSPHATASE 79 U/L (45-117); TOTAL BILIRUBIN ADULT 0.3 MG/DL (0.2-1.0); TOTAL PROTEIN 6.3 GM/DL (6.4-8.2)
[2017-12-21] MEDS ORDERED: SODIUM CHLOR 0.9% 1000 ML INJ 1,000 ML IV SCH (21:59)
[2017-12-21] MEDS ORDERED: FUROSEMIDE 20 MG/2 ML VIAL IV PUSH ONE (22:00)
[2017-12-21] MEDS ORDERED: INSULIN HUMAN REGULAR 1,000 UNITS/10 ML VIAL IV PUSH ONE (22:00)
[2017-12-21] MEDS ORDERED: CALCIUM GLUCONATE 10% 1 GM/10 ML VIAL SLOW IVP ONE (22:15)
[2017-12-21] MEDS ORDERED: DEXTROSE 50% IN WATER 50 ML SYRINGE ONE (22:24)
[2017-12-21] MEDS: RESP: ALBUTEROL 2.5 MG/IPRATROPIUM 0.5 MG NEB (SCH) INH ×2 (22:27→22:28)
[2017-12-21 22:30] VITALS: O2SAT 96
[2017-12-21] MEDS ORDERED: DEXTROSE 50% IN WATER 50 ML SYRINGE IV PUSH ONE (22:30)
[2017-12-21] MEDS ORDERED: SENNOSIDES 8.6 MG TAB PO PRN (23:00)
[2017-12-21] MEDS ORDERED: ONDANSETRON HCL 4 MG/2 ML VIAL IVP PRN (23:00)
[2017-12-21] MEDS ORDERED: SODIUM CHLORIDE 0.9% FLUSH 10 ML FLUSH IV FLUSH PRN (23:00)
[2017-12-21] MEDS ORDERED: LACTULOSE SYRUP 20 GM/30 ML CUP PO PRN (23:00)
[2017-12-21] MEDS ORDERED: MAGNESIUM HYDROXIDE SUSP 30 ML CUP PO PRN (23:00)
[2017-12-21] MEDS ORDERED: NALOXONE HCL 0.4 MG/ML AMP IV PUSH PRN (23:00)
[2017-12-21] MEDS ORDERED: BISACODYL 10 MG SUPP RECTAL PRN (23:00)
[2017-12-21] MEDS ORDERED: HALOPERIDOL LACTATE 5 MG/ML AMP IV PUSH ONE (23:45)
--- NOTE | 2017-12-21 23:45 | HHI.HP ---
[facility] Primary Care Physician Michael Aguilera MD Admission Diagnosis Acute kidney injury, GI bleed, hyperkalemia, bipolar disorder Diagnoses: Travel History International Travel<30 Days: No Contact w/Intl Traveler <30 Da: No Traveled to Known Affected Are: No History of Present Illness 57-year-old female with past medical history significant for hypertension, hyperlipidemia, COPD on home oxygen, bipolar disorder with anxiety and psychosis , GERD and history of colon cancer with metastatic disease is brought to the emergency department under Kidd act. The patient has been a resident of a assisted facility and has recently been refusing all medical care as well as refusing to take her medication or bathe. She reportedly has been sleeping outside on the ground. The patient cannot tell me why she is in the emergency department. She is unable to provide any significant history. She does not know why she has a colostomy. She states she believes she has bladder cancer. Her speech is pressured. She denies any pain anywhere. Review of Systems Unable to obtain secondary to patient's clinical condition Past Family Social History Past Medical History hypertension, hyperlipidemia, COPD on home oxygen, bipolar disorder with anxiety and psychosis, GERD and history of colon cancer with metastatic disease Past Surgical History [place] Teeth Removal Colectomy with ostomy Reported Medications Reported Meds & Active Scripts Active Furosemide 40 Mg Tab 40 Mg PO DAILY Symbicort Inh (Budesonide/Formoterol Fumarate) 160-4.5 Mcg/Act Aero 2 Puff INH Q12HR Reported Tramadol (Tramadol HCl) 50 Mg Tab 50 Mg PO Q8H PRN Dulcolax DR (Bisacodyl) 5 Mg Tabdr 5 Mg PO DAILY PRN Duoneb (Ipratropium-Albuterol Neb) 0.5-2.5 Mg/3 Ml Neb 1 Nebule INH Q6HR NEB Ambien (Zolpidem Tartrate) 5 Mg Tab 5 Mg PO HS PRN Potassium Chloride ER (Potassium Chloride) 10 Meq Cap 10 Meq PO BID Metoprolol Tartrate 25 Mg Tab 25 Mg PO BID Gabapentin 300 Mg Cap 300 Mg PO BID Docusate Sodium 100 Mg Cap 100 Mg PO BID Famotidine 20 Mg Tab 20 Mg PO BID Prednisone 10 Mg Tab 10 Mg PO BID Nystatin-Triamcinolone 100,000-0.1 Unit/Gm Cream 1 Applic TOPICAL BID PRN Amlodipine (Amlodipine Besylate) 10 Mg Tab 10 Mg PO DAILY Miralax Powder (Polyethylene Glycol 3350 Powder) 17 Gm Powd 17 Gm PO DAILY Mix and dissolve one measuring cap-ful (17 grams) in water or juice. Polyethylene Glycol 3350 Powder (Polyethylene Glycol) 17 Gram Pow 17 Gm PO DAILY Albuterol Neb (Albuterol Sulfate) 0.63 Mg/3 Ml Neb 0.63 Mg NEB Q2HR PRN Percocet (Oxycodone-Acetaminophen) 10-325 mg Tab 1 Tab PO Q4H PRN Fentanyl Patch 72 HR (Fentanyl) 75 Mcg/Hr Patch 75 Mcg T-DERMAL Q72H Remove old patch when new one placed. Lisinopril 20 Mg Tab 20 Mg PO DAILY Allergies: Coded Allergies: acetaminophen (Unverified Allergy, Mild, Nausea/Vomiting, 12/21/17) propoxyphene (Unverified Allergy, Mild, Nausea/Vomiting, 12/21/17) Family History Negative for CAD/rehab. Social History Positive for tobacco. Denies alcohol and illicit drugs. Physical Exam Vital Signs Vital Signs Date Time Temp Pulse Resp B/P (MAP) Pulse Ox O2 Delivery O2 Flow Rate FiO2 12/21/17 22:30 96 Nasal Cannula 4.00 12/21/17 21:21 96 Nasal Cannula 2.00 12/21/17 20:59 98.3 96 22 113/62 (79) 91 Room Air Physical Exam GENERAL: Disheveled, female lying in bed SKIN: No rashes, ecchymoses or lesions. Cool and dry. HEAD: Atraumatic. Normocephalic. No temporal or scalp tenderness. EYES: Pupils equal round and reactive. Extraocular motions intact. No scleral icterus. No injection or drainage. ENT: Nose without bleeding, purulent drainage or septal hematoma. Throat without erythema, tonsillar hypertrophy or exudate. Uvula midline. Airway patent. NECK: Trachea midline. No JVD or lymphadenopathy. Supple, nontender, no meningeal signs. CARDIOVASCULAR: Regular rate and rhythm without murmurs, gallops, or rubs. RESPIRATORY: Bilateral expiratory wheezes. GASTROINTESTINAL: Abdomen soft, non-tender, nondistended. No hepato-splenomegaly , or palpable masses. No guarding. MUSCULOSKELETAL: Extremities without clubbing, cyanosis, or edema. No joint tenderness, effusion, or edema noted. No calf tenderness. NEUROLOGICAL: Awake and alert. Cranial nerves II through XII intact. Motor and sensory grossly within normal limits. Pressured speech. Laboratory Laboratory Tests Test 12/21/17 21:05 White Blood Count 7.8 Red Blood Count 2.99 Hemoglobin 8.1 Hematocrit 25.2 Mean Corpuscular Volume 84.2 Mean Corpuscular Hemoglobin 27.1 Mean Corpuscular Hemoglobin Concent 32.2 Red Cell Distribution Width 19.6 Platelet Count 219 Mean Platelet Volume 7.7 Neutrophils (%) (Auto) 85.1 Lymphocytes (%) (Auto) 7.8 Monocytes (%) (Auto) 6.4 Eosinophils (%) (Auto) 0.2 Basophils (%) (Auto) 0.5 Neutrophils # (Auto) 6.6 Lymphocytes # (Auto) 0.6 Monocytes # (Auto) 0.5 Eosinophils # (Auto) 0.0 Basophils # (Auto) 0.0 CBC Comment DIFF FINAL Differential Comment Blood Urea Nitrogen 73 Creatinine 2.50 Random Glucose 102 Total Protein 6.3 Albumin 3.1 Calcium Level 9.0 Alkaline Phosphatase 79 Aspartate Amino Transf (AST/SGOT) 48 Alanine Aminotransferase (ALT/SGPT) 42 Total Bilirubin 0.3 Sodium Level 139 Potassium Level 5.9 Chloride Level 102 Carbon Dioxide Level 28.5 Anion Gap 9 Estimat Glomerular Filtration Rate 20 B-Type Natriuretic Peptide 195 Thyroid Stimulating Hormone 3rd Gen 8.330 Ethyl Alcohol Level LESS THAN 3 Result Diagram: 12/21/17210412/21/172104 Caprini VTE Risk Assessment Caprini VTE Risk Assessment: Mod/High Risk (score >= 2) Caprini Risk Assessment Model Point Value = 1 Point Value = 2 Point Value = 3 Point Value = 5 Age 41-60 Minor surgery BMI > 25 kg/m2 Swollen legs Varicose veins or History of unexplained or recurrent spontaneous Oral contraceptives or hormone replacement Sepsis (< 1 month) Serious lung disease, including pneumonia (< 1 month) Abnormal pulmonary function Acute myocardial infarction Congestive heart failure (< 1 month) History of inflammatory bowel disease Medical patient at bed rest Age 61-74 Arthroscopic surgery Major open surgery (> 45 min) Laparoscopic surgery (> 45 min) Malignancy Confined to bed (> 72 hours) Immobilizing plaster cast Central venous access Age >= 75 History of VTE Family history of VTE Factor V Leiden Prothrombin [id number] Lupus anticoagulant Anticardiolipin antibodies Elevated serum homocysteine Heparin-induced thrombocytopenia Other congenital or acquired thrombophilia Stroke (< 1 month) Elective arthroplasty Hip, pelvis, or leg fracture Acute spinal cord injury (< 1 month) Prophylaxis Regimen Total Risk Factor Score Risk Level Prophylaxis Regimen 0-1 Low Early ambulation 2 Moderate Order ONE of the following: *Sequential Compression Device (SCD) *Heparin 5000 units SQ BID 3-4 Higher Order ONE of the following medications: *Heparin 5000 units SQ TID *Enoxaparin/Lovenox 40 mg SQ daily (WT < 150 kg, CrCl > 30 mL/min) *Enoxaparin/Lovenox 30 mg SQ daily (WT < 150 kg, CrCl > 10-29 mL/min) *Enoxaparin/Lovenox 30 mg SQ BID (WT < 150 kg, CrCl > 30 mL/min) AND/OR *Sequential Compression Device (SCD) 5 or more Highest Order ONE of the following medications: *Heparin 5000 units SQ TID (Preferred with Epidurals) *Enoxaparin/Lovenox 40 mg SQ daily (WT < 150 kg, CrCl > 30 mL/min) *Enoxaparin/Lovenox 30 mg SQ daily (WT < 150 kg, CrCl > 10-29 mL/min) *Enoxaparin/Lovenox 30 mg SQ BID (WT < 150 kg, CrCl > 30 mL/min) AND *Sequential Compression Device (SCD) Assessment and Plan Assessment and Plan Assessment/plan: 1. GI bleed Patient with anemia with hemoglobin 8.1 (baseline 12) Stool Hemoccult positive Gastroenterology consulted, appreciate recommendations Follow CBC 2. BENJI Creatinine 2.50, baseline 1 Gentle IV fluid hydration given bilateral lower extremity edema Renal ultrasound pending Monitor renal function 3. Hyperkalemia Potassium 5.9 Status post calcium gluconate, insulin in the ED Kayexalate Monitor BMP 4. History of metastatic colon cancer Status post colonic resection and ostomy, per patient done at [facility] Records requested from [facility] 5. Bipolar disorder/Kidd act Haldol x 1 Patient's home meds unknown Record request from assisted Psychiatry consulted, appreciate assistance 6. COPD Duo nebs Symbicort Supplemental oxygen -patient on home O2 7. Hypertension Continue home metoprolol, amlodipine, lisinopril 8. Chronic pain Continue fentanyl patch, gabapentin 9. Bilateral lower extremity edema Per medical records this is chronic Holding on Lasix secondary to BENJI FEN NPO NS at 75 cc/hr Electrolytes: as above Holding anticoagulation for active GI bleed Physician Certification 2 Midnight Certification Type: Admission for Inpatient Services Order for Inpatient Services The services are ordered in accordance with Medicare regulations or non- Medicare payer requirements, as applicable. In the case of services not specified as inpatient-only, they are appropriately provided as inpatient services in accordance with the 2-midnight benchmark. Estimated LOS (days): 2 2 days is the estimated time the patient will need to remain in the hospital, assuming treatment plan goals are met and no additional complications. Post-Hospital Plan: Not yet determined Kandy Tabor MD Dec 21, 2017 23:45
[2017-12-21] MEDS: SODIUM CHLOR 0.9% 1000 ML INJ 1,000 ML IV SCH (23:46)
[2017-12-22] VITALS (11 sets, daily range): BP systolic 114–142; BP diastolic 57–88; PULSE 92–120; RESP 12–23; TEMP 97.3–98.1; O2SAT 90–100
[2017-12-22] MEDS ORDERED: SODIUM POLYSTYRENE SULFONATE SUSP 15 GM/60 ML CUP PO ONE
[2017-12-22] MEDS: fentaNYL 75 MCG/HR PATCH T-DERMAL SCH
[2017-12-22] MEDS: RESP: ALBUTEROL 2.5 MG/IPRATROPIUM 0.5 MG NEB (SCH) INH ×4 (03:20→21:08)
--- NOTE | 2017-12-22 05:24 | EKG ---
Date Performed: 12/21/2017 Time Performed: 22:17:15 PTAGE: 57 years EKG: Sinus rhythm LOW QRS VOLTAGE IN EXTREMITY LEADS BORDERLINE ECG PREVIOUS TRACING : 10/27/2017 20.28 Compared to previous tracing, QRS voltage has decreased dif fusely. DOCTOR: Ernesto Shaffer Interpretating Date/Time 12/22/2017 05:23:43
[2017-12-22 05:47] LABS: AUTOMATED NEUTROPHIL # 5.1 TH/MM3 (1.8-7.7); BASOPHIL % 0.3 % (0.0-2.0); EOSINOPHIL % 0.1 % (0.0-4.0); HEMATOCRIT 22.9 % (35.0-46.0); HEMOGLOBIN 7.5 GM/DL (11.6-15.3); LYMPH % 3.2 % (9.0-44.0); LYMPHOCYTE # 0.2 TH/MM3 (1.0-4.8); MEAN CELL VOLUME 86.5 FL (80.0-100.0); MEAN CORPUSCULAR HEMOGLOBIN 28.2 PG (27.0-34.0); MEAN CORPUSCULAR HGB CONC 32.6 % (32.0-36.0); MEAN PLATELET VOLUME 7.9 FL (7.0-11.0); MONOCYTE # 0.1 TH/MM3 (0-0.9); NEUT % 95.4 % (16.0-70.0); PLATELET COUNT 169 TH/MM3 (150-450); RED BLOOD COUNT 2.65 MIL/MM3 (4.00-5.30); RED CELL DISTRIBUTION WIDTH 19.8 % (11.6-17.2); WHITE BLOOD COUNT 5.3 TH/MM3 (4.0-11.0)
[2017-12-22 05:53] LABS: BICARBONATE 28.8 MEQ/L (21.0-32.0); CALCIUM 8.7 MG/DL (8.5-10.1); CREATININE 2.3 MG/DL (0.50-1.00)
[2017-12-22] MEDS: SODIUM CHLORIDE 0.9% FLUSH 10 ML FLUSH IV FLUSH SCH ×2 (08:09→20:17)
[2017-12-22] MEDS: BUDESONIDE-FORMOTEROL 160/4.5 MCG INHALER INH SCH ×2 (08:09→20:28)
[2017-12-22] MEDS: METOPROLOL TARTRATE 25 MG TAB PO SCH ×2 (08:11→20:16)
[2017-12-22] MEDS: GABAPENTIN 300 MG CAP PO SCH ×2 (08:11→20:16)
[2017-12-22] MEDS: PANTOPRAZOLE SODIUM 40 MG VIAL IV PUSH SCH ×2 (08:11→20:16)
[2017-12-22] MEDS: LISINOPRIL 20 MG TAB PO SCH (08:11)
--- NOTE | 2017-12-22 10:53 | PD.PSY.CON ---
Provisional Diagnosis Admission Date Dec 21, 2017 at 22:41 [place] I. Bipolar disorder type I [place] II. Deferred History of Present Illness Service Psychiatry Consult Requested By Medicine Reason for Consult Manic behavior Primary Care Physician Michael Aguilera MD HPI The patient is a 57-year-old woman, domiciled in residential facility [facility], single, supported by , with reported psychiatric of bipolar disorder, she denies previous hospitalizations, denies SAs, she history of Bipolar, has been on Risperdal 1 mg bid prescribed by visiting psychiatrist, she as not compliant with the medication, according with Staff information in [facility], with past medical history significant for hypertension, hyperlipidemia, COPD on home oxygen, bipolar disorder with anxiety and psychosis, GERD and history of colon cancer with metastatic disease is brought to the emergency department under Kidd act due to poor self-care and bizarre behavior, kidd was initiated by visiting psychiatrist, Dr. Mason in [facility] . The patient has been a resident of a [facility] facility and has recently been refusing all medical care as well as refusing to take her medication or bathe. She reportedly has been sleeping outside on the ground. The patient cannot tell me why she is in the emergency department. She is unable to provide any significant history. She does not know why she has a colostomy. She states she believes she has bladder cancer. Her speech is pressured. She denies any pain anywhere. Hospitalized due to GI bleed. Patient with anemia with hemoglobin 8.1 (baseline 12). BENJI. Creatinine 2.50, baseline 1. Hyperkalemia. Potassium 5.9. Consulted to psychiatry due to bizarre and potentially manic behavior. EMR was reviewed. Collateral information from [facility] was obtained. The patient was seen for psychiatric evaluation, she was calm, superficially cooperative. She says that today she feels much better, "just tired". She says that she had a good sleep last night, reports good mood, denies hopelessness, denies helplessness, denies worthlessness, she denies suicidal and homicidal ideation, she denies visual and auditory hallucinations. The patient is oriented 3, she seems to be logical, coherent and relevant at this moment. I do not perceive any pressure speech, manic behavior at this moment. She does denies any previous psychiatric history, denies taking any psychiatric medications, denies suicidal attempts. I could not get collateral information from her family. In [place] the nurse in charge reports that the patient does have history of bipolar disorder, which he does not have details about her past psychiatric history number of hospitalizations or suicide attempts, she does report that the patient is seen every month by visiting psychiatrist and she has been in Risperdal 1 mg 3 times daily, which he has been noncompliant with his medication. She says that the patient has been kind of disorganized and incoherent in the last days. Review of Systems Constitutional: DENIES: Diaphoretic episodes, Fatigue, Fever, Weight gain, Weight loss, Chills, Dizziness, Change in appetite, Night Sweats Endocrine: DENIES: Abnorml menstrual pattern, Heat/cold intolerance, Polydipsia , Polyuria, Polyphagia Eyes: DENIES: Blurred vision, Diplopia, Eye inflammation, Eye pain, Vision loss , Photosensitivity, Double Vision Respiratory: DENIES: Apneas, Cough, Snoring, Wheezing, Hemoptysis, Sputum production, Shortness of breath Cardiovascular: DENIES: Chest pain, Palpitations, Syncope, Dyspnea on Exertion , PND, Lower Extremity Edema, Orthopnea, Claudication Gastrointestinal: DENIES: Abdominal pain, Black stools, Bloody stools, Constipation, Diarrhea, Nausea, Vomiting, Difficulty Swallowing, Anorexia Genitourinary: DENIES: Abnormal vaginal bleeding, Dysmenorrhea, Dyspareunia, Sexual dysfunction, Urinary frequency, Urinary incontinence, Urgency, Hematuria , Dysuria, Nocturia, Vaginal discharge Musculoskeletal: DENIES: Joint pain, Muscle aches, Stiffness, Joint Swelling, Back pain, Neck pain Integumentary: DENIES: Abnormal pigmentation, Pruritus, Rash, Nail changes, Breast masses, Breast skin changes, Nipple discharge Hematologic/lymphatic: DENIES: Bruising, Lymphadenopathy Immunologic/allergic: DENIES: Eczema, Urticaria Neurologic: DENIES: Abnormal gait, Headache, Localized weakness, Paresthesias, Seizures, Speech Problems, Tremor, Poor Balance Psychiatric: DENIES: Anxiety, Confusion, Mood changes, Depression, Hallucinations, Agitation, Suicidal Ideation, Homicidal Ideation, Delusions Past Family Social History Coded Allergies: acetaminophen (Unverified Allergy, Mild, Nausea/Vomiting, 12/21/17) propoxyphene (Unverified Allergy, Mild, Nausea/Vomiting, 12/21/17) Active Scripts Furosemide (Furosemide) 40 Mg Tab, 40 MG PO DAILY, #30 TAB Prov:Aiyana Olvera MD 12/24/16 Budesonide-Formoterol Inh (Symbicort Inh) 160-4.5 Mcg/Act Aero, 2 PUFF INH Q12HR , #1 INHALER Prov:Aiyana Olvera MD 12/24/16 Reported Medications Tramadol (Tramadol) 50 Mg Tab, 50 MG PO Q8H Y for PAIN, TAB 0 Refills 12/21/[address] (Dulcolax DR) 5 Mg Tabdr, 5 MG PO DAILY Y for CONSTIPATION, #30 TAB 0 Refills 12/21/17 Ipratropium-Albuterol Neb (Duoneb) 0.5-2.5 Mg/3 Ml Neb, 1 NEBULE INH Q6HR NEB for Breathing Treatment, #120 NEBULE 0 Refills 12/21/17 Zolpidem (Ambien) 5 Mg Tab, 5 MG PO HS Y for INSOMNIA, TAB 0 Refills 12/21/17 Potassium Chloride ER (Potassium Chloride ER) 10 Meq Cap, 10 MEQ PO BID for Electrolyte Replacement, #60 CAP 0 Refills 12/21/17 Metoprolol Tartrate (Metoprolol Tartrate) 25 Mg Tab, 25 MG PO BID, #60 TAB 0 Refills 12/21/17 Gabapentin (Gabapentin) 300 Mg Cap, 300 MG PO BID, #60 CAP 0 Refills 12/21/17 Docusate Sodium (Docusate Sodium) 100 Mg Cap, 100 MG PO BID for Prevent Constipation, #60 CAP 0 Refills 12/21/17 Famotidine (Famotidine) 20 Mg Tab, 20 MG PO BID, #60 TAB 0 Refills 12/21/17 Prednisone (Prednisone) 10 Mg Tab, 10 MG PO BID, TAB 0 Refills 12/21/17 Nystatin-Triamcinolone (Nystatin-Triamcinolone) 100,000-0.1 Unit/Gm Cream, 1 APPLIC TOPICAL BID Y for HS, #15 GM 0 Refills 12/21/17 Amlodipine (Amlodipine) 10 Mg Tab, 10 MG PO DAILY for Blood Pressure Management , #30 TAB 0 Refills 12/21/17 Polyethylene Glycol 3350 Powder (Miralax Powder) 17 Gm Powd, 17 GM PO DAILY for Constipation, #1 CAN 0 Refills Mix and dissolve one measuring cap-ful (17 grams) in water or juice. 12/21/17 Polyethylene Glycol 3350 Powder (Polyethylene Glycol 3350 Powder) 17 Gram Pow, 17 GM PO DAILY for Constipation, #1 BOTTLE 0 Refills 12/21/17 Albuterol Neb (Albuterol Neb) 0.63 Mg/3 Ml Neb, 0.63 MG NEB Q2HR Y for SHORTNESS OF BREATH, #25 NEBULE 0 Refills 12/21/17 Oxycodone-Acetaminophen (Percocet) 10-325 mg Tab, 1 TAB PO Q4H Y for PAIN, TAB 0 Refills 12/21/17 Fentanyl Patch 72 HR (Fentanyl Patch 72 HR) 75 Mcg/Hr Patch, 75 MCG T-DERMAL Q72H for Pain Management, #10 PATCH 0 Refills Remove old patch when new one placed. 12/21/17 Lisinopril (Lisinopril) 20 Mg Tab, 20 MG PO DAILY, #30 TAB 0 Refills 12/21/17 Discontinued Reported Medications Lisinopril (Lisinopril) 10 Mg Tab, 10 MG PO DAILY, #30 TAB 0 Refills 10/27/17 Discontinued Scripts Doxycycline Hyclate (Doxycycline Hyclate) 100 Mg Cap, 100 MG PO BID for Infection, #20 CAP 0 Refills Prov:Rickie Means MD 10/27/17 Hydrocodone-Acetaminophen (Hydrocodone-Acetaminophen) 5-325 mg Tab, 1 TAB PO Q4H Y for PAIN GREATER THAN 5, #20 TAB Prov:Aiyana Olvera MD 12/24/16 Current Medications Medications (Trade) Dose Ordered Sig/Valorie Route Start Time Stop Time Status Last Admin Sodium Chloride 1,000 ml @ 75 mls/hr [id number] IV 12/21/17 22:46 12/21/17 23:46 (NS Flush) 2 ml UNSCH PRN IV FLUSH 12/21/17 23:00 (NS Flush) 2 ml BID IV FLUSH 12/22/17 09:00 (Zofran Inj) 4 mg Q6H PRN IVP 12/21/17 23:00 (Narcan Inj) 0.4 mg UNSCH PRN IV PUSH 12/21/17 23:00 (Milk Of Magnesia Liq) 30 ml Q12H PRN PO 4/23/18 23:00 (Senokot) 17.2 mg Q12H PRN PO 12/21/17 23:00 (Dulcolax Supp) 10 mg DAILY PRN RECTAL 12/21/17 23:00 (Lactulose Liq) 30 ml DAILY PRN PO 12/21/17 23:00 (Protonix Inj) 40 mg Q12H IV PUSH 12/22/17 09:00 12/22/17 08:11 (Norvasc) 10 mg DAILY PO 12/22/17 09:00 12/22/17 08:11 (Symbicort 160-4.5 Mcg Inh) 2 puff Q12HR INH 12/22/17 09:00 12/22/17 08:09 (Duragesic 75 Mcg Patch.72 Hr) 1 patch Q72H T-DERMAL 12/22/17 00:00 (Neurontin) 300 mg BID PO 12/22/17 09:00 12/22/17 08:11 (Duoneb Neb) 1 ampule Q6HR NEB INH 12/22/17 04:00 12/22/17 09:52 (Prinivil) 20 mg DAILY PO 12/22/17 09:00 12/22/17 08:11 (Lopressor) 25 mg BID PO 12/22/17 09:00 12/22/17 08:11 Miscellaneous Information 1 Q3D T-DERMAL 12/25/17 00:00 Family Psych History No family psychiatric history Social History Patient was born and raised in [facility], she lives in [facility], she is single, supported by Social Security Physical Exam No tremors, no EPS, no psychomotor retardation or agitation Vital Signs Vital Signs Date Time Temp Pulse Resp B/P (MAP) Pulse Ox O2 Delivery O2 Flow Rate FiO2 12/22/17 09:52 Nasal Cannula 4.00 12/22/17 08:00 104 12/22/17 07:45 98.1 20 142/67 (92) 95 Lab Results Test 12/21/17 21:05 12/22/17 03:49 White Blood Count 7.8 TH/MM3 5.3 TH/MM3 Red Blood Count 2.99 MIL/MM3 2.65 MIL/MM3 Hemoglobin 8.1 GM/DL 7.5 GM/DL Hematocrit 25.2 % 22.9 % Mean Corpuscular Volume 84.2 FL 86.5 FL Mean Corpuscular Hemoglobin 27.1 PG 28.2 PG Mean Corpuscular Hemoglobin Concent 32.2 % 32.6 % Red Cell Distribution Width 19.6 % 19.8 % Platelet Count 219 TH/MM3 169 TH/MM3 Mean Platelet Volume 7.7 FL 7.9 FL Neutrophils (%) (Auto) 85.1 % 95.4 % Lymphocytes (%) (Auto) 7.8 % 3.2 % Monocytes (%) (Auto) 6.4 % 1.0 % Eosinophils (%) (Auto) 0.2 % 0.1 % Basophils (%) (Auto) 0.5 % 0.3 % Neutrophils # (Auto) 6.6 TH/MM3 5.1 TH/MM3 Lymphocytes # (Auto) 0.6 TH/MM3 0.2 TH/MM3 Monocytes # (Auto) 0.5 TH/MM3 0.1 TH/MM3 Eosinophils # (Auto) 0.0 TH/MM3 0.0 TH/MM3 Basophils # (Auto) 0.0 TH/MM3 0.0 TH/MM3 CBC Comment DIFF FINAL DIFF FINAL Differential Comment Blood Urea Nitrogen 73 MG/DL 70 MG/DL Creatinine 2.50 MG/DL 2.30 MG/DL Random Glucose 102 MG/DL 108 MG/DL Total Protein 6.3 GM/DL Albumin 3.1 GM/DL Calcium Level 9.0 MG/DL 8.7 MG/DL Alkaline Phosphatase 79 U/L Aspartate Amino Transf (AST/SGOT) 48 U/L Alanine Aminotransferase (ALT/SGPT) 42 U/L Total Bilirubin 0.3 MG/DL Sodium Level 139 MEQ/L 140 MEQ/L Potassium Level 5.9 MEQ/L 5.7 MEQ/L Chloride Level 102 MEQ/L 104 MEQ/L Carbon Dioxide Level 28.5 MEQ/L 28.8 MEQ/L Anion Gap 9 MEQ/L 7 MEQ/L Estimat Glomerular Filtration Rate 20 ML/MIN 22 ML/MIN B-Type Natriuretic Peptide 195 PG/ML Thyroid Stimulating Hormone 3rd Gen 8.330 uIU/ML Ethyl Alcohol Level LESS THAN 3 MG/DL Mental Status Examination Appearance: Appropriate Consciousness: Alert Orientation: x4 Motor Activity: Normal gait Speech: Unremarkable Language: Adequate Fund of Knowledge: Adequate Attention and Concentration: Adequate Memory: Unremarkable Mood: Oppositional Affect: Flat Thought Process & Associations: Intact Thought Content: Appropriate Hallucination Type: None Delusion Type: None Suicidal Ideation: No Suicidal Plan: No Suicidal Intention: No Homicidal Ideation: No Homicidal Plan: No Homicidal Intention: No Insight: Adequate Judgment: Adequate Assessment & Plan Problem List: (1) Chronic bipolar disorder ICD Codes: F31.9 - Bipolar disorder, unspecified (2) Bipolar disorder ICD Codes: F31.9 - Bipolar disorder, unspecified Status: Acute Assessment & Plan: Psychiatric evaluation today the patient does not present any symptomatology of ritika or psychosis. She denies depressive symptoms, she reports good mood, denies anhedonia, denies hopelessness, denies helplessness, denies worthlessness, she denies suicidal and was ideation, she denies visual and auditory hallucinations, but patient could be minimizing symptomatology. Patient has been reported to be disorganized, manic-like, refusing her medications, refusing care, agitated at times by staff in her residential facility. No collateral information from family members was obtained at this moment. I will start her Risperdal 1 mg 3 times daily. Encouraged the patient to take her medications. Patient will continue under Kidd act. I will follow- up Assessment & Plan Estimated LOS: Papi Roblero MD Dec 22, 2017 10:53
[2017-12-22] MEDS: SODIUM CHLOR 0.9% 1000 ML INJ 1,000 ML IV SCH (11:11)
--- NOTE | 2017-12-22 12:34 | RADRPT ---
EXAM DATE/TIME: 12/22/2017 11:46 [place] COMPARISON: CT ABDOMEN & PELVIS W CONTRAST, December 10, 2016, 20:23. CT THORAX W CONTRAST, December 13, 2016, 19:03. INDICATIONS : Elevated labs. MEDICAL HISTORY : Hypertension. Chronic obstructive pulmonary disease. Gastroesophageal reflux disease. Head trauma. As thma. Kidney stones. Emphysema. PTSD. Anemia. UTI. SURGICAL HISTORY : Left colonoscopy. ENCOUNTER: Subsequent ACUITY: 1 day PAIN SCORE: 4/10 LOCATION: Bilateral flank MEASUREMENTS: RIGHT KIDNEY: 10.3 x 5.6 x 4.9 cm LEFT KIDNEY: 11.7 x 4.8 x 5.5 cm FINDINGS: RIGHT KIDNEY: Renal cortex is normal in thickness and echotexture. No hydronephrosis, stone, or mass. Simple cys t right mid kidney measures 19 x 17 x 18 mm. LEFT KIDNEY: Renal cortex is normal in thickness and echotexture. There is left-sided hydronephrosis without stone , or mass. BLADDER: Within normal limits given the degree of distension. CONCLUSION: 1. Left-sided hydronephrosis. 2. Urinary bladder mildly distended. 3. Right renal cyst. Austin Lynne MD on December 22, 2017 at 12:30 Board Certified Radiologist. This report was verified electronically.
--- NOTE | 2017-12-22 12:55 | PD.CONS ---
HPI History of Present Illness This is a 57 year old female who came into the hospital on 12/21/2017 under the Kidd act according to the record. Patient has been in a residential facility and states that she had hard pellet type stool coming out of her colostomy bag approximately 1 week ago and also states that the stool was dark and sticky. Patient also notes some dizziness and weakness but unknown timing or aggregating factors. Patient is a poor historian, female friend is in the room and assisting with some of her history. Patient does note history of diverticulitis, patient does have colostomy bag for approximately a year and a half. Patient also notes some heartburn off and known but no nausea and vomiting. Patient denies any family history of colon cancer. According to the record patient had colon cancer with metastatic disease, bipolar disorder and before entering the residential setting was sleeping outside on the ground. Her speech is under expandable for now but she rambles and answers yes to almost every question. Patient does not remember ever having EGD, states one colonoscopy in the past, does not remember her physician's name. Colostomy stool currently examined which is noted to be soft thin consistency brown without any noticeable blood or melena. Patient does note some pressure sensation in the lower abdomen into the vaginal area, worse with light palpation. Unknown onset of symptoms and timing or any aggregating factors. (Temitope Landrum) PFSH Past Medical History hypertension, hyperlipidemia COPD on home oxygen, bipolar disorder with anxiety and psychosis GERD history of colon cancer with metastatic disease Past Surgical History [place] Teeth Removal Colectomy with ostomy (Temitope Landrum) Coded Allergies: acetaminophen (Unverified Allergy, Mild, Nausea/Vomiting, 12/21/17) propoxyphene (Unverified Allergy, Mild, Nausea/Vomiting, 12/21/17) Medications Administered Medications Medications (Trade) Dose Ordered Sig/Valorie Route PRN Reason Start Time Stop Time Status Last Admin Dose Admin Sodium Chloride 1,000 ml @ 75 mls/hr [id number] IV 12/21/17 22:46 12/22/17 11:11 Pantoprazole Sodium (Protonix Inj) 40 mg Q12H IV PUSH 12/22/17 09:00 12/22/17 08:11 Amlodipine Besylate (Norvasc) 10 mg DAILY PO 12/22/17 09:00 12/22/17 08:11 Budesonide/ Formoterol Fumarate (Symbicort 160-4.5 Mcg Inh) 2 puff Q12HR INH 12/22/17 09:00 12/22/17 08:09 Gabapentin (Neurontin) 300 mg BID PO 12/22/17 09:00 12/22/17 08:11 Albuterol/ Ipratropium (Duoneb Neb) 1 ampule Q6HR NEB INH 12/22/17 04:00 12/22/17 09:52 Lisinopril (Prinivil) 20 mg DAILY PO 12/22/17 09:00 12/22/17 08:11 Metoprolol Tartrate (Lopressor) 25 mg BID PO 12/22/17 09:00 12/22/17 08:11 Family History Negative for CAD/rehab. Negative for family colon cancer Social History Positive for tobacco. Denies alcohol and illicit drugs. (Temitope Landrum) Review of Systems Constitutional: COMPLAINS OF: Fatigue Gastrointestinal: COMPLAINS OF: Black stools (Possibly 1 week ago), Constipation (1 week ago) (Temitope Landrum) GI Exam Vitals I&O Vital Signs Date Time Temp Pulse Resp B/P (MAP) Pulse Ox O2 Delivery O2 Flow Rate FiO2 12/22/17 12:13 97.7 92 20 131/87 (102) 96 12/22/17 09:52 Nasal Cannula 4.00 12/22/17 08:00 104 12/22/17 07:45 98.1 120 20 142/67 (92) 95 12/22/17 04:52 94 12/22/17 04:00 96 16 130/76 (94) 96 12/22/17 01:02 12/22/17 00:11 92 12 134/67 (89) 100 Room Air 12/22/17 00:00 97.3 93 16 127/70 (89) 96 12/21/17 22:30 96 Nasal Cannula 4.00 12/21/17 21:21 96 Nasal Cannula 2.00 12/21/17 20:59 98.3 96 22 113/62 (79) 91 Room Air Imaging Last Impressions Chest X-Ray 12/21/17 2100 Signed Impressions: Service Date/Time: Thursday, December 21, 2017 21:14 - CONCLUSION: Pulmonary metastatic disease that is probably slightly worse. No definite acute infiltrate. Clayton Burr MD Laboratory Test 12/21/17 21:05 12/22/17 03:49 White Blood Count 7.8 TH/MM3 5.3 TH/MM3 Red Blood Count 2.99 MIL/MM3 2.65 MIL/MM3 Hemoglobin 8.1 GM/DL 7.5 GM/DL Hematocrit 25.2 % 22.9 % Mean Corpuscular Volume 84.2 FL 86.5 FL Mean Corpuscular Hemoglobin 27.1 PG 28.2 PG Mean Corpuscular Hemoglobin Concent 32.2 % 32.6 % Red Cell Distribution Width 19.6 % 19.8 % Platelet Count 219 TH/MM3 169 TH/MM3 Mean Platelet Volume 7.7 FL 7.9 FL Neutrophils (%) (Auto) 85.1 % 95.4 % Lymphocytes (%) (Auto) 7.8 % 3.2 % Monocytes (%) (Auto) 6.4 % 1.0 % Eosinophils (%) (Auto) 0.2 % 0.1 % Basophils (%) (Auto) 0.5 % 0.3 % Neutrophils # (Auto) 6.6 TH/MM3 5.1 TH/MM3 Lymphocytes # (Auto) 0.6 TH/MM3 0.2 TH/MM3 Monocytes # (Auto) 0.5 TH/MM3 0.1 TH/MM3 Eosinophils # (Auto) 0.0 TH/MM3 0.0 TH/MM3 Basophils # (Auto) 0.0 TH/MM3 0.0 TH/MM3 CBC Comment DIFF FINAL DIFF FINAL Differential Comment Blood Urea Nitrogen 73 MG/DL 70 MG/DL Creatinine 2.50 MG/DL 2.30 MG/DL Random Glucose 102 MG/DL 108 MG/DL Total Protein 6.3 GM/DL Albumin 3.1 GM/DL Calcium Level 9.0 MG/DL 8.7 MG/DL Alkaline Phosphatase 79 U/L Aspartate Amino Transf (AST/SGOT) 48 U/L Alanine Aminotransferase (ALT/SGPT) 42 U/L Total Bilirubin 0.3 MG/DL Sodium Level 139 MEQ/L 140 MEQ/L Potassium Level 5.9 MEQ/L 5.7 MEQ/L Chloride Level 102 MEQ/L 104 MEQ/L Carbon Dioxide Level 28.5 MEQ/L 28.8 MEQ/L Anion Gap 9 MEQ/L 7 MEQ/L Estimat Glomerular Filtration Rate 20 ML/MIN 22 ML/MIN B-Type Natriuretic Peptide 195 PG/ML Thyroid Stimulating Hormone 3rd Gen 8.330 uIU/ML Ethyl Alcohol Level LESS THAN 3 MG/DL Physical Examination HEENT: normocephalic; atraumatic; no jaundice. Throat is clear. NECK: Neck is supple CHEST: Diminished breath sounds but no audible rhonchi CARDIAC: Regular rate/rhythm ABDOMEN: Round, soft, mild distention, some mild generalized lower abdomen vaginal discomfort, describes as a pressure sensation. bowel sounds are present in all four quadrants. EXTREMITIES: 2+ lower extremity anasarca with edema SKIN: Turgor manuelito; no rash; no jaundice. 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 Answers yes to almost every question. Appears to have pleasant confusion (Temitope Landrum) Assessment and Plan Assessment: (1) Abdominal pain ICD Codes: R10.9 - Unspecified abdominal pain Status: Acute (2) GI bleed ICD Codes: K92.2 - Gastrointestinal hemorrhage, unspecified Status: Acute Plan Anemia possible GI bleed, could be related to metastatic disease, symptoms include lower abdominal pressure into the vaginal area. Current hemoglobin 7.5 , was 8.1 on admission. Colostomy bag shows brown loose stool without any obvious melena or bleeding. Patient has some nausea possible vomiting, but does say yes to those symptoms LFTs noted AST 48 ALT 42. According to the record patient had colon cancer with metastatic disease. She notes some constipation and dark stool approximately a week ago which has now subsided. No previous endoscopy but has had one colonoscopy in the past. We discussed the possibility of doing EGD colonoscopy or both but she is not wanting to commit to either at this time. Plan Hydration PPI IV Monitor for any melena stools, and Hemoccult Transfuse as necessary Anti-emetics Lactulose if needed for bowel regimen Consider EGD/and or colonoscopy if patient agrees. Monitor labs Supportive care Patient was seen per myself and Dr. Castañeda, this note was written on his behalf (Temitope Landrum) Physician Comments Patient seen and examined Agree with above Continue with current supportive care Monitor lab I will get a CT of the abdomen (Dany Castañeda MD) Temitope Landrum Dec 22, 2017 12:55 Dany Castañeda MD Dec 22, 2017 19:25
[2017-12-22 13:12] LABS: BACTERIA, URINE MOD /hpf; BILIRUBIN, URINE NEG (NEG); BLOOD, URINE SMALL (NEG); GLUCOSE,URINE NEG (NEG); KETONE, URINE NEG (NEG); MUCUS URINE FEW /lpf (OCC); NITRITE,URINE NEG (NEG); PH, URINE 5.5 (5.0-8.5); SQUAMOUS EPITHELIAL CELL URINE 1 /hpf (0-5); URINE COLOR LIGHT-YELLOW (YELLW/STRAW); URINE LEUKOCYTE ESTERASE LARGE (NEG); WHITE BLOOD CELL CLUMPS FEW
--- NOTE | 2017-12-22 13:18 | HHI.PR ---
Subjective Remarks Patient sitting on the chair open eyes she does not really talk, only harming with unclear words Very poor historian, she is moaning She does have +3 lower extremity edema more on the left leg with a little bit of warmth and tenderness need to rule out DVT versus cellulitis Appreciate GI recommendation Objective Vitals Vital Signs Date Time Temp Pulse Resp B/P (MAP) Pulse Ox O2 Delivery O2 Flow Rate FiO2 12/22/17 12:13 97.7 92 20 131/87 (102) 96 12/22/17 09:52 Nasal Cannula 4.00 12/22/17 08:00 104 12/22/17 07:45 98.1 120 20 142/67 (92) 95 12/22/17 04:52 94 12/22/17 04:00 96 16 130/76 (94) 96 12/22/17 01:02 12/22/17 00:11 92 12 134/67 (89) 100 Room Air 12/22/17 00:00 97.3 93 16 127/70 (89) 96 12/21/17 22:30 96 Nasal Cannula 4.00 12/21/17 21:21 96 Nasal Cannula 2.00 12/21/17 20:59 98.3 96 22 113/62 (79) 91 Room Air Result Diagram: 12/22/17 0349 12/22/17 0349 Objective Remarks GENERAL: This is frail disheveled 57 years old female does not seem to be in acute distress, not talkative CARDIOVASCULAR: RRR, no gallops, or rubs. RESPIRATORY: Fair air entry bilaterally. No W, R, or R GASTROINTESTINAL: Abdomen soft, non-tender, nondistended. Positive bowel sounds MUSCULOSKELETAL: Extremities without clubbing, cyanosis, +3 edema bilateral lower extremity more on the left leg with warmth and tenderness, pedal pulses appreciated NEUROLOGICAL: Awake and alert. Moves all extremity. He only humming and moaning A/P Assessment and Plan 12/22: Very poor historian, she is moaning She does have +3 lower extremity edema more on the left leg with a little bit of warmth and tenderness need to rule out DVT versus cellulitis Appreciate GI recommendation Appreciate psychiatry recommendation, started Risperdal, continue Kidd act he is following Left lower extremity redness swelling and tenderness rule out DVT>> ordered Doppler ultrasound A/P: 1. GI bleed Patient with anemia with hemoglobin 8.1 (baseline 12) Stool Hemoccult positive Gastroenterology consulted, appreciate recommendations Follow CBC 2. BENJI Creatinine 2.50, baseline 1 Gentle IV fluid hydration given bilateral lower extremity edema Renal ultrasound pending Monitor renal function 3. Hyperkalemia, persistent Repeated potassium 5.7 Repeat dextrose and insulin dose We will avoid Kayexalate due to BENJI Monitor BMP 4. History of metastatic colon cancer Status post colonic resection and ostomy, per patient done at [facility] Records requested from [facility] 5. Bipolar disorder/Kidd act Haldol x 1 Patient's home meds unknown Record request from longterm Psychiatry consulted, appreciate assistance 6. COPD Duo nebs Symbicort Supplemental oxygen -patient on home O2 7. Hypertension Continue home metoprolol, amlodipine, lisinopril 8. Chronic pain Continue fentanyl patch, gabapentin 9. Bilateral lower extremity edema Per medical records this is chronic Holding on Lasix secondary to BENJI Lico Greer MD Dec 22, 2017 13:18
[2017-12-22] MEDS ORDERED: RESP: ALBUTEROL CONC 2.5 MG/0.5 ML NEB INH STA (13:20)
[2017-12-22] MEDS ORDERED: DEXTROSE 50% IN WATER 50 ML VIAL(D50) IV PUSH STA (13:20)
[2017-12-22] MEDS ORDERED: INSULIN HUMAN REGULAR 1,000 UNITS/10 ML VIAL IV PUSH STA (13:20)
[2017-12-22] MEDS ORDERED: DIATRIZOATE MEGLUM/DIATRIZOATE SOD 9 ML CUP PO ONE (19:35)
[2017-12-22] MEDS: risperiDONE 1 MG TAB PO SCH (20:16)
--- NOTE | 2017-12-22 20:57 | RADRPT ---
EXAM DATE/TIME: 12/22/2017 17:42 [facility] COMPARISON: No previous studies available for comparison. INDICATIONS : Left leg redness and swelling. MEDICAL HISTORY : Hypertension. Emphysema. Renal calculi. COPD. GERD. Head trauma. Asthma. Anemia. UTI. PTSD. SURGICAL HISTORY : Colonoscopy. ENCOUNTER: Subsequent ACUITY: 1 day PAIN SCORE: 0/10 LOCATION: Left leg. TECHNIQUE: Venous ultrasound of the leg was performed from the inguinal ligament to the proximal calf. Real-haydee e, color Doppler and spectral tracing, compression and augmentation techniques were used. FINDINGS: Short segment nonocclusive thrombus seen in the left popliteal vein. The other venous tributaries of the left lower extremity are patent. Subcutaneous tissues are edematous. No fluid collection seen. CONCLUSION: Small, nonocclusive thrombus in the left popliteal vein. Otherwise negative. Clayton Burr MD on December 22, 2017 at 20:53 Board Certified Radiologist. This report was verified electronically.
[2017-12-22] MEDS ORDERED: MORPHINE SULFATE 2 MG/ML SYRINGE IV PUSH ONE (22:45)
[2017-12-23] VITALS (7 sets, daily range): BP systolic 105–138; BP diastolic 55–67; PULSE 84–94; RESP 16–20; TEMP 97.9–98; O2SAT 91–95
[2017-12-23] MEDS: SODIUM CHLOR 0.9% 1000 ML INJ 1,000 ML IV SCH (01:26)
--- NOTE | 2017-12-23 02:05 | RADRPT ---
EXAM DATE/TIME: 12/23/2017 01:02 [facility] COMPARISON: No previous studies available for comparison. INDICATIONS : Lower abdominal pain. ORAL CONTRAST: Prescribed oral contrast ingested. RADIATION DOSE: 15.60 CTDIvol (mGy) MEDICAL HISTORY : Carcinoma, colon. Hypertension. Renal calculi.COPD. SURGICAL HISTORY : Colon resection. Colostomy.Tubal ligation. ENCOUNTER: Initial ACUITY: 2 days PAIN SCALE: 6/10 LOCATION: Bilateral lower quadrant TECHNIQUE: Volumetric scanning of the abdomen and pelvis was performed. Using automated exposure control and ad justment of the mA and/or kV according to patient size, radiation dose was kept as low as reasonably achievable to obtain optimal diagnostic quality images. DICOM format image data is available electro nically for review and comparison. FINDINGS: Metastatic disease to the lung bases has increased since November 2016 with largest nodule measuring abo ut 1.4 cm at the right lung base. There is interval development of moderate to severe anasarca. Ill-defined mass in the anterior right lobe of the liver measuring about 2.5 cm is present, possibly metastatic disease. No calcified gallst ones. Spleen unremarkable. There is interval development of moderate to severe left-sided hydronephrosis and moderate right hydr onephrosis with numerous bilateral renal calcifications measuring 1-2 mm in diameter. Ureters are dil ated down to the level of the pelvis. Exact point of obstruction unclear. No bladder calculi. There is a left lower quadrant ostomy with parastomal hernia containing a loop of large bowel. CONCLUSION: 1. Worsening metastatic disease to the lung bases. 2. Development of severe anasarca compared with November 2016. 3. Moderate severe hydronephrosis bilaterally. Small bilateral nonobstructing calcifications appear t o be mostly vascular. 4. Left lower quadrant colostomy with parastomal hernia. 5. 2.5 cm ill-defined mass anterior right lobe liver also suspicious for metastatic disease. Kevyn Augustine MD on December 23, 2017 at 1:57 Board Certified Radiologist. This report was verified electronically.
[2017-12-23] MEDS: RESP: ALBUTEROL 2.5 MG/IPRATROPIUM 0.5 MG NEB (SCH) INH ×4 (03:12→20:35)
[2017-12-23] MEDS: BUDESONIDE-FORMOTEROL 160/4.5 MCG INHALER INH SCH ×2 (09:00→21:34)
[2017-12-23] MEDS: PANTOPRAZOLE SODIUM 40 MG VIAL IV PUSH SCH ×2 (09:20→21:32)
[2017-12-23] MEDS: SODIUM CHLORIDE 0.9% FLUSH 10 ML FLUSH IV FLUSH SCH ×2 (09:20→21:35)
[2017-12-23] MEDS: METOPROLOL TARTRATE 25 MG TAB PO SCH ×2 (09:20→21:34)
[2017-12-23] MEDS: risperiDONE 1 MG TAB PO SCH ×2 (09:21→21:34)
[2017-12-23] MEDS: oxyCODONE/ACETAMINOPHEN 10 MG/325 MG TAB PO PRN ×3 (09:21→21:33)
[2017-12-23] MEDS: GABAPENTIN 300 MG CAP PO SCH ×2 (09:21→21:34)
[2017-12-23] MEDS: LISINOPRIL 20 MG TAB PO SCH (09:21)
--- NOTE | 2017-12-23 10:43 | HHI.GIFU ---
Subjective Remarks Sitting on side of the bed leaning over on her bedside table resting she stated Response to verbal stimuli Colostomy bag functioning with loose brown stool no obvious bleeding Appetite fair attempting to eat small amounts of food and liquids Afebrile (Temitope Landrum) Objective Vitals I&O Vital Signs Date Time Temp Pulse Resp B/P (MAP) Pulse Ox O2 Delivery O2 Flow Rate FiO2 12/23/17 09:49 91 12/23/17 09:35 91 Nasal Cannula 3.00 12/23/17 08:00 97.9 92 16 138/55 (82) 91 12/23/17 00:40 97.9 84 20 124/66 (85) 93 12/22/17 21:11 90 Nasal Cannula 4.00 12/22/17 21:00 94 12/22/17 20:20 98.1 110 23 140/88 (105) 94 12/22/17 15:47 97.9 101 20 114/57 (76) 96 12/22/17 12:13 97.7 92 20 131/87 (102) 96 I/O 12/22/17 12/22/17 12/22/17 12/23/17 12/23/17 12/23/17 07:00 15:00 23:00 07:00 15:00 23:00 Intake Total 720 ml 600 ml Balance 720 ml 600 ml Intake Oral 720 ml 600 ml # Voids 3 3 # Bowel Movements 0 0 Laboratory Laboratory Tests Test 12/22/17 12:25 Urine Color LIGHT-YELLOW Urine Turbidity HAZY Urine pH 5.5 Urine Specific [place] 1.014 Urine Protein TRACE Urine Glucose (UA) NEG Urine Ketones NEG Urine Occult Blood SMALL Urine Nitrite NEG Urine Bilirubin NEG Urine Urobilinogen LESS THAN 2.0 Urine Leukocyte Esterase LARGE Urine RBC 39 Urine WBC 74 Urine WBC Clumps FEW Urine Squamous Epithelial Cells 1 Urine Bacteria MOD Urine Mucus FEW Microscopic Urinalysis Comment CULTURE INDICATED Urine Eosinophils NONE SEEN Urine Random Creatinine 67 Urine Random Total Protein 20 Urine Protein/Creatinine Ratio 0.30 Urine Opiates Screen NEG Urine Barbiturates Screen NEG Urine Amphetamines Screen NEG Urine Benzodiazepines Screen NEG Urine Cocaine Screen NEG Urine Cannabinoids Screen NEG Date/Time Source Procedure Growth Status 12/22/17 12:25 Urine Clean Catch Urine Culture Pending Received Imaging Last Impressions Renal Ultrasound 12/22/17 0000 Signed Impressions: Service Date/Time: Friday, December 22, 2017 11:46 - CONCLUSION: 1. Left-sided hydronephrosis. 2. Urinary bladder mildly distended. 3. Right renal cyst. Austin Lynne MD Lower Extremity Ultrasound 12/22/17 0000 Signed Impressions: Service Date/Time: Friday, December 22, 2017 17:42 - CONCLUSION: Small, nonocclusive thrombus in the left popliteal vein. Otherwise negative. Clayton Burr MD Abdomen/Pelvis CT 12/22/17 0000 Signed Impressions: Service Date/Time: Saturday, December 23, 2017 01:02 - CONCLUSION: 1. Worsening metastatic disease to the lung bases. 2. Development of severe anasarca compared with November 2016. 3. Moderate severe hydronephrosis bilaterally. Small bilateral nonobstructing calcifications appear to be mostly vascular. 4. Left lower quadrant colostomy with parastomal hernia. 5. 2.5 cm ill-defined mass anterior right lobe liver also suspicious for metastatic disease. Kevyn Augustine MD Chest X-Ray 12/21/17 2100 Signed Impressions: Service Date/Time: Thursday, December 21, 2017 21:14 - CONCLUSION: Pulmonary metastatic disease that is probably slightly worse. No definite acute infiltrate. Clayton Burr MD Physical Exam HEENT: Pale facial color normocephalic; atraumatic; no jaundice. Speech is clear NECK: Neck is supple, CHEST: Some diminished breath sounds, no obvious rhonchi CARDIAC: S1-S2, regular ABDOMEN: Soft, nondistended, nontender to light palpation; ostomy bag functioning small hernia palpable , stool is brown thin without any obvious blood , bowel sounds are present in all four quadrants. EXTREMITIES: Moves her extremities with purpose SKIN: Turgor dry, no rash; no jaundice. WOMEN'S APPAREL SALESPERSON: Awake, conversational ,oriented times three. (Temitope Landrum) Assessment and Plan Assessment: (1) Abdominal pain ICD Codes: R10.9 - Unspecified abdominal pain Status: Acute (2) GI bleed ICD Codes: K92.2 - Gastrointestinal hemorrhage, unspecified Status: Acute Plan Anemia possible GI bleed, could be related to metastatic disease, symptoms include lower abdominal pressure into the vaginal area. Current hemoglobin 7.5 , was 8.1 on admission. Colostomy bag shows brown loose stool without any obvious melena or bleeding. Patient has some nausea possible vomiting, but does say yes to those symptoms LFTs noted AST 48 ALT 42. According to the record patient had colon cancer with metastatic disease. She notes some constipation and dark stool approximately a week ago which has now subsided. No previous endoscopy but has had one colonoscopy in the past. We discussed the possibility of doing EGD colonoscopy or both but she is not wanting to commit to either at this time. 12/23/2017 CT scan was done showing metastasis and lungs, severe anasarca edema, colostomy with hernia, liver mass which possibly could be metastasis. Hemoccult stool is pending and current hemoglobin is 7.5. Stool is brown, thin , no obvious blood. Patient is asking for vitamins to hopefully make her feel better and requesting MiraLAX daily so she has no further issues with constipation. Plan Hydration, encourage p.o. fluids and food intake as much as possible. Heart healthy diet PPI IV Monitor for any melena stools, and Hemoccult pending Transfuse as necessary, blood type is done. Anti-emetics MiraLAX daily Vitamins daily per patient's request Monitor labs special attention to hemoglobin Supportive care Patient was seen per myself and Dr. Castañeda, this note was written on his behalf (Temitope Landrum) Physician Comments Patient seen and examined Agree with above Continue with current supportive care Monitor labs Not much to add from a GI perspective we will sign off Please reconsult as needed (Dany Castañeda MD) Temitope Landrum Dec 23, 2017 10:43 Dany Castañeda MD Dec 23, 2017 21:49
[2017-12-23 12:47] LABS: AUTOMATED NEUTROPHIL # 6.2 TH/MM3 (1.8-7.7); BASOPHIL % 0.3 % (0.0-2.0); EOSINOPHIL % 0.3 % (0.0-4.0); HEMOGLOBIN 7.7 GM/DL (11.6-15.3); LYMPH % 8.1 % (9.0-44.0); LYMPHOCYTE # 0.6 TH/MM3 (1.0-4.8); MEAN CELL VOLUME 84.6 FL (80.0-100.0); MEAN CORPUSCULAR HEMOGLOBIN 27.2 PG (27.0-34.0); MEAN CORPUSCULAR HGB CONC 32.1 % (32.0-36.0); MEAN PLATELET VOLUME 7.5 FL (7.0-11.0); MONO % 7.2 % (0.0-8.0); MONOCYTE # 0.5 TH/MM3 (0-0.9); NEUT % 84.1 % (16.0-70.0); PLATELET COUNT 208 TH/MM3 (150-450); RED BLOOD COUNT 2.84 MIL/MM3 (4.00-5.30); RED CELL DISTRIBUTION WIDTH 20.2 % (11.6-17.2); WHITE BLOOD COUNT 7.3 TH/MM3 (4.0-11.0)
[2017-12-23 13:05] LABS: BICARBONATE 28.6 MEQ/L (21.0-32.0); CALCIUM 8.2 MG/DL (8.5-10.1); CREATININE 1.7 MG/DL (0.50-1.00)
[2017-12-23] MEDS: cefTRIAXone INJ 1,000 MG in SODIUM CHLORIDE 0.9% INJ 100 ML IV SCH (14:23)
--- NOTE | 2017-12-23 14:37 | HHI.PR ---
Subjective Remarks Patient reports she is feeling okay. She reports abdominal bloating. She has poor insight into her current medical condition. She is not sure why she is in the hospital. Appeared to be responding to internal stimuli when I entered the room. Objective Vitals Vital Signs Date Time Temp Pulse Resp B/P (MAP) Pulse Ox O2 Delivery O2 Flow Rate FiO2 12/23/17 12:00 97.9 90 16 105/56 (72) 92 12/23/17 09:49 91 12/23/17 09:35 91 Nasal Cannula 3.00 12/23/17 08:00 97.9 92 16 138/55 (82) 91 12/23/17 00:40 97.9 84 20 124/66 (85) 93 12/22/17 21:11 90 Nasal Cannula 4.00 12/22/17 21:00 94 12/22/17 20:20 98.1 110 23 140/88 (105) 94 12/22/17 15:47 97.9 101 20 114/57 (76) 96 I/O 12/22/17 12/22/17 12/22/17 12/23/17 12/23/17 12/23/17 07:00 15:00 23:00 07:00 15:00 23:00 Intake Total 720 ml 600 ml Balance 720 ml 600 ml Intake Oral 720 ml 600 ml # Voids 3 3 # Bowel Movements 0 0 Result Diagram: 12/23/17 1234 12/23/17 1234 Imaging Last Impressions Renal Ultrasound 12/22/17 0000 Signed Impressions: Service Date/Time: Friday, December 22, 2017 11:46 - CONCLUSION: 1. Left-sided hydronephrosis. 2. Urinary bladder mildly distended. 3. Right renal cyst. Austin Lynne MD Lower Extremity Ultrasound 12/22/17 0000 Signed Impressions: Service Date/Time: Friday, December 22, 2017 17:42 - CONCLUSION: Small, nonocclusive thrombus in the left popliteal vein. Otherwise negative. Clayton Burr MD Abdomen/Pelvis CT 12/22/17 0000 Signed Impressions: Service Date/Time: Saturday, December 23, 2017 01:02 - CONCLUSION: 1. Worsening metastatic disease to the lung bases. 2. Development of severe anasarca compared with November 2016. 3. Moderate severe hydronephrosis bilaterally. Small bilateral nonobstructing calcifications appear to be mostly vascular. 4. Left lower quadrant colostomy with parastomal hernia. 5. 2.5 cm ill-defined mass anterior right lobe liver also suspicious for metastatic disease. Kevyn Augustine MD Chest X-Ray 12/21/17 2100 Signed Impressions: Service Date/Time: Thursday, December 21, 2017 21:14 - CONCLUSION: Pulmonary metastatic disease that is probably slightly worse. No definite acute infiltrate. Clayton Burr MD Objective Remarks GENERAL: Chronically ill-appearing female. Appeared to be responding to internal stimuli. CARDIOVASCULAR: Normal rate and regular rhythm without murmurs, gallops, or rubs. RESPIRATORY: Diffuse rhonchi and wheezing throughout. GASTROINTESTINAL: Abdomen with some distention, colostomy looks okay, denies tenderness to palpation. MUSCULOSKELETAL: 3+ bilateral lower extremity edema NEURO: Alert & Oriented to self, place but not situation. Moves all extremities 4 PSYCH: Appear to be responding to internal stimuli. A/P Assessment and Plan 57-year-old female with metastatic colon cancer presented with worsening anemia secondary to GI bleeding. I spoke to the patient's sister and daughter at length. As far as they know, the patient has not had any treatment. Sometimes over the past few months she did end up with a colostomy. It appears that she has had some GI bleeding issues at the [facility] and presented with worsening anemia. Imaging studies revealed worsening metastasis to the lungs, possibly liver. She has diffuse anasarca, poor functional status and very poor insight into her current medical condition. GI bleed Patient with anemia with hemoglobin 8.1 (baseline around 12.) Stool Hemoccult positive Gastroenterology following. Could be secondary to malignancy. Patient is refusing endoscopy at this time. H&H stable this morning. No signs of active bleeding. Follow CBC. Continue PPI History of metastatic colon cancer Status post colonic resection and ostomy, per patient done at [facility]. It does not appear that she had follow-up or formal evaluation by oncologist. Medicine will consult oncology here. Based on discussions with family, it is unclear if they would want to pursue treatment if there are options. Will defer to oncology to present options or prognosis to the patient and her family. I discussed with RN to obtain records from [facility]. Also consult palliative care. The family is goes to take the patient to [place] where she will have more support. They do understand her prognosis is not good. However the patient herself has really poor insight into her condition. BENJI Creatinine 2.50 on presentation, baseline 1 Improved today. Continue to monitor. Discontinue IV fluid given diffuse anasarca. Renal ultrasound does show left hydronephrosis and distended bladder. Since renal function improving today and she is voiding, will hold off on Starr catheter. Apparently she has had issues with urinary obstructions from her cancer and was seen by [facility] at some point based on the records. Continue to monitor renal functions closely. Hyperkalemia Resolved Status post calcium gluconate, insulin in the ED Kayexalate Monitor BMP Bipolar disorder/Kidd act Psychiatry consulted, appreciate assistance Patient restarted on Risperdal. Still appear to be responding to internal stimuli but is calm. COPD Duo nebs Symbicort Supplemental oxygen -patient on home O2 Hypertension Continue home metoprolol, amlodipine, lisinopril Chronic pain Continue fentanyl patch, gabapentin Anasarca/Bilateral lower extremity edema Per medical records this is chronic Holding on Lasix secondary to BENJI Aiyana Olvera MD Dec 23, 2017 14:37
[2017-12-23] MEDS: NICOTINE 14 MG/24 HR PATCH T-DERMAL SCH (14:50)
--- NOTE | 2017-12-23 16:27 | HHI.HCPN ---
Palliative care consulted to assist with goals of care for Ms. Nava. Ms. Nava currently under a Kidd Act, unable to make her own medical decisions. Spoke with sister Nikia to obtain below information. She indicates family is unhappy with patient's care prior to her hospitalization. Nikia feels Ms. Nava has an understanding of what is going on with her medically. Reports "she knows about her cancer and that her life may be limited ", states "she is hoping God will give her more time". Nikia feels Ms. Nava was given medication in the facility "that made her combative". Confirms patient would like to discharge with her daughter and move back to [place] if possible. Ms. Nava is . She has 4 children: 1 adopted out, 2 sons and 1 daughter No known written advanced directives. Per [place] Statutes in absence of written advanced directives, health care proxy decision making falls to the majority of adult children of which patient has 3. *Left message at [facility] inquiring about advanced directives. senior living facesheet indicates she is a FULL CODE. Sister states she never completed a health care surrogate or living will. * Ana Nava, daughter: [phone] * Candido Nava, son-- does not have a phone per family, family is attempting to locate him * Beni Owen [place] # [id number] * [phone]. chief commercial officer, Mr. Dawkins #[phone]. * --Mr. Dawkins has left for today, will attempt to speak with him tomorrow ( 12/24) to determine if Benikosta Owen can participate in medical decision making. * Nikia Jarvis, sister: [phone] * Cheyenne Henderson, sister in law: [phone] and [phone] Spoke with daughter, Ana. Family meeting set up with palliative care tomorrow, 12/24 at 11am. Family is attempting to locate son Candido. Patient's sister, Nikia plans to also attend meeting. Awaiting conversation with benefits officer to determine if jake Bazan can participate. Full palliative care consultation to follow pending family meeting. Ave Turner MSW, FICTION AND NONFICTION PROSE WRITER Dec 23, 2017 16:27
[2017-12-23 17:23] LABS: FREE T3 2.43 PG/ML (2.18-3.98); FREE T4 0.82 NG/DL (0.76-1.46)
--- NOTE | 2017-12-23 22:02 | MB ---
cc: Hermila Jones MD, Ruby Anne E MD Rimpel,Aiyana MALDONADO DATE: 12/23/2017 REFERRING PHYSICIAN Aiyana Olvera CHIEF COMPLAINT: Dr. Olvera requests a consultation for Ms. Nava regarding metastatic cancer. HISTORY OF PRESENT ILLNESS: Ms. Nava is a 57-year-old fast talking woman, well known patient to my partner, Dr. Liss Alvarez. She was brought in by a physician at [facility]. She was under Kidd Act. She was living in [facility] in [place] and had respiratory symptoms. She was seen by Dr. Rob who continued the Kidd Act and started her on Risperdal. Ms. Nava has a history of metastatic cancer. Her workup was outlined and well described by Dr. Alvarez. Initial consultation with Dr. Alvarez was on 03/02/2017. She came to Dr. Alvarez from [facility] emergency room with COPD exacerbation and signs of diverticulitis and diverticular abscess. Ms. Nava's story began at [facility] emergency room with a COPD exacerbation. She had diverticulitis and diverticular abscess. She was treated medically and underwent exploratory surgery with midline vertical incision, sigmoid resection and a colonic mass was noted. 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 She had evidence of pulmonary nodules of metastatic disease. She presented to Dr. Alvarez of [facility] accompanied by her sister. An outside pathology had suggested that the tumor may be of gynecologic origin. They sought a consultation with Dr. Alvarez. She was examined and developed bleeding during the examination. She was offered palliative chemotherapy with carboplatin and Taxol. The outside slides were reviewed. 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 She was offered referral to interventional radiology for port placement. Taxol and carboplatin were recommended. Radiation Oncology was consulted for pelvic radiation. Ms. Nava did not comply. She apparently did not want chemotherapy or radiation toxicity associated with it. She was at one point admitted to [facility] and it sounds like she was discharged to rehab or hospice. She gives the name of [facility]. She has had lower ultrasound evaluation that shows nonocclusive thrombus in the left popliteal vein. She had an abdominal CT that showed metastatic disease to the lung bases, severe anasarca, hydronephrosis bilaterally, left lower quadrant colostomy with parastomal hernia and a 2.5 cm ill-defined mass anterior to the right lobe of the liver suspicious for metastatic disease. With the above findings, Hematology/Oncology was consulted. In our conversation it was clear that Ms. Nava is not interested in treatment. She is quite afraid of the toxicity associated with the treatment. She would rather spend the time outdoors. She spent a lot of time outdoors telling me that she was homeless for several years on and off. She reports that her family is troubled with a son in senior living, a daughter in senior living. She is afraid of her sister having power of central processing tech as she would have control over her assets. She has chronic shortness of breath, chronic leg swelling. She has difficulty urinating. She has pain. She has an ill-fitting colostomy bag. 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 Hemorrhoids, inflammatory bowel disease, kidney stones, migraine, deep vein thromboses, anemia, chronic renal insufficiency. PAST SURGICAL HISTORY: Cholecystectomy, colostomy. FAMILY HISTORY: No family history of cancer. SOCIAL HISTORY: She is an active smoker. Denies any alcohol or illicit drug use. She lives in a [facility] facility and was noncompliant with treatment recommendations. She is . She has several children and a sister. She has poor social support. PHYSICAL EXAMINATION: VITAL SIGNS: Temperature 98.0, heart rate 94, respiratory rate 16, blood pressure 121/67, saturation 92%. GENERAL: Ms. Nava is a 57-year-old woman,who looks older than stated age. She looks worn, disheveled. HEENT: Pupils are round, reactive to light and accommodation. Oropharynx is clear. LUNGS: Diminished breath sounds throughout. CARDIOVASCULAR: Reveals a normal rate and rhythm. ABDOMEN: Marion-ostomy hernia, brown stools. EXTREMITIES: She has significant bilateral lower extremity edema. WELDING INSPECTOR: Evaluation was deferred. LABORATORY DATA: BUN of 61, creatinine 1.7, hemoglobin of 7.7. ASSESSMENT AND PLAN: Ms. Nava is a 57-year-old woman with extensive metastatic disease from adenocarcinoma of unknown origin. Likely etiology is WELDING INSPECTOR. She has been offered palliative chemotherapy back in 02/2017 that she declined. She has not returned to see Dr. Alvarez in followup. She reports now being afraid to take palliative chemotherapy with all of toxicities associated with it. She repeats that she wants to just be outside. She does not want the treatment. She has poor insight into the progression of disease, but it is clear she has a lot of symptoms related to the disease. She has leg swelling and deep vein thromboses, the colostomy bag and the difficulty in urination just to name a few. It sounds like she was referred to hospice care and may be under [facility] care when she was admitted to the hospital. She has a poor performance status and not of the right mind. She is most appropriate for hospice. Her philosophy is more in keeping with hospice care, avoiding cytotoxic chemotherapy. She is not interested in that because of the toxicity that comes with it. I recommend a supportive employment case manager consultation to see if she is with [facility] hospice. Otherwise, refer her for consultation with [facility]. Her questions were answered to her satisfaction. I will discuss the case with Dr. Alvarez in the morning. She has been given an opportunity for treatment back in February but declined. She is in essence declining all treatment and would be most appropriate for hospice. MD EBENEZER Long/ , 09:21 PM , 10:01 PM
[2017-12-24] VITALS (9 sets, daily range): BP systolic 99–144; BP diastolic 52–84; PULSE 76–112; RESP 16–21; TEMP 97.6–98.9; O2SAT 91–97
[2017-12-24] MEDS: RESP: ALBUTEROL 2.5 MG/IPRATROPIUM 0.5 MG NEB (PRN) NEB ×2 (01:03→13:08)
[2017-12-24] MEDS: oxyCODONE/ACETAMINOPHEN 10 MG/325 MG TAB PO PRN ×5 (01:44→21:31)
[2017-12-24] MEDS: cefTRIAXone INJ 1,000 MG in SODIUM CHLORIDE 0.9% INJ 100 ML IV SCH ×2 (01:45→13:51)
[2017-12-24] MEDS: RESP: ALBUTEROL 2.5 MG/IPRATROPIUM 0.5 MG NEB (SCH) INH ×4 (03:24→21:30)
[2017-12-24 07:42] LABS: HEMATOCRIT 22.8 % (35.0-46.0); HEMOGLOBIN 7.3 GM/DL (11.6-15.3); MEAN CELL VOLUME 84.5 FL (80.0-100.0); MEAN CORPUSCULAR HEMOGLOBIN 27.1 PG (27.0-34.0); MEAN PLATELET VOLUME 7.6 FL (7.0-11.0); PLATELET COUNT 193 TH/MM3 (150-450); RED CELL DISTRIBUTION WIDTH 20.1 % (11.6-17.2); WHITE BLOOD COUNT 5.3 TH/MM3 (4.0-11.0)
[2017-12-24 07:51] LABS: PROTHROMBIN TIME - PATIENT 10.2 SEC (9.8-11.6)
[2017-12-24 08:01] LABS: ALBUMIN 2.8 GM/DL (3.4-5.0); BICARBONATE 26.6 MEQ/L (21.0-32.0); CALCIUM 8.3 MG/DL (8.5-10.1); CREATININE 1.56 MG/DL (0.50-1.00); DIRECT BILIRUBIN ADULT 0.1 MG/DL (0.0-0.2)
[2017-12-24 08:04] LABS: INDIRECT BILIRUBIN 0.2 MG/DL (0.0-0.8); TOTAL BILIRUBIN ADULT 0.3 MG/DL (0.2-1.0); TOTAL PROTEIN 5.5 GM/DL (6.4-8.2)
[2017-12-24] MEDS: NICOTINE 14 MG/24 HR PATCH T-DERMAL SCH (08:58)
[2017-12-24] MEDS: PANTOPRAZOLE SODIUM 40 MG VIAL IV PUSH SCH ×2 (08:58→21:32)
[2017-12-24] MEDS: risperiDONE 1 MG TAB PO SCH ×2 (08:59→21:30)
[2017-12-24] MEDS: METOPROLOL TARTRATE 25 MG TAB PO SCH ×2 (08:59→21:30)
[2017-12-24] MEDS: MULTIVITAMIN TAB PO SCH (08:59)
[2017-12-24] MEDS: GABAPENTIN 300 MG CAP PO SCH ×2 (08:59→21:30)
[2017-12-24] MEDS: REMOVE OLD PATCH T-DERMAL SCH (08:59)
[2017-12-24] MEDS: SODIUM CHLORIDE 0.9% FLUSH 10 ML FLUSH IV FLUSH SCH ×2 (09:00→21:32)
[2017-12-24] MEDS: POLYETHYLENE GLYCOL 17 GM PKG PO SCH (09:00)
[2017-12-24] MEDS: BUDESONIDE-FORMOTEROL 160/4.5 MCG INHALER INH SCH ×2 (09:00→21:32)
[2017-12-24] MEDS: LISINOPRIL 20 MG TAB PO SCH (09:00)
--- NOTE | 2017-12-24 10:04 | PD.CONS ---
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 to advance care planning. This was done on a voluntary basis. We discussed the important of both health care surrogate designation and writing a living will. Resuscitation status was discussed. Hospice care was discussed. Questions were answered. During the visit, the patient was offered to a complete a health care surrogate designation form which was singed and witnessed. . Assessment and Plan Disease Oriented Problem List: (1) Metastatic adenocarcinoma Comment: Likely of gyne origin with mets to bowel and lung . (2) Anasarca (3) GI bleed (4) Anemia (5) Acute kidney injury Comment: Improving . (6) COPD (chronic obstructive pulmonary disease) (7) UTI (urinary tract infection) (8) Venous thromboembolism (VTE) (9) Hyperlipidemia (10) GERD (gastroesophageal reflux disease) (11) Nephrolithiasis Symptom Scale: (1) Pain 0-10 Scale: 8 Comment: The patient reports she normally has chronic pain. Her primary pain syndromes are from chronic low back pain from an injury as a young adult. She also has abdominal pain that she describes as feeling like she is in labor. Both pains are described as "constant." Both pains reach level #8 on a daily basis. She is never pain free. Her pain medication "takes the edge off." There are no particular exacerbating or mitigating factors. She also has jaw and neck pain from a dental infection that is worse in the left lower posterior jaw. This pain radiates to the ears. (2) Dyspnea 0-10 Scale: Unable to quantify Comment: Comfortable at rest, but gets SOB with exertion. (3) Confusion 0-10 Scale: Unable to quantify Comment: Improving. Patient is oriented. Has insight into her illness. . (4) Dysuria 0-10 Scale: Unable to quantify Pertinent Non-Medical Issues Psychosocial: Primary local psychosocial support comes from her sister -- Nikia Conley. Ms. Nava is . She has 4 children: 1 adopted out , 2 sons and 1 daughter. One son is incarcerated. Daughter Ana lives in [place] but is visiting. Spiritual: Non-demoninational Rastafarian. Holiness/spirituality are important to her. Would appreciate lipstick molder visits. Legal: Patient designated her sister -- Nikia -- to be health care surrogate. Ethical issues impacting care: Patient is capacitated to make her own health care decisions. . Important Contacts * Nikia Conley, sister and health care surrogate: [phone] * Ana Nava, daughter: [phone] * Candido Nava, son-- does not have a phone per family, family is attempting to locate him * Beni Owen [place] # [id number] * Correctional Facility: [facility] #[phone]. ship's electronic warfare officer, Mr. Dawkins #[phone]. * Cheyenne Henderson, sister in law: [phone] and [phone] . Prognosis Patient has widely metastatic cancer and is not seeking cancer directed treatments at this time. She has anasarca, thromboembolic disease, and UTI. Life expectancy is likely weeks to months. Patient is a candidate for hospice services. . Code Status: No Code Plan == Code Status: patient elects DNR status. During the family meeting of , sister mentioned the conversations she had had with the patient on her desire not to be resuscitated. The patient confirmed this. == Decision making: The patient has limited education and her thought process can wander. However, with prompting she can remain focused and can demonstrate understanding of her illness and can weigh benefits and burdens of treatment options. I believe she is capacitated to make her own health care decisions but feel she will be well served to have her sister Nikia (the health care surrogate) be involved with all major decisions. == Goals of medical treatment: Patient want to return to a facility until she has adequate money to pay for a place of her own. She wants hospice support. she does not want cancer directed treatments. She understands life expectancy is limited. == Symptoms (see descriptions above) * Pain * Dsypnea * Confusion * dysuria == Recommendations * Hospice consult is being arranged. * Continue oral antibiotics for UTI * Needs [place] DNR form at time of hospital discharge * Would leave current analgesic regiment unchanged and have this managed by hospice team unless, for some reason, discharge is delayed and patient is to remain in the hospital for several more days. 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 May want to consider starting systemic steroids ( e.g. dexamethasone 2mg po daily) to see if this can be helped by minimizing kim -tumor swelling). * Would down titrate neuroleptic beginning 12/25 and maintain on lowest effective dose. == Palliative care will continue to follow to assist with symptom management and further clarify goals of medical treatment as the clinical course evolves. . Thank you for the opportunity to participate in the care of Ms. Nava. Pepe Geronimo MD Dec 24, 2017 10:04
--- NOTE | 2017-12-24 13:09 | HHI.PYPN ---
Subjective Remarks The patient was seen today for psychiatric reevaluation, the patient is calm, cooperative, pleasant. She reports that she has been feeling much better. Denies symptoms of depression, reports been in a good mood in a good spirit. She reports feeling safe in the hospital. She denies suicidal enemas ideation, denies visual and auditory hallucinations at the moment. She is logical, coherent and relevant. No loosening of associations, no paranoia, no delusions are present at this moment. The patient has been cooperating appropriately with team, taking her medications, interacting appropriately with staff. Is fully oriented 3. Review of Systems Constitutional: DENIES: Diaphoretic episodes, Fatigue, Fever, Weight gain, Weight loss, Chills, Dizziness, Change in appetite, Night Sweats Endocrine: DENIES: Abnorml menstrual pattern, Heat/cold intolerance, Polydipsia , Polyuria, Polyphagia Eyes: DENIES: Blurred vision, Diplopia, Eye inflammation, Eye pain, Vision loss , Photosensitivity, Double Vision Ears, nose, mouth, throat: DENIES: Tinnitus, Hearing loss, Vertigo, Nasal discharge, Oral lesions, Throat pain, Hoarseness, Ear Pain, Running Nose, Epistaxis, Sinus Pain, Toothache, Odynophagia Cardiovascular: DENIES: Chest pain, Palpitations, Syncope, Dyspnea on Exertion , PND, Lower Extremity Edema, Orthopnea, Claudication Gastrointestinal: DENIES: Abdominal pain, Black stools, Bloody stools, Constipation, Diarrhea, Nausea, Vomiting, Difficulty Swallowing, Anorexia Genitourinary: DENIES: Abnormal vaginal bleeding, Dysmenorrhea, Dyspareunia, Sexual dysfunction, Urinary frequency, Urinary incontinence, Urgency, Hematuria , Dysuria, Nocturia, Vaginal discharge Musculoskeletal: DENIES: Joint pain, Muscle aches, Stiffness, Joint Swelling, Back pain, Neck pain Integumentary: DENIES: Abnormal pigmentation, Pruritus, Rash, Nail changes, Breast masses, Breast skin changes, Nipple discharge Hematologic/lymphatic: DENIES: Bruising, Lymphadenopathy Immunologic/allergic: DENIES: Eczema, Urticaria Neurologic: DENIES: Abnormal gait, Headache, Localized weakness, Paresthesias, Seizures, Speech Problems, Tremor, Poor Balance Psychiatric: DENIES: Anxiety, Confusion, Mood changes, Depression, Hallucinations, Agitation, Suicidal Ideation, Homicidal Ideation, Delusions Mental Status Examination Appearance: Appropriate Consciousness: Alert Orientation: x4 Motor Activity: Normal gait Speech: Unremarkable Language: Adequate Fund of Knowledge: Adequate Attention and Concentration: Adequate Memory: Unremarkable Mood: Oppositional Affect: Flat Thought Process & Associations: Intact Thought Content: Appropriate Hallucination Type: None Delusion Type: None Suicidal Ideation: No Suicidal Plan: No Suicidal Intention: No Homicidal Ideation: No Homicidal Plan: No Homicidal Intention: No Insight: Adequate Judgment: Adequate Results Labs Test 12/23/17 16:23 12/24/17 06:13 Free Thyroxine 0.82 NG/DL Free Triiodothyronine (T3) pg/dL 2.43 PG/ML White Blood Count 5.3 TH/MM3 Red Blood Count 2.70 MIL/MM3 Hemoglobin 7.3 GM/DL Hematocrit 22.8 % Mean Corpuscular Volume 84.5 FL Mean Corpuscular Hemoglobin 27.1 PG Mean Corpuscular Hemoglobin Concent 32.0 % Red Cell Distribution Width 20.1 % Platelet Count 193 TH/MM3 Mean Platelet Volume 7.6 FL Prothrombin Time 10.2 SEC Prothromb Time International Ratio 1.0 RATIO Blood Urea Nitrogen 54 MG/DL Creatinine 1.56 MG/DL Random Glucose 80 MG/DL Total Protein 5.5 GM/DL Albumin 2.8 GM/DL Calcium Level 8.3 MG/DL Alkaline Phosphatase 60 U/L Aspartate Amino Transf (AST/SGOT) 22 U/L Alanine Aminotransferase (ALT/SGPT) 31 U/L Total Bilirubin 0.3 MG/DL Direct Bilirubin 0.1 MG/DL Sodium Level 139 MEQ/L Potassium Level 4.8 MEQ/L Chloride Level 105 MEQ/L Carbon Dioxide Level 26.6 MEQ/L Anion Gap 7 MEQ/L Estimat Glomerular Filtration Rate 34 ML/MIN Indirect Bilirubin 0.2 MG/DL Date/Time Source Procedure Growth Status 12/22/17 12:25 Urine Clean Catch Urine Culture - Preliminary Group D Enterococcus Resulted Vitals/IOs Vital Signs Date Time Temp Pulse Resp B/P (MAP) Pulse Ox O2 Delivery O2 Flow Rate FiO2 12/24/17 12:00 98.0 85 16 99/52 (68) 91 12/24/17 03:25 Nasal Cannula 4.00 Intake and Output 12/24/17 12/24/17 12/25/17 08:00 16:00 00:00 Intake Total 1200 ml Balance 1200 ml Assessment & Plan Problem List: (1) Chronic bipolar disorder ICD Codes: F31.9 - Bipolar disorder, unspecified (2) Bipolar disorder ICD Codes: F31.9 - Bipolar disorder, unspecified Status: Acute Assessment & Plan: Continue current psychotropic medications. Patient does not meet criteria for involuntary psychiatric admission. She is interacting appropriately with staff, taking her medications. No acute psychosis observed at this moment Assessment & Plan Estimated LOS: days Justification for Cont. Inpt. She does not meet criteria for involuntary psychiatric admission. Kidd act will be lifted Papi Olea MD Dec 24, 2017 13:09
--- NOTE | 2017-12-24 13:32 | HHI.PR ---
Subjective Remarks Patient reports she is feeling better. Patient and family met with palliative care today. She does not want to pursue any treatment at this time. Hospice has been consulted. Objective Vitals Vital Signs Date Time Temp Pulse Resp B/P (MAP) Pulse Ox O2 Delivery O2 Flow Rate FiO2 12/24/17 12:00 98.0 85 16 99/52 (68) 91 12/24/17 08:00 97.6 76 16 111/57 (75) 92 12/24/17 03:45 98.0 112 20 144/84 (104) 96 12/24/17 03:25 97 Nasal Cannula 4.00 12/24/17 01:05 96 Nasal Cannula 4.00 12/24/17 00:20 98.9 110 21 135/80 (98) 94 12/23/17 20:36 95 12/23/17 16:00 98.0 94 16 121/67 (85) 92 I/O 12/23/17 12/23/17 12/23/17 12/24/17 12/24/17 12/24/17 07:00 15:00 23:00 07:00 15:00 23:00 Intake Total 600 ml 100 ml 1200 ml Output Total 250 ml Balance 600 ml -150 ml 1200 ml Intake Oral 600 ml 1200 ml IV Total 100 ml Output Stool Total 250 ml # Voids 3 2 # Bowel Movements 0 0 Result Diagram: 12/24/1761212/24/17 06 Objective Remarks GENERAL: Chronically ill-appearing female. No acute distress. CARDIOVASCULAR: Normal rate and regular rhythm without murmurs, gallops, or rubs. RESPIRATORY: Better air movement. Clear to auscultation bilaterally except for diminished breath sounds at the bases. GASTROINTESTINAL: Abdomen with some distention, colostomy looks okay, denies tenderness to palpation. MUSCULOSKELETAL: 3+ bilateral lower extremity edema NEURO: Alert & Oriented to self, place but not situation. Moves all extremities 4 PSYCH: Appear more calm today. A/P Assessment and Plan 57-year-old female with metastatic colon cancer presented with worsening anemia secondary to GI bleeding. I spoke to the patient's sister and daughter at length. As far as they know, the patient has not had any treatment. Sometimes over the past few months she did end up with a colostomy. It appears that [facility] and presented with worsening anemia. Imaging studies revealed worsening metastasis to the lungs, possibly liver. She has diffuse anasarca, poor functional status and very poor insight into her current medical condition. Case discussed with palliative care in the patient. They will meet with hospice to decide on comfort care. Probably discharge back to [facility] with hospice tomorrow. GI bleed Patient with anemia (baseline hemoglobin around 12.) Stool Hemoccult positive Gastroenterology following. Could be secondary to malignancy. Patient is refusing endoscopy at this time. H&H stable this morning. No signs of active bleeding. Continue PPI Metastatic cancer: Primary is likely DESIGN ARCHITECT. -Appreciate oncologist, Dr. Jones input. Apparently the patient was previously followed by Dr. Alvarez but refused treatment. She is still refusing treatment at this time and is comfort care oriented. Hospice has been consulted. -Status post colon resection. BENJI Creatinine 2.50 on presentation, baseline 1 Improving. Continue to monitor. Discontinue IV fluid given diffuse anasarca. Renal ultrasound does show left hydronephrosis and distended bladder. Renal function is improving. Voiding okay. Hyperkalemia Resolved Status post calcium gluconate, insulin in the ED Kayexalate Bipolar disorder/Kidd act Psychiatry consulted, appreciate assistance Patient restarted on Risperdal. More appropriate today. Continue Risperdal. COPD Duo nebs Symbicort Supplemental oxygen -patient on home O2 Hypertension Continue home metoprolol, amlodipine, lisinopril Chronic pain Continue fentanyl patch, gabapentin Anasarca/Bilateral lower extremity edema Per medical records this is chronic, secondary to obstruction presumably from her cancer. Holding Lasix secondary to BENJI Aiyana Olvera MD Dec 24, 2017 13:32
--- NOTE | 2017-12-24 14:35 | HHI.HCPN ---
Spoke with son, Beni currently incarcerated. [facility] kennel manager dog track also present on phone. Provided update per patient request. Answered his questions and concerns to the best of my ability. Son requests to speak with his mother. Approved by retirement staff. Information provided. Palliative care will continue to follow throughout hospitalization. Ave Turner, CASING BUILDER Dec 24, 2017 14:35
[2017-12-25] VITALS (8 sets, daily range): BP systolic 110–129; BP diastolic 55–64; PULSE 83–114; RESP 18; TEMP 97.1–98.4; O2SAT 91–97
[2017-12-25] MEDS: REMOVE OLD DURAGESIC (FENTANYL) PATCH T-DERMAL SCH
[2017-12-25] MEDS: fentaNYL 75 MCG/HR PATCH T-DERMAL SCH (01:29)
[2017-12-25] MEDS: cefTRIAXone INJ 1,000 MG in SODIUM CHLORIDE 0.9% INJ 100 ML IV SCH ×2 (01:31→13:34)
[2017-12-25] MEDS: oxyCODONE/ACETAMINOPHEN 10 MG/325 MG TAB PO PRN ×5 (01:32→20:51)
[2017-12-25] MEDS: RESP: ALBUTEROL 2.5 MG/IPRATROPIUM 0.5 MG NEB (PRN) NEB (01:59)
[2017-12-25] MEDS: RESP: ALBUTEROL 2.5 MG/IPRATROPIUM 0.5 MG NEB (SCH) INH ×4 (04:00→21:20)
[2017-12-25] MEDS: risperiDONE 1 MG TAB PO SCH ×2 (08:31→20:52)
[2017-12-25] MEDS: GABAPENTIN 300 MG CAP PO SCH ×2 (08:31→20:51)
[2017-12-25] MEDS: MULTIVITAMIN TAB PO SCH (08:31)
[2017-12-25] MEDS: LISINOPRIL 20 MG TAB PO SCH (08:31)
[2017-12-25] MEDS: METOPROLOL TARTRATE 25 MG TAB PO SCH ×2 (08:31→20:52)
[2017-12-25] MEDS: PANTOPRAZOLE SODIUM 40 MG VIAL IV PUSH SCH ×2 (08:32→20:51)
[2017-12-25] MEDS: NICOTINE 14 MG/24 HR PATCH T-DERMAL SCH (08:34)
[2017-12-25] MEDS: REMOVE OLD PATCH T-DERMAL SCH (08:34)
[2017-12-25] MEDS: POLYETHYLENE GLYCOL 17 GM PKG PO SCH (08:37)
[2017-12-25] MEDS: SODIUM CHLORIDE 0.9% FLUSH 10 ML FLUSH IV FLUSH SCH ×2 (08:37→20:49)
[2017-12-25] MEDS: BUDESONIDE-FORMOTEROL 160/4.5 MCG INHALER INH SCH ×2 (08:42→20:48)
--- NOTE | 2017-12-25 10:40 | PD.ONC.PN ---
Subjective Subjective Remarks Afebrile overnight. Patient resting in room. "I'm waiting on my sister and hospice to get here. They said we're having a meeting today." reports she is not hungry but her sister has been making her eat. Objective Data Date Time Temp Pulse Resp B/P (MAP) Pulse Ox O2 Delivery O2 Flow Rate FiO2 12/25/17 08:00 97.1 100 18 124/64 (84) 91 12/25/17 07:57 91 Nasal Cannula 4.00 12/25/17 04:00 98.1 95 18 128/57 (80) 92 12/25/17 00:00 98.4 114 18 129/55 (79) 94 12/24/17 21:32 92 Nasal Cannula 4.00 12/24/17 20:00 98.0 94 18 111/65 (80) 91 12/24/17 16:00 97.8 88 16 113/57 (75) 96 12/24/17 12:00 98.0 85 16 99/52 (68) 91 Result Diagram: 12/24/1713 12/24/17612 Culture Results Microbiology Date/Time Source Procedure Growth Status 12/22/17 12:25 Urine Clean Catch Urine Culture - Final Enterococcus Faecalis Complete Administered Medications Medications (Trade) Dose Ordered Sig/Valorie Route PRN Reason Start Time Stop Time Status Last Admin Dose Admin Sodium Chloride (NS Flush) 2 ml BID IV FLUSH 12/22/17 09:00 12/25/17 08:37 Ondansetron HCl (Zofran Inj) 4 mg Q6H PRN IVP NAUSEA OR VOMITING 12/21/17 23:00 12/25/17 08:40 Pantoprazole Sodium (Protonix Inj) 40 mg Q12H IV PUSH 12/22/17 09:00 12/25/17 08:32 Amlodipine Besylate (Norvasc) 10 mg DAILY PO 12/22/17 09:00 12/25/17 08:31 Budesonide/ Formoterol Fumarate (Symbicort 160-4.5 Mcg Inh) 2 puff Q12HR INH 12/22/17 09:00 12/25/17 08:42 Fentanyl (Duragesic 75 Mcg Patch.72 Hr) 1 patch Q72H T-DERMAL 12/22/17 00:00 12/25/17 01:29 Gabapentin (Neurontin) 300 mg BID PO 12/22/17 09:00 12/25/17 08:31 Albuterol/ Ipratropium (Duoneb Neb) 1 ampule Q6HR NEB INH 12/22/17 04:00 12/25/17 07:57 Lisinopril (Prinivil) 20 mg DAILY PO 12/22/17 09:00 12/25/17 08:31 Metoprolol Tartrate (Lopressor) 25 mg BID PO 12/22/17 09:00 12/25/17 08:31 Risperidone (risperDAL) 1 mg Q12HR PO 12/22/17 21:00 12/25/17 08:31 Oxycodone/ Acetaminophen (Percocet 10-325 Mg) 1 tab Q4H PRN PO PAIN 1-10 12/23/17 09:00 12/25/17 08:34 Multivitamins (Theragran) 1 tab DAILY PO 12/24/17 09:00 12/25/17 08:31 Polyethylene Glycol (Miralax) 17 gm DAILY PO 12/24/17 09:00 12/25/17 08:37 Ceftriaxone Sodium 1000 mg/ Sodium Chloride 100 ml @ 200 mls/hr Q12H IV 12/23/17 14:00 12/25/17 01:31 Albuterol/ Ipratropium (Duoneb Neb) 1 ampule Q4HR NEB PRN NEB SOB/WHEEZING 12/23/17 16:00 12/25/17 01:59 Nicotine (Habitrol 14 Mg Patch.24 Hr) 1 patch DAILY T-DERMAL 12/23/17 14:45 12/25/17 08:34 Miscellaneous Information 1 DAILY T-DERMAL 12/24/17 09:00 12/25/17 08:34 Objective Remarks GENERAL: Middle aged female, sitting up in bed in [facility]. SKIN: Warm and dry. HEAD: Normocephalic. EYES: No injection or drainage. NECK: Supple, trachea midline. CARDIOVASCULAR: +S1/S2, tachy RESPIRATORY: scattered rhonchi. On 4L O2 via NC GASTROINTESTINAL: Abdomen soft, colostomy bag in place with brown stool, nondistended. EXTREMITIES: No cyanosis NEUROLOGICAL: awake and alert. normal speech. Assessment/Plan Assessment 57y/o female with metastatic cancer. History (brought forward from initial consult for continuity of care): Initial consultation with Dr. Alvarez was on 03/02/2017. [facility] with a COPD exacerbation. diverticulitis and diverticular abscess. treated medically and underwent exploratory surgery with midline vertical incision, sigmoid resection and a colonic mass was noted. 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 She had evidence of pulmonary nodules of metastatic disease. An outside pathology had suggested that the tumor may be of gynecologic origin. offered palliative chemotherapy with carboplatin and Taxol. has an adenocarcinoma of uncertain origin, possibly gynecologic. She was offered referral to interventional radiology for port placement. Taxol and carboplatin were recommended. Radiation Oncology was consulted for pelvic radiation.Ms. Nava did not comply. She apparently did not want chemotherapy or radiation toxicity associated with it. She was at one point admitted to [facility] and it sounds like she was discharged to rehab or hospice. She gives the name of [facility]. + nonocclusive thrombus in the left popliteal vein. 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 Plan 1. agree with hospice. 2. ok to discharge when arrangements have been made. 3. continue supportive care Attending Statement Agree with above, discussed w/ Dr. Alvarez who agree with hospice referral. Noted palliative care team involvement. Will sign off. Guerita Kunz Dec 25, 2017 10:40 Hermila Jones MD Dec 25, 2017 19:15
--- NOTE | 2017-12-25 12:32 | HHI.PR ---
Subjective Remarks Patient reports feeling okay today. No new issues. Objective Vitals Vital Signs Date Time Temp Pulse Resp B/P (MAP) Pulse Ox O2 Delivery O2 Flow Rate FiO2 12/25/17 12:00 98.0 83 18 113/57 (75) 95 12/25/17 08:00 97.1 100 18 124/64 (84) 91 12/25/17 07:57 91 Nasal Cannula 4.00 12/25/17 04:00 98.1 95 18 128/57 (80) 92 12/25/17 00:00 98.4 114 18 129/55 (79) 94 12/24/17 21:32 92 Nasal Cannula 4.00 12/24/17 20:00 98.0 94 18 111/65 (80) 91 12/24/17 16:00 97.8 88 16 113/57 (75) 96 I/O 12/24/17 12/24/17 12/24/17 12/25/17 12/25/17 12/25/17 07:00 15:00 23:00 07:00 15:00 23:00 Intake Total 1200 ml 100 ml Balance 1200 ml 100 ml Intake Oral 1200 ml IV Total 100 ml # Voids 2 2 # Bowel Movements 0 Result Diagram: 12/24/1761212/24/17 06 Objective Remarks GENERAL: Chronically ill-appearing female. No acute distress. CARDIOVASCULAR: Normal rate and regular rhythm without murmurs, gallops, or rubs. RESPIRATORY: Better air movement. Clear to auscultation bilaterally except for diminished breath sounds at the bases. GASTROINTESTINAL: Abdomen with some distention, colostomy looks okay, denies tenderness to palpation. MUSCULOSKELETAL: 3+ bilateral lower extremity edema NEURO: Alert & Oriented to self, place but not situation. Moves all extremities 4 PSYCH: Appear calm today. A/P Assessment and Plan 57-year-old female with metastatic colon cancer presented with worsening anemia secondary to GI bleeding. I spoke to the patient's sister and daughter at length. As far as they know, the patient has not had any treatment. Sometimes over the past few months she did end up with a colostomy. It appears that she has had some [facility] and presented with worsening anemia. Imaging studies revealed worsening metastasis to the lungs, possibly liver. She has diffuse anasarca, poor functional status and very poor insight into her current medical condition. Case discussed with palliative care in the patient. Family and patient met with hospice. They are agreeable to hospice. However there are issues with [facility] taking her back. GI bleed Patient with anemia (baseline hemoglobin around 12.) Stool Hemoccult positive Gastroenterology following. Could be secondary to malignancy. Patient is refusing endoscopy at this time. H&H stable. No signs of active bleeding. 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 -Appreciate oncologist, Dr. Jones input. Apparently the patient was previously followed by Dr. Alvarez but refused treatment. She is still refusing treatment at this time and is comfort care oriented. -Status post colon resection. - Hospice on board BENJI Creatinine 2.50 on presentation, baseline 1 Improving. Continue to monitor. Discontinue IV fluid given diffuse anasarca. Renal ultrasound does show left hydronephrosis and distended bladder. Renal function improved. Voiding okay. Hyperkalemia Resolved Status post calcium gluconate, insulin in the ED Kayexalate Bipolar disorder/Kidd act Psychiatry consulted, appreciate assistance Patient restarted on Risperdal. She is more appropriate. Continue Risperdal. COPD Duo nebs Symbicort Supplemental oxygen -patient on home O2 Hypertension Continue home metoprolol, amlodipine, lisinopril Chronic pain Continue fentanyl patch, gabapentin Anasarca/Bilateral lower extremity edema Per medical records this is chronic, secondary to obstruction presumably from her cancer. Holding Lasix secondary to BENJI Discharge Planning Awaiting placement Aiyana Olvera MD Dec 25, 2017 12:32
[2017-12-26] VITALS: BP_SYST 105; BP_SYST 110; BP_DIAS 54; BP_DIAS 58; PULSE 86; PULSE 95; RESP 18; TEMP 97.5; TEMP 98.5; O2SAT 92; O2SAT 95
[2017-12-26] MEDS: cefTRIAXone INJ 1,000 MG in SODIUM CHLORIDE 0.9% INJ 100 ML IV SCH (01:29)
[2017-12-26 04:00] VITALS: BP 96/61; PULSE 86; RESP 20; TEMP 97.9; O2SAT 92
[2017-12-26] MEDS: RESP: ALBUTEROL 2.5 MG/IPRATROPIUM 0.5 MG NEB (PRN) NEB ×3 (04:04→21:11)
[2017-12-26 08:13] VITALS: BP 124/65; PULSE 95; RESP 18; TEMP 99.5; O2SAT 91
[2017-12-26] MEDS: REMOVE OLD PATCH T-DERMAL SCH (09:00)
[2017-12-26] MEDS: BUDESONIDE-FORMOTEROL 160/4.5 MCG INHALER INH SCH ×2 (09:00→21:56)
[2017-12-26] MEDS: risperiDONE 1 MG TAB PO SCH ×2 (09:08→21:53)
[2017-12-26] MEDS: MULTIVITAMIN TAB PO SCH (09:08)
[2017-12-26] MEDS: LISINOPRIL 20 MG TAB PO SCH (09:08)
[2017-12-26] MEDS: METOPROLOL TARTRATE 25 MG TAB PO SCH ×2 (09:08→21:00)
[2017-12-26] MEDS: POLYETHYLENE GLYCOL 17 GM PKG PO SCH (09:08)
[2017-12-26] MEDS: GABAPENTIN 300 MG CAP PO SCH ×2 (09:08→21:53)
[2017-12-26] MEDS: NICOTINE 14 MG/24 HR PATCH T-DERMAL SCH (09:09)
[2017-12-26] MEDS: SODIUM CHLORIDE 0.9% FLUSH 10 ML FLUSH IV FLUSH SCH ×2 (09:09→21:55)
[2017-12-26] MEDS: PANTOPRAZOLE SODIUM 40 MG VIAL IV PUSH SCH ×2 (09:09→21:55)
--- NOTE | 2017-12-26 11:06 | HHI.PR ---
Subjective Remarks Patient is more lethargic today. She complains of abdominal discomfort. Objective Vitals Vital Signs Date Time Temp Pulse Resp B/P (MAP) Pulse Ox O2 Delivery O2 Flow Rate FiO2 12/26/17 08:13 99.5 95 18 124/65 (84) 91 12/26/17 04:00 97.9 86 20 96/61 (73) 92 12/26/17 00:00 98.5 86 18 105/54 (71) 92 12/25/17 21:21 97 Nasal Cannula 4.00 12/25/17 20:00 97.5 95 18 110/58 (75) 95 12/25/17 16:00 97.8 105 18 114/56 (75) 93 12/25/17 12:00 98.0 83 18 113/57 (75) 95 I/O 12/25/17 12/25/17 12/25/17 12/26/17 12/26/17 12/26/17 07:00 15:00 23:00 07:00 15:00 23:00 Intake Total 100 ml Balance 100 ml IV Total 100 ml # Voids 2 2 Result Diagram: 12/24/1761212/24/17612 Objective Remarks GENERAL: Chronically ill-appearing female. Lethargic. CARDIOVASCULAR: Normal rate and regular rhythm without murmurs, gallops, or rubs. RESPIRATORY: Better air movement. Clear to auscultation bilaterally except for diminished breath sounds at the bases. GASTROINTESTINAL: Abdomen with some distention, colostomy looks okay, denies tenderness to palpation. MUSCULOSKELETAL: 3+ bilateral lower extremity edema NEURO: Lethargic A/P Assessment and Plan 57-year-old female with metastatic colon cancer presented with worsening anemia secondary to GI bleeding. I spoke to the patient's sister and daughter at length. As far as they know, the patient has not had any treatment. Sometimes over the past few months she did end up with a colostomy. It appears that she has had some GI bleeding issues at the [place] [facility] and presented with worsening anemia. Imaging studies revealed worsening metastasis to the lungs, possibly liver. She has diffuse anasarca, poor functional status and very poor insight into her current medical condition. Case discussed with palliative care in the patient. Family and patient met with hospice. They are agreeable to hospice. However there are issues with [facility] taking her back. The patient is declining and is appropriate for hospice care center at this point for symptom management. Discussed with hospice social worker. GI bleed Patient with anemia (baseline hemoglobin around 12.) Stool Hemoccult positive Gastroenterology following. Could be secondary to malignancy. Patient is refusing endoscopy at this time. H&H stable. No signs of active bleeding. Continue PPI Metastatic cancer: Primary is likely [employer]. -Appreciate oncologist, Dr. Jones input. Apparently the patient was previously followed by Dr. Alvarez but refused treatment. She is still refusing treatment at this time and is comfort care oriented. -Status post colon resection. - Hospice on board [facility] Creatinine 2.50 on presentation, baseline 1 Improving. Continue to monitor. Discontinue IV fluid given diffuse anasarca. Renal ultrasound does show left hydronephrosis and distended bladder. Renal function improved. Voiding okay. Hyperkalemia Resolved Status post calcium gluconate, insulin in the ED Kayexalate Bipolar disorder/Kidd act Psychiatry consulted, appreciate assistance Patient restarted on Risperdal. She is more appropriate. Continue Risperdal. COPD Duo nebs Symbicort Supplemental oxygen -patient on home O2 Hypertension Continue home metoprolol, amlodipine, lisinopril Chronic pain Continue fentanyl patch, gabapentin Anasarca/Bilateral lower extremity edema Per medical records this is chronic, secondary to obstruction presumably from her cancer. Holding Lasix secondary to [facility] Discharge Planning Awaiting placement. Appropriate for hospice care center if arrangements can be made. Aiyana Olvera MD Dec 26, 2017 11:06
[2017-12-26 12:00] VITALS: BP 95/51; PULSE 89; RESP 18; TEMP 99.2; O2SAT 91
[2017-12-26] MEDS: oxyCODONE/ACETAMINOPHEN 10 MG/325 MG TAB PO PRN ×4 (12:30→21:54)
[2017-12-26 14:48] LABS: ALBUMIN 2.4 GM/DL (3.4-5.0); ALT (GPT) 25 U/L (10-53); AST (GOT) 24 U/L (15-37); BLOOD UREA NITROGEN 48 MG/DL (7-18); CALCIUM 7.9 MG/DL (8.5-10.1); CHLORIDE 106 MEQ/L (98-107); CREATININE 1.86 MG/DL (0.50-1.00); GLOMERULAR FILTRATION RATE 28 ML/MIN (>89); GLUCOSE,RANDOM 128 MG/DL (74-106); SODIUM (NA) 141 MEQ/L (136-145)
[2017-12-26 14:50] LABS: ALKALINE PHOSPHATASE 55 U/L (45-117); TOTAL BILIRUBIN ADULT 0.2 MG/DL (0.2-1.0); TOTAL PROTEIN 4.9 GM/DL (6.4-8.2)
[2017-12-26 20:00] VITALS: BP 102/63; PULSE 101; RESP 18; TEMP 98.3; O2SAT 94
[2017-12-26 21:04] VITALS: O2SAT 92
[2017-12-27] VITALS (7 sets, daily range): BP systolic 106–185; BP diastolic 56–86; PULSE 91–114; RESP 18–20; TEMP 97.1–98.2; O2SAT 85–97
[2017-12-27] MEDS: RESP: ALBUTEROL 2.5 MG/IPRATROPIUM 0.5 MG NEB (PRN) NEB ×4 (01:40→23:43)
[2017-12-27] MEDS: oxyCODONE/ACETAMINOPHEN 10 MG/325 MG TAB PO PRN ×4 (02:35→20:12)
[2017-12-27] MEDS: MULTIVITAMIN TAB PO SCH (07:45)
[2017-12-27] MEDS: GABAPENTIN 300 MG CAP PO SCH ×2 (07:46→20:18)
[2017-12-27] MEDS: NICOTINE 14 MG/24 HR PATCH T-DERMAL SCH (07:47)
[2017-12-27] MEDS: SODIUM CHLORIDE 0.9% FLUSH 10 ML FLUSH IV FLUSH SCH ×2 (07:48→20:16)
[2017-12-27] MEDS: POLYETHYLENE GLYCOL 17 GM PKG PO SCH (07:50)
[2017-12-27] MEDS: METOPROLOL TARTRATE 25 MG TAB PO SCH ×2 (07:53→20:12)
[2017-12-27] MEDS: PANTOPRAZOLE SODIUM 40 MG VIAL IV PUSH SCH ×2 (07:53→20:14)
[2017-12-27] MEDS: risperiDONE 1 MG TAB PO SCH ×2 (07:53→20:12)
[2017-12-27] MEDS: LISINOPRIL 20 MG TAB PO SCH (07:53)
[2017-12-27] MEDS: REMOVE OLD PATCH T-DERMAL SCH (07:54)
[2017-12-27] MEDS: BUDESONIDE-FORMOTEROL 160/4.5 MCG INHALER INH SCH ×2 (08:49→20:17)
--- NOTE | 2017-12-27 11:03 | HHI.PR ---
Subjective Remarks Refused Risperdal this morning, more awake. Tangential conversation. Objective Vitals Vital Signs Date Time Temp Pulse Resp B/P (MAP) Pulse Ox O2 Delivery O2 Flow Rate FiO2 12/27/17 08:00 97.7 102 20 116/56 (76) 91 12/27/17 05:00 97.7 108 18 128/60 (82) 91 12/27/17 00:00 98.2 113 18 113/77 (89) 91 12/26/17 21:04 92 Nasal Cannula 4.00 12/26/17 20:00 98.3 101 18 102/63 (76) 94 12/26/17 12:00 99.2 89 18 95/51 (66) 91 12/26/17 11:54 Nasal Cannula 4.00 I/O 12/26/17 12/26/17 12/26/17 12/27/17 12/27/17 12/27/17 07:00 15:00 23:00 07:00 15:00 23:00 # Voids 2 3 Result Diagram: 12/24/17 0613 12/26/17 1411 Objective Remarks GENERAL: Chronically ill-appearing female. CARDIOVASCULAR: Normal rate and regular rhythm without murmurs, gallops, or rubs. RESPIRATORY: Better air movement. Clear to auscultation bilaterally except for diminished breath sounds at the bases. GASTROINTESTINAL: Abdomen with some distention, colostomy looks okay, denies tenderness to palpation. MUSCULOSKELETAL: 3+ bilateral lower extremity edema NEURO: Awake and alert Psych: Flight of ideas. A/P Assessment and Plan 57-year-old female with metastatic colon cancer presented with worsening anemia secondary to GI bleeding. I spoke to the patient's sister and daughter at length. As far as they know, the patient has not had any treatment. Sometimes over the past few months she did end up with a colostomy. It appears that she has had some GI bleeding issues at the care home and presented with worsening anemia. Imaging studies revealed worsening metastasis to the lungs, possibly liver. She has diffuse anasarca, poor functional status and very poor insight into her current medical condition. Case discussed with palliative care in the patient. Family and patient met with hospice. They are agreeable to hospice. However there are issues with [facility] taking her back. The patient is declining and is appropriate for hospice care center at this point for symptom management. Discussed with hospice registered nurse. GI bleed Patient with anemia (baseline hemoglobin around 12.) Stool Hemoccult positive Gastroenterology following. Could be secondary to malignancy. Patient refused endoscopy. No signs of active bleeding. Continue PPI Metastatic cancer: Primary is likely [employer]IATRI[employer]TH[employer]. -Appreciate oncologist, Dr. Jnoes input. Apparently the patient was previously followed by Dr. Alvarez but refused treatment. She is still refusing treatment at this time and is comfort care oriented. -Status post colon resection. - Hospice on board [facility] Creatinine 2.50 on presentation, baseline 1 Improving. Continue to monitor. Discontinue IV fluid given diffuse anasarca. Renal ultrasound does show left hydronephrosis and distended bladder. Renal function improved. Voiding okay. Hyperkalemia Resolved Status post calcium gluconate, insulin in the ED Kayexalate Bipolar disorder/Kidd act Psychiatry consulted, appreciate assistance Patient restarted on Risperdal. She is more appropriate. Continue Risperdal. COPD Duo nebs Symbicort Supplemental oxygen -patient on home O2 Hypertension Continue home metoprolol, amlodipine, lisinopril Chronic pain Continue fentanyl patch, gabapentin Anasarca/Bilateral lower extremity edema Per medical records this is chronic, secondary to obstruction presumably from her cancer. Holding Lasix secondary to [facility] Discharge Planning Awaiting placement. Appropriate for hospice care center if arrangements can be made. Sister looking into putting the patient in an apartment. Aiyana Olvera MD Dec 27, 2017 11:03
[2017-12-27] MEDS: BUMETANIDE 1 MG TAB PO SCH (18:00)
[2017-12-28] VITALS (7 sets, daily range): BP systolic 93–130; BP diastolic 51–88; PULSE 81–110; RESP 18–23; TEMP 97.6–99.4; O2SAT 80–95
[2017-12-28] MEDS: REMOVE OLD DURAGESIC (FENTANYL) PATCH T-DERMAL SCH
[2017-12-28] MEDS: BUMETANIDE 1 MG TAB PO SCH ×3 (00:09→17:43)
[2017-12-28] MEDS: oxyCODONE/ACETAMINOPHEN 10 MG/325 MG TAB PO PRN ×6 (00:10→22:28)
[2017-12-28] MEDS: fentaNYL 75 MCG/HR PATCH T-DERMAL SCH (00:11)
[2017-12-28] MEDS: RESP: ALBUTEROL 2.5 MG/IPRATROPIUM 0.5 MG NEB (PRN) NEB ×3 (03:39→11:55)
[2017-12-28] MEDS: POLYETHYLENE GLYCOL 17 GM PKG PO SCH (08:20)
[2017-12-28] MEDS: NICOTINE 14 MG/24 HR PATCH T-DERMAL SCH (08:21)
[2017-12-28] MEDS: METOPROLOL TARTRATE 25 MG TAB PO SCH ×2 (08:22→21:16)
[2017-12-28] MEDS: risperiDONE 1 MG TAB PO SCH ×2 (08:22→21:16)
[2017-12-28] MEDS: MULTIVITAMIN TAB PO SCH (08:22)
[2017-12-28] MEDS: LISINOPRIL 20 MG TAB PO SCH (08:22)
[2017-12-28] MEDS: GABAPENTIN 300 MG CAP PO SCH ×2 (08:23→21:17)
[2017-12-28] MEDS: PANTOPRAZOLE SODIUM 40 MG VIAL IV PUSH SCH ×2 (08:23→21:16)
[2017-12-28] MEDS: REMOVE OLD PATCH T-DERMAL SCH (08:45)
[2017-12-28] MEDS: BUDESONIDE-FORMOTEROL 160/4.5 MCG INHALER INH SCH ×2 (09:00→21:14)
[2017-12-28] MEDS: SODIUM CHLORIDE 0.9% FLUSH 10 ML FLUSH IV FLUSH SCH ×2 (09:00→21:15)
--- NOTE | 2017-12-28 10:50 | HHI.PR ---
Subjective Remarks No new issues. Patient states her sister is looking for a place for her to live. Objective Vitals Vital Signs Date Time Temp Pulse Resp B/P (MAP) Pulse Ox O2 Delivery O2 Flow Rate FiO2 12/28/17 08:03 94 Nasal Cannula 3.00 12/28/17 08:00 97.8 94 23 129/59 (82) 91 12/28/17 03:18 99.4 99 18 103/58 (73) 80 12/27/17 23:45 95 Nasal Cannula 3.00 12/27/17 21:30 95 Nasal Cannula 3.00 12/27/17 20:10 Nasal Cannula 3.00 12/27/17 20:00 97.1 114 18 185/86 (119) 85 12/27/17 16:00 97.9 91 18 106/61 (76) 95 12/27/17 12:00 98.0 101 18 125/61 (82) 97 I/O 12/27/17 12/27/17 12/27/17 12/28/17 12/28/17 12/28/17 07:00 15:00 23:00 07:00 15:00 23:00 # Voids 3 Result Diagram: 12/24/17 0613 12/26/17 1411 Objective Remarks GENERAL: Chronically ill-appearing female. CARDIOVASCULAR: Normal rate and regular rhythm without murmurs, gallops, or rubs. RESPIRATORY: Better air movement. Clear to auscultation bilaterally except for diminished breath sounds at the bases. GASTROINTESTINAL: Abdomen with some distention, colostomy looks okay, denies tenderness to palpation. MUSCULOSKELETAL: 3+ bilateral lower extremity edema Psych: Flight of ideas. A/P Assessment and Plan 57-year-old female with metastatic colon cancer presented with worsening anemia secondary to GI bleeding. I spoke to the patient's sister and daughter at length. As far as they know, the patient has not had any treatment. Sometimes over the past few months she did end up with a colostomy. It appears that she has had some GI bleeding issues at the alf and presented with worsening anemia. Imaging studies revealed worsening metastasis to the lungs, possibly liver. She has diffuse anasarca, poor functional status and very poor insight into her current medical condition. Case discussed with palliative care and the patient. Family and patient met with hospice. They are agreeable to hospice. However there are issues with [facility] taking her back. Awaiting placement. GI bleed Patient with anemia (baseline hemoglobin around 12.) Stool Hemoccult positive Gastroenterology following. Could be secondary to malignancy. Patient refused endoscopy. No signs of active bleeding. Continue PPI Labs pending this morning. Metastatic cancer: Primary is likely [employer]. -Appreciate oncologist, Dr. Jones input. Apparently the patient was previously followed by Dr. Alvarez but refused treatment. She is still refusing treatment at this time and is comfort care oriented. -Status post colon resection. - Hospice on board [facility] Creatinine 2.50 on presentation, baseline 1 Renal functions labile.. Continue to monitor. Renal ultrasound does show left hydronephrosis and distended bladder. Voiding okay. Hyperkalemia Status post calcium gluconate, insulin in the ED Kayexalate Bipolar disorder/Kidd act Psychiatry consulted, appreciate assistance Patient restarted on Risperdal. She is more appropriate. Continue Risperdal. At times patient refused this medication. COPD Duo nebs Symbicort Supplemental oxygen -patient on home O2 Hypertension Continue home metoprolol, amlodipine, lisinopril Chronic pain Continue fentanyl patch, gabapentin Anasarca/Bilateral lower extremity edema Per medical records this is chronic, secondary to obstruction presumably from her cancer. Bumetanide 1 mg p.o. twice daily. Discharge Planning Awaiting placement. May be appropriate for hospice care center if arrangements can be made. Sister looking into putting the patient in an apartment. Aiyana Olvera MD Dec 28, 2017 10:50
[2017-12-28 11:14] LABS: HEMATOCRIT 24.3 % (35.0-46.0); HEMOGLOBIN 7.8 GM/DL (11.6-15.3); MEAN CELL VOLUME 84.4 FL (80.0-100.0); MEAN PLATELET VOLUME 7.9 FL (7.0-11.0); PLATELET COUNT 193 TH/MM3 (150-450); RED BLOOD COUNT 2.87 MIL/MM3 (4.00-5.30); RED CELL DISTRIBUTION WIDTH 19.8 % (11.6-17.2); WHITE BLOOD COUNT 6.1 TH/MM3 (4.0-11.0)
[2017-12-28 11:36] LABS: ALBUMIN 2.7 GM/DL (3.4-5.0); BICARBONATE 26.4 MEQ/L (21.0-32.0); CALCIUM 8.6 MG/DL (8.5-10.1); CREATININE 1.65 MG/DL (0.50-1.00); DIRECT BILIRUBIN ADULT 0.1 MG/DL (0.0-0.2)
[2017-12-28 11:40] LABS: INDIRECT BILIRUBIN 0.1 MG/DL (0.0-0.8); TOTAL BILIRUBIN ADULT 0.2 MG/DL (0.2-1.0); TOTAL PROTEIN 5.5 GM/DL (6.4-8.2)
[2017-12-29 00:30] VITALS: BP 132/80; PULSE 105; RESP 20; TEMP 97.9; O2SAT 95
[2017-12-29 05:00] VITALS: BP 140/86; PULSE 110; RESP 22; TEMP 98.3; O2SAT 93
[2017-12-29 07:56] VITALS: BP 112/79; PULSE 82; RESP 16; TEMP 98.3; O2SAT 90
[2017-12-29] MEDS: REMOVE OLD PATCH T-DERMAL SCH (09:00)
[2017-12-29] MEDS: GABAPENTIN 300 MG CAP PO SCH (09:00)
[2017-12-29] MEDS: BUDESONIDE-FORMOTEROL 160/4.5 MCG INHALER INH SCH (09:00)
[2017-12-29] MEDS: METOPROLOL TARTRATE 25 MG TAB PO SCH (09:00)
[2017-12-29] MEDS: PANTOPRAZOLE SODIUM 40 MG VIAL IV PUSH SCH (09:00)
[2017-12-29] MEDS: LISINOPRIL 20 MG TAB PO SCH (09:00)
[2017-12-29] MEDS: BUMETANIDE 1 MG TAB PO SCH (09:49)
[2017-12-29] MEDS: NICOTINE 14 MG/24 HR PATCH T-DERMAL SCH (09:51)
[2017-12-29] MEDS: oxyCODONE/ACETAMINOPHEN 10 MG/325 MG TAB PO PRN (09:51)
[2017-12-29] MEDS: risperiDONE 1 MG TAB PO SCH (09:52)
[2017-12-29] MEDS: MULTIVITAMIN TAB PO SCH (09:52)
[2017-12-29] MEDS: POLYETHYLENE GLYCOL 17 GM PKG PO SCH (09:54)
[2017-12-29] MEDS: SODIUM CHLORIDE 0.9% FLUSH 10 ML FLUSH IV FLUSH SCH (09:54)
[2017-12-29] MEDS ORDERED: AMPI500 PO (11:40)
--- NOTE | 2017-12-29 11:47 | HHI.DS ---
Discharge Summary Admission Date Dec 21, 2017 at 22:41 Discharge Date: December 29, 2017 Admitting Diagnosis Acute kidney injury, GI bleed, hyperkalemia, bipolar disorder (1) Metastatic adenocarcinoma ICD Code: C79.9 - Secondary malignant neoplasm of unspecified site (2) UTI (urinary tract infection) ICD Code: N39.0 - UTI (urinary tract infection) Status: Acute (3) GI bleed ICD Code: K92.2 - Gastrointestinal hemorrhage, unspecified (4) Anemia ICD Code: D64.9 - Anemia, unspecified Procedures none Brief History - From Admission 57-year-old female with past medical history significant for hypertension, hyperlipidemia, COPD on home oxygen, bipolar disorder with anxiety and psychosis , GERD and history of colon cancer with metastatic disease is brought to the emergency department under Kidd act. The patient has been a resident of a senior living facility and has recently been refusing all medical care as well as refusing to take her medication or bathe. She reportedly has been sleeping outside on the ground. The patient cannot tell me why she is in the emergency department. She is unable to provide any significant history. She does not know why she has a colostomy. She states she believes she has bladder cancer. Her speech is pressured. She denies any pain anywhere. CBC/BMP: 12/28/17 1055 12/28/17 1055 Significant Findings Laboratory Tests Test 12/26/17 14:11 12/28/17 10:55 Blood Urea Nitrogen 48 MG/DL (7-18) 41 MG/DL (7-18) Creatinine 1.86 MG/DL (0.50-1.00) 1.65 MG/DL (0.50-1.00) Random Glucose 128 MG/DL (74-106) 111 MG/DL (74-106) Total Protein 4.9 GM/DL (6.4-8.2) 5.5 GM/DL (6.4-8.2) Albumin 2.4 GM/DL (3.4-5.0) 2.7 GM/DL (3.4-5.0) Calcium Level 7.9 MG/DL (8.5-10.1) Potassium Level 5.2 MEQ/L (3.5-5.1) Estimat Glomerular Filtration Rate 28 ML/MIN (>89) 32 ML/MIN (>89) Ammonia 40 MCMOL/L (11-32) Red Blood Count 2.87 MIL/MM3 (4.00-5.30) Hemoglobin 7.8 GM/DL (11.6-15.3) Hematocrit 24.3 % (35.0-46.0) Red Cell Distribution Width 19.8 % (11.6-17.2) PE at Discharge GENERAL: Chronically ill-appearing female. CARDIOVASCULAR: Normal rate and regular rhythm without murmurs, gallops, or rubs. RESPIRATORY: Better air movement. Clear to auscultation bilaterally except for diminished breath sounds at the bases. GASTROINTESTINAL: Abdomen with some distention, colostomy looks okay, denies tenderness to palpation. MUSCULOSKELETAL: 3+ bilateral lower extremity edema Psych: Flight of ideas. Hospital Course 57-year-old female with history of metastatic adenocarcinoma, likely gynecological in origin. She presented on this stay for GI bleed, acute kidney injury, generalized weakness, hyperkalemia. She remains anemic but shows no signs of active bleeding at this time. After lengthy discussion of pros and cons and time to dwell on her decision she has decided to elect for hospice at home. Prior to discharge today was discovered that she had a urinary tract infection and she will be taking 1 week of ampicillin. Her care plan will be guided by hospice at this point. She will be going home in approximately 1 hour. Pt Condition on Discharge: Fair Discharge Disposition: Hospice/ Home Discharge Time: <= 30 minutes Discharge Instructions DIET: Follow Instructions for: As Tolerated, No Restrictions Activities you can perform: Weight Bearing as Nilson Perkins MD December 29, 2017 11:47
[2017-12-29 11:54] VITALS: BP 106/52; PULSE 82; RESP 18; TEMP 98.1; O2SAT 91
[2017-12-29] MEDS ORDERED: AMOXICILLIN (TRIHYDRATE) 500 MG CAP PO SCH (14:00)
== END 2017-12-29 14:00 | disposition hospice, home (50) | DRG 378 ==
LOC: NEPC 20:40 → NEDA 22:41 → N05A 12-22 00:35
PROVIDERS: ADMIT Family Medicine; ATTEND Family Medicine
DX: K92.2 Gastrointestinal hemorrhage, unspecified (principal); N17.9 Acute kidney failure, unspecified; C78.00 Secondary malignant neoplasm of unspecified lung; I82.432 Acute embolism and thrombosis of left popliteal vein; C78.7 Secondary malignant neoplasm of liver and intrahepatic bile duct; C78.02 Secondary malignant neoplasm of left lung; C78.01 Secondary malignant neoplasm of right lung; E86.0 Dehydration; C80.1 Malignant (primary) neoplasm, unspecified; N13.2 Hydronephrosis with renal and ureteral calculous obstruction; N39.0 Urinary tract infection, site not specified; I12.9 Hypertensive chronic kidney disease with stage 1 through stage 4 chronic kidney disease, or unspecified chronic kidney disease; D50.0 Iron deficiency anemia secondary to blood loss (chronic); E87.5 Hyperkalemia; E78.5 Hyperlipidemia, unspecified; N18.9 Chronic kidney disease, unspecified; K21.9 Gastro-esophageal reflux disease without esophagitis; K43.5 Parastomal hernia without obstruction or gangrene; K04.7 Periapical abscess without sinus; R60.1 Generalized edema; D63.0 Anemia in neoplastic disease; H91.93 Unspecified hearing loss, bilateral; J44.9 Chronic obstructive pulmonary disease, unspecified; F17.200 Nicotine dependence, unspecified, uncomplicated; F31.9 Bipolar disorder, unspecified; F41.9 Anxiety disorder, unspecified; Z51.5 Encounter for palliative care; Z66 Do not resuscitate; Z85.038 Personal history of other malignant neoplasm of large intestine; Z88.6 Allergy status to analgesic agent; Z90.49 Acquired absence of other specified parts of digestive tract; Z91.14 Patient's other noncompliance with medication regimen; Z91.19 Patient's noncompliance with other medical treatment and regimen; Z93.3 Colostomy status; Z99.81 Dependence on supplemental oxygen
CPT/HCPCS: 71046; 74176; 76775; 76937; 80048; 80053; 80076; 80307; 81001; 82140; 82570; 82948; 83880; 84156; 84439; 84443; 84481; 85025; 85027; 85610; 86850; 86900; 86901; 87077; 87086; 87186; 87205; 93005; 93971; 94640; 94664; 96374; 96375; C9113; J0610; J0696; J1630; J1815; J1940; J2270; J2405; J2930; J7030; J7611; Q9963